=== PATIENT | male | born 1945 | race Caucasian/White ===

== ENCOUNTER 2020-05-07 07:30 | Inpatient (IN) | payer MEDICARE ==
--- NOTE | 2020-05-07 07:44 | ED ---
Weakness HPI - General Stated complaint: Poss stroke Time Seen by Provider: 05/07/20 07:30 Source: patient, EMS, RN notes reviewed Mode of arrival: EMS - History of Present Illness Initial comments: This is a 74-year-old male with no prior history of heart or cerebrovascular disease who had the onset around 2:30 AM this morning of slurred speech and some right facial droop right-sided upper or lower extremity weakness. He apparently fell out of bed at this time and could not get in by himself his did call family members who helped him in. He denies any headache blurry vision nausea vomiting or other symptoms he does state he still feels weak on the right side he does still demonstrate evidence of slurred speech no complaints or modifying factors at this time - Related Data Previous Rx's Medication Instructions Recorded Hydrocodone/Acetaminophen [Spencer 1 each PO Q6HR PRN #20 tab 07/31/14 5-325] Ibuprofen [Motrin] 600 mg PO Q6HR PRN #40 day 07/31/14 Tamsulosin [Flomax] 0.4 mg PO DAILY #3 cap 07/31/14 Allergies Allergy/AdvReac Type Severity Reaction Status Date / Time No Known Allergies Allergy Verified 05/07/20 07:52 Review of Systems ROS Statement: Those systems with pertinent positive or pertinent negative responses have been documented in the HPI. ROS Other: All systems not noted in ROS Statement are negative. Past Medical History Past Medical History: No Reported History History of Any Multi-Drug Resistant Organisms: None Reported Past Surgical History: No Surgical Hx Reported Past Psychological History: No Psychological Hx Reported Past Alcohol Use History: Rare Past Drug Use History: None Reported General Exam - General Exam Comments Initial Comments: This a well-developed well-nourished awake alert oriented 3 male Limitations: physical limitation General appearance: alert, anxious Head exam: Present: atraumatic, normocephalic, normal inspection Eye exam: Present: normal appearance, PERRL, EOMI. Absent: scleral icterus, conjunctival injection, periorbital swelling ENT exam: Present: normal exam, mucous membranes moist Neck exam: Present: normal inspection, full ROM, other (No stridor JVD or bruits). Absent: tenderness, meningismus, lymphadenopathy Respiratory exam: Present: normal lung sounds bilaterally. Absent: respiratory distress, wheezes, rales, rhonchi, stridor Cardiovascular Exam: Present: regular rate, normal rhythm, normal heart sounds. Absent: systolic murmur, diastolic murmur, rubs, gallop, clicks GI/Abdominal exam: Present: soft, normal bowel sounds. Absent: distended, tenderness, guarding, rebound, rigid Extremities exam: Present: normal inspection, full ROM, normal capillary refill. Absent: tenderness, pedal edema, joint swelling, calf tenderness Back exam: Present: normal inspection Neurological exam: Present: alert, oriented X3, motor sensory deficit (Patient does demonstrate evidence of her speech some right facial asymmetry in weakness to the right upper or lower extremities compared to the left.) Psychiatric exam: Present: normal affect, normal mood Skin exam: Present: warm, dry, intact, normal color. Absent: rash Course Vital Signs 05/07/20 05/07/20 07:48 07:52 Temperature 98.4 F 98.4 F Pulse Rate 89 88 Respiratory 17 17 Rate Blood Pressure 190/106 190/106 O2 Sat by Pulse 98 98 Oximetry - Reevaluation(s) Reevaluation #1: 05/07/20 07:44 A code stroke was called on the patient is since he arrived in the emergency department he was taken directly to CAT scan. Reevaluation #2: 05/07/20 08:24 Further information the patient's did arrive in symptoms may begun as early as 11 PM last night. Patient did have apparently 3 falls during the night. No injury reported initially the patient is a former smoker quit smoking about 5 years ago. He also developed some chest discomfort and shortness of breath earlier this morning he denies any other symptoms at this time. Reevaluation #3: 05/07/20 08:26 I did discuss the case with Dr. De La Torre rated patient is not a candidate for TPA nor intervention at this time the patient be admitted to this facility. Reevaluation #4: 05/07/20 08:28 The patient did have an NIH score of 10. He also did pass a swallow test. EKG Findings - EKG Results: EKG: interpreted by PILLO, sinus rhythm (Normal sinus rhythm of 90. Interval 180 QRS duration 112 QT since QTC 376/[address]-T wave changes) Medical Decision Making - Medical Decision Making I did discuss findings with the patient and his and with Devi from Dr. Lobo's group patient be admitted with consultation by Dr. Posadas. - Lab Data Result diagrams: 05/07/20 08:00 05/07/20 08:00 Lab Results 05/07/20 05/07/20 05/07/20 Range/Units 07:54 08:00 08:00 WBC 7.0 (3.8-10.6) k/uL RBC 4.21 L (4.30-5.90) m/uL Hgb 12.9 L (13.0-17.5) gm/dL Hct 37.6 L (39.0-53.0) % MCV 89.3 (80.0-100.0) fL MCH 30.7 (25.0-35.0) pg MCHC 34.4 (31.0-37.0) g/dL RDW 12.0 (11.5-15.5) % Plt Count 231 (150-450) k/uL MPV 7.6 Neutrophils % 68 % Lymphocytes % 24 % Monocytes % 6 % Eosinophils % 1 % Basophils % 1 % Neutrophils # 4.7 (1.3-7.7) k/uL Lymphocytes # 1.7 (1.0-4.8) k/uL Monocytes # 0.4 (0-1.0) k/uL Eosinophils # 0.1 (0-0.7) k/uL Basophils # 0.0 (0-0.2) k/uL PT 10.7 (9.0-12.0) sec INR 1.0 (<1.2) APTT 24.5 (22.0-30.0) sec Sodium (137-145) mmol/L Potassium (3.5-5.1) mmol/L Chloride (98-107) mmol/L Carbon Dioxide (22-30) mmol/L Anion Gap mmol/L BUN (9-20) mg/dL Creatinine (0.66-1.25) mg/dL Est GFR (CKD-EPI)AfAm (>60 ml/min/1.73 sqM) Est GFR (CKD-EPI)NonAf (>60 ml/min/1.73 sqM) Glucose (74-99) mg/dL POC Glucose (mg/dL) 157 H (75-99) mg/dL POC Glu Corner Bead Operator ID Taty Chavez Calcium (8.4-10.2) mg/dL Total Bilirubin (0.2-1.3) mg/dL AST (17-59) U/L ALT (4-49) U/L Alkaline Phosphatase (38-126) U/L Creatine Kinase (55-170) U/L Total Protein (6.3-8.2) g/dL Albumin (3.5-5.0) g/dL 05/07/20 Range/Units 08:00 WBC (3.8-10.6) k/uL RBC (4.30-5.90) m/uL Hgb (13.0-17.5) gm/dL Hct (39.0-53.0) % MCV (80.0-100.0) fL MCH (25.0-35.0) pg MCHC (31.0-37.0) g/dL RDW (11.5-15.5) % Plt Count (150-450) k/uL MPV Neutrophils % % Lymphocytes % % Monocytes % % Eosinophils % % Basophils % % Neutrophils # (1.3-7.7) k/uL Lymphocytes # (1.0-4.8) k/uL Monocytes # (0-1.0) k/uL Eosinophils # (0-0.7) k/uL Basophils # (0-0.2) k/uL PT (9.0-12.0) sec INR (<1.2) APTT (22.0-30.0) sec Sodium 136 L (137-145) mmol/L Potassium 4.7 (3.5-5.1) mmol/L Chloride 102 (98-107) mmol/L Carbon Dioxide 25 (22-30) mmol/L Anion Gap 9 mmol/L BUN 20 (9-20) mg/dL Creatinine 0.85 (0.66-1.25) mg/dL Est GFR (CKD-EPI)AfAm >90 (>60 ml/min/1.73 sqM) Est GFR (CKD-EPI)NonAf 86 (>60 ml/min/1.73 sqM) Glucose 174 H (74-99) mg/dL POC Glucose (mg/dL) (75-99) mg/dL POC Glu Corner Bead Operator ID Calcium 9.3 (8.4-10.2) mg/dL Total Bilirubin 0.7 (0.2-1.3) mg/dL AST 29 (17-59) U/L ALT 17 (4-49) U/L Alkaline Phosphatase 70 (38-126) U/L Creatine Kinase 59 (55-170) U/L Total Protein 7.3 (6.3-8.2) g/dL Albumin 3.9 (3.5-5.0) g/dL - Radiology Data Radiology results: report reviewed (I did review the imaging and reports and the CTs are unremarkable for evidence of obstruction. Recently completed reports), image reviewed Critical Care Time Critical Care Time: Yes Total Critical Care Time: 39 Critical Care Time: The critical care time includes initial presentation with history physical labs x-rays multiple re-evaluations patient discussion with the paramedics upon arrival discussed with the patient's discuss with the main physician discussion with interventional neurology. Admission orders and documentation of the above Disposition Clinical Impression: Cerebrovascular accident (CVA), Hypertension, Type 2 diabetes mellitus Disposition: ADMITTED IP TO THIS [facility] Condition: Fair Referrals: None,Stated [Primary Care Provider] - 1-2 days
[2020-05-07 07:56] LABS: Glucose,Whole Blood 157 mg/dL (75-99)
--- NOTE | 2020-05-07 07:57 | CT ---
EXAMINATION TYPE: CT brain wo con DATE OF EXAM: 05/07/2020 HISTORY: CODE STROKE, acute onset right-sided weakness. CT DLP: 455 mGycm. Automated Exposure Control for Dose Reduction was Utilized. TECHNIQUE: CT scan of the head is performed without contrast. COMPARISON: None. FINDINGS: There is no acute intracranial hemorrhage or midline shift identified. There is mild to m oderate diffuse ventricular and sulcal prominence consistent with diffuse age-related cerebral atroph y. There is mild low-attenuation in the periventricular white matter consistent with chronic small v essel ischemic change. The globes are intact and the visualized sinuses are clear. IMPRESSION: No acute intracranial hemorrhage or midline shift. There is mild to moderate diffuse ag e-related cerebral atrophy and mild chronic small vessel ischemic change noted.
[2020-05-07 08:11] LABS: Basophils % (A) 1 %; Eosinophils # (A) 0.1 k/uL (0-0.7); Eosinophils % (A) 1 %; HCT 37.6 % (39.0-53.0); HGB 12.9 gm/dL (13.0-17.5); Lymphocytes # (A) 1.7 k/uL (1.0-4.8); Lymphocytes % (A) 24 %; MCH 30.7 pg (25.0-35.0); MCHC 34.4 g/dL (31.0-37.0); MCV 89.3 fL (80.0-100.0); Mean Platelet Volume 7.6; Monocytes # (A) 0.4 k/uL (0-1.0); Monocytes % (A) 6 %; Neutrophils # (A) 4.7 k/uL (1.3-7.7); Neutrophils % (A) 68 %; Platelet Count 231 k/uL (150-450); RBC 4.21 m/uL (4.30-5.90)
[2020-05-07] MEDS ORDERED: ASPIRIN 81 MG PO STA (08:19)
[2020-05-07] MEDS ORDERED: ATORVASTATIN 80 MG TAB PO STA (08:19)
[2020-05-07 08:20] LABS: ALT 17 U/L (4-49); AST 29 U/L (17-59); African American GFR (CKD) >90 (>60 ml/min/1.73 sqM); Albumin 3.9 g/dL (3.5-5.0); Alkaline Phosphatase 70 U/L (38-126); Anion Gap 9 mmol/L; Blood Urea Nitrogen 20 mg/dL (9-20); Calcium 9.3 mg/dL (8.4-10.2); Carbon Dioxide 25 mmol/L (22-30); Chloride 102 mmol/L (98-107); Creatine Kinase 59 U/L (55-170); Glucose 174 mg/dL (74-99); Non-African American GFR(CKD) 86 (>60 ml/min/1.73 sqM); Potassium 4.7 mmol/L (3.5-5.1); Sodium 136 mmol/L (137-145); Total Bilirubin 0.7 mg/dL (0.2-1.3); Total Protein 7.3 g/dL (6.3-8.2)
[2020-05-07] MEDS ORDERED: CLOPIDOGREL 75 MG TAB PO STA (08:20)
[2020-05-07 08:21] LABS: Partial Thromboplastin Time 24.5 sec (22.0-30.0); Prothrombin Time 10.7 sec (9.0-12.0)
[2020-05-07] MEDS ORDERED: SODIUM CHLORIDE 0.9% 500 ML 500 ML IV STA (08:23)
[2020-05-07] MEDS ORDERED: SODIUM CHLORIDE 0.9% 1,000 ML IV STA (08:23)
--- NOTE | 2020-05-07 08:41 | XR ---
EXAMINATION TYPE: XR chest 2V DATE OF EXAM: 05/07/2020 COMPARISON: NONE HISTORY: Left-sided weakness. TECHNIQUE: Frontal and lateral views of the chest are obtained. FINDINGS: Overlying EKG leads. There is no focal air space opacity, pleural effusion, or pneumothora x seen. The cardiac silhouette size is within normal limits. Ectatic thoracic aorta causes right-becky ed tracheal deviation. The osseous structures are intact. IMPRESSION: No acute cardiopulmonary process.
[2020-05-07] MEDS ORDERED: ENALAPRILAT 1.25 MG/ML 1 ML VIAL IVP STA (08:42)
--- NOTE | 2020-05-07 08:53 | CT ---
EXAMINATION TYPE: CT angio head neck DATE OF EXAM: 05/07/2020 COMPARISON: CT brain same day HISTORY: 74-year-old male CODE STROKE, Right sided weakness TECHNIQUE: Contiguous axial scanning of the had a neck performed with IV Contrast, patient injected w ith 65 ml mL of Isovue 370. Coronal/sagittal MIP reconstructions performed. 3-D reconstructions gener ated on a dedicated independent workstation. CT DLP: 736.7 mGycm Automated exposure control for dose reduction was used. FINDINGS: NECK: Moderate centrilobular emphysema in the visualized upper lungs. Moderate atherosclerotic plaque and calcification within the aortic arch. There is conventional branc emerald anatomy. Left vertebral artery is slightly more dominant but otherwise, both vessels are patent throughout the ir course. The upper right common carotid artery has a retropharyngeal course as does the carotid bifurcation an d proximal right ICA. Moderate atherosclerotic plaque and calcification at the right carotid bifurcation with mild, less th an 40% narrowing within the right carotid bulb. Bilateral scattered plaque within the proximal left common carotid artery without significant narrowi ng. Additional scattered mild atelectatic plaque upper left common carotid artery. Moderate plaque and calcification in the proximal left internal carotid artery with a mild, less than 30% narrowing of the proximal left ICA just above the level of the carotid bulb. The remainder of th e left ICA is patent. HEAD: Dominant left vertebral artery. The V4 segment right vertebral artery becomes even more hypoplastic a fter the take off of the posterior inferior cerebellar artery. There is mild focal narrowing along the midportion of the V4 segment left vertebral artery. Otherwise, vertebral and basilar arteries are patent. There is mild to moderate atherosclerotic narrowing of the P1 segment right posterior cerebral artery . Moderate atherosclerotic narrowing throughout the bilateral carotid secondary to atherosclerotic ca lcifications. Mild irregular atherosclerotic narrowing throughout the distal MCA branches. Otherwise, the anterior circulation is patent. No aneurysmal change identified. IMPRESSION: NECK: 1. MILD ATHEROSCLEROTIC NARROWING WITHIN THE BILATERAL PROXIMAL ICA's, LESS THAN 40% ON THE RIGHT AND LESS THAN 30% ON THE LEFT. NO HEMODYNAMICALLY SIGNIFICANT INTERNAL CAROTID ARTERY STENOSIS ON EITHER SIDE. 2. DOMINANT LEFT VERTEBRAL ARTERY. HEAD: 3. MODERATE ATHEROSCLEROTIC NARROWING THROUGHOUT THE BILATERAL CAROTID SIPHONS. 4. 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 5. ADDITIONAL SCATTERED MILD ATHEROSCLEROTIC NARROWING THROUGHOUT THE INTRACRANIAL CIRCULATION. NO LA RGE VESSEL INTRACRANIAL ARTERIAL OCCLUSION OR ANEURYSMAL CHANGE IS SEEN.
[2020-05-07] MEDS ORDERED: NON FORMULARY DRUG (Glucosam/Chon-Msm1/C/Mang/Bosw [Glucosamine-Chondroitin-Msm Tb] 1 EACH PO SCH (09:00)
[2020-05-07] MEDS ORDERED: NON FORMULARY DRUG (Omega-3 Fatty Acids/Fish Oil [Fish Oil 1,000 Mg Softgel] 1 EACH Capsul PO SCH (09:00)
[2020-05-07] MEDS ORDERED: lisinopriL 10 MG TAB PO SCH (09:00)
[2020-05-07] MEDS ORDERED: CLOPIDOGREL 75 MG TAB PO SCH (09:00)
[2020-05-07] MEDS: FAMOTIDINE 20 MG TAB PO SCH ×2 (10:26→20:39)
[2020-05-07] MEDS: MELOXICAM 7.5 MG TAB PO SCH (10:26)
[2020-05-07 11:45] LABS: Glucose,Whole Blood 134 mg/dL (75-99)
--- NOTE | 2020-05-07 11:56 | P.HPIM ---
History of Present Illness this is a pleasant 74 yo M with past medical history of hypertension and type 2 diabetes mellitus . He has a new PCP at [facility]. He has also history of chronic back pain and used to see a spine surgeon who recommended surgery for him but he declined Patient presents with slight slurred speech and right facial droop with right s lizbet upper and lower extremity weakness that started earlier morning and about 2:30 a.m. Also patient fell out of his bed. History was taken from the patient and at bedside. It looks like the noemí dan developed weakness in his right upper and lower extremity 2 days ago and he felt but the did not know at that time. Patient states he noticed some improvement in his right side however merely morning today he noticed worsening in his right sided weakness and he fell again trying to getting into the bedroom, tried to help him to go to the bathroom when he fell again for the third time, and that time was noticed weakness in his right side and slurred speech and they called EMS. And denies headache. No chest pain or dyspnea. No diarrhea or urinary problem. No fever He is ex-smoker, quit about 5 years ago. No illicit drugs and occasional alcohol. Vitals stable except for blood pressure on the high side 190/106 on admission and currently 176/89 labs including CBC, BMP and liver enzymes are unremarkable. Troponin is negative less than 0.012. Coronal varus not detected. Glucose 175. Chest x-ray: No acute process. CTA of the brain: Mild atherosclerotic narrowing within the bilateral proximal ICA, less than 40% on the right and less than 30% on the left. No hemodynamic significant stenosis. Moderate atherosclerotic narrowing throughout the bilateral carotid C findings. 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 CT of the brain: No acute intracranial hemorrhage. Diffuse cerebral atrophy and mild chronic ischemic vessel EKG showed normal sinus rhythm at 90 bpm, no significant ST-T changes Patient already got aspirin and Plavix, already got antihypertensive medication. Review of Systems CONSTITUTIONAL: No fever, no malaise, no fatigue. HEENT: No recent visual problems or hearing problems. Denied any sore throat. CARDIOVASCULAR: No orthopnea, PND, no palpitations, no syncope. PULMONARY: No shortness of breath, no cough, no hemoptysis. GASTROINTESTINAL: No diarrhea, no nausea, no vomiting, no abdominal pain. Normoactive bowel sounds. NEUROLOGICAL: No headaches, no neck pain or stiffness. HEMATOLOGICAL: Denies any bleeding or petechiae. GENITOURINARY: Denies any burning micturition, frequency, or urgency. MUSCULOSKELETAL/RHEUMATOLOGICAL: Denies any joint pain, swelling, or any muscle pain. ENDOCRINE: Denies any polyuria or polydipsia. Past Medical History Past Medical History: Diabetes Mellitus, GERD/Reflux, Hypertension, Skin Disorder Additional Past Medical History / Comment(s): Pt states he felt heart palpitations/racing about 2 weeks ago, spinal stenosis with chronic low back pain and knees will "give out", FALLS, constipation, hiatal hernia, NIDDM diagnosed less than a year ago/neuropathy bilateral feet, small sores posterior neck for approximately one year. History of Any Multi-Drug Resistant Organisms: None Reported Past Surgical History: No Surgical Hx Reported Additional Past Surgical History / Comment(s): Pt/spouse state pt has never had surgery. Past Anesthesia/Blood Transfusion Reactions: Unable to Obtain Smoking Status: Former smoker - Past Family History Mother Family Medical History: Cancer Additional Family Medical History / Comment(s): stomach cancer. Father Additional Family Medical History / Comment(s): "heart problems" Brother(s) Family Medical History: Diabetes Mellitus Medications and Allergies Home Medications Medication Instructions Recorded Confirmed Type Acetaminophen Tab [Tylenol Tab] 500 mg PO Q6H PRN 05/07/20 05/07/20 History Glucosam/Pancho-Msm1/C/Brent/Bosw 1 tab PO DAILY 05/07/20 05/07/20 History [Yricvkhjdfb-Cdupcrfwgbp-YKJ Tb] Lisinopril [Prinivil] 10 mg PO DAILY 05/07/20 05/07/20 History Meloxicam [Mobic] 15 mg PO DAILY 05/07/20 05/07/20 History [place]-3 Fatty Acids/Fish Oil [Fish 1 cap PO DAILY 05/07/20 05/07/20 History Oil 1,000 mg Softgel] metFORMIN HCL [Glucophage] 500 mg PO DAILY 05/07/20 05/07/20 History Allergies Allergy/AdvReac Type Severity Reaction Status Date / Time No Known Allergies Allergy Verified 05/07/20 08:35 Physical Exam Vitals: Vital Signs Temp Pulse Resp BP Pulse Ox 05/07/20 10:30 89 16 176/89 96 05/07/20 09:30 98.7 F 85 18 191/95 98 05/07/20 07:52 98.4 F 88 17 190/106 98 05/07/20 07:48 98.4 F 89 17 190/106 98 Intake and Output 05/06/20 05/07/20 05/07/20 22:59 06:59 14:59 Other: Weight 114 kg -GENERAL: The patient is alert and oriented x3, not in any acute distress. Obese HEENT: Pupils are round and equally reacting to light. EOMI. No scleral icterus. No conjunctival pallor. Normocephalic, atraumatic. No pharyngeal erythema. No thyromegaly. CARDIOVASCULAR: S1 and S2 present. No murmurs, rubs, or gallops. PULMONARY: Chest is clear to auscultation, no wheezing or crackles. ABDOMEN: Soft, nontender, nondistended, normoactive bowel sounds. No palpable organomegaly. MUSCULOSKELETAL: No joint swelling or deformity. EXTREMITIES: No cyanosis, clubbing, or pedal edema. -NEUROLOGICAL: Patient has deviation of the most of the left side. Right side weakness and strength of right upper extremity and right lower extremity. Left side is intact and sensation and strength meningeal signs are absent SKIN: No rashes. No petechiae Results CBC & Chem 7: 05/07/20 08:00 05/07/20 08:00 Labs: Abnormal Lab Results - Last 24 Hours (Table) 05/07/20 05/07/20 05/07/20 Range/Units 07:54 08:00 08:00 RBC 4.21 L (4.30-5.90) m/uL Hgb 12.9 L (13.0-17.5) gm/dL Hct 37.6 L (39.0-53.0) % Sodium 136 L (137-145) mmol/L Glucose 174 H (74-99) mg/dL POC Glucose (mg/dL) 157 H (75-99) mg/dL Thrombosis Risk Factor Assmnt - Choose All That Apply Any of the Below Risk Factors Present?: Yes Other Risk Factors: Yes Each Risk Factor Represents 2 Points: Age 61-74 years Other congenital or acquired thrombophilia - If yes, enter type in comment: No Each Risk Factor Represents 5 Points: Stroke (< 1 month) Thrombosis Risk Factor Assessment Total Risk Factor Score: 7 Thrombosis Risk Factor Assessment Level: High Risk Assessment and Plan Assessment: acute stroke with right-sided hemiparesis , right facial droop and slurred speech. type 2 diabetes mellitus Essential hypertension History of chronic back pain, declined surgery Obesity with BMI of 32.3 Plan: this is a pleasant 74 years old male who presents with possible CVA with right hemiparesis. Continue with aspirin. He is also currently on Plavix pending further recommendation by neurologist regarding this medication. Continue with Lipitor. Also check hemoglobin A1c, vitamin B12, folate and TSH. Check echocardiogram. continue with telemetry. Continue with neuro check for 24 hours. Check carotid duplex. Neurologic consult and evaluation. We will allow for permissive hypertension for the first 24-48 hours PT/OT and speech team evaluation Labs and medication were reviewed.. Continue same treatment. Continue with symptomatic treatment. Resume home medication. Monitor lytes and vitals. DVT and GI prophylaxis. Further recommendations depends on the clinical course of the patient DVT prophylaxis: Subcutaneous heparin GI Prophylaxis: Pepcid Prognosis is guarded
[2020-05-07] MEDS: metFORMIN 500 MG TAB PO SCH (12:01)
--- NOTE | 2020-05-07 13:11 | P.CNNES ---
History of Present Illness Consult date: 05/07/20 Requesting physician: Tank Crawley Reason for Consult: right facial droop and right sided weakness History of Present Illness: This is a 74-year-old gentleman with history of lumbar spondylosis, hypertension and diabetes that presented to the emergency department on the 05/07/2020 for slurred speech, right facial droop and right-sided weakness. Patient is accompanied with his (Fernanda). According to patient he started having the right-sided weakness with facial weakness that started on 05/06/2020 at 11:30pm and refused to tell anybody since he stated that "it was none of nobody business". His slept about 2-1/2 earlier than him so she is not aware that he had weakness. So he decided to go to bed and seems she had multiple falls overnight as a result of his weakness when he woke up. In the morning his noted that he had the weakness over the right side with facial weakness as well as slurring the speech patient Does think he is doing well. His called his son but patient kept on saying he was doing well then finally was convinced to come to the hospital. Patient is not on any antiplatelets or statin. According to the he has a diabetes for one year and unsure of the history of hypertension. Patient does not have history of stroke or TIA in the past. Patient denies of any atrial fibrillations his knowledge by stated he's been having chest pain for the last 1 week to 1 week and a half. Patient is a former smoker and that stopped about 5 years ago. Per the ED note around 2:30 AM this morning patient had slurred speech and right-sided weakness with facial droop and it appears the patient fell out of bed around that time as a result his called family members to help him. But with further history frm the , it seems that the patient's symptoms actually began 11 PM last night he apparently had 3 falls during the night. Workup in the hospital consisted of: On initial presentation the patient blood pressure is 190/106, heart rate of 89, respiratory of 17, temperature of 98.4 Fahrenheit oral and pulse ox of 98% room air. CT of the head is reported as no acute intracranial hemorrhage or midline shift. There is mild to moderate diffuse age-related cerebral atrophy and mild chronic small vessel ischemic change noted. CT angiography of the head and neck was reported as per the head is reported as moderate at this carotid narrowing throughout the bilateral carotid siphons. V4 segment right vertebral artery becomes hypoplastic after the PICA takeoff, like ly on a congenital basis. Additional scattered mild atherosclerotic narrowing throughout the intracranial circulation. No large vessel intracranial occlusion or aneurysm changes seen. While the neck was reported as mild at this carotid narrowing within the bilateral proximal internal carotid artery, less than 40% on the right and less than 30% on the left. No hemodynamically significant internal carotid artery stenosis on either side. Dominant left vertebral artery. EKG is reported as normal sinus rhythm. Normal EKG. Initial POC glucose is 157. Patient NIH per the ED team was a 10 initially and the points were 1 for loss of consciousness with the questioning, 1 for the arm, 3 for the right leg, 2 for the facial, 1 for sensory, 1 for dysarthria 1 for limb ataxia on the repeated patient NIH improved to 8 with improvement in the sensory and the leg was improved slightly down from a 3 to a 2. Stroke code was activated and Dr. De La Torre stated patient is not tpa candidate since outside window. Patient to be admitted to our facility In the ED the patient received enalaprilat 2.5mg IVP and was started on Lisinopril by ED team. Review of Systems Review of system is limited but the prior positive and negative as per HPI. Past Medical History Past Medical History: Diabetes Mellitus, GERD/Reflux, Hypertension, Skin Di sorder Additional Past Medical History / Comment(s): Pt states he felt heart palpitations/racing about 2 weeks ago, spinal stenosis with chronic low back pain and knees will "give out", FALLS, constipation, hiatal hernia, NIDDM diagnosed less than a year ago/neuropathy bilateral feet, small sores posterior neck for approximately one year. History of Any Multi-Drug Resistant Organisms: None Reported Past Surgical History: No Surgical Hx Reported Additional Past Surgical History / Comment(s): Pt/spouse state pt has never had surgery. Past Anesthesia/Blood Transfusion Reactions: Unable to Obtain Smoking Status: Former smoker - Past Family History Mother Family Medical History: Cancer Additional Family Medical History / Comment(s): stomach cancer. Father Additional Family Medical History / Comment(s): "heart problems" Brother(s) Family Medical History: Diabetes Mellitus Medications and Allergies Home Medications Medication Instructions Recorded Confirmed Type Acetaminophen Tab [Tylenol Tab] 500 mg PO Q6H PRN 05/07/20 05/07/20 History Glucosam/Pancho-Msm1/C/Brent/Bosw 1 tab PO DAILY 05/07/20 05/07/20 History [Jdteonlaard-Grnrqpiaewb-TEC Tb] Lisinopril [Prinivil] 10 mg PO DAILY 05/07/20 05/07/20 History Meloxicam [Mobic] 15 mg PO DAILY 05/07/20 05/07/20 History [place]-3 Fatty Acids/Fish Oil [Fish 1 cap PO DAILY 05/07/20 05/07/20 History Oil 1,000 mg Softgel] metFORMIN HCL [Glucophage] 500 mg PO DAILY 05/07/20 05/07/20 History Allergies Allergy/AdvReac Type Severity Reaction Status Date / Time No Known Allergies Allergy Verified 05/07/20 08:35 Physical Examination - Vital Signs Vital Signs: Vital Signs Temp Pulse Resp BP Pulse Ox 05/07/20 10:30 89 16 176/89 96 05/07/20 09:30 98.7 F 85 18 191/95 98 05/07/20 07:52 98.4 F 88 17 190/106 98 05/07/20 07:48 98.4 F 89 17 190/106 98 Intake and Output 05/06/20 05/07/20 05/07/20 22:59 06:59 14:59 Other: Weight 114 kg GENERAL: The patient is lying in bed and is not in acute distress. CHEST: The heart rate is regular rate rhythm. No murmurs to auscultation. No carotid bruit bilaterally. LUNG: Clear to auscultation bilaterally no wheezing noted throughout. Not labored breathing. ABDOMEN/GI: Bowel sounds present in all 4 quadrants. No tenderness to palpation throughout. NEUROLOGICAL: Higher mental function: The patient is awake, alert, oriented to self. He stated he is in the hospital but could not tell which. Regarding month he correctly chose correct one with options. He stated the year was 2021. Patient is following commands. No aphasia and no neglect. Cranial nerves: The pupils are round, equal and reactive to light and accommodation. Visual arteaga are full to confrontation throughout. Extraocular movement is intact no nystagmus is noted. Facial sensation is normal to touch throughout. The patient has moderate right lower facial droop. Hearing is mildly to moderate decreased to hand rubs bilaterally. Tongue is midline and moved [id number] without any difficulty. Has mild to moderate dysarthria. Motor: Gait is deferred. The strength in proximal is 5- while distal is 4+ with hand utilization review specialist about 4+/5. RIght lower proximal is 4+/5, right knee extenstion/flexion is 3-4/5 while ankle are 4+ to 5-. Left is 5/5. Normal tone and bulk. Cerebellum: Normal finger to nose on the left while right his right hand weak and could not be assessed. Sensation: Sensation is normal to touch throughout. Reflexes (right/left): 2+ throughout except patellar is 3+ bilaterally, left ankle is 2+ and right ankle is 1+. Plantars is upgoing on the right and downgoing on the left. NIH Stroke Scale Score: Level of consciousness 0 LOC questions 1 LOC commands 0 Best gaze 0 Visual arteaga 0 Facial palsy 2 Left motor arm 0 Right motor arm 1 Left motor leg 2 Right motor leg Limb ataxia Unable to assess Sensory 0 Best language 0 Dysarthria 1 Extinction and inattention 0 Total NIHSS score: 7 Results Correlation study: PT of 10.7, INR 1.0 and PTT of 24.5 Holcomb virus PCR was not detected. - Laboratory Findings CBC and BMP: 05/07/20 08:00 05/07/20 08:00 Abnormal Lab Findings: Abnormal Labs 05/07/20 05/07/20 05/07/20 07:54 08:00 08:00 RBC 4.21 L Hgb 12.9 L Hct 37.6 L Sodium 136 L Glucose 174 H POC Glucose (mg/dL) 157 H 05/07/20 11:43 RBC Hgb Hct Sodium Glucose POC Glucose (mg/dL) 134 H Assessment and Plan Assessment: This is a 74-year-old gentleman that presented to the emergency department on the 05/07/2020 for slurred speech, right facial droop and right-sided weakness. It seems that the patient's symptoms began 11 PM on 05/06/2020 and apparently had 3 falls during the night. No IV tpa since outside window. Acute ischemic stroke with ( slurred speech, right facial droop and right-sided weakness). Seems small vessel disease from risk factors (HTN, DM). Cannot rule out cardioembolic at this time. Mild internal carotid stenosis ((<40% on rExight and <30% left per CTA) History of lumbar spondylosis Hypertension Diabetes mellitus Ex-tobacco use Plan: CT of the head is reported as no acute intracranial hemorrhage or midline shift. There is mild to moderate diffuse age-related cerebral atrophy and mild chronic small vessel ischemic change noted. CT angiography of the head and neck was reported as per the head is reported as moderate at this carotid narrowing throughout the bilateral carotid siphons. 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 Additional scattered mild atherosclerotic narrowing throughout the intracranial circulation. No large vessel intracranial occlusion or aneurysm changes seen. While the neck was reported as mild at this carotid narrowing within the bilateral proximal internal carotid artery, less than 40% on the right and less than 30% on the left. No hemodynamically significant internal carotid artery stenosis on either side. Dominant left vertebral artery. I ordered MRI the brain. Carotid duplex is ordered by the primary team. 2-D echo and and lipid panel is ordered by the ED and is pending. TSH, hemoglobin A1c, vitamin B12, folate is ordered by the primary team PT, OT and CONDOMINIUM MANAGER are consulted Continue neuro checks every 4 hours. Continue telemetry continous monitoring In the ED the patient received aspirin 325 mg once Plavix 75 mg once and Lipitor at 80 mg once stat. Patient started on aspirin 325mg daily Plavix 75 mg daily by the ED team. I will lower the aspirin from 325mg to 81mg and to continue his Plavix 75 mg. Continue dual antiplatelets for 21 days then discontinue Plavix after that and to remain on aspirin 81 mg indefinitely Patient is on Lipitor 80 mg daily for secondary stroke prophylaxis. I highly recommend permissive hypertensive for the first 24-48 hours and only control of the systolic blood pressure is more than 200 and diastolic is more than 100. We'll defer the management to the primary team. We'll defer the rest of medical management to the primary team. The plan is discussed with the patient, his and his nurse. Thank you for the consultation. Sonny Posadas MD Neuro-Hospitalist Time with Patient: Greater than 30
--- NOTE | 2020-05-07 14:00 | US ---
EXAMINATION TYPE: US carotid duplex BILAT DATE OF EXAM: 05/07/2020 COMPARISON: CTA neck earlier today CLINICAL HISTORY: stroke. stroke, right sided weakness EXAM MEASUREMENTS: RIGHT: Peak Systolic Velocity (PSV) cm/sec ----- Right CCA: 94.4 ----- Right ICA: 171.7 ----- Right ECA: 122.6 ICA/CCA ratio: 1.8 RIGHT: End Diastole cm/sec ----- Right CCA: 20.8 ----- Right ICA: 36.9 ----- Right ECA: 14.4 LEFT: Peak Systolic Velocity (PSV) cm/sec ----- Left CCA: 84.5 ----- Left ICA: 91.1 ----- Left ECA: 103.4 ICA/CCA ratio: 1.1 LEFT: End Diastole cm/sec ----- Left CCA: 15.3 ----- Left ICA: 14.2 ----- Left ECA: 12.8 VERTEBRALS (direction of flow): Right Vertebral: Antegrade Left Vertebral: Antegrade Mild plaque bilateral bifurcations. Increased. Systolic velocity right internal carotid artery. No ab normal ratio or elevated end-diastolic velocity IMPRESSION: Mild to moderate atherosclerotic changes bilaterally greater on the right without hemo dynamically significant stenosis seen in either internal carotid artery. Findings correlate with same day CTA neck study. Criteria for Assigning % of Stenosis / Diameter reduction (Estimation based on the indirect measurements of the internal carotid artery velocities (ICA PSV). 1. Normal (no stenosis)=ICA PSV < 125 cm/s: ratio < 2.0: ICA EDV<40 cm/s. 2. Less than 50% stenosis=ICA PSV < 125 cm/s: ratio < 2.0: ICA EDV<40 cm/s. 3. 50 to 69% stenosis=ICA PSV of 125 to 230 cm/s: ration 2.0 ? 4.0: ICA EDV 40-100 cm/s. 4. Greater than 70% stenosis to near occlusion= ICA PSV > 230 cm/s: ratio > 4.0: ICA EDV > 100 cm/s. 5. Near occlusion= ICA PSV velocities may be low or undetectable: variable ratio and ICA EDV. 6. Total occlusion=unable to detect flow.
[2020-05-07] MEDS: ACETAMINOPHEN TAB 325 MG TAB PO PRN (15:44)
[2020-05-07 16:50] LABS: Glucose,Whole Blood 134 mg/dL (75-99)
[2020-05-07] MEDS: ALBUTEROL HFA INHALER INHALATION PRN ×2 (16:55→20:31)
[2020-05-07 20:33] LABS: Glucose,Whole Blood 126 mg/dL (75-99)
[2020-05-07] MEDS: HEPARIN SODIUM,PORCINE 5,000 UNIT/ML 1 ML VIAL SQ SCH (20:39)
[2020-05-07] MEDS: ATORVASTATIN 80 MG TAB PO SCH (20:39)
[2020-05-08 00:23] LABS: Hemoglobin A1C 6.2 % (4.0-6.0)
[2020-05-08 06:32] LABS: Glucose,Whole Blood 139 mg/dL (75-99)
[2020-05-08] MEDS ORDERED: ASPIRIN 325 MG TAB PO SCH (09:00)
[2020-05-08 09:13] LABS: Cholesterol 156 mg/dL (<200); HDL Cholesterol 34 mg/dL (40-60); LDL Cholesterol,Calculated 91 mg/dL (0-99); Triglycerides 154 mg/dL (<150)
--- NOTE | 2020-05-08 09:19 | MR ---
EXAMINATION TYPE: MR brain wo con DATE OF EXAM: 05/08/2020 COMPARISON: CT brain from yesterday HISTORY: Stroke: right sided weakness, acute onset neuro deficit on admission yesterday. TECHNIQUE: Multiplanar, multisequence imaging of the brain and brainstem is performed without IV cont rast. FINDINGS: Exam slightly suboptimal as patient could not hold still and stay awake. Repeat sequences performed. Diffusion weighted images demonstrate roughly 12 x 7 mm area of increased signal on diffusion weighte d images with diminished signal on ADC mapping showing T2 hyperintensity in the periventricular left parietal lobe at region of meyer radiata image 160 series 305 consistent with evolving acute infarct . Persistent mild to moderate ventricular and sulcal prominence. Scattered areas of T2 hyperintensity t hroughout the white matter greatest periventricular region redemonstrated. Midline structures demonstrate normal morphology. The craniocervical junction appears within normal limits. Normal vascular flow voids are present. The visualized sinuses are clear and the globes are i ntact. IMPRESSION: Evolving small acute infarct left parietal periventricular white matter at level of coron a radiata on background mild to moderate diffuse cerebral atrophy and chronic small vessel ischemic c hange.
[2020-05-08] MEDS: ASPIRIN 81 MG PO SCH (09:41)
[2020-05-08] MEDS: FAMOTIDINE 20 MG TAB PO SCH ×2 (09:41→20:39)
[2020-05-08] MEDS: metFORMIN 500 MG TAB PO SCH (09:41)
[2020-05-08] MEDS: MELOXICAM 7.5 MG TAB PO SCH (09:41)
[2020-05-08] MEDS: CLOPIDOGREL 75 MG TAB PO SCH (09:42)
[2020-05-08] MEDS: HEPARIN SODIUM,PORCINE 5,000 UNIT/ML 1 ML VIAL SQ SCH ×2 (09:43→20:39)
[2020-05-08 09:46] LABS: Folate, Serum 15.6 ng/mL
--- NOTE | 2020-05-08 11:31 | P.CRDCN ---
History of Present Illness History of present illness: HISTORY OF PRESENTING ILLNESS This is a pleasant 74 -year-old male past medical history significant for Type 2 Diabetes, Hypertension, former smoker (quit 5 years ago, started at age 15 and smoked 1 pack per day) . He states he has never seen a transit worker. We have been asked to see in consultation for chest pain. Patient is seen and examined at bedside resting comfortably, no acute distress. Alert and oriented to person and knows hes in the hosptial. On 05/07/2020 at 2:30 in the morning patient's noted that the patient had slurred speech, right-sided facial droop and right-sided weakness. Patient fell out of bed, and the patient was brought to the emergency department. Per the emergency department notes, symptoms began around 11PM last 3/3 night and had multiple falls during the night. When asking the patient about his previous chest pain. Patient states that chest pain started on 31, he felt a pounding and sharp 5/10 left-sided chest pain. Chest pain lasted about 2 days and resolved. Pain is nonradiating He endorses feeling some shortness of breath and felt symptoms of palpitations. Denies symptoms of lightheadedness, dizziness, fatigue, symptoms of orthopnea or PND.Patient denies history of CT, abnormal/irregular heart rhythm, previous s trokes, or heart failure. He denies every undergoing a cardiac catheterization. Patient denies alcohol use or illicit drug use. Neurology is following patient. Laboratory data reviewed, hemoglobin 12.9, WBC 7, lipids 231, sodium 136, potassium 4.7, renal function stable creatinine 0.5, hemoglobin A1c 6.2, troponin negative 2. TG 154, cholesterol 156, LDL 91, HDL 34. Vital signs blood pressure 199/100, heart rate 85, afebrile, oxygen saturation 97% on room air. DIAGNOSTICS EKG reveals sinus rhythm HR 90, no significant ST segment changes No prior EKGs to compare Telemetry tracings indicate sinus rhythm HR 80s-90s Chest xray no acute cardiopulmonary process CT brain: No acute intracranial hemorrhage or midline shift mild to moderate diffuse age-related cerebral atrophy and mild chronic small vessel ischemic change noted Ct angiography of head and neck: Mild atherosclerotic narrowing within the bilateral proximal ICAs. Less than 40% on the right and less than 30% on the left. No hemodynamically significant internal carotid artery stenosis on either side. Moderate atherosclerotic narrowing throughout the bilateral carotid siphon. Additional scattered mild atherosclerotic narrowing throughout the intracranial circulation. No large vessel intracranial artery occlusion or aneurysm seen. Carotid dopplers: Mild to moderate atherosclerotic changes bilaterally greater on the right without hemodynamically significant stenosis seen in either internal carotid artery MRI Brain- Evolving small acute infarct left parietal perivenetriular white matter at level of meyer radiata on background mild to moderate diffuse cerebral atrophy and chronic small vessel ischemic change. Current home cardiac medications include lisinopril 10 mg daily. REVIEW OF SYSTEMS At the time of my exam: CONSTITUTIONAL: Denies fever or chills. CARDIOVASCULAR: +chest pain, +shortness of breath +palpitations Denies orthopnea, PND RESPIRATORY: Denies cough. GASTROINTESTINAL: +nausea Denies abdominal pain, diarrhea, constipation, or vomiting. MUSCULOSKELETAL: Denies myalgias. NEUROLOGIC: Denies numbness, tingling, headacbe or weakness. ENDOCRINE: Denies fatigue, weight change, polydipsia or polyurina. GENITOURINARY: Denies burning, hematuria or urgency with micturation. HEMATOLOGIC: Denies history of anemia or bleeding. PHYSICAL EXAMINATION CONSTITUTIONAL: No apparent distress. HEENT: Head is normocephalic. Pupils are equal, round. Sclerae anicteric. Mucous membranes of the mouth are moist. No JVD. No carotid bruit. CHEST EXAMINATION: Lungs are clear to auscultation. No chest wall tenderness is noted on palpation or with deep breathing. HEART EXAMINATION: Regular rate and rhythm. S1, S2 heard. No murmurs, gallops or rub. ABDOMEN: Soft, nontender. Positive bowel sounds. SKIN: ecchymosis on left side of chest EXTREMITIES: 2+ peripheral pulses, no lower extremity edema and no calf te nderness. NEUROLOGIC EXAMINATION: +right sided facial droop Patient is awake, alert and oriented x 2. ASSESSMENT -Acute ischemic stroke patient with slurred speech, right sided weakness and right sided facial droop. Per neurology most likely small vessel disease, however, want to rule out cardioembolic cause. -Hypertension -Type 2 Diabetes -Former smoker -Mild to moderate internal carotid artery stenosis PLAN -TTE ordered -Neurology recommending JULIA- patient already ate today. JULIA ordered for tomorrow. -Patient on Plavix 75mg daily,ASA 81mg daily and Lipitor 80mg nightly, lisinopril 10mg daily -DVT prophylaxis with Sub Q heparin -Patient would benefit with an event monitor on discharge to rule out atrial fibrillation. Nurse Practitioner note has been reviewed, I agree with a documented findings and plan of care. Patient was seen and examined. Past Medical History Past Medical History: Diabetes Mellitus, GERD/Reflux, Hypertension, Skin Disorder Additional Past Medical History / Comment(s): Pt states he felt heart palpitations/racing about 2 weeks ago, spinal stenosis with chronic low back pain and knees will "give out", FALLS, constipation, hiatal hernia, NIDDM diagnosed less than a year ago/neuropathy bilateral feet, small sores posterior neck for approximately one year. History of Any Multi-Drug Resistant Organisms: None Reported Past Surgical History: No Surgical Hx Reported Additional Past Surgical History / Comment(s): Pt/spouse state pt has never had surgery. Past Anesthesia/Blood Transfusion Reactions: Unable to Obtain Smoking Status: Former smoker - Past Family History Mother Family Medical History: Cancer Additional Family Medical History / Comment(s): stomach cancer. Father Additional Family Medical History / Comment(s): "heart problems" Brother(s) Family Medical History: Diabetes Mellitus Medications and Allergies Home Medications Medication Instructions Recorded Confirmed Type Acetaminophen Tab [Tylenol Tab] 500 mg PO Q6H PRN 05/07/20 05/07/20 History Glucosam/Pancho-Msm1/C/Brent/Bosw 1 tab PO DAILY 05/07/20 05/07/20 History [Ehrkflnsspp-Xzsytmbkukn-CGW Tb] Lisinopril [Prinivil] 10 mg PO DAILY 05/07/20 05/07/20 History Meloxicam [Mobic] 15 mg PO DAILY 05/07/20 05/07/20 History [place]-3 Fatty Acids/Fish Oil [Fish 1 cap PO DAILY 05/07/20 05/07/20 History Oil 1,000 mg Softgel] metFORMIN HCL [Glucophage] 500 mg PO DAILY 05/07/20 05/07/20 History Allergies Allergy/AdvReac Type Severity Reaction Status Date / Time No Known Allergies Allergy Verified 05/07/20 08:35 Physical Exam Vitals: Vital Signs Temp Pulse Pulse Resp BP BP Pulse Ox 05/08/20 04:00 97.6 F 91 18 195/82 95 05/08/20 02:00 85 18 05/08/20 00:00 97.6 F 85 18 93 L 05/07/20 20:00 98.1 F 83 18 179/96 94 L 05/07/20 17:30 97.5 F L 74 18 165/64 98 05/07/20 16:55 98 05/07/20 15:30 97 F L 84 16 184/83 99 05/07/20 13:30 97.6 F 85 18 163/84 98 05/07/20 12:00 97.6 F 86 16 161/93 96 05/07/20 10:30 89 16 176/89 96 05/07/20 09:30 98.7 F 85 18 191/95 98 05/07/20 07:52 98.4 F 88 17 190/106 98 Intake and Output 05/07/20 05/08/20 05/08/20 22:59 06:59 14:59 Intake Total 0 Output Total 375 425 Balance -375 -425 Intake: Oral 0 Output: Urine 375 425 Other: # Voids 2 1 2 Weight 113 kg Results 05/07/20 08:00 05/07/20 08:00 Cardiac Enzymes 05/07/20 05/07/20 Range/Units 08:00 08:00 AST 29 (17-59) U/L Troponin I <0.012 (0.000-0.034) ng/mL Coagulation 05/07/20 Range/Units 08:00 PT 10.7 (9.0-12.0) sec APTT 24.5 (22.0-30.0) sec CBC 05/07/20 Range/Units 08:00 WBC 7.0 (3.8-10.6) k/uL RBC 4.21 L (4.30-5.90) m/uL Hgb 12.9 L (13.0-17.5) gm/dL Hct 37.6 L (39.0-53.0) % Plt Count 231 (150-450) k/uL Comprehensive Metabolic Panel 05/07/20 Range/Units 08:00 Sodium 136 L (137-145) mmol/L Potassium 4.7 (3.5-5.1) mmol/L Chloride 102 (98-107) mmol/L Carbon Dioxide 25 (22-30) mmol/L BUN 20 (9-20) mg/dL Creatinine 0.85 (0.66-1.25) mg/dL Glucose 174 H (74-99) mg/dL Calcium 9.3 (8.4-10.2) mg/dL AST 29 (17-59) U/L ALT 17 (4-49) U/L Alkaline Phosphatase 70 (38-126) U/L Total Protein 7.3 (6.3-8.2) g/dL Albumin 3.9 (3.5-5.0) g/dL Current Medications Generic Name Dose Route Start Last Admin Trade Name Freq PRN Reason Stop Dose Admin Acetaminophen 650 mg 05/07/20 08:29 05/07/20 15:44 Acetaminophen Tab 325 Mg Tab PO 650 mg Q6HR PRN Administration Pain Albuterol Sulfate 2 puff 05/07/20 08:50 05/07/20 20:31 Albuterol Hfa Inhaler INHALATION 2 puff RT-QID PRN Administration Shortness Of Breath Or Wheezing Aspirin 81 mg 05/08/20 09:00 Aspirin 81 Mg PO DAILY ROBERTO CARLOS Atorvastatin Calcium 80 mg 05/07/20 21:00 05/07/20 20:39 Atorvastatin 80 Mg Tab PO 80 mg HS ROBERTO CARLOS Administration Clopidogrel Bisulfate 75 mg 05/08/20 09:00 Clopidogrel 75 Mg Tab PO DAILY ROBERTO CARLOS Famotidine 20 mg 05/07/20 09:00 05/07/20 20:39 Famotidine 20 Mg Tab PO 20 mg BID ROBERTO CARLOS Administration Heparin Sodium (Porcine) 5,000 unit 05/07/20 21:00 05/07/20 20:39 Heparin Sodium,Porcine 5,000 Unit/Ml 1 Ml Vial SQ 5,000 unit Q12HR ROBERTO CARLOS Administration Meloxicam 15 mg 05/07/20 09:00 05/07/20 10:26 Meloxicam 7.5 Mg Tab PO 15 mg DAILY ROBERTO CARLOS Administration Metformin HCl 500 mg 05/07/20 09:00 05/07/20 12:01 Metformin 500 Mg Tab PO 500 mg DAILY ROBERTO CARLOS Administration Intake and Output 05/07/20 05/08/20 05/08/20 22:59 06:59 14:59 Intake Total 0 Output Total 375 425 Balance -375 425 Intake: Oral 0 Output: Urine 375 425 Other: # Voids 2 1 2 Weight 113 kg 05/07/20 08:00 05/07/20 08:00
[2020-05-08 11:34] LABS: Glucose,Whole Blood 176 mg/dL (75-99)
[2020-05-08] MEDS: lisinopriL 10 MG TAB PO SCH (12:07)
[2020-05-08] MEDS: ALBUTEROL HFA INHALER INHALATION PRN (12:07)
--- NOTE | 2020-05-08 12:08 | P.PN ---
Subjective Progress Note Date: 05/08/20 Patient was seen at bedside and he states that he feels about the same today compared to yesterday. He continues to have right-sided weakness and slurring his speech. MR the brain is reported evolving small acute infarct in the left parietal periventricular white matter at the level of the meyer radiata on background of mild to moderate diffuse cerebral atrophy and chronic small vessel ischemic change. Carotid duplex was reported as mild to moderate at this chronic changes bilaterally greater on the right without hemodynamic significant stenosis seen in either internal carotid artery. Finding correlate with the same day CTA of neck. Objective - Vital Signs Vital signs: Vital Signs Temp 96.2 F L 05/08/20 08:00 Pulse 85 05/08/20 08:00 Resp 16 05/08/20 08:00 BP 199/100 05/08/20 08:00 Pulse Ox 97 05/08/20 08:00 Intake & Output 05/07/20 05/08/20 05/08/20 18:59 06:59 18:59 Intake Total 240 180 Output Total 250 375 525 Balance -10 -375 -345 Weight 114 kg 113 kg Intake: Oral 240 180 Output: Urine 250 375 525 Other: # Voids 1 2 - Exam GENERAL: The patient is lying in bed and is not in acute distress. NEUROLOGICAL: Higher mental function: The patient is awake, alert, oriented to self. He stated he is in the hospital but could not tell which. Regarding month he correctly chose correct one with options. He stated the year was 2021. Patient is following commands. No aphasia and no neglect. Cranial nerves: The pupils are round, equal and reactive to light and accommodation. Visual arteaga are full to confrontation throughout. Extraocular movement is intact no nystagmus is noted. Facial sensation is normal to touch throughout. The patient has moderate right lower facial droop. Hearing is mildly to moderate decreased to hand rubs bilaterally. Tongue is midline and moved [id number] without any difficulty. Has moderate dysarthria. Motor: Gait is deferred. The strength in proximal is 5- while distal is 4+ with hand director of advertising sales about 4+/5. RIght lower proximal is 4+/5, right knee extenstion/flexion is 3-4/5 while ankle are 4+ to 5-. Left is 5/5. Normal tone and bulk. Cerebellum: Normal finger to nose on the left while right his right hand weak and could not be assessed. Sensation: Sensation is normal to touch throughout. Reflexes (right/left): 2+ throughout except patellar is 3+ bilaterally, left ankle is 2+ and right ankle is 1+. Plantars is upgoing on the right and downgoing on the left. - Labs CBC & Chem 7: 05/07/20 08:00 05/07/20 08:00 Labs: Abnormal Lab Results - Last 24 Hours (Table) 05/07/20 05/07/20 05/07/20 Range/Units 08:00 11:43 16:48 POC Glucose (mg/dL) 134 H 134 H (75-99) mg/dL Hemoglobin A1c 6.2 H (4.0-6.0) % Triglycerides (<150) mg/dL HDL Cholesterol (40-60) mg/dL 05/07/20 05/08/20 05/08/20 Range/Units 20:31 06:31 07:22 POC Glucose (mg/dL) 126 H 139 H (75-99) mg/dL Hemoglobin A1c (4.0-6.0) % Triglycerides 154 H (<150) mg/dL HDL Cholesterol 34 L (40-60) mg/dL Assessment and Plan Assessment: This is a 74-year-old gentleman that presented to the emergency department on the 05/07/2020 for slurred speech, right facial droop and right-sided weakness. It seems that the patient's symptoms began 11 PM on 05/06/2020 and apparently had 3 falls during the night. No IV tpa since outside window. Acute ischemic stroke ( left parietal periventricular white matter at the level of the meyer radiata). Seems small vessel disease from risk factors (HTN, DM, age) more than cardioembolic. Mild internal carotid stenosis ((<40% on right and <30% left per CTA) History of lumbar spondylosis Hypertension Diabetes mellitus Ex-tobacco use Plan: CT of the head is reported as no acute intracranial hemorrhage or midline shift. There is mild to moderate diffuse age-related cerebral atrophy and mild chronic small vessel ischemic change noted. CT angiography of the head and neck was reported as per the head is reported as moderate at this carotid narrowing throughout the bilateral carotid siphons. 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 Additional scattered mild atherosclerotic narrowing throughout the intracranial circulation. No large vessel intracranial occlusion or aneurysm changes seen. While the neck was reported as mild at this carotid narrowing within the bilateral proximal internal carotid artery, less than 40% on the right and less than 30% on the left. No hemodynamically significant internal carotid artery stenosis on either side. Dominant left vertebral artery. MR the brain is reported evolving small acute infarct in the left parietal periventricular white matter at the level of the meyer radiata on background of mild to moderate diffuse cerebral atrophy and chronic small vessel ischemic change. Carotid duplex was reported as mild to moderate at this chronic changes bilaterally greater on the right without hemodynamic significant stenosis seen in either internal carotid artery. Finding correlate with the same day CTA of neck. Lipid panel: Triglyceride 154, cholesterol 156, LDL is 91, HDL is 34. 2-D echo with bubble study is pending. Recommend JULIA (to rule out cardiac embolic). Patient to have event monitor upon discharge. TSH is 3.34 which is normal. Hemoglobin A1c: 6.2 PT, OT and FIRST CALENDER WORKER are consulted Continue neuro checks every 4 hours. Continue telemetry continous monitoring Vitamin B12 is 437 which is normal. Pending folate level. Cardiology is on board. Recommend systolic blood pressure goal between 160 and 180 for today and tomorrow recommend 140-160. I started the patient on Lisnopril 10 mg daily. We'll defer the management to the primary team. We'll defer the rest of medical management to the primary team. The plan is discussed with the patient, his nurse. Sonny Posadas MD Neuro-Hospitalist Time with Patient: Less than 30
--- NOTE | 2020-05-08 12:44 | ECHOF ---
Referral Reason:cva MEASUREMENTS -------- HEIGHT: 188.0 cm WEIGHT: 113.9 kg BP: FINDINGS -------- Sinus rhythm. Contrast study was performed with 2 iv injections of 8 ccs of agitated normal saline, at rest, and wi th cough. Agitated Saline study is negative, no crossing at atrial level or right to left shunt noted. CONCLUSIONS -------- 1. Contrast study was performed with 2 iv injections of 8 ccs of agitated normal saline, at rest, and with cough. 2. Agitated Saline study is negative, no crossing at atrial level or right to left shunt noted. ACCOUNT MANAGER EMPLOYEE BENEFITS: Isha Cabrera RDCS
[2020-05-08 16:37] LABS: Glucose,Whole Blood 119 mg/dL (75-99)
--- NOTE | 2020-05-08 16:58 | P.PN ---
Subjective Progress Note Date: 05/08/20 Principal diagnosis: Acute ischemic CVA; possible cardioembolic 74 yo M with past medical history of hypertension and type 2 diabetes mellitus . He has a new PCP at [facility]. He has also history of chronic back pain and used to see a spine surgeon who recommended surgery for him but he declined Patient presents with slight slurred speech and right facial droop with right side upper and lower extremity weakness that started earlier morning and about 2:30 a.m. Also patient fell out of his bed. History was taken from the patient and at bedside. It looks like the patient developed weakness in his right upper and lower extremity 2 days ago and he felt but the did not know at that time. Patient states he noticed some improvement in his right side however merely morning today he noticed worsening in his right sided weakness and he fell again trying to getting into the bedroom, tried to help him to go to the bathroom when he fell again for the third time, and that time was noticed weakness in his right side and slurred speech and they called EMS. CTA of the brain: Mild atherosclerotic narrowing within the bilateral proximal I CA, less than 40% on the right and less than 30% on the left. No hemodynamic significant stenosis. Moderate atherosclerotic narrowing throughout the bilateral carotid C findings. 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 CT of the brain: No acute intracranial hemorrhage. Diffuse cerebral atrophy and mild chronic ischemic vessel 05/08/2020 Patient was seen at bedside and he states that he feels about the same today compared to yesterday. He continues to have right-sided weakness and slurring his speech. Vital signs reveal a blood pressure of 199/100, pulse 85 and respirations 16; no antihypertensive therapy is recommended due to permissive hypertension for another 24 hours MR the brain is reported evolving small acute infarct in the left parietal periventricular white matter at the level of the meyer radiata on background of mild to moderate diffuse cerebral atrophy and chronic small vessel ischemic change. Carotid duplex was reported as mild to moderate at this chronic changes bilaterally greater on the right without hemodynamic significant stenosis seen in either internal carotid artery. Finding correlate with the same day CTA of neck. Patient remains on neuro checks every 4 hours; PT/OT/METAL CNC OPERATOR on board; neurology recommending to keep systolic blood pressure between 160-184 today with recommendations to maintain blood pressure between 140-160 tomorrow; patient has been started on lisinopril 10 mg daily Objective - Vital Signs Vital signs: Vital Signs Temp 96.2 F L 05/08/20 08:00 Pulse 85 05/08/20 08:00 Resp 16 05/08/20 08:00 BP 199/100 05/08/20 08:00 Pulse Ox 97 05/08/20 08:00 Intake & Output 05/07/20 05/08/20 05/08/20 18:59 06:59 18:59 Intake Total 240 180 Output Total 250 375 525 Balance -10 -375 -345 Weight 114 kg 113 kg Intake: Oral 240 180 Output: Urine 250 375 525 Other: # Voids 1 2 - Exam - Constitutional General appearance: Present: average body habitus, cooperative, no acute distress - EENT Eyes: Present: anicteric sclerae, EOMI, PERRLA, normal appearance ENT: Present: hearing grossly normal, normal oropharynx Ears: bilateral: normal - Neck Neck: Present: normal ROM. Absent: lymphadenopathy, rigidity, thyromegaly Carotids: negative: bruit present Thyroid: bilateral: normal size, negative: enlarged, nodule - Respiratory Respiratory: bilateral: CTA, negative: rales, rhonchi, wheezing - Cardiovascular Rhythm: regular Heart sounds: normal: S1, S2 Abnormal Heart Sounds: Absent: systolic murmur, diastolic murmur - Gastrointestinal General gastrointestinal: Present: normal bowel sounds, soft. Absent: distended, organomegaly, tenderness - Genitourinary Genitourinary Comment(s): deferred - Integumentary Integumentary: Present: normal turgor. Absent: jaundiced, rash, ulcer - Neurologic Neurologic: Present: CNII-XII intact. Absent: focal deficits - Musculoskeletal Musculoskeletal: Present: gait normal, strength equal bilaterally - Psychiatric Psychiatric: Present: A&O x's 3, appropriate affect, intact judgment & insight - Labs CBC & Chem 7: 05/07/20 08:00 05/07/20 08:00 Labs: Abnormal Lab Results - Last 24 Hours (Table) 05/07/20 05/07/20 05/07/20 Range/Units 08:00 16:48 20:31 POC Glucose (mg/dL) 134 H 126 H (75-99) mg/dL Hemoglobin A1c 6.2 H (4.0-6.0) % Triglycerides (<150) mg/dL HDL Cholesterol (40-60) mg/dL 05/08/20 05/08/20 05/08/20 Range/Units 06:31 07:22 11:32 POC Glucose (mg/dL) 139 H 176 H (75-99) mg/dL Hemoglobin A1c (4.0-6.0) % Triglycerides 154 H (<150) mg/dL HDL Cholesterol 34 L (40-60) mg/dL Assessment and Plan Assessment: acute stroke with right-sided hemiparesis , right facial droop and slurred speech. type 2 diabetes mellitus Essential hypertension History of chronic back pain, declined surgery Obesity with BMI of 32.3 Plan: this is a pleasant 74 years old male who presents with possible CVA with right hemiparesis. Continue with aspirin. He is also currently on Plavix pending further recommendation by neurologist regarding this medication. Continue with Lipitor. Also check hemoglobin A1c, vitamin B12, folate and TSH. Check echocardiogram. continue with telemetry. Continue with neuro check for 24 hours. Check carotid duplex. Neurologic consult and evaluation. We will allow for permissive hypertension for the first 24-48 hours PT/OT and speech team evaluation Labs and medication were reviewed.. Continue same treatment. Continue with symptomatic treatment. Resume home medication. Monitor lytes and vitals. DVT and GI prophylaxis. Further recommendations depends on the clinical course of the patient DVT prophylaxis: Subcutaneous heparin GI Prophylaxis: Pepcid Prognosis is guarded
[2020-05-08] MEDS: ATORVASTATIN 80 MG TAB PO SCH (20:39)
[2020-05-08 21:04] LABS: Glucose,Whole Blood 168 mg/dL (75-99)
[2020-05-09 07:41] LABS: Glucose,Whole Blood 142 mg/dL (75-99)
[2020-05-09 07:42] LABS: Basophils % (A) 1 %; Eosinophils # (A) 0.1 k/uL (0-0.7); Eosinophils % (A) 1 %; HCT 39.9 % (39.0-53.0); Lymphocytes # (A) 1.7 k/uL (1.0-4.8); Lymphocytes % (A) 33 %; MCH 29.6 pg (25.0-35.0); MCHC 32.5 g/dL (31.0-37.0); MCV 91.1 fL (80.0-100.0); Mean Platelet Volume 7.8; Monocytes # (A) 0.3 k/uL (0-1.0); Monocytes % (A) 6 %; Neutrophils # (A) 3.1 k/uL (1.3-7.7); Neutrophils % (A) 58 %; Platelet Count 231 k/uL (150-450); RBC 4.38 m/uL (4.30-5.90); RDW 12.5 % (11.5-15.5); WBC 5.3 k/uL (3.8-10.6)
[2020-05-09 07:57] LABS: African American GFR (CKD) >90 (>60 ml/min/1.73 sqM); Anion Gap 9 mmol/L; Blood Urea Nitrogen 15 mg/dL (9-20); Calcium 9.4 mg/dL (8.4-10.2); Carbon Dioxide 26 mmol/L (22-30); Chloride 104 mmol/L (98-107); Glucose 143 mg/dL (74-99); Non-African American GFR(CKD) 81 (>60 ml/min/1.73 sqM); Potassium 4.5 mmol/L (3.5-5.1); Sodium 139 mmol/L (137-145)
[2020-05-09] MEDS: ALBUTEROL HFA INHALER INHALATION PRN ×2 (08:09→16:04)
[2020-05-09] MEDS: FAMOTIDINE 20 MG TAB PO SCH ×2 (10:17→20:31)
[2020-05-09] MEDS: ASPIRIN 81 MG PO SCH (10:17)
[2020-05-09] MEDS: lisinopriL 10 MG TAB PO SCH (10:17)
[2020-05-09] MEDS: MELOXICAM 7.5 MG TAB PO SCH (10:17)
[2020-05-09] MEDS: HEPARIN SODIUM,PORCINE 5,000 UNIT/ML 1 ML VIAL SQ SCH ×2 (10:17→20:31)
[2020-05-09] MEDS: metFORMIN 500 MG TAB PO SCH (10:17)
[2020-05-09] MEDS: CLOPIDOGREL 75 MG TAB PO SCH (10:17)
[2020-05-09 11:56] LABS: Glucose,Whole Blood 129 mg/dL (75-99)
[2020-05-09] MEDS ORDERED: fentaNYL (PF) 50 MCG/ML 2 ML AMP ONE (12:43)
[2020-05-09] MEDS ORDERED: IV FLUID CONTINUATION 1,000 ML IV ONE (13:15)
[2020-05-09] MEDS: fentaNYL (PF) 50 MCG/ML 2 ML AMP IV ONE ×2 (13:35→13:41)
[2020-05-09] MEDS ORDERED: BENZOCAINE SPRAY 1 CAN MUCOUS MEM ONE (13:35)
[2020-05-09] MEDS: MIDAZOLAM 2 MG/2 ML VIAL IV ONE ×2 (13:35→13:41)
[2020-05-09] MEDS ORDERED: MIDAZOLAM 2 MG/2 ML VIAL IV ONE (13:41)
--- NOTE | 2020-05-09 13:56 | P.PN ---
Subjective Progress Note Date: 05/09/20 Upon seeing the patient in his room he was sitting at the bedside of the chair and he stated that he is doing better today compared that to his initial presentation he feels he is less slurred. Upon seeing the patient that she stated that he is more awake alert 3. She stated that the he's pending to get a JULIA today Objective - Vital Signs Vital signs: Vital Signs Temp 97.9 F 05/09/20 08:00 Pulse 84 05/09/20 13:49 Resp 15 05/09/20 13:49 BP 135/67 05/09/20 13:49 Pulse Ox 97 05/09/20 13:49 Intake & Output 05/08/20 05/09/20 05/09/20 18:59 06:59 18:59 Intake Total 600 50 Output Total 525 100 Balance 75 -100 50 Intake: IV 50 Oral 600 Output: Urine 525 100 Other: Voiding Method Diaper Urinal Incontinent # Voids 1 2 - Exam GENERAL: The patient is lying in bed and is not in acute distress. NEUROLOGICAL: Higher mental function: The patient is awake, alert, oriented to self. He stated he is in the hospital but could not tell which. Regarding month he correctly chose correct one with options. He stated the year was 2021. Patient is following commands. No aphasia and no neglect. Cranial nerves: The pupils are round, equal and reactive to light and accommodation. Visual arteaga are full to confrontation throughout. Extraocular movement is intact no nystagmus is noted. Facial sensation is normal to touch throughout. The patient has moderate right lower facial droop. Hearing is mildly to moderate decreased to hand rubs bilaterally. Tongue is midline and moved [id number] without any difficulty. Has mild to moderate dysarthria. Motor: Gait is deferred. The strength in proximal is 5- while distal is 4+ with hand change number operator about 4+/5. RIght lower proximal is 4+/5, right knee extenstion/f lexion is 3-4/5 while ankle are 4+ to 5-. Left is 5/5. Normal tone and bulk. Cerebellum: Normal finger to nose on the left while right his right hand weak and could not be assessed. Sensation: Sensation is normal to touch throughout. Reflexes (right/left): 2+ throughout except patellar is 3+ bilaterally, left ankle is 2+ and right ankle is 1+. Plantars is upgoing on the right and downgoing on the left. - Labs CBC & Chem 7: 05/09/20 06:36 05/09/20 07:00 Labs: Abnormal Lab Results - Last 24 Hours (Table) 05/08/20 05/08/20 05/09/20 Range/Units 16:35 20:35 07:00 Glucose 143 H (74-99) mg/dL POC Glucose (mg/dL) 119 H 168 H (75-99) mg/dL 05/09/20 05/09/20 Range/Units 07:19 11:38 Glucose (74-99) mg/dL POC Glucose (mg/dL) 142 H 129 H (75-99) mg/dL Assessment and Plan Assessment: This is a 74-year-old gentleman that presented to the emergency department on the 05/07/2020 for slurred speech, right facial droop and right-sided weakness. It seems that the patient's symptoms began 11 PM on 05/06/2020 and apparently had 3 falls during the night. No IV tpa since outside window. Acute ischemic stroke ( left parietal periventricular white matter at the level of the meyer radiata). Seems small vessel disease from risk factors (HTN, DM, age) more than cardioembolic. Mild internal carotid stenosis ((<40% on right and <30% left per CTA) History of lumbar spondylosis Hypertension Diabetes mellitus Ex-tobacco use Plan: CT of the head is reported as no acute intracranial hemorrhage or midline shift. There is mild to moderate diffuse age-related cerebral atrophy and mild chronic small vessel ischemic change noted. CT angiography of the head and neck was reported as per the head is reported as moderate at this carotid narrowing throughout the bilateral carotid siphons. 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 Additional scattered mild atherosclerotic narrowing throughout the intracranial circulation. No large vessel intracranial occlusion or aneurysm changes seen. While the neck was reported as mild at this carotid narrowing within the bilateral proximal internal carotid artery, less than 40% on the right and less than 30% on the left. No hemodynamically significant internal carotid artery stenosis on either side. Dominant left vertebral artery. MR the brain is reported evolving small acute infarct in the left parietal periventricular white matter at the level of the meyer radiata on background of mild to moderate diffuse cerebral atrophy and chronic small vessel ischemic change. Carotid duplex was reported as mild to moderate at this chronic changes bilaterally greater on the right without hemodynamic significant stenosis seen in either internal carotid artery. Finding correlate with the same day CTA of neck. Lipid panel: Triglyceride 154, cholesterol 156, LDL is 91, HDL is 34. 2-D echo with bubble study: It is reported as contrast study was performed with that to IV injection of 8 mL of agitated normal saline, at rest and with cough. Agitated saline study is negative, no crossing at the atrial level or right to left shunt noted. Pending JULIA (to rule out cardiac embolic). Patient to have event monitor upon discharge. TSH is 3.34 which is normal. Hemoglobin A1c: 6.2 PT, OT and CORE MACHINE OPERATOR are consulted Continue neuro checks every 4 hours. Continue telemetry continous monitoring Vitamin B12 is 437 which is normal. folate level: 15.6 (normal) Cardiology is on board. Recommend systolic blood pressure goal between 130 and 150 for today and tomorrow recommend 140-160. I started the patient on Lisnopril 10 mg daily. We'll defer the management to the primary team. The patient will benefit from inpatient rehab. We'll defer the rest of medical management to the primary team. The plan is discussed with the patient's nurse. Sonny Posadas MD Neuro-Hospitalist Time with Patient: Less than 30
[2020-05-09 17:10] LABS: Glucose,Whole Blood 116 mg/dL (75-99)
--- NOTE | 2020-05-09 17:29 | P.PN ---
Subjective Progress Note Date: 05/09/20 Principal diagnosis: Acute ischemic CVA; possible cardioembolic 74 yo M with past medical history of hypertension and type 2 diabetes mellitus . He has a new PCP at [facility]. He has also history of chronic back pain and used to see a spine surgeon who recommended surgery for him but he declined Patient presents with slight slurred speech and right facial droop with right side upper and lower extremity weakness that started earlier morning and about 2:30 a.m. Also patient fell out of his bed. History was taken from the patient and at bedside. It looks like the patient developed weakness in his right upper and lower extremity 2 days ago and he felt but the did not know at that time. Patient states he noticed some improvement in his right side however merely morning today he noticed worsening in his right sided weakness and he fell again trying to getting into the bedroom, tried to help him to go to the bathroom when he fell again for the third time, and that time was noticed weakness in his right side and slurred speech and they called EMS. CTA of the brain: Mild atherosclerotic narrowing within the bilateral proximal I CA, less than 40% on the right and less than 30% on the left. No hemodynamic significant stenosis. Moderate atherosclerotic narrowing throughout the bilateral carotid C findings. 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 CT of the brain: No acute intracranial hemorrhage. Diffuse cerebral atrophy and mild chronic ischemic vessel 05/08/2020 Patient was seen at bedside and he states that he feels about the same today compared to yesterday. He continues to have right-sided weakness and slurring his speech. Vital signs reveal a blood pressure of 199/100, pulse 85 and respirations 16; no antihypertensive therapy is recommended due to permissive hypertension for another 24 hours MR the brain is reported evolving small acute infarct in the left parietal periventricular white matter at the level of the meyer radiata on background of mild to moderate diffuse cerebral atrophy and chronic small vessel ischemic change. Carotid duplex was reported as mild to moderate at this chronic changes bilaterally greater on the right without hemodynamic significant stenosis seen in either internal carotid artery. Finding correlate with the same day CTA of neck. Patient remains on neuro checks every 4 hours; PT/OT/COUNTER SALES REPRESENTATIVE on board; neurology recommending to keep systolic blood pressure between 160-184 today with recommendations to maintain blood pressure between 140-160 tomorrow; patient has been started on lisinopril 10 mg daily 05/09/2020 Patient is seen and evaluated in room at bedside; family is present in the room and reports patient is more awake and talkative Vital signs review revealed markedly elevated blood pressure with systolic blood pressure above 180; patient has been evaluated by neurology and is recommended to keep the systolic blood pressure goal between 140-160; patient has been started on lisinopril 10 mg daily; we will escalate therapy to 20 mg daily and monitor blood pressure closely. Further recommendations pending clinical course Patient has JULIA pending to rule out cardio embolic disease; 2-D echo with bubble study was unremarkable Patient is evaluated by PT/OT and is recommended skilled rehab Objective - Vital Signs Vital signs: Vital Signs Temp 97.9 F 05/09/20 08:00 Pulse 82 05/09/20 08:00 Resp 20 05/09/20 08:00 BP 181/106 05/09/20 08:00 Pulse Ox 96 05/09/20 08:00 Intake & Output 05/08/20 05/09/20 05/09/20 18:59 06:59 18:59 Intake Total 600 Output Total 525 100 Balance 75 -100 Intake: Oral 600 Output: Urine 525 100 Other: Voiding Method Diaper Urinal Incontinent # Voids 1 2 - Exam - Constitutional General appearance: Present: average body habitus, cooperative, no acute distress - EENT Eyes: Present: anicteric sclerae, EOMI, PERRLA, normal appearance ENT: Present: hearing grossly normal, normal oropharynx Ears: bilateral: normal - Neck Neck: Present: normal ROM. Absent: lymphadenopathy, rigidity, thyromegaly Carotids: negative: bruit present Thyroid: bilateral: normal size, negative: enlarged, nodule - Respiratory Respiratory: bilateral: CTA, negative: rales, rhonchi, wheezing - Cardiovascular Rhythm: regular Heart sounds: normal: S1, S2 Abnormal Heart Sounds: Absent: systolic murmur, diastolic murmur - Gastrointestinal General gastrointestinal: Present: normal bowel sounds, soft. Absent: distended, organomegaly, tenderness - Genitourinary Genitourinary Comment(s): deferred - Integumentary Integumentary: Present: normal turgor. Absent: jaundiced, rash, ulcer - Neurologic Neurologic: Present: CNII-XII intact. Absent: focal deficits - Musculoskeletal Musculoskeletal: Present: gait normal, strength equal bilaterally - Psychiatric Psychiatric: Present: A&O x's 3, appropriate affect, intact judgment & insight - Labs CBC & Chem 7: 05/09/20 06:36 05/09/20 07:00 Labs: Abnormal Lab Results - Last 24 Hours (Table) 05/08/20 05/08/20 05/08/20 Range/Units 12:27 16:35 20:35 Glucose (74-99) mg/dL POC Glucose (mg/dL) 119 H 168 H (75-99) mg/dL Troponin I 0.089 H* (0.000-0.034) ng/mL 05/09/20 05/09/20 05/09/20 Range/Units 07:00 07:19 11:38 Glucose 143 H (74-99) mg/dL POC Glucose (mg/dL) 142 H 129 H (75-99) mg/dL Troponin I (0.000-0.034) ng/mL Assessment and Plan Assessment: acute stroke with right-sided hemiparesis , right facial droop and slurred speech. type 2 diabetes mellitus Essential hypertension History of chronic back pain, declined surgery Obesity with BMI of 32.3 Plan: this is a pleasant 74 years old male who presents with possible CVA with right hemiparesis. Continue with aspirin. He is also currently on Plavix pending further recommendation by neurologist regarding this medication. Continue with Lipitor. Also check hemoglobin A1c, vitamin B12, folate and TSH. Check echocardiogram. continue with telemetry. Continue with neuro check for 24 hours. Check carotid duplex. Neurologic consult and evaluation. We will allow for permissive hypertension for the first 24-48 hours PT/OT and speech team evaluation Labs and medication were reviewed.. Continue same treatment. Continue with symptomatic treatment. Resume home medication. Monitor lytes and vitals. DVT and GI prophylaxis. Further recommendations depends on the clinical course of the patient DVT prophylaxis: Subcutaneous heparin GI Prophylaxis: Pepcid Prognosis is guarded
[2020-05-09] MEDS: ATORVASTATIN 80 MG TAB PO SCH (20:31)
--- NOTE | 2020-05-09 21:01 | P.PN ---
Subjective Cardiology Note: JULIA without cardiac source of emboli, TETE without thrombus, no intratrial shunt. Would recommend 30 day event monitor on discharge to rule out Afib. No further recs from cardiology standpoint. Followup in office after event mon itor completed. Objective - Vital Signs Vital signs: Vital Signs Temp 98.7 F 05/09/20 14:05 Pulse 83 05/09/20 14:05 Resp 16 05/09/20 14:05 BP 135/82 05/09/20 14:50 Pulse Ox 96 05/09/20 14:05 Intake & Output 05/09/20 05/09/20 05/10/20 06:59 18:59 06:59 Intake Total 50 Output Total 100 Balance -100 50 Intake: IV 50 Output: Urine 100 Other: Voiding Method Diaper Urinal Incontinent # Voids 2 2 - Labs CBC & Chem 7: 05/09/20 06:36 05/09/20 07:00 Labs: Abnormal Lab Results - Last 24 Hours (Table) 05/08/20 05/09/20 05/09/20 Range/Units 20:35 07:00 07:19 Glucose 143 H (74-99) mg/dL POC Glucose (mg/dL) 168 H 142 H (75-99) mg/dL 05/09/20 05/09/20 Range/Units 11:38 17:00 Glucose (74-99) mg/dL POC Glucose (mg/dL) 129 H 116 H (75-99) mg/dL
--- NOTE | 2020-05-09 21:08 | P.TEE ---
Description of Procedure(s): Procedure performed: Transesophageal Echocardiogram with color flow doppler, pulsed wave doppler and continuous wave doppler, moderate conscious sedation Moderate conscious sedation: Sedation was provided with Versed and Fentanyl under the direct supervision of myself. Complications: none Indications: Cardiac source of emboli History: Patient is a pleasant 74 year old male with history of DM2, HTN, prior tobacco abuse who presented with facial droop and was found to have a stroke. He admitted to palpitations the few days prior to this episode. We were asked to perform JULIA for cardiac source of emboli. PROCEDURE: After the risks, benefits and alternatives of the above mentioned procedure was explained in detail with the patient, informed consent was obtained. Patient was brought to the lab in a fasting state. Patient was given sedation by anesthesia. The throat was sprayed with Hurricane to anesthetize the throat. A lubricated Omni probe was then introduced into the esophagus and stomach and multiple views were obtained. 2D echo with color flow doppler, pulsed wave doppler and continuous wave doppler was utilized. Agitated saline bubbles were injected to assess for any intra-atrial shunt. Patient's blood pressure was somewhat elevated and therefore antihypertensives were given to evaluate if any improvement in degree of MR, however there was not much change. The probe was then removed. Patient tolerated the procedure well. Patient was transferred to the post procedure area in stable and satisfactory condition. FINDINGS: 1. The aortic valve is tricuspid and function normally with mild aortic valve sclerosis and no significant aortic stenosis. 2. The mitral valve is structurally normal. There is trace mitral regurgitation. 3. Tricuspid valve is normal. There is trace tricuspid regurgitaiton. 4. The interatrial septum is intact. No evidence of PFO. 5. Left atrial appendage is free of clot. 6. Left ventricular size and function appear to be normal with EF 55-60%. 7. Mildly dilated aortic root at 3.8cm 8. Mild to moderate aortic atherosclerosis.
[2020-05-10 06:40] LABS: Glucose,Whole Blood 136 mg/dL (75-99)
[2020-05-10] MEDS: ALBUTEROL HFA INHALER INHALATION PRN ×3 (08:56→16:29)
[2020-05-10] MEDS: ASPIRIN 81 MG PO SCH (10:12)
[2020-05-10] MEDS: HEPARIN SODIUM,PORCINE 5,000 UNIT/ML 1 ML VIAL SQ SCH ×2 (10:12→20:34)
[2020-05-10] MEDS: FAMOTIDINE 20 MG TAB PO SCH ×2 (10:13→20:34)
[2020-05-10] MEDS: MELOXICAM 7.5 MG TAB PO SCH (10:13)
[2020-05-10] MEDS: lisinopriL 20 MG TAB PO SCH (10:13)
[2020-05-10] MEDS: CLOPIDOGREL 75 MG TAB PO SCH (10:13)
[2020-05-10] MEDS: metFORMIN 500 MG TAB PO SCH (10:13)
--- NOTE | 2020-05-10 11:27 | P.PN ---
Subjective Progress Note Date: 05/20/20 Patient was seen at bedside and he stated that he is doing better today compared to his initial presentation he's feeling better day by day but is not back to baseline. He continues to have some weakness over the right side and now some slurring of the speech. JULIA was performed on 05/09/2020 and it's reported as no significant aortic stenosis. That into her atrial septum is intact. No evidence of PFO. Left atrial appendage is free of clot. Ejection fraction of 55-60%. Mild to moderate aortic atherosclerosis. Objective - Vital Signs Vital signs: Vital Signs Temp 97.6 F 05/10/20 07:40 Pulse 89 05/10/20 07:40 Resp 16 05/10/20 07:40 BP 177/94 05/10/20 07:40 Pulse Ox 93 L 05/10/20 07:40 Intake & Output 05/09/20 05/10/20 05/10/20 18:59 06:59 18:59 Intake Total 50 Balance 50 Intake: IV 50 Other: Voiding Method Urinal Urinal # Voids 2 3 - Exam GENERAL: The patient is lying in bed and is not in acute distress. NEUROLOGICAL: Higher mental function: The patient is awake, alert, oriented to self. He stated he is in the hospital but could not tell which. Regarding month he correctly chose correct one with options. He stated the year was 2021. Patient is following commands. No aphasia and no neglect. Cranial nerves: The pupils are round, equal and reactive to light and accommodation. Visual arteaga are full to confrontation throughout. Extraocular movement is intact no nystagmus is noted. Facial sensation is normal to touch throughout. The patient has moderate right lower facial droop. Hearing is mildly to moderate decreased to hand rubs bilaterally. Tongue is midline and moved [id number] without any difficulty. Has mild to moderate dysarthria. Motor: Gait is deferred. The strength in proximal is 5- while distal is 4+ to 5-/5. Right lower proximal is 5-/5, right knee extenstion/flexion is 4+ to 5-/5 while ankle are 5-. Left is 5/5. Normal tone and bulk. Cerebellum: Normal finger to nose on the left while right his right hand weak and could not be assessed. Sensation: Sensation is normal to touch throughout. Reflexes (right/left): 2+ throughout except patellar is 3+ bilaterally, left ankle is 2+ and right ankle is 1+. Plantars is upgoing on the right and downgoing on the left. - Labs CBC & Chem 7: 05/09/20 06:36 05/09/20 07:00 Labs: Abnormal Lab Results - Last 24 Hours (Table) 05/09/20 05/09/20 05/10/20 Range/Units 11:38 17:00 06:39 POC Glucose (mg/dL) 129 H 116 H 136 H (75-99) mg/dL Assessment and Plan Assessment: This is a 74-year-old gentleman that presented to the emergency department on the 05/07/2020 for slurred speech, right facial droop and right-sided weakness. It seems that the patient's symptoms began 11 PM on 05/06/2020 and apparently had 3 falls during the night. No IV tpa since outside window. Acute ischemic stroke ( left parietal periventricular white matter at the level of the meyer radiata). Seems small vessel disease from risk factors (HTN, DM, age) more than cardioembolic. Mild internal carotid stenosis ((<40% on right and <30% left per CTA) History of lumbar spondylosis Hypertension Diabetes mellitus Ex-tobacco use Plan: CT of the head is reported as no acute intracranial hemorrhage or midline shift. There is mild to moderate diffuse age-related cerebral atrophy and mild chronic small vessel ischemic change noted. CT angiography of the head and neck was reported as per the head is reported as moderate at this carotid narrowing throughout the bilateral carotid siphons. 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 Additional scattered mild atherosclerotic narrowing throughout the intracranial circulation. No large vessel intracranial occlusion or aneurysm changes seen. While the neck was reported as mild at this carotid narrowing within the bilateral proximal internal carotid artery, less than 40% on the right and less than 30% on the left. No hemodynamically significant internal carotid artery stenosis on either side. Dominant left vertebral artery. MR the brain is reported evolving small acute infarct in the left parietal periventricular white matter at the level of the meyer radiata on background of mild to moderate diffuse cerebral atrophy and chronic small vessel ischemic change. Carotid duplex was reported as mild to moderate at this chronic changes bilaterally greater on the right without hemodynamic significant stenosis seen in either internal carotid artery. Finding correlate with the same day CTA of neck. Lipid panel: Triglyceride 154, cholesterol 156, LDL is 91, HDL is 34. 2-D echo with bubble study: It is reported as contrast study was performed with that to IV injection of 8 mL of agitated normal saline, at rest and with cough. Agitated saline study is negative, no crossing at the atrial level or right to left shunt noted. JULIA was performed on 05/09/2020 and it's reported as no significant aortic stenosis. That into her atrial septum is intact. No evidence of PFO. Left atrial appendage is free of clot. Ejection fraction of 55-60%. Mild to moderate aortic atherosclerosis. Currently the patient is on aspirin 81 mg, Plavix 75 mg. Patient to continue dual antiplatelets and after 21 days to stop Plavix and to indefinitely continue on aspirin 81mg. currently the patient is on Lipitor 80 mg daily will decrease the Lipitor to 40 mg and to continue it daily at bedtime. Patient to have event monitor upon discharge. TSH is 3.34 which is normal. Hemoglobin A1c: 6.2 PT, OT and EPITAXIAL REACTOR OPERATOR are consulted Continue neuro checks every 4 hours. Continue telemetry continous monitoring Vitamin B12 is 437 which is normal. folate level: 15.6 (normal) Cardiology is on board. Recommend normotensive blood pressure. We'll defer the management to the primary team. The patient will benefit from inpatient rehab. Physical therapy and I've patient therapy evaluate him and he also recommended inpatient rehab as well. I started the patient on Zoloft 25mg daily since the upon seeing him multiple times he has crying episodes and was strokes there are patient's and that could have chemical imbalance and as a result they will have crying episodes but he has no suicidal or homicidal thoughts or plans. Upon discharge the patient needs to follow up with a neurologist within 1-2 weeks as an outpatient. We'll defer the rest of medical management to the primary team. There is no further neurological workup. The plan is discussed with patient and his nurse. Sonny Posadas MD Neuro-Hospitalist Time with Patient: Less than 30
[2020-05-10 11:44] LABS: Glucose,Whole Blood 139 mg/dL (75-99)
[2020-05-10] MEDS: SERTRALINE 25 MG TAB PO SCH (12:17)
[2020-05-10] MEDS: amLODIPine 5 MG TAB PO SCH (12:17)
[2020-05-10] MEDS: ACETAMINOPHEN TAB 325 MG TAB PO PRN (16:34)
[2020-05-10 17:01] LABS: Glucose,Whole Blood 146 mg/dL (75-99)
--- NOTE | 2020-05-10 17:23 | P.PN ---
Subjective Progress Note Date: 05/10/20 Principal diagnosis: Acute ischemic CVA; possible cardioembolic 74 yo M with past medical history of hypertension and type 2 diabetes mellitus . He has a new PCP at [facility]. He has also history of chronic back pain and used to see a spine surgeon who recommended surgery for him but he declined Patient presents with slight slurred speech and right facial droop with right side upper and lower extremity weakness that started earlier morning and about 2:30 a.m. Also patient fell out of his bed. History was taken from the patient and at bedside. It looks like the patient developed weakness in his right upper and lower extremity 2 days ago and he felt but the did not know at that time. Patient states he noticed some improvement in his right side however merely morning today he noticed worsening in his right sided weakness and he fell again trying to getting into the bedroom, tried to help him to go to the bathroom when he fell again for the third time, and that time was noticed weakness in his right side and slurred speech and they called EMS. CTA of the brain: Mild atherosclerotic narrowing within the bilateral proximal I CA, less than 40% on the right and less than 30% on the left. No hemodynamic significant stenosis. Moderate atherosclerotic narrowing throughout the bilateral carotid C findings. 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 CT of the brain: No acute intracranial hemorrhage. Diffuse cerebral atrophy and mild chronic ischemic vessel 05/08/2020 Patient was seen at bedside and he states that he feels about the same today compared to yesterday. He continues to have right-sided weakness and slurring his speech. Vital signs reveal a blood pressure of 199/100, pulse 85 and respirations 16; no antihypertensive therapy is recommended due to permissive hypertension for another 24 hours MR the brain is reported evolving small acute infarct in the left parietal periventricular white matter at the level of the meyer radiata on background of mild to moderate diffuse cerebral atrophy and chronic small vessel ischemic change. Carotid duplex was reported as mild to moderate at this chronic changes bilaterally greater on the right without hemodynamic significant stenosis seen in either internal carotid artery. Finding correlate with the same day CTA of neck. Patient remains on neuro checks every 4 hours; PT/OT/GLUER AND SLICER HAND on board; neurology recommending to keep systolic blood pressure between 160-184 today with recommendations to maintain blood pressure between 140-160 tomorrow; patient has been started on lisinopril 10 mg daily 05/09/2020 Patient is seen and evaluated in room at bedside; family is present in the room and reports patient is more awake and talkative Vital signs review revealed markedly elevated blood pressure with systolic blood pressure above 180; patient has been evaluated by neurology and is recommended to keep the systolic blood pressure goal between 140-160; patient has been started on lisinopril 10 mg daily; we will escalate therapy to 20 mg daily and monitor blood pressure closely. Further recommendations pending clinical course Patient has JULIA pending to rule out cardio embolic disease; 2-D echo with bubble study was unremarkable Patient is evaluated by PT/OT and is recommended skilled rehab 05/10/2020 Patient is seen and evaluated with at bedside; patient is more awake and alert this morning; continues to have right-sided weakness with slurring of speech Vital signs reveal with an elevated blood pressure of 177/94 JULIA done yesterday- no significant aortic stenosis. That into her atrial septum is intact. No evidence of PFO. Left atrial appendage is free of clot. Ejection fraction of 55-60%. Mild to moderate aortic atherosclerosis. Neurology on board and recommending to continue with aspirin, Plavix; Plavix is recommended to be discontinued after 21 days and continue aspirin indefinitely; patient will stay on Lipitor 80 mg daily which could be decreased to 40 mg daily at bedtime; patient has been started on Zoloft 25 mg daily due to multiple episodes of crying Patient is recommended an event monitor at time of discharge PT/OT/GLUER AND SLICER HAND has evaluated patient and he is recommended skilled rehab; case management on 4 Objective - Vital Signs Vital signs: Vital Signs Temp 97.6 F 05/10/20 07:40 Pulse 89 05/10/20 07:40 Resp 16 05/10/20 07:40 BP 177/94 05/10/20 07:40 Pulse Ox 93 L 05/10/20 07:40 Intake & Output 05/09/20 05/10/20 05/10/20 18:59 06:59 18:59 Intake Total 50 Balance 50 Intake: IV 50 Other: Voiding Method Urinal Urinal # Voids 2 3 - Exam - Constitutional General appearance: Present: average body habitus, cooperative, no acute distress - EENT Eyes: Present: anicteric sclerae, EOMI, PERRLA, normal appearance ENT: Present: hearing grossly normal, normal oropharynx Ears: bilateral: normal - Neck Neck: Present: normal ROM. Absent: lymphadenopathy, rigidity, thyromegaly Carotids: negative: bruit present Thyroid: bilateral: normal size, negative: enlarged, nodule - Respiratory Respiratory: bilateral: CTA, negative: rales, rhonchi, wheezing - Cardiovascular Rhythm: regular Heart sounds: normal: S1, S2 Abnormal Heart Sounds: Absent: systolic murmur, diastolic murmur - Gastrointestinal General gastrointestinal: Present: normal bowel sounds, soft. Absent: distend ed, organomegaly, tenderness - Genitourinary Genitourinary Comment(s): deferred - Integumentary Integumentary: Present: normal turgor. Absent: jaundiced, rash, ulcer - Neurologic Neurologic: Present: CNII-XII intact. Absent: focal deficits - Musculoskeletal Musculoskeletal: Present: gait normal, strength equal bilaterally - Psychiatric Psychiatric: Present: A&O x's 3, appropriate affect, intact judgment & insight - Labs CBC & Chem 7: 05/09/20 06:36 05/09/20 07:00 Labs: Abnormal Lab Results - Last 24 Hours (Table) 05/09/20 05/09/20 05/10/20 Range/Units 11:38 17:00 06:39 POC Glucose (mg/dL) 129 H 116 H 136 H (75-99) mg/dL Assessment and Plan Assessment: acute stroke with right-sided hemiparesis , right facial droop and slurred speech. type 2 diabetes mellitus Essential hypertension History of chronic back pain, declined surgery Obesity with BMI of 32.3 Plan: this is a pleasant 74 years old male who presents with possible CVA with right hemiparesis. Continue with aspirin. He is also currently on Plavix pending further recommendation by neurologist regarding this medication. Continue with Lipitor. Also check hemoglobin A1c, vitamin B12, folate and TSH. Check echocardiogram. continue with telemetry. Continue with neuro check for 24 hours. Check carotid duplex. Neurologic consult and evaluation. We will allow for permissive hypertension for the first 24-48 hours PT/OT and speech team evaluation Labs and medication were reviewed.. Continue same treatment. Continue with symptomatic treatment. Resume home medication. Monitor lytes and vitals. DVT and GI prophylaxis. Further recommendations depends on the clinical course of the patient DVT prophylaxis: Subcutaneous heparin GI Prophylaxis: Pepcid Prognosis is guarded
[2020-05-10] MEDS: ATORVASTATIN 40 MG TAB PO SCH (20:34)
[2020-05-10 20:42] LABS: Glucose,Whole Blood 135 mg/dL (75-99)
[2020-05-11 07:22] LABS: Glucose,Whole Blood 152 mg/dL (75-99)
[2020-05-11] MEDS: ALBUTEROL HFA INHALER INHALATION PRN ×3 (08:18→21:03)
[2020-05-11] MEDS: amLODIPine 5 MG TAB PO SCH (08:25)
[2020-05-11] MEDS: MELOXICAM 7.5 MG TAB PO SCH (08:25)
[2020-05-11] MEDS: ASPIRIN 81 MG PO SCH (08:25)
[2020-05-11] MEDS: SERTRALINE 25 MG TAB PO SCH (08:25)
[2020-05-11] MEDS: metFORMIN 500 MG TAB PO SCH (08:25)
[2020-05-11] MEDS: FAMOTIDINE 20 MG TAB PO SCH ×2 (08:25→21:28)
[2020-05-11] MEDS: CLOPIDOGREL 75 MG TAB PO SCH (08:25)
[2020-05-11] MEDS: lisinopriL 20 MG TAB PO SCH (08:25)
[2020-05-11] MEDS: HEPARIN SODIUM,PORCINE 5,000 UNIT/ML 1 ML VIAL SQ SCH ×2 (08:26→21:28)
[2020-05-11] MEDS: ACETAMINOPHEN TAB 325 MG TAB PO PRN ×2 (08:29→16:36)
[2020-05-11 11:26] LABS: Glucose,Whole Blood 153 mg/dL (75-99)
--- NOTE | 2020-05-11 15:23 | P.PN ---
Subjective Progress Note Date: 05/11/20 Patient was seen for a follow-up. Patient's was also present by his bedside. Patient came to the hospital by ambulance on 05/07/2020 at 7:30 AM. Patient apparently suffered from a fall on 05/04/2020 which was felt to be due to tripping on something. After which she was okay. 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 He was brought to the hospital machine sand mixer. Patient came with acute right hemiparesis. Patient was considered not a candidate for TPA or any new neuro intervention. Patient at home was not taking any antiplatelet medication. He has been started on dual antiplatelet medication at this time. Patient also has diabetes, hypertension. Patient at present is complaining of lightheaded dizziness, fuzzy head. Patient's states that he was more alert yesterday. He also felt some nauseous earlier today, and has decreased appetite. No fever or chills. Objective - Vital Signs Vital signs: Vital Signs Temp 97.0 F L 05/11/20 14:00 Pulse 77 05/11/20 14:00 Resp 16 05/11/20 14:00 BP 117/74 05/11/20 14:00 Pulse Ox 96 05/11/20 14:00 Intake & Output 05/10/20 05/11/20 05/11/20 18:59 06:59 18:59 Intake Total 250 Balance 250 Intake: Oral 250 Other: Voiding Method Urinal Urinal # Voids 3 1 # Bowel Movements 1 1 - Exam On examination patient is alert and awake in no distress. His speech is mildly dysarthric but no aphasia. On cranial nerve exam is and pupils are round and reactive to light, visual arteaga are full, extraocular muscles are intact. He has right facial weakness, prominent. Tongue protrudes the midline. Palatal elevation is normal. Hearing slightly decreased, shoulder shrug normal. Facial sensations normal. On muscle strength testing patient has right pronation but no drift. The strength is normal on the left side. 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 Finger tapping is slow on the right. Sensations are equal bilaterally, with no neglect on double simultaneous stimulation. No obvious ataxia for [id number] testing. Gait deferred. Reflexes are 2+ throughout except for knee reflex is 3+ bilaterally. Left ankle is 2+ and right ankle is 1+. Patient has Babinski only on the right. - Labs CBC & Chem 7: 05/09/20 06:36 05/09/20 07:00 Labs: Abnormal Lab Results - Last 24 Hours (Table) 05/10/20 05/10/20 05/11/20 Range/Units 16:59 20:41 07:20 POC Glucose (mg/dL) 146 H 135 H 152 H (75-99) mg/dL 05/11/20 Range/Units 11:24 POC Glucose (mg/dL) 153 H (75-99) mg/dL Assessment and Plan Assessment: * Acute ischemic stroke left parietal periventricular white matter at the level of meyer radiata, likely due to small vessel disease. * Vascular risk factors include hypertension, diabetes * CTA showed <40% stenosis on the right and <30% stenosis on the left. * Hypertension * Diabetes * X tobacco use Plan: * Continue dual antiplatelet medications and statins Lipitor 40 mg. * CTA of head and neck showed no large vessel occlusion. * JULIA performed 05/09/2020 revealed no significant aortic stenosis. No evidence of PFO. Left atrial appendage is free of clot. EF is 55-60%. Mild to moderate aortic atherosclerosis. * Hemoglobin A1c 6.2, total cholesterol 156, LDL 91, HDL 34 and triglycerides 15 4. * B12 437. Folate 15.6. * Continue Pepcid 20 mg twice a day for gastric ulcer prophylaxis. We will hold off on meloxicam for now. * PT OT, speech therapy.
[2020-05-11 16:55] LABS: Glucose,Whole Blood 123 mg/dL (75-99)
--- NOTE | 2020-05-11 17:03 | P.PN ---
Subjective Acute ischemic CVA; possible cardioembolic 74 yo M with past medical history of hypertension and type 2 diabetes mellitus . He has a new PCP at [facility]. He has also history of chronic back pain and used to see a spine surgeon who recommended surgery for him but he declined Patient presents with slight slurred speech and right facial droop with right side upper and lower extremity weakness that started earlier morning and about 2:30 a.m. Also patient fell out of his bed. History was taken from the patient and at bedside. It looks like the patient developed weakness in his right upper and lower extremity 2 days ago and he felt but the did not know at that time. Patient states he noticed some improvement in his right side however merely morning today he noticed worsening in his right sided weakness and he fell again trying to getting into the bedroom, tried to help him to go to the bathroom when he fell again for the third time, and that time was noticed weakness in his right side and slurred speech and they called EMS. CTA of the brain: Mild atherosclerotic narrowing within the bilateral proximal ICA, less than 40% on the right and less than 30% on the left. No hemodynamic significant stenosis. Moderate atherosclerotic narrowing throughout the bilateral carotid C findings. 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 CT of the brain: No acute intracranial hemorrhage. Diffuse cerebral atrophy and mild chronic ischemic vessel 05/08/2020 Patient was seen at bedside and he states that he feels about the same today compared to yesterday. He continues to have right-sided weakness and slurring his speech. Vital signs reveal a blood pressure of 199/100, pulse 85 and respirations 16; no antihypertensive therapy is recommended due to permissive hypertension for another 24 hours MR the brain is reported evolving small acute infarct in the left parietal periventricular white matter at the level of the meyer radiata on background of mild to moderate diffuse cerebral atrophy and chronic small vessel ischemic change. Carotid duplex was reported as mild to moderate at this chronic changes bilaterally greater on the right without hemodynamic significant stenosis seen in either internal carotid artery. Finding correlate with the same day CTA of neck. Patient remains on neuro checks every 4 hours; PT/OT/GEOPHYSICS PROFESSOR on board; neurology recommending to keep systolic blood pressure between 160-184 today with recommendations to maintain blood pressure between 140-160 tomorrow; patient has been started on lisinopril 10 mg daily 05/09/2020 Patient is seen and evaluated in room at bedside; family is present in the room and reports patient is more awake and talkative Vital signs review revealed markedly elevated blood pressure with systolic blood pressure above 180; patient has been evaluated by neurology and is recommended to keep the systolic blood pressure goal between 140-160; patient has been started on lisinopril 10 mg daily; we will escalate therapy to 20 mg daily and monitor blood pressure closely. Further recommendations pending clinical course Patient has JULIA pending to rule out cardio embolic disease; 2-D echo with bubble study was unremarkable Patient is evaluated by PT/OT and is recommended skilled rehab 05/10/2020 Patient is seen and evaluated with at bedside; patient is more awake and alert this morning; continues to have right-sided weakness with slurring of speech Vital signs reveal with an elevated blood pressure of 177/94 JULIA done yesterday- no significant aortic stenosis. That into her atrial septum is intact. No evidence of PFO. Left atrial appendage is free of clot. Ejection fraction of 55-60%. Mild to moderate aortic atherosclerosis. Neurology on board and recommending to continue with aspirin, Plavix; Plavix is recommended to be discontinued after 21 days and continue aspirin indefinitely; patient will stay on Lipitor 80 mg daily which could be decreased to 40 mg daily at bedtime; patient has been started on Zoloft 25 mg daily due to multiple episodes of crying Patient is recommended an event monitor at time of discharge PT/OT/GEOPHYSICS PROFESSOR has evaluated patient and he is recommended skilled rehab; case management on 05/11/2020 Patient will benefit from inpatient rehabilitation because of which Dr. Navarro was consulted. Constitutional: Denied any fatigue denied any fever. Cardio vascular: denied any chest pain, palpitations Gastrointestinal denied any nausea vomiting Pulmonary: Denied any shortness of breath cough Neurologic left-sided paralysis All inpatient medications were reviewed and appropriate changes in these m edications as dictated in the interval history and assessment and plan. Objective - Vital Signs Vital signs: Vital Signs Temp 97.0 F L 05/11/20 14:00 Pulse 77 05/11/20 14:00 Resp 16 05/11/20 14:00 BP 117/74 05/11/20 14:00 Pulse Ox 96 05/11/20 14:00 Intake & Output 05/10/20 05/11/20 05/11/20 18:59 06:59 18:59 Intake Total 250 Balance 250 Intake: Oral 250 Other: Voiding Method Urinal Urinal # Voids 3 1 # Bowel Movements 1 1 - Exam PHYSICAL EXAMINATION: GENERAL: The patient is alert and oriented x3, not in any acute distress. Well developed, well nourished. HEENT: Pupils are round and equally reacting to light. EOMI. No scleral icterus. No conjunctival pallor. Normocephalic, atraumatic. No pharyngeal erythema. No thyromegaly. CARDIOVASCULAR: S1 and S2 present. No murmurs, rubs, or gallops. PULMONARY: Chest is clear to auscultation, no wheezing or crackles. ABDOMEN: Soft, nontender, nondistended, normoactive bowel sounds. No palpable organomegaly. MUSCULOSKELETAL: No joint swelling or deformity. EXTREMITIES: No cyanosis, clubbing, or pedal edema. NEUROLOGICAL: Left sided paralysis and facial droop SKIN: No rashes. - Labs CBC & Chem 7: 05/09/20 06:36 05/09/20 07:00 Labs: Abnormal Lab Results - Last 24 Hours (Table) 05/10/20 05/10/20 05/11/20 Range/Units 16:59 20:41 07:20 POC Glucose (mg/dL) 146 H 135 H 152 H (75-99) mg/dL 05/11/20 05/11/20 Range/Units 11:24 16:27 POC Glucose (mg/dL) 153 H 123 H (75-99) mg/dL Assessment and Plan Plan: acute stroke with right-sided hemiparesis , right facial droop and slurred speech. Patient has a cerebrovascular accident involving the middle cerebral artery territory on the right side type 2 diabetes mellitus Essential hypertension History of chronic back pain, declined surgery Obesity with BMI of 32.3 Plan: this is a pleasant 74 years old male who presents with possible CVA with right hemiparesis. Continue with aspirin. He is also currently on Plavix Continue with Lipitor. Also check hemoglobin A1c, vitamin B12, folate and TSH. Echocardiogram did not show any significant abnormality Evaluation for inpatient rehabilitation DVT prophylaxis: Subcutaneous heparin GI Prophylaxis: Pepcid Prognosis is guarded
[2020-05-11 20:25] LABS: Glucose,Whole Blood 111 mg/dL (75-99)
[2020-05-11] MEDS: ATORVASTATIN 40 MG TAB PO SCH (21:28)
[2020-05-11 22:03] VITALS: RESP 18
--- NOTE | 2020-05-12 06:03 | P.CONS ---
History of Present Illness - Chief Complaint gait disturbance - History of Present Illness I had the opportunity to see patient for inpatient rehab consultation with regard to gait disturbance. Patient admitted to [facility] May 07 acute onset right-sided weakness, face arm and leg. For which is seen by neurology, Dr. Sonny Mondragon. Seen by cardiology for known CAD. Laboratories head CT with mild to moderate bilateral cerebral atrophy. Angiogram CT with less than 40% stenosis. Chest x-ray negative. Carotid duplex with mild to moderate atherosclerosis bilateral. Brain MRI with acute or evolving left parietal infarct as well as the diffuse atrophy. PT reports supervision for bed mobility and minimal assistance for transfers and gait 40 feet with roller walker and standing balance poor. OT reports minimal assistance for upper dressing, toileting, transfers and maximal assistance for lower dressing and moderate assistance for bathing. Previous functional history as elicited from patient: 75-year-old right-handed white male who is mcc to floor home with . Both are retired. does the cooking and laundry and apparently both drive. Patient describes independent in tub bath and gait with standard cane. His new PMD in [place]. Denies tobacco or alcohol. Family history cancer in both parents. Review of Systems Review of systems: ENT: Denies sneezes or discharge. Eyes: Denies discharge or photophobia. Cardiac: Denies chest pain or palpitation. Pulmonary: Denies cough or shortness of breath. Gastrointestinal: Denies nausea, emesis, constipation, diarrhea. Genitourinary: Denies discharge or frequency. Musculoskeletal: Denies muscle or bone aches. Neurologic: right-sided weakness and numbness as well as right facial droop. Endocrine: Denies shakes or sweats. Oncology: Denies cancers. Dermatologic: Denies rash, itching, pruritus. ALLERGY/immunology: Denies sneezes, rashes. Past Medical History Past Medical History: Diabetes Mellitus, GERD/Reflux, Hypertension, Skin Disorder Additional Past Medical History / Comment(s): Pt states he felt heart palpitations/racing about 2 weeks ago, spinal stenosis with chronic low back pain and knees will "give out", FALLS, constipation, hiatal hernia, NIDDM diagnosed less than a year ago/neuropathy bilateral feet, small sores posterior neck for approximately one year. History of Any Multi-Drug Resistant Organisms: None Reported Past Surgical History: No Surgical Hx Reported Additional Past Surgical History / Comment(s): Pt/spouse state pt has never had surgery. Past Anesthesia/Blood Transfusion Reactions: Unable to Obtain Smoking Status: Former smoker - Past Family History Mother Family Medical History: Cancer Additional Family Medical History / Comment(s): stomach cancer. Father Additional Family Medical History / Comment(s): "heart problems" Brother(s) Family Medical History: Diabetes Mellitus Medications and Allergies Home Medications Medication Instructions Recorded Confirmed Type Acetaminophen Tab [Tylenol Tab] 500 mg PO Q6H PRN 05/07/20 05/07/20 History Glucosam/Pancho-Msm1/C/Brent/Bosw 1 tab PO DAILY 05/07/20 05/07/20 History [Gumijdjsckk-Phvcdhuauas-ORQ Tb] Lisinopril [Prinivil] 10 mg PO DAILY 05/07/20 05/07/20 History Meloxicam [Mobic] 15 mg PO DAILY 05/07/20 05/07/20 History [place]-3 Fatty Acids/Fish Oil [Fish 1 cap PO DAILY 05/07/20 05/07/20 History Oil 1,000 mg Softgel] metFORMIN HCL [Glucophage] 500 mg PO DAILY 05/07/20 05/07/20 History Allergies Allergy/AdvReac Type Severity Reaction Status Date / Time No Known Allergies Allergy Verified 05/07/20 08:35 Physical Exam Vitals: Vital Signs Temp Pulse Resp BP Pulse Ox 05/12/20 02:10 98.1 F 85 18 148/80 95 05/11/20 20:00 82 18 05/11/20 18:30 98.0 F 82 18 142/71 97 05/11/20 14:00 97.0 F L 77 16 117/74 96 05/11/20 08:00 97.3 F L 81 18 138/81 96 Intake and Output 05/11/20 05/11/20 05/12/20 14:59 22:59 06:59 Intake Total 200 Balance 200 Intake: Oral 200 Other: Voiding Method Urinal Urinal # Voids 2 2 # Bowel Movements 1 Skin: atrophic, intact. General: overweight build and comfortable appearance. Head: Normocephalic, atraumatic. Eyes: Symmetric. Pupils equal round. Ears: Symmetric. Hearing within normal limits. Mouth: Clear. Neck: Supple. Carotid without bruit. Cardiac: Regular rate and rhythm. Lungs: Clear anteriorly and posteriorly. Abdomen: Soft active nontender. Extremities: Normal tone. Neurological: Mental status: Alert, cooperative, pleasant.had some difficulty answering biographical questions. Cranial nerves: Symmetric facial tone and trapezius. Motor: Normal strength and isolation all 4 limbs but apraxic right side. Sensation: Intact throughout. DTRs: Symmetric and equal throughout. Mobility: Sits with minimal assistance . Results CBC & Chem 7: 05/09/20 06:36 05/09/20 07:00 Labs: Abnormal Lab Results - Last 24 Hours (Table) 05/11/20 05/11/20 05/11/20 Range/Units 07:20 11:24 16:27 POC Glucose (mg/dL) 152 H 153 H 123 H (75-99) mg/dL 05/11/20 Range/Units 20:24 POC Glucose (mg/dL) 111 H (75-99) mg/dL Assessment and Plan (1) Cerebrovascular accident (CVA) Current Visit: Yes Status: Acute Code(s): I63.9 - CEREBRAL INFARCTION, UNSPECIFIED SNOMED Code(s): 457761568 (2) Hypertension Current Visit: Yes Status: Acute Code(s): I10 - ESSENTIAL (PRIMARY) HYPERTENSION SNOMED Code(s): 28125903 (3) Type 2 diabetes mellitus Current Visit: Yes Status: Acute Code(s): E11.9 - TYPE 2 DIABETES MELLITUS WITHOUT COMPLICATIONS SNOMED Code(s): 64134085 Plan: impression: 1. Gait disturbance due to stroke result in right hemiparesthesias and aphasia. 2. Hypertension. 3. Type 2 diabetes. 4. OK. Comments and plan: At this time safety concerns noted. Patient demonstrated ability tolerate from therapies. Discussed inpatient rehab with patient and he seems agreeable. Support upon discharge would most likely be .
[2020-05-12 07:07] LABS: Glucose,Whole Blood 171 mg/dL (75-99)
[2020-05-12 08:02] VITALS: BP 108/68; PULSE 82; TEMP 98.7
[2020-05-12] MEDS: FAMOTIDINE 20 MG TAB PO SCH (08:16)
[2020-05-12] MEDS: SERTRALINE 25 MG TAB PO SCH (08:17)
[2020-05-12] MEDS: metFORMIN 500 MG TAB PO SCH (08:17)
[2020-05-12] MEDS: HEPARIN SODIUM,PORCINE 5,000 UNIT/ML 1 ML VIAL SQ SCH (08:17)
[2020-05-12] MEDS: lisinopriL 20 MG TAB PO SCH (08:17)
[2020-05-12] MEDS: CLOPIDOGREL 75 MG TAB PO SCH (08:17)
[2020-05-12] MEDS: ASPIRIN 81 MG PO SCH (08:17)
[2020-05-12] MEDS: amLODIPine 5 MG TAB PO SCH (08:17)
[2020-05-12] MEDS: ALBUTEROL HFA INHALER INHALATION PRN ×2 (11:28→15:25)
[2020-05-12 11:29] LABS: Glucose,Whole Blood 123 mg/dL (75-99)
--- NOTE | 2020-05-12 11:47 | P.DS ---
Providers Date of admission: 05/07/20 08:29 Expected date of discharge: 05/12/20 Attending physician: Osmin Lobo Consults: 05/07/20 08:30 Consult Physician Routine Consulting Provider: Sonny Posadas Consult Reason/Comments: CVA, non-interventional candidate Do you want consulting provider notified?: Yes 05/11/20 13:37 Consult Physician Routine Consulting Provider: Jayro George Consult Reason/Comments: CVA Do you want consulting provider notified?: Yes 05/11/20 14:22 Consult Physician Routine Consulting Provider: Jayro George Consult Reason/Comments: Evaluate for IPR Do you want consulting provider notified?: Yes Primary care physician: Liza Buck MD Hospital Course: Acute ischemic CVA; possible cardioembolic 74 yo M with past medical history of hypertension and type 2 diabetes mellitus . He has a new PCP at [place]. He has also history of chronic back pain and used to see a spine surgeon who recommended surgery for him but he declined Patient presents with slight slurred speech and right facial droop with right side upper and lower extremity weakness that started earlier morning and about 2:30 a.m. Also patient fell out of his bed. History was taken from the patient and at bedside. It looks like the patient developed weakness in his right upper and lower extremity 2 days ago and he felt but the did not know at that time. Patient states he noticed some improvement in his right side however merely morning today he noticed worsening in his right sided weakness and he fell again trying to getting into the be droom, tried to help him to go to the bathroom when he fell again for the third time, and that time was noticed weakness in his right side and slurred speech and they called EMS. CTA of the brain: Mild atherosclerotic narrowing within the bilateral proximal ICA, less than 40% on the right and less than 30% on the left. No hemodynamic significant stenosis. Moderate atherosclerotic narrowing throughout the bilateral carotid C findings. 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 CT of the brain: No acute intracranial hemorrhage. Diffuse cerebral atrophy and mild chronic ischemic vessel 05/08/2020 Patient was seen at bedside and he states that he feels about the same today compared to yesterday. He continues to have right-sided weakness and slurring his speech. Vital signs reveal a blood pressure of 199/100, pulse 85 and respirations 16; no antihypertensive therapy is recommended due to permissive hypertension for another 24 hours MR the brain is reported evolving small acute infarct in the left parietal periventricular white matter at the level of the meyer radiata on background of mild to moderate diffuse cerebral atrophy and chronic small vessel ischemic change. Carotid duplex was reported as mild to moderate at this chronic changes bilaterally greater on the right without hemodynamic significant stenosis seen in either internal carotid artery. Finding correlate with the same day CTA of neck. Patient remains on neuro checks every 4 hours; PT/OT/TRANSFER STATION ATTENDANT on board; neurology recommending to keep systolic blood pressure between 160-184 today with recommendations to maintain blood pressure between 140-160 tomorrow; patient has been started on lisinopril 10 mg daily 05/09/2020 Patient is seen and evaluated in room at bedside; family is present in the room and reports patient is more awake and talkative Vital signs review revealed markedly elevated blood pressure with systolic blood pressure above 180; patient has been evaluated by neurology and is recommended to keep the systolic blood pressure goal between 140-160; patient has been started on lisinopril 10 mg daily; we will escalate therapy to 20 mg daily and monitor blood pressure closely. Further recommendations pending clinical course Patient has JULIA pending to rule out cardio embolic disease; 2-D echo with bubble study was unremarkable Patient is evaluated by PT/OT and is recommended skilled rehab 05/10/2020 Patient is seen and evaluated with at bedside; patient is more awake and alert this morning; continues to have right-sided weakness with slurring of speech Vital signs reveal with an elevated blood pressure of 177/94 JULIA done yesterday- no significant aortic stenosis. That into her atrial septum is intact. No evidence of PFO. Left atrial appendage is free of clot. Ejection fraction of 55-60%. Mild to moderate aortic atherosclerosis. Neurology on board and recommending to continue with aspirin, Plavix; Plavix is recommended to be discontinued after 21 days and continue aspirin indefinitely; patient will stay on Lipitor 80 mg daily which could be decreased to 40 mg daily at bedtime; patient has been started on Zoloft 25 mg daily due to multiple episodes of crying Patient is recommended an event monitor at time of discharge PT/OT/TRANSFER STATION ATTENDANT has evaluated patient and he is recommended skilled rehab; case management on 05/11/2020 Patient will benefit from inpatient rehabilitation because of which Dr. Navarro was consulted. 05/12/2020 Patient seen on follow-up taking up in recliner, left facial droop noted, minimal to no strength difference noted on left side today. Continues on aspirin. Plavix along with Ceftin. Is planned to go to inpatient rehab today. Hemodynamically stable, no fevers. No significant abnormality on echocardiogram, LVEF 55-60%, no PFO. Constitutional: Denied any fatigue denied any fever. Cardio vascular: denied any chest pain, palpitations Gastrointestinal denied any nausea vomiting Pulmonary: Denied any shortness of breath cough Neurologic left-sided facial droop PHYSICAL EXAMINATION: GENERAL: The patient is alert and oriented x3, not in any acute distress. Well developed, well nourished. HEENT: Pupils are round and equally reacting to light. EOMI. No scleral icterus. No conjunctival pallor. Normocephalic, atraumatic. No pharyngeal erythema. No thyromegaly. CARDIOVASCULAR: S1 and S2 present. No murmurs, rubs, or gallops. PULMONARY: Chest is clear to auscultation, no wheezing or crackles. ABDOMEN: Soft, nontender, nondistended, normoactive bowel sounds. No palpable organomegaly. MUSCULOSKELETAL: No joint swelling or deformity. EXTREMITIES: No cyanosis, clubbing, or pedal edema. NEUROLOGICAL: left 4/5 muscle strenght upper and lower and facial droop SKIN: No rashes. Plan: acute stroke right MCA territory with right-sided hemiparesis , right facial droop and slurred speech. type 2 diabetes mellitus Essential hypertension History of chronic back pain, declined surgery Obesity with BMI of 32.3 Plan: 2-D echocardiogram preserved LV function LVEF 60%, no left atrial appendage clot or PFO. Discharge to inpatient rehab 2 antiplatelet aspirin and Plavix for 21 days, then aspirin thereafter Continue Lipitor 40 daily Lisinopril 20 mg, discontinue Norvasc Continue metformin 500 twice daily. Patient Condition at Discharge: Fair Plan - Discharge Summary Discharge Rx Participant: No New Discharge Prescriptions: New Aspirin 81 mg PO DAILY chew Atorvastatin [Lipitor] 40 mg PO HS tab Famotidine [Pepcid] 20 mg PO BID tab Clopidogrel [Plavix] 75 mg PO DAILY tab lisinopriL [Zestril] 20 mg PO DAILY tab Sertraline [Zoloft] 25 mg PO DAILY tab Continue Meloxicam [Mobic] 15 mg PO DAILY Glucosam/Pancho-Msm1/C/Brent/Bosw [Kdbdfgribsr-Wspvfczjjyq-KZY Tb] 1 tab PO DAILY Acetaminophen Tab [Tylenol] 500 mg PO Q6H PRN PRN Reason: BACK PAIN metFORMIN HCL [Glucophage] 500 mg PO DAILY [place]-3 Fatty Acids/Fish Oil [Fish Oil 1,000 mg Softgel] 1 cap PO DAILY Discontinued Lisinopril [Prinivil] 10 mg PO DAILY Discharge Medication List Acetaminophen Tab [Tylenol] 500 mg PO Q6H PRN 05/07/20 [History] Glucosam/Pancho-Msm1/C/Brent/Bosw [Jpkhdfinhkd-Kkaitvqehdn-XCG Tb] 1 tab PO DAILY 05/07/20 [History] Meloxicam [Mobic] 15 mg PO DAILY 05/07/20 [History] [place]-3 Fatty Acids/Fish Oil [Fish Oil 1,000 mg Softgel] 1 cap PO DAILY 05/07/20 [History] metFORMIN HCL [Glucophage] 500 mg PO DAILY 05/07/20 [History] Aspirin 81 mg PO DAILY chew 05/12/20 [Rx] Atorvastatin [Lipitor] 40 mg PO HS tab 05/12/20 [Rx] Clopidogrel [Plavix] 75 mg PO DAILY tab 05/12/20 [Rx] Famotidine [Pepcid] 20 mg PO BID tab 05/12/20 [Rx] Sertraline [Zoloft] 25 mg PO DAILY tab 05/12/20 [Rx] lisinopriL [Zestril] 20 mg PO DAILY tab 05/12/20 [Rx] Follow up Appointment(s)/Referral(s): Liza Buck MD [Primary Care Provider] - 1-2 Days Jose Lopez DO [STAFF PHYSICIAN] - 2 Weeks [facility], [NON-STAFF] - Patient Instructions/Handouts: Hypertension (DC), Stroke (DC) Discharge Disposition: OTHER INSTITUTION NOT DEFINED
--- NOTE | 2020-05-13 09:21 | P.PN ---
Subjective Progress Note Date: 05/12/20 05/12/2020: Patient was seen for a follow-up. Patient's was also present. Patient is doing better. He is able to walk, although using the walker. Patient is ready to go to [facility]. No new symptoms. Patient's states that he is stable. Patient also has spinal stenosis and was evaluated at [facility] in the past. Patient's states that he always has back issues. 05/11/2020: Patient was seen for a follow-up. Patient's was also present by his bedside. Patient came to the hospital by ambulance on 05/07/2020 at 7:30 AM. Patient apparently suffered from a fall on 05/04/2020 which was felt to be due to tripping on something. After which she was okay. inspector packager on 05/07/2020 he fell to other times. He was brought to the hospital inspector packager. Patient came with acute right hemiparesis. Patient was considered not a candidate for TPA or any new neuro intervention. Patient at home was not taking any antiplatelet medication. He has been started on dual antiplatelet medication at this time. Patient also has diabetes, hyp ertension. Patient at present is complaining of lightheaded dizziness, fuzzy head. Patient's states that he was more alert yesterday. He also felt some nauseous earlier today, and has decreased appetite. No fever or chills. Objective - Vital Signs Vital signs: Vital Signs Temp 98.7 F 05/12/20 08:00 Pulse 82 05/12/20 08:00 Resp 18 05/12/20 08:00 BP 108/68 05/12/20 08:00 Pulse Ox 95 05/12/20 08:00 Intake & Output 05/11/20 05/12/20 05/12/20 18:59 06:59 18:59 Intake Total 200 Balance 200 Intake: Oral 200 Other: Voiding Method Urinal Urinal Urinal # Voids 1 2 # Bowel Movements 1 1 - Exam On examination patient is alert and awake in no distress. His speech is mildly dysarthric but no aphasia. Patient is swallowing food well. His has noticed that he sometimes leaning to the right side. On cranial nerve exam is and pupils are round and reactive to light, visual arteaga are full, extraocular muscles are intact. He has right facial weakness, central type. Tongue protrudes the midline. Palatal elevation is normal. Hearing slightly decreased, shoulder shrug normal. Facial sensations normal. On muscle strength testing patient has right pronation but no drift. The strength is normal on the left side. On the right side his deltoid, biceps and triceps are normal, spare parts clerk is 5-, hip flexion 5-ankles and toes are normal. Finger tapping is slow on the right. Sensations are equal bilaterally, with no neglect on double simultaneous stimulation. No obvious ataxia for [id number]-[id number] testing. Gait deferred. Reflexes are 2+ throughout except for knee reflex is 3+ bilaterally. Left ankle is 2+ and right ankle is 1+. Patient has Babinski only on the right. Patient walked with a walker. Appeared quite Steady. - Labs CBC & Chem 7: 05/09/20 06:36 05/09/20 07:00 Labs: Abnormal Lab Results - Last 24 Hours (Table) 05/11/20 05/11/20 05/12/20 Range/Units 16:27 20:24 07:06 POC Glucose (mg/dL) 123 H 111 H 171 H (75-99) mg/dL 05/12/20 Range/Units 11:27 POC Glucose (mg/dL) 123 H (75-99) mg/dL Assessment and Plan Assessment: * Acute ischemic stroke left parietal periventricular white matter at the level of meyer radiata, likely due to small vessel disease. * Vascular risk factors include hypertension, diabetes * CTA showed <40% stenosis on the right and <30% stenosis on the left. * Hypertension * Diabetes * X tobacco use Plan: * Continue dual antiplatelet medications and statins Lipitor 40 mg. * CTA of head and neck showed no large vessel occlusion. * JULIA performed 05/09/2020 revealed no significant aortic stenosis. No evidence of PFO. Left atrial appendage is free of clot. EF is 55-60%. Mild to moderate aortic atherosclerosis. * Hemoglobin A1c 6.2, total cholesterol 156, LDL 91, HDL 34 and triglycerides 154. * B12 437. Folate 15.6. * Continue Pepcid 20 mg twice a day for gastric ulcer prophylaxis. We will hold off on meloxicam for now. * PT OT, speech therapy. * Patient to be transferred to [facility].
--- NOTE | 2020-05-15 15:45 | ECHOF ---
Referral Reason:Thrombus MEASUREMENTS -------- HEIGHT: 188.0 cm WEIGHT: 113.9 kg BP: 191/95 RVIDd: 2.9 cm (< 3.3) IVSd: 1.6 cm (0.6 - 1.1) LVIDd: 3.9 cm (3.9 - 5.3) LVPWd: 1.6 cm (0.6 - 1.1) IVSs: 2.0 cm LVIDs: 3.0 cm LVPWs: 2.0 cm LA Diam: 2.3 cm (2.7 - 3.8) Ao Diam: 3.8 cm (2.0 - 3.7) AV Cusp: 1.6 cm (1.5 - 2.6) MV EXCURSION: 17.153 mm (> 18.000) MV EF SLOPE: 51 mm/s (70 - 150) EPSS: 2.2 cm MV E Charbel: 0.66 m/s MV DecT: 209 ms MV A Charbel: 0.79 m/s MV E/A Ratio: 0.84 AV maxP.12 mmHg AV meanP.67 mmHg FINDINGS -------- Sinus rhythm. This was a technically adequate study. The left ventricular size is normal. There is moderate concentric left ventricular hypertrophy. O verall left ventricular systolic function is normal with, an EF between 60 - 65 %. The right ventricle is normal in size. The left atrium is normal in size. The right atrium is normal in size. Interatrial and interventricular septum intact. There is mild to moderate aortic valve sclerosis. There is mild aortic stenosis present. Peak/carlitos n gradient across the Aortic Valve is 19.12mmHg / 10.67mmHg. The mitral valve leaflets are mildly thickened. Mild mitral annular calcification present. Trace tricuspid regurgitation present. The pulmonic valve was not well visualized. The aortic root is dilated measuring 3.8cm. Normal inferior vena cava with normal inspiratory collapse consistent with estimated right atrial pre ssure of 5 mmHg. There is no pericardial effusion. CONCLUSIONS -------- 1. The left ventricular size is normal. 2. There is moderate concentric left ventricular hypertrophy. 3. Overall left ventricular systolic function is normal with, an EF between 60 - 65 %. 4. There is mild to moderate aortic valve sclerosis. 5. There is mild aortic stenosis present. 6. Peak/mean gradient across the Aortic Valve is 19.12mmHg / 10.67mmHg. 7. The mitral valve leaflets are mildly thickened. 8. Mild mitral annular calcification present. 9. Trace tricuspid regurgitation present. 10. The aortic root is dilated measuring 3.8cm. 11. There is no pericardial effusion. OPERATIONS PROGRAM MANAGER: PADILLA Miramontes
== END 2020-05-12 16:04 | DRG 65 ==
LOC: EC 07:30 → 3SCARD 08:29 → 4SSUR 05-08 23:41
PROVIDERS: ADMIT Hospitalist; ATTEND Hospitalist
PROC: B24BZZ4 Ultrasonography of Heart with Aorta, Transesophageal (ICD-10-PCS; principal; 2020-05-09 12:00)
DX: I63.411 Cerebral infarction due to embolism of right middle cerebral artery (principal); G81.91 Hemiplegia, unspecified affecting right dominant side; E11.51 Type 2 diabetes mellitus with diabetic peripheral angiopathy without gangrene; E11.40 Type 2 diabetes mellitus with diabetic neuropathy, unspecified; I70.0 Atherosclerosis of aorta; Z20.822 Contact with and (suspected) exposure to COVID-19; R47.01 Aphasia; R29.810 Facial weakness; R47.81 Slurred speech; R48.2 Apraxia; R27.0 Ataxia, unspecified; R47.1 Dysarthria and anarthria; R29.710 NIHSS score 10; I65.23 Occlusion and stenosis of bilateral carotid arteries; I10 Essential (primary) hypertension; M47.816 Spondylosis without myelopathy or radiculopathy, lumbar region; M48.00 Spinal stenosis, site unspecified; I25.10 Atherosclerotic heart disease of native coronary artery without angina pectoris; K21.9 Gastro-esophageal reflux disease without esophagitis; G89.29 Other chronic pain; K44.9 Diaphragmatic hernia without obstruction or gangrene; R29.6 Repeated falls; E66.9 Obesity, unspecified; Z68.32 Body mass index [BMI] 32.0-32.9, adult; Z79.1 Long term (current) use of non-steroidal anti-inflammatories (NSAID); Z79.84 Long term (current) use of oral hypoglycemic drugs; Z79.899 Other long term (current) drug therapy; Z87.891 Personal history of nicotine dependence; Z87.19 Personal history of other diseases of the digestive system; Z87.2 Personal history of diseases of the skin and subcutaneous tissue; W06.XXXA Fall from bed, initial encounter; Y92.003 Bedroom of unspecified non-institutional (private) residence as the place of occurrence of the external cause; Z80.0 Family history of malignant neoplasm of digestive organs; Z83.3 Family history of diabetes mellitus
CPT/HCPCS: 36415; 70450; 70496; 70498; 70551; 71046; 80048; 80053; 80061; 82550; 82607; 82746; 83036; 84443; 84484; 85025; 85610; 85730; 87635; 93005; 93306; 93308; 93312; 93320; 93325; 93880; 94640; 94760; 96361; 96374; 99291

== ENCOUNTER 2020-06-12 11:25 | Inpatient (IN) | payer MEDICARE ==
[2020-06-12] MEDS ORDERED: SODIUM CHLORIDE 0.9% 1,000 ML IV ONE (11:51)
--- NOTE | 2020-06-12 11:54 | ED ---
General Adult HPI - General Stated complaint: altered mental status Time Seen by Provider: 06/12/20 11:25 Source: patient, RN notes reviewed, old records reviewed - History of Present Illness Initial comments: This is a 75-year-old male who is brought into the emergency department for altered mental status. Patient has stroke in May which left him with right- sided weakness as well as slurred speech. According to family members he was last seen normal last night at 9:30. According to family the patient seemed is no altered mental status is morning he wasn't responding frequently and seemed to be staring off into the distance. According to family. No recent fever chills or spinal complaints of chest pain or palpitations. Patient was somewhat short of breath at one point last night. There was no history of any trauma. Family is not currently with him and further history will be obtained when they arrive - Related Data Home Medications Medication Instructions Recorded Confirmed Meloxicam [Mobic] 15 mg PO DAILY PRN 05/07/20 06/12/20 metFORMIN HCL [Glucophage] 500 mg PO DAILY 05/07/20 06/12/20 HYDROcodone/APAP 10-325MG [[place] 1 tab PO Q6H PRN 06/12/20 06/12/20 10-325] Sennosides [Senna] 8.6 mg PO BID PRN 06/12/20 06/12/20 Previous Rx's Medication Instructions Recorded Aspirin 81 mg PO DAILY chew 05/12/20 lisinopriL [Zestril] 20 mg PO DAILY tab 05/12/20 Allergies Allergy/AdvReac Type Severity Reaction Status Date / Time No Known Allergies Allergy Verified 06/12/20 13:51 Review of Systems ROS Statement: Those systems with pertinent positive or pertinent negative responses have been documented in the HPI. ROS Other: All systems not noted in ROS Statement are negative. Past Medical History Past Medical History: Diabetes Mellitus, GERD/Reflux, Hypertension, Skin Disord er Additional Past Medical History / Comment(s): Pt states he felt heart pa lpitations/racing about 2 weeks ago, spinal stenosis with chronic low back pain and knees will "give out", FALLS, constipation, hiatal hernia, NIDDM diagnosed less than a year ago/neuropathy bilateral feet, small sores posterior neck for approximately one year. History of Any Multi-Drug Resistant Organisms: None Reported Past Surgical History: No Surgical Hx Reported Additional Past Surgical History / Comment(s): Pt/spouse state pt has never had surgery. Past Anesthesia/Blood Transfusion Reactions: Unable to Obtain Smoking Status: Former smoker - Past Family History Mother Family Medical History: Cancer Additional Family Medical History / Comment(s): stomach cancer. Father Additional Family Medical History / Comment(s): "heart problems" Brother(s) Family Medical History: Diabetes Mellitus General Exam - General Exam Comments Initial Comments: GENERAL: Patient is well-developed and well-nourished. Patient is nontoxic and well- hydrated and is in no acute distress. Patient stares off sometimes we're talking to me have to really get his attention and then he fades away and started staring off again. ENT: Neck is soft and supple. No significant lymphadenopathy is noted. Oropharynx is clear. Moist mucous membranes. Neck has full range of motion without eliciting any pain. EYES: The sclera were anicteric and conjunctiva were pink and moist. Extraocular movements were intact and pupils were equal round and reactive to light. Eyelids were unremarkable. PULMONARY: Unlabored respirations. Good breath sounds bilaterally. No audible rales rhonchi or wheezing was noted. CARDIOVASCULAR: There is a regular rate and rhythm without any murmurs gallops or rubs. ABDOMEN: Soft and nontender with normal bowel sounds. No palpable organomegaly was noted. There is no palpable pulsatile mass. SKIN: Skin is clear with no lesions or rashes and otherwise unremarkable. NEUROLOGIC: Patient is alert and oriented 1. Patient has some facial drooping on the right as well as slurred speech. Patient has weakness of the right arm in comparison to the left. Difficult to assess his leg strength because he is not following those commands MUSCULOSKELETAL: Normal extremities with adequate strength and full range of motion. No lower extremity swelling or edema. No calf tenderness. LYMPHATICS: No significant lymphadenopathy is noted PSYCHIATRIC: Cannot assess at this time Course Vital Signs 06/12/20 06/12/20 11:40 13:07 Temperature 97.8 F Pulse Rate 81 74 Respiratory 16 16 Rate Blood Pressure 95/69 84/57 O2 Sat by Pulse 97 98 Oximetry Medical Decision Making - Medical Decision Making EKG shows normal sinus rhythm at 73 bpm DC interval 176 QRS 120 QT intervals 400 QTC is 440. Patient's EKG shows significant ST segment Depression in V4 V5 and V6. Patient also says some T-wave inversion in 1 and aVL. Chest x-ray shows mild pulmonary edema. Patient's hemoglobin was 7.0 white states that he was having black stools recently. I ordered 1 unit of packed red blood cells. Patient's creatinine is elevated. Patient's EKG shows significant signs for cardiac ischemia patient's troponin is 3.9. Spoke with some physicians and they wanted the patient admitted the ICU I spoke with Dr. Posadas he agreed to admit the patient ICU. Heparin was held secondary to the patient's hemoglobin and black stools. - Lab Data Result diagrams: 06/12/20 12:05 06/12/20 12:15 Lab Results 06/12/20 06/12/20 06/12/20 Range/Units 12:02 12:05 12:05 WBC 10.6 (3.8-10.6) k/uL RBC 2.42 L (4.30-5.90) m/uL Hgb 7.0 L D (13.0-17.5) gm/dL Hct 22.2 L (39.0-53.0) % MCV 91.8 (80.0-100.0) fL MCH 28.9 (25.0-35.0) pg MCHC 31.5 (31.0-37.0) g/dL RDW 15.8 H (11.5-15.5) % Plt Count 420 (150-450) k/uL MPV 7.7 Neutrophils % 84 % Lymphocytes % 12 % Monocytes % 3 % Eosinophils % 1 % Basophils % 0 % Neutrophils # 8.9 H (1.3-7.7) k/uL Lymphocytes # 1.2 (1.0-4.8) k/uL Monocytes # 0.3 (0-1.0) k/uL Eosinophils # 0.1 (0-0.7) k/uL Basophils # 0.0 (0-0.2) k/uL Hypochromasia Marked Poikilocytosis Moderate PT 12.2 H (9.0-12.0) sec INR 1.2 H (<1.2) APTT 21.9 L (22.0-30.0) sec Sodium (137-145) mmol/L Potassium (3.5-5.1) mmol/L Chloride (98-107) mmol/L Carbon Dioxide (22-30) mmol/L Anion Gap mmol/L BUN (9-20) mg/dL Creatinine (0.66-1.25) mg/dL Est GFR (CKD-EPI)AfAm (>60 ml/min/1.73 sqM) Est GFR (CKD-EPI)NonAf (>60 ml/min/1.73 sqM) Glucose (74-99) mg/dL POC Glucose (mg/dL) 167 H (75-99) mg/dL POC Glu Switch Adjuster ID Susie Fuentes Calcium (8.4-10.2) mg/dL Total Bilirubin (0.2-1.3) mg/dL AST (17-59) U/L ALT (4-49) U/L Alkaline Phosphatase (38-126) U/L Troponin I (0.000-0.034) ng/mL Total Protein (6.3-8.2) g/dL Albumin (3.5-5.0) g/dL 06/12/20 06/12/20 Range/Units 12:05 12:15 WBC (3.8-10.6) k/uL RBC (4.30-5.90) m/uL Hgb (13.0-17.5) gm/dL Hct (39.0-53.0) % MCV (80.0-100.0) fL MCH (25.0-35.0) pg MCHC (31.0-37.0) g/dL RDW (11.5-15.5) % Plt Count (150-450) k/uL MPV Neutrophils % % Lymphocytes % % Monocytes % % Eosinophils % % Basophils % % Neutrophils # (1.3-7.7) k/uL Lymphocytes # (1.0-4.8) k/uL Monocytes # (0-1.0) k/uL Eosinophils # (0-0.7) k/uL Basophils # (0-0.2) k/uL Hypochromasia Poikilocytosis PT (9.0-12.0) sec INR (<1.2) APTT (22.0-30.0) sec Sodium 130 L (137-145) mmol/L Potassium 5.6 H (3.5-5.1) mmol/L Chloride 98 (98-107) mmol/L Carbon Dioxide 20 L (22-30) mmol/L Anion Gap 12 mmol/L BUN 37 H (9-20) mg/dL Creatinine 1.64 H (0.66-1.25) mg/dL Est GFR (CKD-EPI)AfAm 47 (>60 ml/min/1.73 sqM) Est GFR (CKD-EPI)NonAf 40 (>60 ml/min/1.73 sqM) Glucose 154 H (74-99) mg/dL POC Glucose (mg/dL) (75-99) mg/dL POC Glu Switch Adjuster ID Calcium 9.4 (8.4-10.2) mg/dL Total Bilirubin 0.6 (0.2-1.3) mg/dL AST 38 (17-59) U/L ALT 21 (4-49) U/L Alkaline Phosphatase 85 (38-126) U/L Troponin I 3.970 H* (0.000-0.034) ng/mL Total Protein 6.7 (6.3-8.2) g/dL Albumin 3.5 (3.5-5.0) g/dL Critical Care Time Critical Care Time: Yes Total Critical Care Time: 35 Disposition Clinical Impression: Non-STEMI (non-ST elevated myocardial infarction), Anemia, GI bleed, Altered mental status, Renal insufficiency Disposition: ADMITTED IP TO THIS HOSP Referrals: Liza Buck MD [Primary Care Provider] - 1-2 days Time of Disposition: 14:47
[2020-06-12 12:03] LABS: Glucose,Whole Blood 167 mg/dL (75-99)
[2020-06-12 12:28] LABS: Basophils % (A) 0 %; Eosinophils % (A) 1 %; HCT 22.2 % (39.0-53.0); Hypochromasia Marked; Lymphocytes % (A) 12 %; MCH 28.9 pg (25.0-35.0); MCHC 31.5 g/dL (31.0-37.0); MCV 91.8 fL (80.0-100.0); Mean Platelet Volume 7.7; Monocytes % (A) 3 %; Neutrophils % (A) 84 %; Platelet Count 420 k/uL (150-450); Poikilocytosis Moderate; RBC 2.42 m/uL (4.30-5.90); RDW 15.8 % (11.5-15.5); WBC 10.6 k/uL (3.8-10.6)
[2020-06-12 12:29] LABS: Eosinophils # (A) 0.1 k/uL (0-0.7); Lymphocytes # (A) 1.2 k/uL (1.0-4.8); Monocytes # (A) 0.3 k/uL (0-1.0); Neutrophils # (A) 8.9 k/uL (1.3-7.7)
[2020-06-12 12:44] LABS: Albumin 3.5 g/dL (3.5-5.0); Calcium 9.4 mg/dL (8.4-10.2); Potassium 5.6 mmol/L (3.5-5.1); Total Bilirubin 0.6 mg/dL (0.2-1.3); Total Protein 6.7 g/dL (6.3-8.2)
--- NOTE | 2020-06-12 13:04 | XR ---
EXAMINATION TYPE: XR chest 2V DATE OF EXAM: 06/12/2020 COMPARISON: 05/07/2020 TECHNIQUE: PA and lateral views submitted. HISTORY: Altered mental status FINDINGS: Diffuse interstitial pattern with bilateral infiltrate and small effusion heart size stable. Arthropa thy of the AC joint. IMPRESSION: 1. Bilateral infiltrate and small effusion correlate for mild CHF otherwise consider interstitial pne umonia
[2020-06-12 13:12] LABS: INR 1.2 (<1.2); Prothrombin Time 12.2 sec (9.0-12.0)
--- NOTE | 2020-06-12 13:15 | CT ---
EXAMINATION TYPE: CT brain wo con DATE OF EXAM: 06/12/2020 COMPARISON: 05/07/2020 HISTORY: AMS CT DLP: 1156.8 mGycm Automated exposure control for dose reduction was used. FINDINGS: There is no acute intracranial hemorrhage or midline shift identified. There is mild to moderate diff use ventricular and sulcal prominence consistent with diffuse age-related cerebral atrophy. There is mild low- attenuation in the periventricular white matter consistent with chronic small vessel ischem ic change. The globes are intact and the visualized sinuses are clear. IMPRESSION: STABLE GENERALIZED DEGENERATIVE CHANGE AND NONSPECIFIC WHITE MATTER CHANGES MOST TYPICAL REMOTE ISCHE CHANA
[2020-06-12 13:33] LABS: Partial Thromboplastin Time 21.9 sec (22.0-30.0)
--- NOTE | 2020-06-12 14:25 | CT ---
EXAMINATION TYPE: CT angio head neck DATE OF EXAM: 06/12/2020 HISTORY: AMS COMPARISON: 05/07/2020 CT DLP: 769.5 mGycm. Automated Exposure Control for Dose Reduction was Utilized. TECHNIQUE: CTA scan of the neck is performed with IV Contrast, patient injected with 65 mL of Isovue 370, axial images are obtained, coronal and sagittal reformatted images are reviewed. Three-D recons tructed images are created on an independent workstation and reviewed. Source images are reviewed. FINDINGS: Carotid/Vascular Structures: There is a three-vessel arch. Vascular calcifications within the aorta. Vertebral arteries are codominant. Plaquing is at the bilateral carotid bifurcations. Significant mahi w-limiting stenosis is not evident. Note is made of somewhat medial location of the right carotid bif urcation in the prevertebral space. Cervical of [place]: Vertebral basilar system appears normal. Posterior cerebral vasculature is unrema rkable. Internal carotid arteries bifurcate normally into A1 and M1 segments. A2 segments are normal. The anterior communicating artery is patent. Left Posterior communicating artery is patent. Right po sterior communicating artery is patent. Other: Prevertebral space appears normal IMPRESSION: 1. No flow-limiting stenosis bilateral carotid bifurcations. Plaquing with less than 50% narrowing bi laterally. 2. Normal [place] of [place]
[2020-06-12] MEDS ORDERED: NALOXONE 0.4 MG/ML 1 ML VIAL IV PRN ×2 (14:48→16:01)
--- NOTE | 2020-06-12 16:27 | P.CNPUL ---
History of Present Illness Consult date: 06/12/20 Requesting physician: Liza Buck Reason for consult: dyspnea, chest pain, hypoxemia, other Chief complaint: Chest pain, stroke. History of present illness: 75-year-old male with a recent CVA, early May, who apparently presents to the emergency department on June 12, with mental status changes. The patient had a stroke in early May, left him with right-sided weakness as well as slurred speech. According to his family, beginning the night before admission, he apparently had mental status changes, and seemed to be staring off into space. There is no recent fever or chills, or chest pain or chest discomfort initially. Apparently though, the states that he has been having some chest discomfort as well as some pain in his lower extremities. I spoke to Dr. Chapin in the emergency room. The patient was to be started on blood thinners but apparently he may be having a GI bleed. In addition, he does complain of some shortness of breath. He has a history of diabetes mellitus, acid reflux disease hypertension, palpitations, spinal stenosis with chronic low back pain, constipation, hiatal hernia, and neuropathy. White count 10.6, hemoglobin only 7 hematocrit 22.2 and platelet count 420,000. PT 12.2 INR 1.2 PTT 21.9 sodium 1:30, potassium 5.6, chlorides 98, CO2 20 anion gap 12, BUN and creatinine were 37 and 1.64 respectively. Troponin was 3.970 Stool for occult blood were positive. Coronavirus testing was negative. Chest x-ray shows possible mild CHF. Computed tomography scan of the brain shows changes typical of remote ischemia. Angiography CT, shows no evidence of significant vessel stenosis. Review of Systems REVIEW OF SYSTEMS: CONSTITUTIONAL: Fatigue and weakness. NEUROLOGIC: Mental status changes. HEENT: Negative CARDIAC: Chest pain. PULMONARY: Shortness of breath. GI: [Negative.] : [Negative.] RHEUMATOLOGIC: [ Negative.] IMMUNOLOGIC: [ Negative.] ENDOCRINE: [Negative. ] DERMATOLOGIC: [Negative.] Past Medical History Past Medical History: Diabetes Mellitus, GERD/Reflux, Hypertension, Skin Disorder Additional Past Medical History / Comment(s): Pt states he felt heart palpitations/racing about 2 weeks ago, spinal stenosis with chronic low back pain and knees will "give out", FALLS, constipation, hiatal hernia, NIDDM diagnosed less than a year ago/neuropathy bilateral feet, small sores posterior neck for approximately one year. History of Any Multi-Drug Resistant Organisms: None Reported Past Surgical History: No Surgical Hx Reported Additional Past Surgical History / Comment(s): Pt/spouse state pt has never had surgery. Past Anesthesia/Blood Transfusion Reactions: Unable to Obtain Smoking Status: Former smoker - Past Family History Mother Family Medical History: Cancer Additional Family Medical History / Comment(s): stomach cancer. Father Additional Family Medical History / Comment(s): "heart problems" Brother(s) Family Medical History: Diabetes Mellitus Medications and Allergies Home Medications Medication Instructions Recorded Confirmed Type Meloxicam [Mobic] 15 mg PO DAILY PRN 05/07/20 06/12/20 History metFORMIN HCL [Glucophage] 500 mg PO DAILY 05/07/20 06/12/20 History Aspirin 81 mg PO DAILY chew 05/12/20 06/12/20 Rx lisinopriL [Zestril] 20 mg PO DAILY tab 05/12/20 06/12/20 Rx HYDROcodone/APAP 10-325MG [[place] 1 tab PO Q6H PRN 06/12/20 06/12/20 History 10-325] Sennosides [Senna] 8.6 mg PO BID PRN 06/12/20 06/12/20 History Allergies Allergy/AdvReac Type Severity Reaction Status Date / Time No Known Allergies Allergy Verified 06/12/20 13:51 Physical Exam Osteopathic Statement: *. No significant issues noted on an osteopathic structural exam other than those noted in the History and Physical/Consult. Vitals: Vital Signs Temp Pulse Resp BP Pulse Ox 06/12/20 15:45 97.9 F 78 16 87/59 98 06/12/20 15:22 97.9 F 73 16 76/49 06/12/20 14:48 76 16 86/53 98 06/12/20 13:07 74 16 84/57 98 06/12/20 11:40 97.8 F 81 16 95/69 97 Intake and Output 06/12/20 06/12/20 06/12/20 06:59 14:59 22:59 Intake Total 0 Balance 0 Intake: Blood Product 0 Rc As-1 Unit 0 [id number] Other: Weight 104.326 kg No acute distress, oriented 3. No conversational dyspnea or use of accessory muscles. The patient's currently on a couple liters of O2. HEENT examination is grossly unremarkable. Neck supple. Full range of motion. No adenopathy thyromegaly or neck vein distention. Cardiovascular examination reveals regular rhythm rate. S1-S2 normal. No S3 or S4. No discernible murmur noted. Heart rate 75 bpm. Lungs reveal mostly clear breath sounds. A few scattered rhonchi and crackles are appreciated. No wheezes. Abdomen soft bowel sounds are heard. No masses or tenderness. Extremities are intact. No cyanosis clubbing or edema. Skin is without rash or lesion. Neurologic examination reveals right sided weakness. Results - Laboratory Findings CBC and BMP: 06/12/20 12:05 06/12/20 12:15 PT/INR, D-dimer PT 12.2 sec (9.0-12.0) H 06/12/20 12:05 INR 1.2 (<1.2) H 06/12/20 12:05 Abnormal lab findings: Abnormal Labs 06/12/20 06/12/20 06/12/20 12:02 12:05 12:05 RBC 2.42 L Hgb 7.0 L D Hct 22.2 L RDW 15.8 H Neutrophils # 8.9 H PT 12.2 H INR 1.2 H APTT 21.9 L Sodium Potassium Carbon Dioxide BUN Creatinine Glucose POC Glucose (mg/dL) 167 H Troponin I Crossmatch 06/12/20 06/12/20 06/12/20 12:05 12:15 12:19 RBC Hgb Hct RDW Neutrophils # PT INR APTT Sodium 130 L Potassium 5.6 H Carbon Dioxide 20 L BUN 37 H Creatinine 1.64 H Glucose 154 H POC Glucose (mg/dL) Troponin I 3.970 H* Crossmatch See Detail - Diagnostic Findings Chest x-ray: image reviewed Assessment and Plan Assessment: Rule out non-ST segment elevation myocardial infarction. 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 Acute anemia, rule out GI bleed. Mild fluid overload/CHF. History of diabetes mellitus. History of GERD. History of hypertension. History of diabetic neuropathy. History of hiatal hernia. History of constipation. History of spinal stenosis with chronic low back pain. Plan: Plan dated 06/12/2020. The patient will be admitted to the intensive care unit. Neurology should be consulted. Cardiology has been consulted. The patient will be followed. GI consultation should also be initiated. From the critical care standpoint, the patient appears to be relatively stable. We will continue to follow and make recommendations were appropriate. X-ray, labs, and medications all reviewed. N-terminal proBNP is ordered. Time with Patient: Greater than 30
--- NOTE | 2020-06-12 16:53 | P.HPIM ---
History of Present Illness H&P Date: 06/12/20 Chief Complaint: AMS 75-year-old man with medical history of recent CVA, hypertension, chronic back pain, diabetes presented with altered mental status. Patient's provides the majority of the history is patient is altered and not able to participate well in interview. Patient does however appear awake and alert and is able to minimally participate in review of systems. Per minute standing, patient was brought in due to noticing that patient has been increasingly short of breath in the last few days as he was working with PT/OT at home; furthermore, today patient had several episodes of staring off into space and minimal responsiveness to conversation which prompted to bring her into the emergency room. As a background, patient recently had a CVA resulting in right- sided residual weakness as well as facial droop, he had recently completed a short stay in a [facility] facility for [facility]hab and had been home for approximately 1 week. Patient says that patient has been having some black/tarry stools. Patient had an intermittent complaint of chest pain but it's unclear as to the timeline for details of this complaint. Otherwise, patient does not report any pain at this time, denies shortness of breath, palpitations, syncope, presyncope, chills, fevers, nausea, vomiting, abdominal pain, dysuria, dyschezia. Next In the emergency room, patient was noted to have some ST elevations with reciprocal ST depressions in the lateral leads, troponin of 3.3. However, patient seemed globin returned at 7.0, down from 13.3 approximately 1 month ago. Other pertinent lab values include potassium 5.6, creatinine of 1.64 from basel ine of 0.93. Review of Systems All Systems reviewed and pertinent positives and negatives noted in HPI, all other symptoms are negative. However, review of systems is limited as a consequence of patient's mentation Past Medical History Past Medical History: Diabetes Mellitus, GERD/Reflux, Hypertension, Skin Disorder Additional Past Medical History / Comment(s): Pt states he felt heart palpitations/racing about 2 weeks ago, spinal stenosis with chronic low back pain and knees will "give out", FALLS, constipation, hiatal hernia, NIDDM diagnosed less than a year ago/neuropathy bilateral feet, small sores posterior neck for approximately one year. History of Any Multi-Drug Resistant Organisms: None Reported Past Surgical History: No Surgical Hx Reported Additional Past Surgical History / Comment(s): Pt/spouse state pt has never had surgery. Past Anesthesia/Blood Transfusion Reactions: Unable to Obtain Smoking Status: Former smoker - Past Family History Mother Family Medical History: Cancer Additional Family Medical History / Comment(s): stomach cancer. Father Additional Family Medical History / Comment(s): "heart problems" Brother(s) Family Medical History: Diabetes Mellitus Medications and Allergies Home Medications Medication Instructions Recorded Confirmed Type Meloxicam [Mobic] 15 mg PO DAILY PRN 05/07/20 06/12/20 History metFORMIN HCL [Glucophage] 500 mg PO DAILY 05/07/20 06/12/20 History Aspirin 81 mg PO DAILY chew 05/12/20 06/12/20 Rx lisinopriL [Zestril] 20 mg PO DAILY tab 05/12/20 06/12/20 Rx HYDROcodone/APAP 10-325MG [[place] 1 tab PO Q6H PRN 06/12/20 06/12/20 History 10-325] Sennosides [Senna] 8.6 mg PO BID PRN 06/12/20 06/12/20 History Allergies Allergy/AdvReac Type Severity Reaction Status Date / Time No Known Allergies Allergy Verified 06/12/20 13:51 Physical Exam Osteopathic Statement: *. No significant issues noted on an osteopathic structural exam other than those noted in the History and Physical/Consult. Vitals: Vital Signs Temp Pulse Resp BP Pulse Ox 06/12/20 16:00 75 16 106/66 06/12/20 15:45 97.9 F 78 16 87/59 98 06/12/20 15:22 97.9 F 73 16 76/49 06/12/20 14:48 76 16 86/53 98 06/12/20 13:07 74 16 84/57 98 06/12/20 11:40 97.8 F 81 16 95/69 97 Intake and Output 06/12/20 06/12/20 06/12/20 06:59 14:59 22:59 Intake Total 0 Balance 0 Intake: Blood Product 0 Rc As-1 Unit 0 [id number] Other: Weight 104.326 kg Gen: awake, alert HEENT: normocephalic, atraumatic, good hearing acuity, moist mucous membranes Resp: good air exchange, breathing comfortably with no accessory muscle use, clear to auscultation bilaterally CVS: good distal perfusion x 4, regular rate and rhythm without murmurs GI: soft, NTTP, ND, appropriate bowel sounds : no SPT, no CVAT, landry catheter not present MSK: Trace pitting edema, no clubbing Neuro: Right-sided residual weakness Psych: cooperative, euthymic mood Results CBC & Chem 7: 06/12/20 12:05 06/12/20 12:15 Labs: Abnormal Lab Results - Last 24 Hours (Table) 06/12/20 06/12/20 06/12/20 Range/Units 12:02 12:05 12:05 RBC 2.42 L (4.30-5.90) m/uL Hgb 7.0 L D (13.0-17.5) gm/dL Hct 22.2 L (39.0-53.0) % RDW 15.8 H (11.5-15.5) % Neutrophils # 8.9 H (1.3-7.7) k/uL PT 12.2 H (9.0-12.0) sec INR 1.2 H (<1.2) APTT 21.9 L (22.0-30.0) sec Sodium (137-145) mmol/L Potassium (3.5-5.1) mmol/L Carbon Dioxide (22-30) mmol/L BUN (9-20) mg/dL Creatinine (0.66-1.25) mg/dL Glucose (74-99) mg/dL POC Glucose (mg/dL) 167 H (75-99) mg/dL Troponin I (0.000-0.034) ng/mL Crossmatch 06/12/20 06/12/20 06/12/20 Range/Units 12:05 12:15 12:19 RBC (4.30-5.90) m/uL Hgb (13.0-17.5) gm/dL Hct (39.0-53.0) % RDW (11.5-15.5) % Neutrophils # (1.3-7.7) k/uL PT (9.0-12.0) sec INR (<1.2) APTT (22.0-30.0) sec Sodium 130 L (137-145) mmol/L Potassium 5.6 H (3.5-5.1) mmol/L Carbon Dioxide 20 L (22-30) mmol/L BUN 37 H (9-20) mg/dL Creatinine 1.64 H (0.66-1.25) mg/dL Glucose 154 H (74-99) mg/dL POC Glucose (mg/dL) (75-99) mg/dL Troponin I 3.970 H* (0.000-0.034) ng/mL Crossmatch See Detail Assessment and Plan Assessment: Acute blood loss anemia GI bleed Hypotension from hypovolemia -Admit to telemetry in the ICU -CBC every 6 hours -Maintain active type and screen -Maintain large-bore IV access -Type and cross 2 units, transfuse 1 -May warrant pressors if no response to IV fluids/blood product -GI consult -PPI twice a day -Nothing by mouth -Pulmonary consult for critical care Non-STEMI -Trend troponins -EKG when necessary for chest pain -Hold off on aspirin, Plavix, heparin due to GI bleed -Patient should be started on a statin once stabilized -Cardiology consult -Hold metoprolol given hypotension -Echocardiogram, pending Acute Kidney Injury -Received IV fluids -Will receive blood transfusions as needed -Repeat BMP daily Encephalopathy, unspecified History of CVA -Neurology consult -Frequent reorientation -PT/OT -Avoid benzodiazepines, anticholinergics -Maintain day/night cycles Hypertension, essential -Holding home lisinopril due to hypotension as above Diabetes mellitus type 2 -Q before meals/at bedtime sugar checks -Low-dose sliding scale insulin DVT prophylaxis is contraindicated due to acute blood loss anemia and GI bleed is the DPOA DO NOT RESUSCITATE/DO NOT INTUBATE I spent 45 minutes of critical care time in the care of this patient for hypotension related to acute blood loss anemia as well as NSTEMI
[2020-06-12 16:58] LABS: Appearance,Urine Cloudy (Clear); Bacteria,Urine Rare /hpf; Bilirubin,Urine Negative (Negative); Blood,Urine Negative (Negative); Color,Urine Yellow; Glucose,Urine (UA) Negative (Negative); Hyaline Casts,Urine 4 /lpf (0-2); Ketones,Urine Negative (Negative); Leukocyte Esterase,Urine Moderate (Negative); Mucus,Urine Occasional /hpf; Nitrite,Urine Negative (Negative); Protein,Urine 1+ (Negative); Specific Gravity,Urine 1.043 (1.001-1.035); Squamous Epithelial Cell,Urine <1 /hpf (0-4); WBC,Urine 24 /hpf (0-5)
[2020-06-12 17:36] LABS: Glucose,Whole Blood 142 mg/dL (75-99)
[2020-06-12 17:47] LABS: ABG Base Excess -10.8 mmol/L; ABG HCO3 15 mmol/L (21-25); ABG PCO2 28 mmHg (35-45); ABG PH 7.34 (7.35-7.45); ABG PO2 230 mmHg (83-108); ABG TCO2 16 mmol/L (19-24); Allen Test Performed? Yes
[2020-06-12] MEDS ORDERED: LORazepam 2 MG/ML INJ IV PRN (18:02)
--- NOTE | 2020-06-12 18:36 | ECHOF ---
Referral Reason:STEMI MEASUREMENTS -------- HEIGHT: 182.9 cm WEIGHT: 104.3 kg BP: 111/80 RVIDd: 2.6 cm (< 3.3) IVSd: 1.3 cm (0.6 - 1.1) LVIDd: 5.4 cm (3.9 - 5.3) LVPWd: 1.4 cm (0.6 - 1.1) IVSs: 1.7 cm LVIDs: 4.5 cm LVPWs: 1.2 cm LA Diam: 3.5 cm (2.7 - 3.8) LAESV Index (A-L): 33.82 ml/m Ao Diam: 3.9 cm (2.0 - 3.7) AV Cusp: 1.5 cm (1.5 - 2.6) MV EXCURSION: 16.312 mm (> 18.000) MV EF SLOPE: 73 mm/s (70 - 150) EPSS: 1.2 cm MV E Charbel: 1.06 m/s MV DecT: 202 ms MV A [place]: 0.78 m/s MV E/A Ratio: 1.36 AV maxP.75 mmHg AV meanP.40 mmHg RAP: 15.00 mmHg RVSP: 45.92 mmHg FINDINGS -------- Sinus rhythm. This was a technically adequate study. The left ventricular size is normal. There is moderate concentric left ventricular hypertrophy. O verall left ventricular systolic function is moderate-severely impaired with, an EF between 30 - 35 % . Basal inferior LV wall motion is hypokinetic. Mid inferoseptal LV wall motion is hypokinetic. Apical anterior LV wall motion is hypokinetic. Apical lateral LV wall motion is hypokinetic. Apical inferior LV wall motion is hypokinetic. Apical septum LV wall motion is hypokinetic. The right ventricle is normal in size. LA is moderately dilated 34-39 ml/m2 The right atrium is normal in size. Interatrial and interventricular septum intact. There is mild to moderate aortic valve sclerosis. There is mild aortic stenosis present. Peak/carlitos n gradient across the Aortic Valve is 19.75mmHg / 9.40mmHg. The mitral valve leaflets are mildly thickened. Mild mitral annular calcification present. Modera te mitral regurgitation is present. Mild tricuspid regurgitation present. There is mild to moderate pulmonary hypertension. The right ventricular systolic pressure, as measured by Doppler, is 45.92mmHg. The pulmonic valve was not well visualized. The aortic root is dilated measuring 3.9cm. The inferior vena cava is dilated with poor inspiratory collapse which is consistent with estimated r ight atrial pressure of 15 mmHg. There is no pericardial effusion. CONCLUSIONS -------- 1. The left ventricular size is normal. 2. There is moderate concentric left ventricular hypertrophy. 3. Overall left ventricular systolic function is moderate-severely impaired with, an EF between 30 - 35 %. 4. Basal inferior LV wall motion is hypokinetic. 5. Mid inferoseptal LV wall motion is hypokinetic. 6. Apical anterior LV wall motion is hypokinetic. 7. Apical lateral LV wall motion is hypokinetic. 8. Apical inferior LV wall motion is hypokinetic. 9. Apical septum LV wall motion is hypokinetic. 10. LA is moderately dilated 34-39 ml/m2 11. There is mild to moderate aortic valve sclerosis. 12. There is mild aortic stenosis present. 13. Peak/mean gradient across the Aortic Valve is 19.75mmHg / 9.40mmHg. 14. The mitral valve leaflets are mildly thickened. 15. Mild mitral annular calcification present. 16. Moderate mitral regurgitation is present. 17. Mild tricuspid regurgitation present. 18. There is mild to moderate pulmonary hypertension. 19. The right ventricular systolic pressure, as measured by Doppler, is 45.92mmHg. 20. The aortic root is dilated measuring 3.9cm. 21. The inferior vena cava is dilated with poor inspiratory collapse which is consistent with estimat ed right atrial pressure of 15 mmHg. 22. There is no pericardial effusion. MARINE PROPULSION TECHNICIAN: Isha Cabrera RDCS
[2020-06-12 19:13] LABS: Glucose,Whole Blood 175 mg/dL (75-99)
[2020-06-12] MEDS: PANTOPRAZOLE 40 MG/10 ML VIAL IV SCH (21:07)
[2020-06-13 00:21] LABS: HCT 24.6 % (39.0-53.0); HGB 8.4 gm/dL (13.0-17.5); Hypochromasia Moderate; MCHC 34.3 g/dL (31.0-37.0); MCV 90.5 fL (80.0-100.0); Mean Platelet Volume 8.3; Platelet Count 316 k/uL (150-450); Poikilocytosis Slight; RBC 2.71 m/uL (4.30-5.90); RDW 15.3 % (11.5-15.5); WBC 19.3 k/uL (3.8-10.6)
[2020-06-13 00:38] LABS: Albumin 3.5 g/dL (3.5-5.0); Calcium 9.3 mg/dL (8.4-10.2); Magnesium 2.2 mg/dL (1.6-2.3); Potassium 5.3 mmol/L (3.5-5.1); Total Bilirubin 2.9 mg/dL (0.2-1.3); Total Protein 6.4 g/dL (6.3-8.2)
[2020-06-13 00:38] LABS: Glucose,Whole Blood 186 mg/dL (75-99)
[2020-06-13] MEDS ORDERED: FUROSEMIDE 10 MG/ML 4 ML VIAL IV STA (00:54)
[2020-06-13] MEDS: INSULIN ASPART (NovoLOG) 100 UNIT/ML VIAL SQ SCH ×4 (00:55→17:38)
[2020-06-13 00:57] LABS: INR 1.2 (<1.2); Partial Thromboplastin Time 22.9 sec (22.0-30.0); Prothrombin Time 12.5 sec (9.0-12.0)
[2020-06-13] MEDS: MORPHINE SULFATE 2 MG/ML SYRINGE IV PRN (02:31)
[2020-06-13 05:03] LABS: Basophils % (A) 0 %; Eosinophils % (A) 0 %; HCT 24.4 % (39.0-53.0); HGB 8.2 gm/dL (13.0-17.5); Hypochromasia Moderate; Lymphocytes # (A) 1.2 k/uL (1.0-4.8); Lymphocytes % (A) 7 %; MCH 30.3 pg (25.0-35.0); MCHC 33.6 g/dL (31.0-37.0); MCV 90.2 fL (80.0-100.0); Mean Platelet Volume 8.4; Monocytes # (A) 0.5 k/uL (0-1.0); Monocytes % (A) 3 %; Neutrophils % (A) 90 %; Platelet Count 288 k/uL (150-450); Poikilocytosis Moderate; RBC 2.71 m/uL (4.30-5.90); RDW 15.5 % (11.5-15.5); WBC 17.7 k/uL (3.8-10.6)
[2020-06-13 05:17] LABS: Calcium 9.1 mg/dL (8.4-10.2); Magnesium 2.2 mg/dL (1.6-2.3); Potassium 5.4 mmol/L (3.5-5.1)
--- NOTE | 2020-06-13 06:18 | P.CRDCN ---
History of Present Illness Consult date: 06/13/20 Chief complaint: Change in mental status History of present illness: This is a 75-year-old gentleman with diabetes and hypertension and dyslipidemia and history of smoking as well as incentive diagnosed of stroke we consulted to see here in the intensive care unit for abnormal troponin. The patient is confused and he is a somewhat poor historian and the history was taken from the chart as well as from the nurse taking care of the patient. The patient was admitted in May 2020 to the hospital with right sided weakness as well as slurred speech and at that point he underwent transesophageal echocardiogram and that showed no evidence of cardiac source of embolization. At that point we consulted to see the patient. Also at that point an echocardiogram was performed and revealed normal left ventricular systolic function. According to the chart as well as the nurse taking care of the patient the patient was brought by his family with a change in mental status. He was more agitated. No other symptoms of chest pain or chest discomfort and no shortness of breath. No loss of consciousness or syncope. No fever or chills or cough. We consulted to see the patient because of abnormal troponin. The troponin came in to be around 3. The EKG showed sinus rhythm with ST changes in the lateral and high lateral leads quite concerning for severe underlying coronary artery disease. Beside that the patient underwent an echocardiogram which revealed impaired LV function was EF around 30-35% with evidence off all motion abnormalities as well as concerning for severe underlying coronary artery disease. Beside all of that the patient was having some GI bleeding and he was experiencing black stool. The hemoglobin when he presented here was 7 and he was given one unit of packed RBC. He underwent a computed tomography scan of the neck which showed only mild nonobstructive carotid disease. Computed tomography scan of the brain showed chronic changes without any acute abnormalities. The chest x-ray showed only mild CHF. When the patient was seen and examined this morning he is confused 3 and he was slightly agitated. He seems to be in the mattress with mild wheezing on examination and also mild bilateral lower extremities edema. Past Medical History Past Medical History: Diabetes Mellitus, GERD/Reflux, Hypertension, Skin Disorder Additional Past Medical History / Comment(s): Pt states he felt heart palpitations/racing about 2 weeks ago, spinal stenosis with chronic low back pain and knees will "give out", FALLS, constipation, hiatal hernia, NIDDM diagnosed less than a year ago/neuropathy bilateral feet, small sores posterior neck for approximately one year. History of Any Multi-Drug Resistant Organisms: None Reported Past Surgical History: No Surgical Hx Reported Additional Past Surgical History / Comment(s): Pt/spouse state pt has never had surgery. Past Anesthesia/Blood Transfusion Reactions: No Reported Reaction Past Psychological History: No Psychological Hx Reported Smoking Status: Former smoker Past Alcohol Use History: None Reported Additional Past Alcohol Use History / Comment(s): Pt started smoking in 1965 and quit in 2016. Past Drug Use History: None Reported - Past Family History Mother Family Medical History: Cancer Additional Family Medical History / Comment(s): stomach cancer. Father Additional Family Medical History / Comment(s): "heart problems" Brother(s) Family Medical History: Diabetes Mellitus Medications and Allergies Home Medications Medication Instructions Recorded Confirmed Type Meloxicam [Mobic] 15 mg PO DAILY PRN 05/07/20 06/12/20 History metFORMIN HCL [Glucophage] 500 mg PO DAILY 05/07/20 06/12/20 History Aspirin 81 mg PO DAILY chew 05/12/20 06/12/20 Rx lisinopriL [Zestril] 20 mg PO DAILY tab 05/12/20 06/12/20 Rx HYDROcodone/APAP 10-325MG [[place] 1 tab PO Q6H PRN 06/12/20 06/12/20 History 10-325] Sennosides [Senna] 8.6 mg PO BID PRN 06/12/20 06/12/20 History Allergies Allergy/AdvReac Type Severity Reaction Status Date / Time No Known Allergies Allergy Verified 06/12/20 13:51 Physical Exam Vitals: Vital Signs Temp Pulse Resp BP Pulse Ox 06/13/20 06:00 86 20 102/72 100 06/13/20 05:00 91 11 L 118/66 100 06/13/20 04:00 97.7 F 95 16 100/64 100 06/13/20 03:00 92 20 103/60 100 06/13/20 02:00 90 19 102/72 100 06/13/20 01:00 92 17 87/63 100 06/13/20 00:41 93 16 100 06/13/20 00:00 97.6 F 93 21 88/65 100 06/12/20 23:00 98 25 H 89/63 100 06/12/20 22:15 98.1 F 87 20 89/63 100 06/12/20 22:00 98 26 H 76/48 100 06/12/20 21:00 88 25 H 86/59 100 06/12/20 20:00 98 F 104 H 28 H 104/90 100 06/12/20 19:26 97.7 F 96 18 91/61 98 06/12/20 19:12 100 30 H 06/12/20 19:02 98 F 96 24 86/59 100 06/12/20 18:35 97.7 F 88 18 98/61 97 06/12/20 18:20 97.7 F 93 18 91/73 97 06/12/20 18:00 97.7 F 96 20 128/75 84 L 06/12/20 17:00 98.0 F 84 16 106/71 98 06/12/20 16:45 97.7 F 79 16 88/46 98 06/12/20 16:30 77 18 85/59 06/12/20 16:15 76 16 111/80 06/12/20 16:00 75 16 106/66 06/12/20 15:45 97.9 F 78 16 87/59 98 06/12/20 15:22 97.9 F 73 16 76/49 06/12/20 14:48 76 16 86/53 98 06/12/20 13:07 74 16 84/57 98 06/12/20 11:40 97.8 F 81 16 95/69 97 Intake and Output 06/12/20 06/12/20 06/13/20 14:59 22:59 06:59 Intake Total 620 120 Output Total 90 495 Balance 530 -375 Intake: IV 120 KVO 120 Blood Product 620 As-1 Unit 310 [id number] As-1 Unit 310 [id number] Output: Urine 90 495 Other: Voiding Method Indwelling Catheter Indwelling Catheter Weight 104.326 kg 128.7 kg - Constitutional General appearance: no acute distress - Respiratory Respiratory: bilateral: wheezing - Cardiovascular Rhythm: regular Heart sounds: normal: S1, S2 Results 06/13/20 04:33 06/13/20 04:33 Cardiac Enzymes 06/12/20 06/12/20 06/12/20 Range/Units 12:05 12:15 23:50 AST 38 44 (17-59) U/L Troponin I 3.970 H* (0.000-0.034) ng/mL Coagulation 06/12/20 06/12/20 Range/Units 12:05 23:50 PT 12.2 H 12.5 H (9.0-12.0) sec APTT 21.9 L 22.9 (22.0-30.0) sec CBC 06/12/20 06/12/20 06/13/20 Range/Units 12:05 23:50 04:33 WBC 10.6 19.3 H 17.7 H (3.8-10.6) k/uL RBC 2.42 L 2.71 L 2.71 L (4.30-5.90) m/uL Hgb 7.0 L D 8.4 L 8.2 L (13.0-17.5) gm/dL Hct 22.2 L 24.6 L 24.4 L (39.0-53.0) % Plt Count 420 316 288 (150-450) k/uL Comprehensive Metabolic Panel 06/12/20 06/12/20 06/13/20 Range/Units 12:15 23:50 04:33 Sodium 130 L 131 L 132 L (137-145) mmol/L Potassium 5.6 H 5.3 H 5.4 H (3.5-5.1) mmol/L Chloride 98 101 101 (98-107) mmol/L Carbon Dioxide 20 L 19 L 23 (22-30) mmol/L BUN 37 H 44 H 44 H (9-20) mg/dL Creatinine 1.64 H 1.67 H 1.68 H (0.66-1.25) mg/dL Glucose 154 H 154 H 160 H (74-99) mg/dL Calcium 9.4 9.3 9.1 (8.4-10.2) mg/dL AST 38 44 (17-59) U/L ALT 21 19 (4-49) U/L Alkaline Phosphatase 85 85 (38-126) U/L Total Protein 6.7 6.4 (6.3-8.2) g/dL Albumin 3.5 3.5 (3.5-5.0) g/dL Current Medications Generic Name Dose Route Start Last Admin Trade Name Freq PRN Reason Stop Dose Admin Acetaminophen 650 mg 06/12/20 16:01 Acetaminophen Tab 325 Mg Tab PO Q4HR PRN Fever and/or Mild Pain Hydrocodone Bitart/Acetaminophen 1 each 06/12/20 16:07 Hydrocodone/Apap 10-325mg 1 Each Tab PO Q6H PRN Severe Pain Albuterol/Ipratropium 3 ml 06/12/20 16:01 Ipratropium-Albuterol 3 Ml Neb INHALATION RT-Q2H PRN Shortness Of Breath Or Wheezing Atorvastatin Calcium 40 mg 06/13/20 09:00 Atorvastatin 40 Mg Tab PO DAILY ROBERTO CARLOS Furosemide 20 mg 06/13/20 09:00 Furosemide 10 Mg/Ml 2 Ml Vial IV DAILY ROBERTO CARLOS Insulin Aspart 0 unit 06/13/20 00:00 06/13/20 05:50 Insulin Aspart (Novolog) 100 Unit/Ml Vial SQ 2 unit Q6H ROBERTO CARLOS Administration Protocol Lorazepam 0.5 mg 06/12/20 18:02 06/12/20 18:02 Lorazepam 2 Mg/Ml Inj IV 0.5 mg ONCE PRN Administration Anxiety Morphine Sulfate 2 mg 06/12/20 16:01 06/13/20 02:31 Morphine Sulfate 2 Mg/Ml Syringe IV 2 mg Q2HR PRN Administration Pain Scale 4 to 5 Naloxone HCl 0.2 mg 06/12/20 14:48 Naloxone 0.4 Mg/Ml 1 Ml Vial IV Q2M PRN Opioid Reversal Naloxone HCl 0.2 mg 06/12/20 16:01 Naloxone 0.4 Mg/Ml 1 Ml Vial IV Q2M PRN Opioid Reversal Pantoprazole Sodium 40 mg 06/12/20 21:00 06/12/20 21:07 Pantoprazole 40 Mg/10 Ml Vial IV 40 mg BID ROBERTO CARLOS Administration Intake and Output 06/12/20 06/12/20 06/13/20 14:59 22:59 06:59 Intake Total 620 120 Output Total 90 495 Balance 530 -375 Intake: IV 120 KVO 120 Blood Product 620 Rc As-1 Unit 310 [id number] Rc As-1 Unit 310 [id number] Output: Urine 90 495 Other: Voiding Method Indwelling Catheter Indwelling Catheter Weight 104.326 kg 128.7 kg Patient Weight 06/13/20 06:59 Weight 128.7 kg 06/13/20 04:33 06/13/20 04:33 Assessment and Plan Assessment: Assessment #1 a change in mental status #2 gastrointestinal bleeding #3 blood loss anemia #4 acute coronary event with evidence off myocardial injury by EKG #5 severe cardiomyopathy which is no #6 multiple comorbid conditions Plan #1 consider medical treatment for acute coronary syndrome in the setting no co mplaint of chest pain or chest discomfort as well as the process of gastrointestinal bleeding #2 the right to keep the hemoglobin between 8-10 #3 monitor the hemoglobin and blood transfusion if needed #4 hold any antiplatelet or anticoagulation #5 start the patient on Lasix at 20 mg IV twice a day #6 monitor the kidney function and electrolytes #7 start the patient on statin #8 follow-up with the patient
[2020-06-13] MEDS ORDERED: FUROSEMIDE 10 MG/ML 2 ML VIAL IV SCH (09:00)
[2020-06-13] MEDS: FUROSEMIDE 10 MG/ML 2 ML VIAL IV SCH (09:36)
[2020-06-13] MEDS: PANTOPRAZOLE 40 MG/10 ML VIAL IV SCH ×2 (09:37→20:29)
--- NOTE | 2020-06-13 09:51 | XR ---
EXAMINATION TYPE: XR chest 1V portable DATE OF EXAM: 06/13/2020 COMPARISON: 06/12/2020 INDICATION: CHF TECHNIQUE: Single frontal view of the chest is obtained. Semiupright position. FINDINGS: The heart size is normal. The pulmonary vasculature is normal. Right lower lobe infiltrate is present. Minimal effusion is not excluded. IMPRESSION: 1. Mild right lower lobe infiltrate is present.
[2020-06-13] MEDS: ATORVASTATIN 40 MG TAB PO SCH (10:12)
--- NOTE | 2020-06-13 11:09 | P.PN ---
Subjective Progress Note Date: 06/13/20 Principal diagnosis: Chest pain. 75-year-old male with a recent CVA, early May, who apparently presents to the emergency department on June 12, with mental status changes. The patient had a stroke in early May, left him with right-sided weakness as well as slurred speech. According to his family, beginning the night before admission, he apparently had mental status changes, and seemed to be staring off into space. There is no recent fever or chills, or chest pain or chest discomfort initially. Apparently though, the states that he has been having some chest di scomfort as well as some pain in his lower extremities. I spoke to Dr. Chapin in the emergency room. The patient was to be started on blood thinners but apparently he may be having a GI bleed. In addition, he does complain of some shortness of breath. He has a history of diabetes mellitus, acid reflux disease hypertension, palpitations, spinal stenosis with chronic low back pain, constipation, hiatal hernia, and neuropathy. White count 10.6, hemoglobin only 7 hematocrit 22.2 and platelet count 420,000. PT 12.2 INR 1.2 PTT 21.9 sodium 1:30, potassium 5.6, chlorides 98, CO2 20 anion gap 12, BUN and creatinine were 37 and 1.64 respectively. Troponin was 3.970 Stool for occult blood were p ositive. Coronavirus testing was negative. Chest x-ray shows possible mild CHF. Computed tomography scan of the brain shows changes typical of remote ischemia. Angiography CT, shows no evidence of significant vessel stenosis. Progress note dated 06/13/2020. 75-year-old male we saw yesterday in the emergency department. He was in the hospital in early May with a CVA. More recently, he came in with chest pain, possible GI bleed, and elevated troponins. His mental status was a little off, and we admitted him to the intensive care unit for further monitoring and management. Currently, he seems a bit better, is currently only on room air. Is getting saline at KVO. He did receive 2 units of PRBCs. Today's hemoglobin was 8.2. He was stopped by cardiology, to have a non-ST segment elevation myocardial infarction. Coronavirus testing was negative. Please see my note above. Labs today include a white count 17.7, hemoglobin 8.2, hematocrit 24.4, platelet count 288,000. Sodium 132, potassium 5.4, chlorides 101, CO2 23, anion gap 8, the 144, creatinine 1.68. N-terminal proBNP was 12,200, and most recent troponin was 5.630. Chest x-ray shows a minimal infiltrate, right lower lobe. Objective - Vital Signs Vital signs: Vital Signs Temp 97.8 F 06/13/20 08:00 Pulse 88 06/13/20 10:00 Resp 21 06/13/20 10:00 BP 124/79 06/13/20 10:00 Pulse Ox 98 06/13/20 10:00 Intake & Output 06/12/20 06/13/20 06/13/20 18:59 06:59 18:59 Intake Total 310 430 80 Output Total 585 200 Balance 310 -155 -120 Weight 104.326 kg 125.4 kg Intake: IV 120 80 KVO 120 80 Blood Product 310 310 Rc As-1 Unit 310 [id number] Rc As-1 Unit 0 310 [id number] Output: Urine 585 200 Other: Voiding Method Indwelling Catheter Indwelling Catheter - Exam No acute distress, oriented 3. No conversational dyspnea or use of accessory muscles. The patient's currently on room air.. HEENT examination is grossly unremarkable. Neck supple. Full range of motion. No adenopathy thyromegaly or neck vein distention. Cardiovascular examination reveals regular rhythm rate. S1-S2 normal. No S3 or S4. No discernible murmur noted. Heart rate 88 bpm. Lungs reveal mostly clear breath sounds. A few scattered rhonchi and crackles are appreciated. No wheezes. Abdomen soft bowel sounds are heard. No masses or tenderness. Extremities are intact. No cyanosis clubbing or edema. Skin is without rash or lesion. Neurologic examination reveals right sided weakness. - Labs CBC & Chem 7: 06/13/20 04:33 06/13/20 04:33 Labs: Abnormal Lab Results - Last 24 Hours (Table) 06/12/20 06/12/20 06/12/20 Range/Units 12:02 12:05 12:05 WBC (3.8-10.6) k/uL RBC 2.42 L (4.30-5.90) m/uL Hgb 7.0 L D (13.0-17.5) gm/dL Hct 22.2 L (39.0-53.0) % RDW 15.8 H (11.5-15.5) % Neutrophils # 8.9 H (1.3-7.7) k/uL PT 12.2 H (9.0-12.0) sec INR 1.2 H (<1.2) APTT 21.9 L (22.0-30.0) sec ABG pH (7.35-7.45) ABG pCO2 (35-45) mmHg ABG pO2 (83-108) mmHg ABG HCO3 (21-25) mmol/L ABG Total CO2 (19-24) mmol/L ABG O2 Saturation (94-97) % Sodium (137-145) mmol/L Potassium (3.5-5.1) mmol/L Carbon Dioxide (22-30) mmol/L BUN (9-20) mg/dL Creatinine (0.66-1.25) mg/dL Glucose (74-99) mg/dL POC Glucose (mg/dL) 167 H (75-99) mg/dL Total Bilirubin (0.2-1.3) mg/dL Troponin I (0.000-0.034) ng/mL Ur Specific [place] (1.001-1.035) Urine Protein (Negative) Ur Leukocyte Esterase (Negative) Urine WBC (0-5) /hpf Urine Bacteria (None) /hpf Hyaline Casts (0-2) /lpf Urine Mucus (None) /hpf Crossmatch 06/12/20 06/12/20 06/12/20 Range/Units 12:05 12:15 12:19 WBC (3.8-10.6) k/uL RBC (4.30-5.90) m/uL Hgb (13.0-17.5) gm/dL Hct (39.0-53.0) % RDW (11.5-15.5) % Neutrophils # (1.3-7.7) k/uL PT (9.0-12.0) sec INR (<1.2) APTT (22.0-30.0) sec ABG pH (7.35-7.45) ABG pCO2 (35-45) mmHg ABG pO2 (83-108) mmHg ABG HCO3 (21-25) mmol/L ABG Total CO2 (19-24) mmol/L ABG O2 Saturation (94-97) % Sodium 130 L (137-145) mmol/L Potassium 5.6 H (3.5-5.1) mmol/L Carbon Dioxide 20 L (22-30) mmol/L BUN 37 H (9-20) mg/dL Creatinine 1.64 H (0.66-1.25) mg/dL Glucose 154 H (74-99) mg/dL POC Glucose (mg/dL) (75-99) mg/dL Total Bilirubin (0.2-1.3) mg/dL Troponin I 3.970 H* (0.000-0.034) ng/mL Ur Specific [place] (1.001-1.035) Urine Protein (Negative) Ur Leukocyte Esterase (Negative) Urine WBC (0-5) /hpf Urine Bacteria (None) /hpf Hyaline Casts (0-2) /lpf Urine Mucus (None) /hpf Crossmatch See Detail 06/12/20 06/12/20 06/12/20 Range/Units 16:15 17:24 17:44 WBC (3.8-10.6) k/uL RBC (4.30-5.90) m/uL Hgb (13.0-17.5) gm/dL Hct (39.0-53.0) % RDW (11.5-15.5) % Neutrophils # (1.3-7.7) k/uL PT (9.0-12.0) sec INR (<1.2) APTT (22.0-30.0) sec ABG pH 7.34 L (7.35-7.45) ABG pCO2 28 L (35-45) mmHg ABG pO2 230 H (83-108) mmHg ABG HCO3 15 L (21-25) mmol/L ABG Total CO2 16 L (19-24) mmol/L ABG O2 Saturation 100.0 H (94-97) % Sodium (137-145) mmol/L Potassium (3.5-5.1) mmol/L Carbon Dioxide (22-30) mmol/L BUN (9-20) mg/dL Creatinine (0.66-1.25) mg/dL Glucose (74-99) mg/dL POC Glucose (mg/dL) 142 H (75-99) mg/dL Total Bilirubin (0.2-1.3) mg/dL Troponin I (0.000-0.034) ng/mL Ur Specific [place] 1.043 H (1.001-1.035) Urine Protein 1+ H (Negative) Ur Leukocyte Esterase Moderate H (Negative) Urine WBC 24 H (0-5) /hpf Urine Bacteria Rare H (None) /hpf Hyaline Casts 4 H (0-2) /lpf Urine Mucus Occasional H (None) /hpf Crossmatch 06/12/20 06/12/20 06/12/20 Range/Units 19:11 23:50 23:50 WBC (3.8-10.6) k/uL RBC (4.30-5.90) m/uL Hgb (13.0-17.5) gm/dL Hct (39.0-53.0) % RDW (11.5-15.5) % Neutrophils # (1.3-7.7) k/uL PT 12.5 H (9.0-12.0) sec INR 1.2 H (<1.2) APTT (22.0-30.0) sec ABG pH (7.35-7.45) ABG pCO2 (35-45) mmHg ABG pO2 (83-108) mmHg ABG HCO3 (21-25) mmol/L ABG Total CO2 (19-24) mmol/L ABG O2 Saturation (94-97) % Sodium 131 L (137-145) mmol/L Potassium 5.3 H (3.5-5.1) mmol/L Carbon Dioxide 19 L (22-30) mmol/L BUN 44 H (9-20) mg/dL Creatinine 1.67 H (0.66-1.25) mg/dL Glucose 154 H (74-99) mg/dL POC Glucose (mg/dL) 175 H (75-99) mg/dL Total Bilirubin 2.9 H (0.2-1.3) mg/dL Troponin I (0.000-0.034) ng/mL Ur Specific [place] (1.001-1.035) Urine Protein (Negative) Ur Leukocyte Esterase (Negative) Urine WBC (0-5) /hpf Urine Bacteria (None) /hpf Hyaline Casts (0-2) /lpf Urine Mucus (None) /hpf Crossmatch 06/12/20 06/13/20 06/13/20 Range/Units 23:50 00:37 04:33 WBC 19.3 H (3.8-10.6) k/uL RBC 2.71 L (4.30-5.90) m/uL Hgb 8.4 L (13.0-17.5) gm/dL Hct 24.6 L (39.0-53.0) % RDW (11.5-15.5) % Neutrophils # (1.3-7.7) k/uL PT (9.0-12.0) sec INR (<1.2) APTT (22.0-30.0) sec ABG pH (7.35-7.45) ABG pCO2 (35-45) mmHg ABG pO2 (83-108) mmHg ABG HCO3 (21-25) mmol/L ABG Total CO2 (19-24) mmol/L ABG O2 Saturation (94-97) % Sodium 132 L (137-145) mmol/L Potassium 5.4 H (3.5-5.1) mmol/L Carbon Dioxide (22-30) mmol/L BUN 44 H (9-20) mg/dL Creatinine 1.68 H (0.66-1.25) mg/dL Glucose 160 H (74-99) mg/dL POC Glucose (mg/dL) 186 H (75-99) mg/dL Total Bilirubin (0.2-1.3) mg/dL Troponin I (0.000-0.034) ng/mL Ur Specific [place] (1.001-1.035) Urine Protein (Negative) Ur Leukocyte Esterase (Negative) Urine WBC (0-5) /hpf Urine Bacteria (None) /hpf Hyaline Casts (0-2) /lpf Urine Mucus (None) /hpf Crossmatch 06/13/20 06/13/20 Range/Units 04:33 04:33 WBC 17.7 H (3.8-10.6) k/uL RBC 2.71 L (4.30-5.90) m/uL Hgb 8.2 L (13.0-17.5) gm/dL Hct 24.4 L (39.0-53.0) % RDW (11.5-15.5) % Neutrophils # 16.0 H (1.3-7.7) k/uL PT (9.0-12.0) sec INR (<1.2) APTT (22.0-30.0) sec ABG pH (7.35-7.45) ABG pCO2 (35-45) mmHg ABG pO2 (83-108) mmHg ABG HCO3 (21-25) mmol/L ABG Total CO2 (19-24) mmol/L ABG O2 Saturation (94-97) % Sodium (137-145) mmol/L Potassium (3.5-5.1) mmol/L Carbon Dioxide (22-30) mmol/L BUN (9-20) mg/dL Creatinine (0.66-1.25) mg/dL Glucose (74-99) mg/dL POC Glucose (mg/dL) (75-99) mg/dL Total Bilirubin (0.2-1.3) mg/dL Troponin I 5.630 H* (0.000-0.034) ng/mL Ur Specific [place] (1.001-1.035) Urine Protein (Negative) Ur Leukocyte Esterase (Negative) Urine WBC (0-5) /hpf Urine Bacteria (None) /hpf Hyaline Casts (0-2) /lpf Urine Mucus (None) /hpf Crossmatch Microbiology - Last 24 Hours (Table) 06/12/20 16:15 Urine Culture - Preliminary Urine,Voided Assessment and Plan Assessment: Rule out non-ST segment elevation myocardial infarction. 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 Acute anemia, rule out GI bleed. Possible infiltrate/pneumonia, right lower lobe. Mild fluid overload/CHF. History of diabetes mellitus. History of GERD. History of hypertension. History of diabetic neuropathy. History of hiatal hernia. History of constipation. History of spinal stenosis with chronic low back pain. Plan: Plan dated 06/12/2020. The patient will be admitted to the intensive care unit. Neurology should be consulted. Cardiology has been consulted. The patient will be followed. GI consultation should also be initiated. From the critical care standpoint, the patient appears to be relatively stable. We will continue to follow and make recommendations were appropriate. X-ray, labs, and medications all reviewed. N-terminal proBNP is ordered. Plan dated 06/13/2020. The patient's doing better today. He's on room air. Is not receiving any supplemental oxygen. He did receive 2 units of PRBCs. His hemoglobin today is 8.2. His troponin is elevated. Cardiology believes the patient has had a non- ST segment elevation myocardial infarction. The patient could be transferred out to [address] [place] [id number] with telemetry. An oral antibiotic will be started. Time with Patient: Less than 30
--- NOTE | 2020-06-13 11:56 | P.PN ---
Subjective Progress Note Date: 06/13/20 Principal diagnosis: Pt still confused on exam. Has had stable hemoglobins overnight s/p 2U PRBCs. Pressures have been stable/low without use of pressors. Echo with multiple WMA and reduced EF. Objective - Vital Signs Vital signs: Vital Signs Temp 97.8 F 06/13/20 08:00 Pulse 88 06/13/20 10:00 Resp 21 06/13/20 10:00 BP 124/79 06/13/20 10:00 Pulse Ox 98 06/13/20 10:00 Intake & Output 06/12/20 06/13/20 06/13/20 18:59 06:59 18:59 Intake Total 310 430 80 Output Total 585 200 Balance 310 -155 -120 Weight 104.326 kg 125.4 kg Intake: IV 120 80 KVO 120 80 Blood Product 310 310 Rc As-1 Unit 310 [id number] Rc As-1 Unit 0 310 [id number] Output: Urine 585 200 Other: Voiding Method Indwelling Catheter Indwelling Catheter - Exam Gen: awake, alert, not oriented HEENT: normocephalic, atraumatic, good hearing acuity, moist mucous membranes Resp: good air exchange, breathing comfortably with no accessory muscle use, clear to auscultation bilaterally CVS: good distal perfusion x 4, regular rate and rhythm without murmurs GI: soft, NTTP, ND, appropriate bowel sounds : no SPT, no CVAT, landry catheter not present MSK: Trace pitting edema, no clubbing Neuro: Right-sided residual weakness Psych: cooperative, euthymic mood - Labs CBC & Chem 7: 06/13/20 04:33 06/13/20 04:33 Labs: Abnormal Lab Results - Last 24 Hours (Table) 06/12/20 06/12/20 06/12/20 Range/Units 12:02 12:05 12:05 WBC (3.8-10.6) k/uL RBC 2.42 L (4.30-5.90) m/uL Hgb 7.0 L D (13.0-17.5) gm/dL Hct 22.2 L (39.0-53.0) % RDW 15.8 H (11.5-15.5) % Neutrophils # 8.9 H (1.3-7.7) k/uL PT 12.2 H (9.0-12.0) sec INR 1.2 H (<1.2) APTT 21.9 L (22.0-30.0) sec ABG pH (7.35-7.45) ABG pCO2 (35-45) mmHg ABG pO2 (83-108) mmHg ABG HCO3 (21-25) mmol/L ABG Total CO2 (19-24) mmol/L ABG O2 Saturation (94-97) % Sodium (137-145) mmol/L Potassium (3.5-5.1) mmol/L Carbon Dioxide (22-30) mmol/L BUN (9-20) mg/dL Creatinine (0.66-1.25) mg/dL Glucose (74-99) mg/dL POC Glucose (mg/dL) 167 H (75-99) mg/dL Total Bilirubin (0.2-1.3) mg/dL Troponin I (0.000-0.034) ng/mL Ur Specific [place] (1.001-1.035) Urine Protein (Negative) Ur Leukocyte Esterase (Negative) Urine WBC (0-5) /hpf Urine Bacteria (None) /hpf Hyaline Casts (0-2) /lpf Urine Mucus (None) /hpf Crossmatch 06/12/20 06/12/20 06/12/20 Range/Units 12:05 12:15 12:19 WBC (3.8-10.6) k/uL RBC (4.30-5.90) m/uL Hgb (13.0-17.5) gm/dL Hct (39.0-53.0) % RDW (11.5-15.5) % Neutrophils # (1.3-7.7) k/uL PT (9.0-12.0) sec INR (<1.2) APTT (22.0-30.0) sec ABG pH (7.35-7.45) ABG pCO2 (35-45) mmHg ABG pO2 (83-108) mmHg ABG HCO3 (21-25) mmol/L ABG Total CO2 (19-24) mmol/L ABG O2 Saturation (94-97) % Sodium 130 L (137-145) mmol/L Potassium 5.6 H (3.5-5.1) mmol/L Carbon Dioxide 20 L (22-30) mmol/L BUN 37 H (9-20) mg/dL Creatinine 1.64 H (0.66-1.25) mg/dL Glucose 154 H (74-99) mg/dL POC Glucose (mg/dL) (75-99) mg/dL Total Bilirubin (0.2-1.3) mg/dL Troponin I 3.970 H* (0.000-0.034) ng/mL Ur Specific [facility] (1.001-1.035) Urine Protein (Negative) Ur Leukocyte Esterase (Negative) Urine WBC (0-5) /hpf Urine Bacteria (None) /hpf Hyaline Casts (0-2) /lpf Urine Mucus (None) /hpf Crossmatch See Detail 06/12/20 06/12/20 06/12/20 Range/Units 16:15 17:24 17:44 WBC (3.8-10.6) k/uL RBC (4.30-5.90) m/uL Hgb (13.0-17.5) gm/dL Hct (39.0-53.0) % RDW (11.5-15.5) % Neutrophils # (1.3-7.7) k/uL PT (9.0-12.0) sec INR (<1.2) APTT (22.0-30.0) sec ABG pH 7.34 L (7.35-7.45) ABG pCO2 28 L (35-45) mmHg ABG pO2 230 H (83-108) mmHg ABG HCO3 15 L (21-25) mmol/L ABG Total CO2 16 L (19-24) mmol/L ABG O2 Saturation 100.0 H (94-97) % Sodium (137-145) mmol/L Potassium (3.5-5.1) mmol/L Carbon Dioxide (22-30) mmol/L BUN (9-20) mg/dL Creatinine (0.66-1.25) mg/dL Glucose (74-99) mg/dL POC Glucose (mg/dL) 142 H (75-99) mg/dL Total Bilirubin (0.2-1.3) mg/dL Troponin I (0.000-0.034) ng/mL Ur Specific [facility] 1.043 H (1.001-1.035) Urine Protein 1+ H (Negative) Ur Leukocyte Esterase Moderate H (Negative) Urine WBC 24 H (0-5) /hpf Urine Bacteria Rare H (None) /hpf Hyaline Casts 4 H (0-2) /lpf Urine Mucus Occasional H (None) /hpf Crossmatch 06/12/20 06/12/20 06/12/20 Range/Units 19:11 23:50 23:50 WBC (3.8-10.6) k/uL RBC (4.30-5.90) m/uL Hgb (13.0-17.5) gm/dL Hct (39.0-53.0) % RDW (11.5-15.5) % Neutrophils # (1.3-7.7) k/uL PT 12.5 H (9.0-12.0) sec INR 1.2 H (<1.2) APTT (22.0-30.0) sec ABG pH (7.35-7.45) ABG pCO2 (35-45) mmHg ABG pO2 (83-108) mmHg ABG HCO3 (21-25) mmol/L ABG Total CO2 (19-24) mmol/L ABG O2 Saturation (94-97) % Sodium 131 L (137-145) mmol/L Potassium 5.3 H (3.5-5.1) mmol/L Carbon Dioxide 19 L (22-30) mmol/L BUN 44 H (9-20) mg/dL Creatinine 1.67 H (0.66-1.25) mg/dL Glucose 154 H (74-99) mg/dL POC Glucose (mg/dL) 175 H (75-99) mg/dL Total Bilirubin 2.9 H (0.2-1.3) mg/dL Troponin I (0.000-0.034) ng/mL Ur Specific [facility] (1.001-1.035) Urine Protein (Negative) Ur Leukocyte Esterase (Negative) Urine WBC (0-5) /hpf Urine Bacteria (None) /hpf Hyaline Casts (0-2) /lpf Urine Mucus (None) /hpf Crossmatch 06/12/20 06/13/20 06/13/20 Range/Units 23:50 00:37 04:33 WBC 19.3 H (3.8-10.6) k/uL RBC 2.71 L (4.30-5.90) m/uL Hgb 8.4 L (13.0-17.5) gm/dL Hct 24.6 L (39.0-53.0) % RDW (11.5-15.5) % Neutrophils # (1.3-7.7) k/uL PT (9.0-12.0) sec INR (<1.2) APTT (22.0-30.0) sec ABG pH (7.35-7.45) ABG pCO2 (35-45) mmHg ABG pO2 (83-108) mmHg ABG HCO3 (21-25) mmol/L ABG Total CO2 (19-24) mmol/L ABG O2 Saturation (94-97) % Sodium 132 L (137-145) mmol/L Potassium 5.4 H (3.5-5.1) mmol/L Carbon Dioxide (22-30) mmol/L BUN 44 H (9-20) mg/dL Creatinine 1.68 H (0.66-1.25) mg/dL Glucose 160 H (74-99) mg/dL POC Glucose (mg/dL) 186 H (75-99) mg/dL Total Bilirubin (0.2-1.3) mg/dL Troponin I (0.000-0.034) ng/mL Ur Specific [facility] (1.001-1.035) Urine Protein (Negative) Ur Leukocyte Esterase (Negative) Urine WBC (0-5) /hpf Urine Bacteria (None) /hpf Hyaline Casts (0-2) /lpf Urine Mucus (None) /hpf Crossmatch 06/13/20 06/13/20 Range/Units 04:33 04:33 WBC 17.7 H (3.8-10.6) k/uL RBC 2.71 L (4.30-5.90) m/uL Hgb 8.2 L (13.0-17.5) gm/dL Hct 24.4 L (39.0-53.0) % RDW (11.5-15.5) % Neutrophils # 16.0 H (1.3-7.7) k/uL PT (9.0-12.0) sec INR (<1.2) APTT (22.0-30.0) sec ABG pH (7.35-7.45) ABG pCO2 (35-45) mmHg ABG pO2 (83-108) mmHg ABG HCO3 (21-25) mmol/L ABG Total CO2 (19-24) mmol/L ABG O2 Saturation (94-97) % Sodium (137-145) mmol/L Potassium (3.5-5.1) mmol/L Carbon Dioxide (22-30) mmol/L BUN (9-20) mg/dL Creatinine (0.66-1.25) mg/dL Glucose (74-99) mg/dL POC Glucose (mg/dL) (75-99) mg/dL Total Bilirubin (0.2-1.3) mg/dL Troponin I 5.630 H* (0.000-0.034) ng/mL Ur Specific [facility] (1.001-1.035) Urine Protein (Negative) Ur Leukocyte Esterase (Negative) Urine WBC (0-5) /hpf Urine Bacteria (None) /hpf Hyaline Casts (0-2) /lpf Urine Mucus (None) /hpf Crossmatch Microbiology - Last 24 Hours (Table) 06/12/20 16:15 Urine Culture - Preliminary Urine,Voided Assessment and Plan Assessment: Acute blood loss anemia GI bleed Hypotension from hypovolemia -Admit to telemetry in the ICU -CBC every 6 hours -Maintain active type and screen -Maintain large-bore IV access -Type and cross 2 units, transfuse 1 -May warrant pressors if no response to IV fluids/blood product -GI consult -PPI twice a day -Nothing by mouth -Pulmonary consult for critical care Non-STEMI Acute on Chronic Heart Failure with Reduced Ejection Fraction, EF 30-35% Ischemic Cardiomyopathy -Trend troponins -EKG when necessary for chest pain -Hold off on aspirin, Plavix, heparin due to GI bleed -Patient should be started on a statin once stabilized -Cardiology consult -Hold metoprolol given hypotension -Echocardiogram = multiple WMA, reduced EF Acute Kidney Injury -Received IV fluids -Will receive blood transfusions as needed -Repeat BMP daily Encephalopathy, unspecified History of CVA -Neurology consult -Frequent reorientation -PT/OT -Avoid benzodiazepines, anticholinergics -Maintain day/night cycles -appears to be at baseline mentation at this point Hypertension, essential -Holding home lisinopril due to hypotension as above Diabetes mellitus type 2 -Q before meals/at bedtime sugar checks -Low-dose sliding scale insulin DVT prophylaxis is contraindicated due to acute blood loss anemia and GI bleed is the DPOA DO NOT RESUSCITATE/DO NOT INTUBATE
[2020-06-13 12:07] LABS: Glucose,Whole Blood 156 mg/dL (75-99)
[2020-06-13] MEDS: AZITHROMYCIN 500 MG TAB PO SCH (13:13)
--- NOTE | 2020-06-13 13:21 | P.CONS ---
History of Present Illness - Reason for Consult Consult date: 06/13/20 Anemia, stool positive for occult blood Requesting physician: Shannon Galvan - Chief Complaint Altered mental status - History of Present Illness 75-year-old male with multiple medical comorbidities including diabetes mellitus, GERD, hypertension, spinal stenosis with chronic lower back pain, constipation, hiatal hernia, neuropathy and recent CVA and 05/24 with residual right-sided weakness and slurred speech who presented to the hospital due to altered mental status and chest pain. Patient found to have ST depression on EKG and currently being evaluated by the cardiology service. Troponins initially 3 on presentation currently 5. GI was consulted for an acute fall in the patient's hemoglobin 7 on presentation from 13 in May. Patient status post 2 units of PRBCs with hemoglobin stable at 8.2 from 8.4. Stool testing was positive for occult blood. Patient denies any signs or symptoms of GI bleeding, with no hematemesis, coffee-ground emesis, melena or hematochezia. Patient is on Mobic in the outpatient setting. He denies any prior EGD or colonoscopy but reports a remote history of peptic ulcer disease. Review of Systems REVIEW OF SYSTEMS: CONSTITUTIONAL: Denies any fevers, chills, weight change or fatigue. CARDIOVASCULAR: Denies any chest pain presently but did have some on presentation, palpitations high or low blood pressures RESPIRATORY: Denies any shortness of breath, hemoptysis or cough. GENITOURINARY: No dysuria or hematuria. MUSCULOSKELETAL: No weakness reported. SKIN: Denies any new rashes or lesions, jaundice or pallor. PSYCHIATRIC: Denies any depression or anxiety. NEUROLOGY: Denies headache, denies any new focal deficits, patient has residual right-sided deficit and slurred speech from recent CVA. EARS/NOSE/THROAT: No recent hearing change, congestion, nasal discharge or sore throat. EYES: No pain in eyes, discharge or change in vision. GASTROINTESTINAL: As per HPI. Past Medical History Past Medical History: Diabetes Mellitus, GERD/Reflux, Hypertension, Skin Disorder Additional Past Medical History / Comment(s): Pt states he felt heart palpitations/racing about 2 weeks ago, spinal stenosis with chronic low back pain and knees will "give out", FALLS, constipation, hiatal hernia, NIDDM diagnosed less than a year ago/neuropathy bilateral feet, small sores posterior neck for approximately one year. History of Any Multi-Drug Resistant Organisms: None Reported Past Surgical History: No Surgical Hx Reported Additional Past Surgical History / Comment(s): Pt/spouse state pt has never had surgery. Past Anesthesia/Blood Transfusion Reactions: No Reported Reaction Past Psychological History: No Psychological Hx Reported Smoking Status: Former smoker Past Alcohol Use History: None Reported Additional Past Alcohol Use History / Comment(s): Pt started smoking in 1965 and quit in 2016. Past Drug Use History: None Reported - Past Family History Mother Family Medical History: Cancer Additional Family Medical History / Comment(s): stomach cancer. Father Additional Family Medical History / Comment(s): "heart problems" Brother(s) Family Medical History: Diabetes Mellitus Medications and Allergies Home Medications Medication Instructions Recorded Confirmed Type Meloxicam [Mobic] 15 mg PO DAILY PRN 05/07/20 06/12/20 History metFORMIN HCL [Glucophage] 500 mg PO DAILY 05/07/20 06/12/20 History Aspirin 81 mg PO DAILY chew 05/12/20 06/12/20 Rx lisinopriL [Zestril] 20 mg PO DAILY tab 05/12/20 06/12/20 Rx HYDROcodone/APAP 10-325MG [[place] 1 tab PO Q6H PRN 06/12/20 06/12/20 History 10-325] Sennosides [Senna] 8.6 mg PO BID PRN 06/12/20 06/12/20 History Allergies Allergy/AdvReac Type Severity Reaction Status Date / Time No Known Allergies Allergy Verified 06/12/20 13:51 Physical Exam Vitals: Vital Signs Temp Pulse Resp BP Pulse Ox 06/13/20 10:00 88 21 124/79 98 06/13/20 09:00 87 23 99/56 98 06/13/20 08:00 97.8 F 89 16 89/61 98 06/13/20 07:00 84 19 99/70 97 06/13/20 06:00 86 20 102/72 100 06/13/20 05:00 91 11 L 118/66 100 06/13/20 04:00 97.7 F 95 16 100/64 100 06/13/20 03:00 92 20 103/60 100 06/13/20 02:00 90 19 102/72 100 06/13/20 01:00 92 17 87/63 100 06/13/20 00:41 93 16 100 06/13/20 00:00 97.6 F 93 21 88/65 100 06/12/20 23:00 98 25 H 89/63 100 06/12/20 22:15 98.1 F 87 20 89/63 100 06/12/20 22:00 98 26 H 76/48 100 06/12/20 21:00 88 25 H 86/59 100 06/12/20 20:00 98 F 104 H 28 H 104/90 100 06/12/20 19:26 97.7 F 96 18 91/61 98 06/12/20 19:12 100 30 H 06/12/20 19:02 98 F 96 24 86/59 100 06/12/20 18:35 97.7 F 88 18 98/61 97 06/12/20 18:20 97.7 F 93 18 91/73 97 06/12/20 18:00 97.7 F 96 20 128/75 84 L 06/12/20 17:00 98.0 F 84 16 106/71 98 06/12/20 16:45 97.7 F 79 16 88/46 98 06/12/20 16:30 77 18 85/59 06/12/20 16:15 76 16 111/80 06/12/20 16:00 75 16 106/66 06/12/20 15:45 97.9 F 78 16 87/59 98 06/12/20 15:22 97.9 F 73 16 76/49 06/12/20 14:48 76 16 86/53 98 06/12/20 13:07 74 16 84/57 98 06/12/20 11:40 97.8 F 81 16 95/69 97 Intake and Output 06/12/20 06/13/20 06/13/20 22:59 06:59 14:59 Intake Total 620 120 80 Output Total 90 495 200 Balance 530 -375 -120 Intake: IV 120 80 KVO 120 80 Blood Product 620 Rc As-1 Unit 310 [id number] Rc As-1 Unit 310 [id number] Output: Urine 90 495 200 Other: Voiding Method Indwelling Catheter Indwelling Catheter Indwelling Catheter Weight 128.7 kg 125.4 kg On physical examination, patient appears comfortable in no apparent distress. HEAD: Normocephalic, atraumatic. EYES: No scleral icterus. No conjunctival injection. MOUTH: No lesions, tongue midline. NECK: Trachea midline, no gross abnormalities. CHEST: Clear to auscultation with no wheezing or rhonchi appreciated. HEART: S1-S2 appreciated. ABDOMEN: Soft, nontender to palpation. Bowel sounds are positive. No organomegaly. No guarding or rigidity. EXTREMITIES: No pedal edema. SKIN: No rashes, no jaundice. NEUROLOGIC: Alert and oriented to person and place, residual right-sided weakness status post CVA with slurred speech which is at baseline. Results CBC & Chem 7: 06/13/20 04:33 06/13/20 04:33 Labs: Abnormal Lab Results - Last 24 Hours (Table) 06/12/20 06/12/20 06/12/20 Range/Units 12:02 12:05 12:05 WBC (3.8-10.6) k/uL RBC 2.42 L (4.30-5.90) m/uL Hgb 7.0 L D (13.0-17.5) gm/dL Hct 22.2 L (39.0-53.0) % RDW 15.8 H (11.5-15.5) % Neutrophils # 8.9 H (1.3-7.7) k/uL PT 12.2 H (9.0-12.0) sec INR 1.2 H (<1.2) APTT 21.9 L (22.0-30.0) sec ABG pH (7.35-7.45) ABG pCO2 (35-45) mmHg ABG pO2 (83-108) mmHg ABG HCO3 (21-25) mmol/L ABG Total CO2 (19-24) mmol/L ABG O2 Saturation (94-97) % Sodium (137-145) mmol/L Potassium (3.5-5.1) mmol/L Carbon Dioxide (22-30) mmol/L BUN (9-20) mg/dL Creatinine (0.66-1.25) mg/dL Glucose (74-99) mg/dL POC Glucose (mg/dL) 167 H (75-99) mg/dL Total Bilirubin (0.2-1.3) mg/dL Troponin I (0.000-0.034) ng/mL Ur Specific [place] (1.001-1.035) Urine Protein (Negative) Ur Leukocyte Esterase (Negative) Urine WBC (0-5) /hpf Urine Bacteria (None) /hpf Hyaline Casts (0-2) /lpf Urine Mucus (None) /hpf Crossmatch 06/12/20 06/12/20 06/12/20 Range/Units 12:05 12:15 12:19 WBC (3.8-10.6) k/uL RBC (4.30-5.90) m/uL Hgb (13.0-17.5) gm/dL Hct (39.0-53.0) % RDW (11.5-15.5) % Neutrophils # (1.3-7.7) k/uL PT (9.0-12.0) sec INR (<1.2) APTT (22.0-30.0) sec ABG pH (7.35-7.45) ABG pCO2 (35-45) mmHg ABG pO2 (83-108) mmHg ABG HCO3 (21-25) mmol/L ABG Total CO2 (19-24) mmol/L ABG O2 Saturation (94-97) % Sodium 130 L (137-145) mmol/L Potassium 5.6 H (3.5-5.1) mmol/L Carbon Dioxide 20 L (22-30) mmol/L BUN 37 H (9-20) mg/dL Creatinine 1.64 H (0.66-1.25) mg/dL Glucose 154 H (74-99) mg/dL POC Glucose (mg/dL) (75-99) mg/dL Total Bilirubin (0.2-1.3) mg/dL Troponin I 3.970 H* (0.000-0.034) ng/mL Ur Specific [place] (1.001-1.035) Urine Protein (Negative) Ur Leukocyte Esterase (Negative) Urine WBC (0-5) /hpf Urine Bacteria (None) /hpf Hyaline Casts (0-2) /lpf Urine Mucus (None) /hpf Crossmatch See Detail 06/12/20 06/12/20 06/12/20 Range/Units 16:15 17:24 17:44 WBC (3.8-10.6) k/uL RBC (4.30-5.90) m/uL Hgb (13.0-17.5) gm/dL Hct (39.0-53.0) % RDW (11.5-15.5) % Neutrophils # (1.3-7.7) k/uL PT (9.0-12.0) sec INR (<1.2) APTT (22.0-30.0) sec ABG pH 7.34 L (7.35-7.45) ABG pCO2 28 L (35-45) mmHg ABG pO2 230 H (83-108) mmHg ABG HCO3 15 L (21-25) mmol/L ABG Total CO2 16 L (19-24) mmol/L ABG O2 Saturation 100.0 H (94-97) % Sodium (137-145) mmol/L Potassium (3.5-5.1) mmol/L Carbon Dioxide (22-30) mmol/L BUN (9-20) mg/dL Creatinine (0.66-1.25) mg/dL Glucose (74-99) mg/dL POC Glucose (mg/dL) 142 H (75-99) mg/dL Total Bilirubin (0.2-1.3) mg/dL Troponin I (0.000-0.034) ng/mL Ur Specific [place] 1.043 H (1.001-1.035) Urine Protein 1+ H (Negative) Ur Leukocyte Esterase Moderate H (Negative) Urine WBC 24 H (0-5) /hpf Urine Bacteria Rare H (None) /hpf Hyaline Casts 4 H (0-2) /lpf Urine Mucus Occasional H (None) /hpf Crossmatch 06/12/20 06/12/20 06/12/20 Range/Units 19:11 23:50 23:50 WBC (3.8-10.6) k/uL RBC (4.30-5.90) m/uL Hgb (13.0-17.5) gm/dL Hct (39.0-53.0) % RDW (11.5-15.5) % Neutrophils # (1.3-7.7) k/uL PT 12.5 H (9.0-12.0) sec INR 1.2 H (<1.2) APTT (22.0-30.0) sec ABG pH (7.35-7.45) ABG pCO2 (35-45) mmHg ABG pO2 (83-108) mmHg ABG HCO3 (21-25) mmol/L ABG Total CO2 (19-24) mmol/L ABG O2 Saturation (94-97) % Sodium 131 L (137-145) mmol/L Potassium 5.3 H (3.5-5.1) mmol/L Carbon Dioxide 19 L (22-30) mmol/L BUN 44 H (9-20) mg/dL Creatinine 1.67 H (0.66-1.25) mg/dL Glucose 154 H (74-99) mg/dL POC Glucose (mg/dL) 175 H (75-99) mg/dL Total Bilirubin 2.9 H (0.2-1.3) mg/dL Troponin I (0.000-0.034) ng/mL Ur Specific [place] (1.001-1.035) Urine Protein (Negative) Ur Leukocyte Esterase (Negative) Urine WBC (0-5) /hpf Urine Bacteria (None) /hpf Hyaline Casts (0-2) /lpf Urine Mucus (None) /hpf Crossmatch 06/12/20 06/13/20 06/13/20 Range/Units 23:50 00:37 04:33 WBC 19.3 H (3.8-10.6) k/uL RBC 2.71 L (4.30-5.90) m/uL Hgb 8.4 L (13.0-17.5) gm/dL Hct 24.6 L (39.0-53.0) % RDW (11.5-15.5) % Neutrophils # (1.3-7.7) k/uL PT (9.0-12.0) sec INR (<1.2) APTT (22.0-30.0) sec ABG pH (7.35-7.45) ABG pCO2 (35-45) mmHg ABG pO2 (83-108) mmHg ABG HCO3 (21-25) mmol/L ABG Total CO2 (19-24) mmol/L ABG O2 Saturation (94-97) % Sodium 132 L (137-145) mmol/L Potassium 5.4 H (3.5-5.1) mmol/L Carbon Dioxide (22-30) mmol/L BUN 44 H (9-20) mg/dL Creatinine 1.68 H (0.66-1.25) mg/dL Glucose 160 H (74-99) mg/dL POC Glucose (mg/dL) 186 H (75-99) mg/dL Total Bilirubin (0.2-1.3) mg/dL Troponin I (0.000-0.034) ng/mL Ur Specific [place] (1.001-1.035) Urine Protein (Negative) Ur Leukocyte Esterase (Negative) Urine WBC (0-5) /hpf Urine Bacteria (None) /hpf Hyaline Casts (0-2) /lpf Urine Mucus (None) /hpf Crossmatch 06/13/20 06/13/20 Range/Units 04:33 04:33 WBC 17.7 H (3.8-10.6) k/uL RBC 2.71 L (4.30-5.90) m/uL Hgb 8.2 L (13.0-17.5) gm/dL Hct 24.4 L (39.0-53.0) % RDW (11.5-15.5) % Neutrophils # 16.0 H (1.3-7.7) k/uL PT (9.0-12.0) sec INR (<1.2) APTT (22.0-30.0) sec ABG pH (7.35-7.45) ABG pCO2 (35-45) mmHg ABG pO2 (83-108) mmHg ABG HCO3 (21-25) mmol/L ABG Total CO2 (19-24) mmol/L ABG O2 Saturation (94-97) % Sodium (137-145) mmol/L Potassium (3.5-5.1) mmol/L Carbon Dioxide (22-30) mmol/L BUN (9-20) mg/dL Creatinine (0.66-1.25) mg/dL Glucose (74-99) mg/dL POC Glucose (mg/dL) (75-99) mg/dL Total Bilirubin (0.2-1.3) mg/dL Troponin I 5.630 H* (0.000-0.034) ng/mL Ur Specific [place] (1.001-1.035) Urine Protein (Negative) Ur Leukocyte Esterase (Negative) Urine WBC (0-5) /hpf Urine Bacteria (None) /hpf Hyaline Casts (0-2) /lpf Urine Mucus (None) /hpf Crossmatch Microbiology - Last 24 Hours (Table) 06/12/20 16:15 Urine Culture - Preliminary Urine,Voided Chest x-ray: report reviewed Assessment and Plan (1) Normocytic normochromic anemia Narrative/Plan: 75-year-old male with multiple medical comorbidities presenting to the hospital for altered mental status and chest pain. Recent CVA in 05/24 with residual right-sided weakness and speech slurring, the patient was found to have elevation in his troponins and EKG abnormalities on presentation. Currently patient being evaluated by cardiology for a non-ST elevation ME. Troponins were slightly higher today at 5. Patient denies any signs or symptoms of GI bleeding but stool testing was positive for occult blood. No prior colonoscopy or EGD but the patient does report a remote history of peptic ulcer disease. Hemoglobin currently stable at 8.2 from a 0.4 after transfusion of 2 units for hemoglobin of 7 on presentation. Hemoglobin is depressed from 13 in May. Unclear etiology, may be related to peptic ulcer disease, AVM, gastritis or other etiology. Current Visit: Yes Status: Acute Code(s): D64.9 - ANEMIA, UNSPECIFIED SNOMED Code(s): 23288662 (2) Positive occult stool blood test Current Visit: Yes Status: Acute Code(s): R19.5 - OTHER FECAL ABNORMALITIES SNOMED Code(s): 33874320 Plan: Supportive care Continue to monitor hemoglobin and hematocrit and transfuse as needed Continue to monitor stool output Okay for liquid diet Continue Protonix 40 mg twice daily Continue to hold NSAID therapy as well as anticoagulation and antiplatelet therapy Cardiology service is following the patient, recommend optimization of medica tions and their currently recommending medical treatment for NSTEMI Case discussed with anesthesiology service and given uptrending troponin level, patient is not cleared for any endoscopic evaluation at this time, would likely benefit from EGD in the future however this time we'll continue medical management and close monitoring of hemoglobin and hematocrit Patient would need cardiology clearance prior to any endoscopy Thank you for allowing us to participate in the care of the patient we will continue to follow
[2020-06-13] MEDS: ACETAMINOPHEN TAB 325 MG TAB PO PRN (13:24)
[2020-06-13 14:56] LABS: Hemoglobin A1C 5.2 % (4.0-6.0)
[2020-06-13 16:57] LABS: Glucose,Whole Blood 149 mg/dL (75-99)
[2020-06-13 19:02] LABS: % Iron Saturation 34.36 (15.00-50.00)
[2020-06-13 19:11] LABS: Ferritin 51.9 ng/mL (22.0-322.0)
[2020-06-13 19:12] LABS: Folate, Serum 5.9 ng/mL
[2020-06-13 21:00] LABS: Glucose,Whole Blood 158 mg/dL (75-99)
[2020-06-14 00:06] LABS: Glucose,Whole Blood 148 mg/dL (75-99)
[2020-06-14] MEDS: FUROSEMIDE 10 MG/ML 2 ML VIAL IV SCH ×3 (00:20→20:11)
[2020-06-14] MEDS: INSULIN ASPART (NovoLOG) 100 UNIT/ML VIAL SQ SCH ×4 (00:21→17:53)
[2020-06-14 06:10] LABS: Glucose,Whole Blood 166 mg/dL (75-99)
[2020-06-14] MEDS: PANTOPRAZOLE 40 MG/10 ML VIAL IV SCH ×2 (07:47→20:11)
[2020-06-14] MEDS: AZITHROMYCIN 500 MG TAB PO SCH (07:48)
[2020-06-14] MEDS: ATORVASTATIN 40 MG TAB PO SCH (07:48)
[2020-06-14 08:58] LABS: Basophils % (A) 0 %; Eosinophils % (A) 0 %; HCT 26.8 % (39.0-53.0); HGB 8.8 gm/dL (13.0-17.5); Hypochromasia Marked; Lymphocytes # (A) 1.5 k/uL (1.0-4.8); Lymphocytes % (A) 15 %; MCH 29.6 pg (25.0-35.0); MCHC 32.7 g/dL (31.0-37.0); MCV 90.5 fL (80.0-100.0); Mean Platelet Volume 8.4; Monocytes # (A) 0.5 k/uL (0-1.0); Monocytes % (A) 5 %; Neutrophils % (A) 79 %; Platelet Count 264 k/uL (150-450); Poikilocytosis Moderate; RBC 2.96 m/uL (4.30-5.90); RDW 15.8 % (11.5-15.5); WBC 10.2 k/uL (3.8-10.6)
[2020-06-14 09:08] LABS: Calcium 9.2 mg/dL (8.4-10.2); Potassium 4.8 mmol/L (3.5-5.1)
--- NOTE | 2020-06-14 10:55 | P.PN ---
Subjective Progress Note Date: 06/14/20 This is a pleasant 75-year-old gentleman with known history of diabetes, hypertension, hyperlipidemia, nicotine dependence, recent diagnosis of stroke in May of this year, spinal stenosis with chronic back pain. Patient was admitted in May with right-sided weakness and slurring of speech and at that time he underwent a transesophageal echocardiogram that revealed no evidence of cardiac source of embolization. Cardiology did see the patient on that admission, an echo was performed which revealed a normal left ventricular systolic function. Patient was brought into the hospital on this occasion because the family noticed a change in mental status and the patient was more agitated than usual. Cardiology consultation was requested because of abnormality in troponin. His EKG showed a normal sinus rhythm with ST changes in the lateral and high lateral leads, suggestive of severe underlying coronary artery disease. Patient underwent an echocardiogram with Doppler study which revealed an impaired LV function with an ejection fraction of 30-35% with evidence of wall motion abnormalities. Patient was having evidence also of GI bleeding and was having black stools. His hemoglobin on presentation here was 7 and the patient received packed red blood cells. CT of the brain showed chronic changes without any acute abnormalities. Chest x-ray showed mild congestive heart failure. The patient was seen in consultation yesterday by Dr. Bergman. At the time of my examination this morning patient was partially sitting up in bed, complaining of severe back pain. He denies any chest discomfort, breathing was stable. Blood pressure 108/70 with a heart rate of 90, 96% on room air. White blood cell count 10.2, hemoglobin 8.8, platelet count 264. Sodium 136, potassium 4.8, BUN 50, creatinine 1.2. Objective - Vital Signs Vital signs: Vital Signs Temp 97.5 F L 06/14/20 07:30 Pulse 90 06/14/20 07:30 Resp 20 06/14/20 07:30 BP 108/75 06/14/20 07:30 Pulse Ox 96 06/14/20 07:30 Intake & Output 06/13/20 06/14/20 06/14/20 18:59 06:59 18:59 Intake Total 600 Output Total 600 400 Balance 0 -400 Weight 125.4 kg 127 kg Intake: IV 240 KVO 240 Oral 360 Output: Urine 600 400 Other: Voiding Method Indwelling Catheter Indwelling Catheter - Exam PHYSICAL EXAMINATION: GENERAL: 75-year-old gentleman in no acute distress at the time of my examination HEENT: Head is atraumatic, normocephalic. Pupils equal, round. Sclera anicteric. Conjunctiva are clear. Mucous membranes of the mouth are moist. Neck is supple. There is no elevated jugular venous pressure. No carotid bruit is heard. HEART EXAMINATION: S1 and S2 systolic murmur is heard CHEST EXAMINATION: Lungs reveal coarse rhonchi that seemed to clear with cough ABDOMEN: Soft, nontender. Bowel sounds are heard. No organomegaly noted. EXTREMITIES: 2+ peripheral pulses with no evidence of peripheral edema and no ca lf tenderness noted. NEUROLOGIC patient is awake, alert and oriented 3 . . - Labs CBC & Chem 7: 06/14/20 08:20 06/14/20 08:20 Labs: Abnormal Lab Results - Last 24 Hours (Table) 06/13/20 06/13/20 06/13/20 Range/Units 04:33 12:05 16:51 RBC (4.30-5.90) m/uL Hgb (13.0-17.5) gm/dL Hct (39.0-53.0) % RDW (11.5-15.5) % Neutrophils # (1.3-7.7) k/uL Retic Count 5.0 H (0.5-2.0) % Sodium (137-145) mmol/L BUN (9-20) mg/dL Creatinine (0.66-1.25) mg/dL Glucose (74-99) mg/dL POC Glucose (mg/dL) 156 H 149 H (75-99) mg/dL 06/13/20 06/14/20 06/14/20 Range/Units 20:16 00:03 06:09 RBC (4.30-5.90) m/uL Hgb (13.0-17.5) gm/dL Hct (39.0-53.0) % RDW (11.5-15.5) % Neutrophils # (1.3-7.7) k/uL Retic Count (0.5-2.0) % Sodium (137-145) mmol/L BUN (9-20) mg/dL Creatinine (0.66-1.25) mg/dL Glucose (74-99) mg/dL POC Glucose (mg/dL) 158 H 148 H 166 H (75-99) mg/dL 06/14/20 06/14/20 Range/Units 08:20 08:20 RBC 2.96 L (4.30-5.90) m/uL Hgb 8.8 L (13.0-17.5) gm/dL Hct 26.8 L (39.0-53.0) % RDW 15.8 H (11.5-15.5) % Neutrophils # 8.0 H (1.3-7.7) k/uL Retic Count (0.5-2.0) % Sodium 136 L (137-145) mmol/L BUN 50 H (9-20) mg/dL Creatinine 1.28 H (0.66-1.25) mg/dL Glucose 132 H (74-99) mg/dL POC Glucose (mg/dL) (75-99) mg/dL Microbiology - Last 24 Hours (Table) 06/12/20 16:15 Urine Culture - Final Urine,Voided Assessment and Plan Plan: Assessment and plan #1 mental status changes #2 acute GI bleed, hemaglobin 7 on admission, status post transfusion of one unit packed red blood cells #3 recent CVA with some residual right-sided weakness in May of this year #4 acute coronary event #5 systolic congestive heart failure acute on chronic #6 diabetes #7 hypertension #8 hyperlipidemia #9 GERD #10 Spinal stenosis with chronic lower back pain Plan We will continue to treat the patient with maximum medical therapy, no planned interventions at this time because of the anemia and GI bleed. Further recommendations to follow. DNP note has been reviewed, I agree with a documented findings and plan of care. Patient was seen and examined.
[2020-06-14 11:56] LABS: Glucose,Whole Blood 158 mg/dL (75-99)
--- NOTE | 2020-06-14 12:37 | P.PN ---
Subjective Progress Note Date: 06/14/20 Principal diagnosis: Anemia Patient is seen sitting bedside with no acute complaints. Tolerating liquid diet. No signs or symptoms of GI bleeding. He did have echocardiogram pe rformed with findings of decreased EF and wall motion abnormalities. Objective - Vital Signs Vital signs: Vital Signs Temp 97.5 F L 06/14/20 07:30 Pulse 90 06/14/20 07:30 Resp 20 06/14/20 07:30 BP 108/75 06/14/20 07:30 Pulse Ox 96 06/14/20 07:30 Intake & Output 06/13/20 06/14/20 06/14/20 18:59 06:59 18:59 Intake Total 600 Output Total 600 400 Balance 0 -400 Weight 125.4 kg 127 kg Intake: IV 240 KVO 240 Oral 360 Output: Urine 600 400 Other: Voiding Method Indwelling Catheter Indwelling Catheter - Exam On physical examination, patient appears comfortable in no apparent distress. HEAD: Normocephalic, atraumatic. EYES: No scleral icterus. No conjunctival injection. MOUTH: No lesions, tongue midline. NECK: Trachea midline, no gross abnormalities. CHEST: Decreased air entry in all lung arteaga. ABDOMEN: Soft, obese. Bowel sounds are positive. No organomegaly. No guarding or rigidity. EXTREMITIES: No pedal edema. SKIN: No rashes, no jaundice. NEUROLOGIC: Alert and oriented to person and place, patient has slurred speech and residual right sided weakness after CVA which are stable. - Labs CBC & Chem 7: 06/14/20 08:20 06/14/20 08:20 Labs: Abnormal Lab Results - Last 24 Hours (Table) 06/13/20 06/13/20 06/13/20 Range/Units 04:33 12:05 16:51 RBC (4.30-5.90) m/uL Hgb (13.0-17.5) gm/dL Hct (39.0-53.0) % RDW (11.5-15.5) % Neutrophils # (1.3-7.7) k/uL Retic Count 5.0 H (0.5-2.0) % Sodium (137-145) mmol/L BUN (9-20) mg/dL Creatinine (0.66-1.25) mg/dL Glucose (74-99) mg/dL POC Glucose (mg/dL) 156 H 149 H (75-99) mg/dL 06/13/20 06/14/20 06/14/20 Range/Units 20:16 00:03 06:09 RBC (4.30-5.90) m/uL Hgb (13.0-17.5) gm/dL Hct (39.0-53.0) % RDW (11.5-15.5) % Neutrophils # (1.3-7.7) k/uL Retic Count (0.5-2.0) % Sodium (137-145) mmol/L BUN (9-20) mg/dL Creatinine (0.66-1.25) mg/dL Glucose (74-99) mg/dL POC Glucose (mg/dL) 158 H 148 H 166 H (75-99) mg/dL 06/14/20 06/14/20 Range/Units 08:20 08:20 RBC 2.96 L (4.30-5.90) m/uL Hgb 8.8 L (13.0-17.5) gm/dL Hct 26.8 L (39.0-53.0) % RDW 15.8 H (11.5-15.5) % Neutrophils # 8.0 H (1.3-7.7) k/uL Retic Count (0.5-2.0) % Sodium 136 L (137-145) mmol/L BUN 50 H (9-20) mg/dL Creatinine 1.28 H (0.66-1.25) mg/dL Glucose 132 H (74-99) mg/dL POC Glucose (mg/dL) (75-99) mg/dL Microbiology - Last 24 Hours (Table) 06/12/20 16:15 Urine Culture - Final Urine,Voided Assessment and Plan (1) Normocytic normochromic anemia Narrative/Plan: 75-year-old male with multiple medical comorbidities presenting to the hospital for altered mental status and chest pain. Recent CVA in 05/24 with residual right-sided weakness and speech slurring, the patient was found to have elevation in his troponins and EKG abnormalities on presentation. Currently patient being evaluated by cardiology for a non-ST elevation LA. Troponins were slightly higher today at 5. Patient denies any signs or symptoms of GI bleeding but stool testing was positive for occult blood. No prior colonoscopy or EGD but the patient does report a remote history of peptic ulcer disease. Hemoglobin currently stable at 8.2 from a 0.4 after transfusion of 2 units for hemoglobin of 7 on presentation. Hemoglobin is depressed from 13 in May. Unclear etiology, may be related to peptic ulcer disease, AVM, gastritis or other etiology. No signs or symptoms of bleeding overnight. He has tolerated a liquid diet and hemoglobin has remained stable at 8.8 today. Current Visit: Yes Status: Acute Code(s): D64.9 - ANEMIA, UNSPECIFIED SNOMED Code(s): 74706523 (2) Positive occult stool blood test Current Visit: Yes Status: Acute Code(s): R19.5 - OTHER FECAL ABNORMALITIES SNOMED Code(s): 92404357 Plan: Supportive care Continue to monitor hemoglobin and hematocrit and transfuse as needed Continue to monitor stool output Okay for heart healthy diet Continue Protonix 40 mg twice daily Continue to hold anticoagulation and antiplatelet therapy, okay for initiation of aspirin therapy Cardiology service is following the patient, recommend optimization of medications and their currently recommending medical treatment for NSTEMI Case discussed with anesthesiology service and given uptrending troponin level yesterday and findings of echocardiogram , patient is not cleared for any endoscopic evaluation at this time, would likely benefit from EGD in the future however this time we'll continue medical management and close monitoring of hemoglobin and hematocrit Patient would need cardiology clearance prior to any endoscopy Thank you for allowing us to participate in the care of the patient we will continue to follow
[2020-06-14] MEDS: ACETAMINOPHEN TAB 325 MG TAB PO PRN (12:46)
--- NOTE | 2020-06-14 13:16 | P.PN ---
Subjective Progress Note Date: 06/14/20 No new complaints today. Resting in chair comfortably, but required 2 person max assist to get to chair. Hgbs have been stable. Objective - Vital Signs Vital signs: Vital Signs Temp 97.8 F 06/14/20 12:00 Pulse 81 06/14/20 12:00 Resp 18 06/14/20 12:00 BP 96/60 06/14/20 12:00 Pulse Ox 99 06/14/20 12:00 Intake & Output 06/13/20 06/14/20 06/14/20 18:59 06:59 18:59 Intake Total 600 125 Output Total 600 400 Balance 0 -400 125 Weight 125.4 kg 127 kg Intake: IV 240 KVO 240 Oral 360 125 Output: Urine 600 400 Other: Voiding Method Indwelling Catheter Indwelling Catheter Indwelling Catheter - Exam Gen: awake, alert, not oriented HEENT: normocephalic, atraumatic, good hearing acuity, moist mucous membranes Resp: good air exchange, breathing comfortably with no accessory muscle use, clear to auscultation bilaterally CVS: good distal perfusion x 4, regular rate and rhythm without murmurs GI: soft, NTTP, ND, appropriate bowel sounds : no SPT, no CVAT, landry catheter not present MSK: Trace pitting edema, no clubbing Neuro: Right-sided residual weakness - Labs CBC & Chem 7: 06/14/20 08:20 06/14/20 08:20 Labs: Abnormal Lab Results - Last 24 Hours (Table) 06/13/20 06/13/20 06/13/20 Range/Units 04:33 16:51 20:16 RBC (4.30-5.90) m/uL Hgb (13.0-17.5) gm/dL Hct (39.0-53.0) % RDW (11.5-15.5) % Neutrophils # (1.3-7.7) k/uL Retic Count 5.0 H (0.5-2.0) % Sodium (137-145) mmol/L BUN (9-20) mg/dL Creatinine (0.66-1.25) mg/dL Glucose (74-99) mg/dL POC Glucose (mg/dL) 149 H 158 H (75-99) mg/dL 06/14/20 06/14/20 06/14/20 Range/Units 00:03 06:09 08:20 RBC (4.30-5.90) m/uL Hgb (13.0-17.5) gm/dL Hct (39.0-53.0) % RDW (11.5-15.5) % Neutrophils # (1.3-7.7) k/uL Retic Count (0.5-2.0) % Sodium 136 L (137-145) mmol/L BUN 50 H (9-20) mg/dL Creatinine 1.28 H (0.66-1.25) mg/dL Glucose 132 H (74-99) mg/dL POC Glucose (mg/dL) 148 H 166 H (75-99) mg/dL 06/14/20 06/14/20 Range/Units 08:20 11:42 RBC 2.96 L (4.30-5.90) m/uL Hgb 8.8 L (13.0-17.5) gm/dL Hct 26.8 L (39.0-53.0) % RDW 15.8 H (11.5-15.5) % Neutrophils # 8.0 H (1.3-7.7) k/uL Retic Count (0.5-2.0) % Sodium (137-145) mmol/L BUN (9-20) mg/dL Creatinine (0.66-1.25) mg/dL Glucose (74-99) mg/dL POC Glucose (mg/dL) 158 H (75-99) mg/dL Microbiology - Last 24 Hours (Table) 06/12/20 16:15 Urine Culture - Final Urine,Voided Assessment and Plan Assessment: Acute blood loss anemia GI bleed Hypotension from hypovolemia -Admit to telemetry in the ICU -CBC every 6 hours --> CBC daily -Maintain active type and screen -Maintain large-bore IV access -Type and cross 2 units, transfused 2 -GI consult, appreciate recs -PPI twice a day -Nothing by mouth --> CLD -Pulmonary consult for critical care, appreciate recs Non-STEMI Acute on Chronic Heart Failure with Reduced Ejection Fraction, EF 30-35% Ischemic Cardiomyopathy -Trend troponins -EKG when necessary for chest pain -Hold off on aspirin, Plavix, heparin due to GI bleed -Patient should be started on a statin once stabilized -Cardiology consult, appreciate recs -Hold metoprolol given hypotension -Echocardiogram = multiple WMA, reduced EF -Lasix 20mg IV BID Acute Kidney Injury, improving -Received IV fluids -Will receive blood transfusions as needed -Repeat BMP daily Encephalopathy, unspecified History of CVA -Neurology consult, pending -Frequent reorientation -PT/OT -Avoid benzodiazepines, anticholinergics -Maintain day/night cycles -appears to be at baseline mentation at this point Hypertension, essential -Holding home lisinopril due to hypotension as above Diabetes mellitus type 2 -Q before meals/at bedtime sugar checks -Low-dose sliding scale insulin DVT prophylaxis is contraindicated due to acute blood loss anemia and GI bleed is the DPOA DO NOT RESUSCITATE/DO NOT INTUBATE
--- NOTE | 2020-06-14 16:18 | P.PN ---
Subjective Progress Note Date: 06/14/20 Principal diagnosis: Chest pain 75-year-old male with a recent CVA, early May, who apparently presents to the emergency department on June 12, with mental status changes. The patient had a stroke in early May, left him with right-sided weakness as well as slurred speech. According to his family, beginning the night before admission, he apparently had mental status changes, and seemed to be staring off into space. There is no recent fever or chills, or chest pain or chest discomfort initially. Apparently though, the states that he has been having some chest dis comfort as well as some pain in his lower extremities. I spoke to Dr. Chapin in the emergency room. The patient was to be started on blood thinners but apparently he may be having a GI bleed. In addition, he does complain of some shortness of breath. He has a history of diabetes mellitus, acid reflux disease hypertension, palpitations, spinal stenosis with chronic low back pain, constipation, hiatal hernia, and neuropathy. White count 10.6, hemoglobin only 7 hematocrit 22.2 and platelet count 420,000. PT 12.2 INR 1.2 PTT 21.9 sodium 1:30, potassium 5.6, chlorides 98, CO2 20 anion gap 12, BUN and creatinine were 37 and 1.64 respectively. Troponin was 3.970 Stool for occult blood were po sitive. Coronavirus testing was negative. Chest x-ray shows possible mild CHF. Computed tomography scan of the brain shows changes typical of remote ischemia. Angiography CT, shows no evidence of significant vessel stenosis. Progress note dated 06/13/2020. 75-year-old male we saw yesterday in the emergency department. He was in the hospital in early May with a CVA. More recently, he came in with chest pain, possible GI bleed, and elevated troponins. His mental status was a little off, and we admitted him to the intensive care unit for further monitoring and management. Currently, he seems a bit better, is currently only on room air. Is getting saline at KVO. He did receive 2 units of PRBCs. Today's hemoglobin was 8.2. He was stopped by cardiology, to have a non-ST segment elevation myocardial infarction. Coronavirus testing was negative. Please see my note above. Labs today include a white count 17.7, hemoglobin 8.2, hematocrit 24.4, platelet count 288,000. Sodium 132, potassium 5.4, chlorides 101, CO2 23, anion gap 8, the 144, creatinine 1.68. N-terminal proBNP was 12,200, and most recent troponin was 5.630. Chest x-ray shows a minimal infiltrate, right lower lobe. The patient is seen today 06/14/2020 in follow-up on the selective care unit. He is currently up at the bedside with assistance. Denied any further chest pain. Echocardiogram did reveal moderate to severely impaired left ventricular systolic function with ejection fraction 30-35%. Maintaining good O2 saturation in the 90s on room air. No further bleeding noted. He is status post 2 units of packed red blood cells this admission. Current hemoglobin 8.8. White count 10.2. Sodium 136. Potassium 4.8. Creatinine 1.28. Remains on IV diuretics, IV Protonix. Chest x-ray revealed questionable right lower lobe infiltrate. Currently on azithromycin. Objective - Vital Signs Vital signs: Vital Signs Temp 97.8 F 06/14/20 12:00 Pulse 81 06/14/20 12:00 Resp 18 06/14/20 12:00 BP 96/60 06/14/20 12:00 Pulse Ox 99 06/14/20 12:00 Intake & Output 06/13/20 06/14/20 06/14/20 18:59 06:59 18:59 Intake Total 600 365 Output Total 600 400 600 Balance 0 -400 -235 Weight 125.4 kg 127 kg Intake: IV 240 KVO 240 Oral 360 365 Output: Urine 600 400 600 Other: Voiding Method Indwelling Catheter Indwelling Catheter Indwelling Catheter - Exam GENERAL EXAM: Alert, pleasant 75-year-old gentleman, on room air, comfortable in no apparent distress. HEAD: Normocephalic. EYES: Normal reaction of pupils, equal size. NOSE: Clear with pink turbinates. THROAT: No erythema or exudates. NECK: No masses, no JVD. CHEST: No chest wall deformity. LUNGS: Equal air entry with faint crackles at right base CVS: S1 and S2 normal with no audible murmur, regular rhythm. ABDOMEN: No hepatosplenomegaly, normal bowel sounds, no guarding or rigidity. SPINE: No scoliosis or deformity SKIN: No rashes CENTRAL NERVOUS SYSTEM: No focal deficits, tone is normal in all 4 extremities. EXTREMITIES: There is no peripheral edema. No clubbing, no cyanosis. Peripheral pulses are intact. - Labs CBC & Chem 7: 06/14/20 08:20 06/14/20 08:20 Labs: Abnormal Lab Results - Last 24 Hours (Table) 06/13/20 06/13/20 06/14/20 Range/Units 16:51 20:16 00:03 RBC (4.30-5.90) m/uL Hgb (13.0-17.5) gm/dL Hct (39.0-53.0) % RDW (11.5-15.5) % Neutrophils # (1.3-7.7) k/uL Sodium (137-145) mmol/L BUN (9-20) mg/dL Creatinine (0.66-1.25) mg/dL Glucose (74-99) mg/dL POC Glucose (mg/dL) 149 H 158 H 148 H (75-99) mg/dL 06/14/20 06/14/20 06/14/20 Range/Units 06:09 08:20 08:20 RBC 2.96 L (4.30-5.90) m/uL Hgb 8.8 L (13.0-17.5) gm/dL Hct 26.8 L (39.0-53.0) % RDW 15.8 H (11.5-15.5) % Neutrophils # 8.0 H (1.3-7.7) k/uL Sodium 136 L (137-145) mmol/L BUN 50 H (9-20) mg/dL Creatinine 1.28 H (0.66-1.25) mg/dL Glucose 132 H (74-99) mg/dL POC Glucose (mg/dL) 166 H (75-99) mg/dL 06/14/20 Range/Units 11:42 RBC (4.30-5.90) m/uL Hgb (13.0-17.5) gm/dL Hct (39.0-53.0) % RDW (11.5-15.5) % Neutrophils # (1.3-7.7) k/uL Sodium (137-145) mmol/L BUN (9-20) mg/dL Creatinine (0.66-1.25) mg/dL Glucose (74-99) mg/dL POC Glucose (mg/dL) 158 H (75-99) mg/dL Microbiology - Last 24 Hours (Table) 06/12/20 16:15 Urine Culture - Final Urine,Voided Assessment and Plan Assessment: 1 Non-ST segment elevation myocardial infarction. No plans for intervention at this point 2 Recent CVA, with residual right-sided weakness, early May 2020. 3 Acute anemia, rule out GI bleed. Status post 2 units of packed red blood cells. Current hemoglobin 8.2. 4 Possible infiltrate/pneumonia, right lower lobe. 5 Mild fluid overload/CHF. Echocardiogram revealed moderate to severe LV dysfunction with ejection fraction 30-35% 6 History of diabetes mellitus. 7 History of GERD. 8 History of hypertension. 9 History of diabetic neuropathy. 10 History of hiatal hernia. 11 History of constipation. 12 History of spinal stenosis with chronic low back pain. Plan: The patient was seen and evaluated by Dr. Posadas Currently stable from the pulmonary and critical care standpoint Complete a course of antibiotics for possible right lower lobe infiltrate Cardiology and GI following Continue to monitor hemoglobin We will see as needed I, the cosigning physician, performed a history & physical examination of the patient. Lungs sounds faint crackles in the right base. Maintaining good O2 saturations in the 90s on room air. I discussed the assessment and plan of care with my nurse practitioner, Rebecca Pleitez. I attest to the above note as dictated by her.
[2020-06-14 16:51] LABS: Glucose,Whole Blood 152 mg/dL (75-99)
[2020-06-14 19:56] LABS: Glucose,Whole Blood 191 mg/dL (75-99)
[2020-06-14] MEDS: HYDROcodone/APAP 10-325MG 1 EACH TAB PO PRN (23:39)
[2020-06-15 00:05] LABS: Glucose,Whole Blood 181 mg/dL (75-99)
[2020-06-15] MEDS: INSULIN ASPART (NovoLOG) 100 UNIT/ML VIAL SQ SCH ×4 (00:08→17:14)
[2020-06-15] MEDS: FUROSEMIDE 10 MG/ML 2 ML VIAL IV SCH ×2 (00:11→08:06)
[2020-06-15 06:43] LABS: Glucose,Whole Blood 164 mg/dL (75-99)
[2020-06-15] MEDS: PANTOPRAZOLE 40 MG/10 ML VIAL IV SCH ×2 (08:06→20:39)
[2020-06-15] MEDS: ATORVASTATIN 40 MG TAB PO SCH (08:06)
[2020-06-15] MEDS: AZITHROMYCIN 500 MG TAB PO SCH (08:06)
[2020-06-15 09:43] LABS: Anisocytosis Slight; HGB 8.7 gm/dL (13.0-17.5); Hypochromasia Marked; MCH 29.1 pg (25.0-35.0); MCHC 31.2 g/dL (31.0-37.0); MCV 93.4 fL (80.0-100.0); Mean Platelet Volume 8.2; Platelet Count 247 k/uL (150-450); Poikilocytosis Moderate; RDW 16.3 % (11.5-15.5); WBC 9.8 k/uL (3.8-10.6)
[2020-06-15 12:02] LABS: Glucose,Whole Blood 217 mg/dL (75-99)
[2020-06-15] MEDS: METOPROLOL TARTRATE 25 MG TAB PO SCH (12:24)
--- NOTE | 2020-06-15 12:37 | P.PN ---
Subjective Progress Note Date: 06/15/20 Principal diagnosis: Anemia, stool positive for occult blood This is a 75-year-old male patient with multiple medical comorbidities who had a recent CVA in May 2020 with residual right-sided weakness and slurred speech presented to the hospital due to altered mental status and chest pain. He was found to have ST depression on EKG and ovation of troponins. Patient had an ac maryanne fall in his hemoglobin which was 7 on presentation from 13 in May. He is status post 2 units of PRBCs transfusion, current hemoglobin 8.7. Stool testing was positive for a local blood. He denies any signs or symptoms of GI bleed, no hematemesis, coffee-ground emesis, melena or hematochezia. Objective - Vital Signs Vital signs: Vital Signs Temp 98 F 06/15/20 08:00 Pulse 81 06/15/20 08:00 Resp 18 06/15/20 08:00 BP 99/67 06/15/20 08:00 Pulse Ox 96 06/15/20 08:00 Intake & Output 06/14/20 06/15/20 06/15/20 18:59 06:59 18:59 Intake Total 890 840 240 Output Total 1050 1100 Balance -160 -260 240 Weight 127 kg Intake: IV 160 240 KVO 160 240 Oral 730 600 240 Output: Urine 1050 1100 Other: Voiding Method Indwelling Catheter Indwelling Catheter Indwelling Catheter - Exam General appearance: The patient is alert, oriented, appears in no acute distress. HET: Head is normocephalic and atraumatic. Conjunctiva pink. Sclera anicteric. Neck: Supple without lymphadenopathy. Abdomen: Soft, nontender, nondistended with bowel sounds. No guarding or rigidity. Extremities: Normal skin color and turgor. No pedal edema Skin: No rashes, no jaundice Neurological: No focal deficits. Alert and oriented 3. - Labs CBC & Chem 7: 06/15/20 08:51 06/14/20 08:20 Labs: Abnormal Lab Results - Last 24 Hours (Table) 06/14/20 06/14/20 06/15/20 Range/Units 16:37 19:55 00:04 RBC (4.30-5.90) m/uL Hgb (13.0-17.5) gm/dL Hct (39.0-53.0) % RDW (11.5-15.5) % POC Glucose (mg/dL) 152 H 191 H 181 H (75-99) mg/dL 06/15/20 06/15/20 06/15/20 Range/Units 06:12 08:51 12:00 RBC 3.00 L (4.30-5.90) m/uL Hgb 8.7 L (13.0-17.5) gm/dL Hct 28.0 L (39.0-53.0) % RDW 16.3 H (11.5-15.5) % POC Glucose (mg/dL) 164 H 217 H (75-99) mg/dL Assessment and Plan (1) Normocytic normochromic anemia Narrative/Plan: A 75-year-old male with multiple medical comorbidities presenting to the hospital for altered mental status and chest pain. Recent CVA in May 2020 with residual right-sided weakness and speech slurring. Patient was found to have elevation in his troponins and EKG abnormalities on presentation. He is being evaluated by cardiology for non-ST elevation [place]. Troponins were elevated. Patient denies any signs or symptoms of GI bleed with stool testing was positive for occult blood. No prior colonoscopy or EGD but patient does report a remote history of peptic ulcer disease. Patient was transfused 2 units of PRBC for hemoglobin of 7 on presentation. Patient hemoglobin had a significant drop from 13 in May, unclear etiology may be related to peptic ulcer disease, AVM, gastritis, or other etiology. Current Visit: Yes Status: Acute Code(s): D64.9 - ANEMIA, UNSPECIFIED SNOMED Code(s): 47889045 (2) Positive occult stool blood test Current Visit: Yes Status: Acute Code(s): R19.5 - OTHER FECAL ABNORMALITIES SNOMED Code(s): 88275540 Plan: 1. Supportive care 2. Continue to monitor hemoglobin and transfuse if needed 3. Monitor for signs and symptoms of GI bleed 4. Okay for clear liquid diet, NPO after midnight 5. Continue Protonix 40 mg twice daily 6. Avoid NSAIDs and anticoagulation/antiplatelet therapy at this time 7. Request cardiology clearance for upper endoscopy 8. Plan of upper endoscopy tomorrow if cleared by cardiology Thank you for this consultation, we will continue to follow Dr. Marco A Palmer I agree with the dictator's note, documented as a scribe by Marni SHAFFER .
--- NOTE | 2020-06-15 13:08 | P.PN ---
Subjective This is a 75-year-old gentleman with diabetes, hypertension, dyslipidemia, history of smoking, incentive diagnosed of acute ischemic stroke in 05/07/2020. He does not follow in the office with a lower in supervisor. Patient presented to the hospital 06/12/2020 with acute blood loss anemia (hgb 7.0), hypotension and chest pain. Stool occult blood was found to be positive. The patient was having some GI bleeding and he was experiencing black stool. Patient received 1 unit of PRBC Cardiology was consulted in the ICU for chest pain and abnormal trop onin. The patient is confused and he is a somewhat poor historian and the history was taken from the chart as well as from the nurse taking care of the patient. The patient was admitted in May 2020 to the hospital with right sided weakness as well as slurred speech. Patient diagnosed with Acute ischemic stroke. He underwent JULIA and that showed no evidence of cardiac source of embolization. Also at that point an 2D echocardiogram 05/07/20- was performed and revealed normal left ventricular systolic function 60-65%. Current home cardiac medications lisinopril 20mg daily, Aspirin 81mg daily. Troponin trend- 0.08-->3.9-->5.6 EKG showed sinus rhythm with ST changes in the lateral and high lateral leads quite concerning for severe underlying coronary artery disease. Echocardiogram 06/12/2020 which revealed impaired LV function was EF around 30-35% with evidence off all motion abnormalities as well as concerning for severe underlying coronary artery disease. CT scan of the neck which showed only mild nonobstructive carotid disease. CT scan of the brain showed chronic changes without any acute abnormalities. Chest Xray- mild CHF 06/15/2020: Patient seen and examined at bedside. Alert, oriented x 1. BP 99/67, heart rate 81, afebrile, 96% on room air. WBC 9.8, hemoglobin 8.7, Plt 247. PHYSICAL EXAM: GENERAL: Well-appearing, well-nourished and in no acute distress. NECK: Supple without JVD or thyromegaly. LUNGS: Breath sounds clear to auscultation bilaterally. Respiration equal and unlabored. No wheezes, rales or rhonchi. HEART: Regular rate and rhythm. Systolic murmur noted. S1 and S2 heard. EXTREMITIES: Normal range of motion, no edema. No clubbing or cyanosis. Pe ripheral pulses intact. ASSESSMENT: -Altered Mental Status -Acute blood loss anemia- Hgb 7.0 s/p 1unit PRBC -Gastrointestinal bleed -NSTEMI -Recent ischemic stroke -Acute systolic heart failure with reduced ejection fraction EF30-35% -Type 2 Diabetes -Hypertension- currently hypotensive inpatient -Hyperlipidemia PLAN: -From cardiology perspective ok to proceed with EGD -At this time, patient is not a candidate for an invasive therapy with cardiac catheterization -We will maximize patient's medical therapy at this time - Continue atorvastatin, Metoprolol tartrate 25mg BID, Lasix 20mg BID -ACEI being held due to hypotension -Will continue to hold antiplatelet or anticoagulation at this time -Monitor CBC and kidney function and electroltes -Further recommendations based on clinical course Objective - Vital Signs Vital signs: Vital Signs Temp 98 F 06/15/20 08:00 Pulse 81 06/15/20 08:00 Resp 18 06/15/20 08:00 BP 99/67 06/15/20 08:00 Pulse Ox 96 06/15/20 08:00 Intake & Output 06/14/20 06/15/20 06/15/20 18:59 06:59 18:59 Intake Total 890 840 240 Output Total 1050 1100 Balance -160 -260 240 Weight 127 kg Intake: IV 160 240 KVO 160 240 Oral 730 600 240 Output: Urine 1050 1100 Other: Voiding Method Indwelling Catheter Indwelling Catheter Indwelling Catheter - Labs CBC & Chem 7: 06/15/20 08:51 06/14/20 08:20 Labs: Abnormal Lab Results - Last 24 Hours (Table) 06/14/20 06/14/20 06/15/20 Range/Units 16:37 19:55 00:04 RBC (4.30-5.90) m/uL Hgb (13.0-17.5) gm/dL Hct (39.0-53.0) % RDW (11.5-15.5) % POC Glucose (mg/dL) 152 H 191 H 181 H (75-99) mg/dL 06/15/20 06/15/20 06/15/20 Range/Units 06:12 08:51 12:00 RBC 3.00 L (4.30-5.90) m/uL Hgb 8.7 L (13.0-17.5) gm/dL Hct 28.0 L (39.0-53.0) % RDW 16.3 H (11.5-15.5) % POC Glucose (mg/dL) 164 H 217 H (75-99) mg/dL
[2020-06-15] MEDS: ACETAMINOPHEN TAB 325 MG TAB PO PRN (14:35)
--- NOTE | 2020-06-15 14:51 | P.PN ---
Subjective Lethargic , in bed , family at bedside no vomiting , no gross bleeding Objective - Vital Signs Vital signs: Vital Signs Temp 98 F 06/15/20 08:00 Pulse 89 06/15/20 12:10 Resp 18 06/15/20 12:10 BP 119/59 06/15/20 12:10 Pulse Ox 98 06/15/20 12:10 Intake & Output 06/14/20 06/15/20 06/15/20 18:59 06:59 18:59 Intake Total 890 840 480 Output Total 1050 1100 600 Balance -160 -260 -120 Weight 127 kg Intake: IV 160 240 KVO 160 240 Oral 730 600 480 Output: Urine 1050 1100 600 Other: Voiding Method Indwelling Catheter Indwelling Catheter Indwelling Catheter - Exam Gen: awake, alert, lethargic , partially oriented HEENT: normocephalic, atraumatic Resp: Decreased breath sounds, no wheezing CVS: S1-S2, no rubs gallops or murmurs GI: soft, NTTP, ND, appropriate bowel sounds MSK: No clubbing cyanosis or edema Neuro: Right-sided residual weakness - Labs CBC & Chem 7: 06/15/20 08:51 06/14/20 08:20 Labs: Abnormal Lab Results - Last 24 Hours (Table) 06/14/20 06/14/20 06/15/20 Range/Units 16:37 19:55 00:04 RBC (4.30-5.90) m/uL Hgb (13.0-17.5) gm/dL Hct (39.0-53.0) % RDW (11.5-15.5) % POC Glucose (mg/dL) 152 H 191 H 181 H (75-99) mg/dL 06/15/20 06/15/20 06/15/20 Range/Units 06:12 08:51 12:00 RBC 3.00 L (4.30-5.90) m/uL Hgb 8.7 L (13.0-17.5) gm/dL Hct 28.0 L (39.0-53.0) % RDW 16.3 H (11.5-15.5) % POC Glucose (mg/dL) 164 H 217 H (75-99) mg/dL Assessment and Plan Plan: Acute blood loss anemia GI bleed Hypotension from hypovolemia -PPI twice a day, appreciated GI input Hemoglobin stable at 8.4 Non-STEMI Acute on Chronic Heart Failure with Reduced Ejection Fraction, EF 30-35% Ischemic Cardiomyopathy -Trend troponins -Hold off on aspirin, Plavix, heparin due to GI bleed On metoprolol -Cardiology consult, appreciate recs -Echocardiogram = multiple WMA, reduced EF -Lasix 20mg IV BID Acute Kidney Injury, improving -Received IV fluids Serum creatinine stable at 1.6 Encephalopathy, unspecified History of CVA -Neurology consult, pending -Frequent reorientation -PT/OT -Avoid benzodiazepines, anticholinergics -Maintain day/night cycles -appears to be at baseline mentation Continue to monitor Hypertension, essential -Holding home lisinopril due to hypotension as above Diabetes mellitus type 2 with hyperglycemia -Q before meals/at bedtime sugar checks -Low-dose sliding scale insulin Holding oral hypoglycemics Mild hyperkalemia Potassium 5.3, monitor Weakness: Consult PTOT DVT prophylaxis is contraindicated due to acute blood loss anemia and GI bleed is the DPOA DO NOT RESUSCITATE/DO NOT INTUBATE Treatment plan discussed with the patient's at bedside, all questions answered. Disposition: Likely needs rehab
[2020-06-15] MEDS ORDERED: LIDOCAINE 1% (10MG/ML) FOR IV START INTRADERMA PRN (15:43)
[2020-06-15] MEDS: FUROSEMIDE 20 MG TAB PO SCH (16:56)
[2020-06-15] MEDS: LACTATED RINGERS 1,000 ML IV SCH (16:56)
[2020-06-15 17:18] LABS: Glucose,Whole Blood 136 mg/dL (75-99)
[2020-06-15 20:56] LABS: Glucose,Whole Blood 183 mg/dL (75-99)
[2020-06-16 00:22] LABS: Glucose,Whole Blood 187 mg/dL (75-99)
[2020-06-16] MEDS: METOPROLOL TARTRATE 25 MG TAB PO SCH ×3 (00:22→19:46)
[2020-06-16] MEDS: INSULIN ASPART (NovoLOG) 100 UNIT/ML VIAL SQ SCH ×4 (00:24→17:00)
[2020-06-16 06:12] LABS: Glucose,Whole Blood 135 mg/dL (75-99)
[2020-06-16 08:19] LABS: Albumin 3.7 g/dL (3.5-5.0); Calcium 9.2 mg/dL (8.4-10.2); Potassium 4.6 mmol/L (3.5-5.1); Total Bilirubin 1.5 mg/dL (0.2-1.3); Total Protein 6.9 g/dL (6.3-8.2)
[2020-06-16 08:29] LABS: Anisocytosis Slight; Basophils % (A) 0 %; Eosinophils % (A) 0 %; HCT 26.3 % (39.0-53.0); HGB 8.8 gm/dL (13.0-17.5); Hypochromasia Marked; Lymphocytes # (A) 1.2 k/uL (1.0-4.8); Lymphocytes % (A) 10 %; MCH 30.6 pg (25.0-35.0); MCHC 33.4 g/dL (31.0-37.0); MCV 91.5 fL (80.0-100.0); Mean Platelet Volume 8.8; Monocytes # (A) 0.8 k/uL (0-1.0); Monocytes % (A) 7 %; Neutrophils # (A) 9.5 k/uL (1.3-7.7); Neutrophils % (A) 82 %; Platelet Count 235 k/uL (150-450); Poikilocytosis Slight; RBC 2.87 m/uL (4.30-5.90); RDW 16.6 % (11.5-15.5); WBC 11.6 k/uL (3.8-10.6)
--- NOTE | 2020-06-16 09:25 | P.PN ---
Subjective This is a 75-year-old gentleman with diabetes, hypertension, dyslipidemia, history of smoking, incentive diagnosed of acute ischemic stroke in 05/07/2020. He does not follow in the office with a patient relations specialist. Patient presented to the hospital 06/12/2020 with acute blood loss anemia (hgb 7.0), hypotension and chest pain. Stool occult blood was found to be positive. The patient was having some GI bleeding and he was experiencing black stool. Patient received 1 unit of PRBC Cardiology was consulted in the ICU for chest pain and abnormal trop onin. The patient is confused and he is a somewhat poor historian and the history was taken from the chart as well as from the nurse taking care of the patient. The patient was admitted in May 2020 to the hospital with right sided weakness as well as slurred speech. Patient diagnosed with Acute ischemic stroke. He underwent JULIA and that showed no evidence of cardiac source of embolization. Also at that point an 2D echocardiogram 05/07/20- was performed and revealed normal left ventricular systolic function 60-65%. Current home cardiac medications lisinopril 20mg daily, Aspirin 81mg daily. Troponin trend- 0.08-->3.9-->5.6 EKG showed sinus rhythm with ST changes in the lateral and high lateral leads quite concerning for severe underlying coronary artery disease. Echocardiogram 06/12/2020 which revealed impaired LV function was EF around 30-35% with evidence off all motion abnormalities as well as concerning for severe underlying coronary artery disease. CT scan of the neck which showed only mild nonobstructive carotid disease. CT scan of the brain showed chronic changes without any acute abnormalities. Chest Xray- mild CHF 06/16/2020: Patient seen and examined at bedside. Alert, oriented x 2. BP 124/78, heart rate 79, afebrile, 98% on room air. WBC 11.6 hemoglobin 8.8, Plt 235, Sodium 136, K 4.6, sCr 1.12, LFTs within normal limits. PHYSICAL EXAM: GENERAL: Well-appearing, well-nourished and in no acute distress. NECK: Supple without JVD or thyromegaly. LUNGS: Breath sounds clear to auscultation bilaterally. Respiration equal and unlabored. No wheezes, rales or rhonchi. HEART: Regular rate and rhythm. Systolic murmur noted. S1 and S2 heard. EXTREMITIES: Normal range of motion, no edema. No clubbing or cyanosis. Peripheral pulses intact. ASSESSMENT: -Altered Mental Status -Acute blood loss anemia- Hgb 7.0 s/p 1unit PRBC -Gastrointestinal bleed -NSTEMI -Recent ischemic stroke -Acute systolic heart failure with reduced ejection fraction EF30-35% -Type 2 Diabetes -Hypertension- currently hypotensive inpatient -Hyperlipidemia PLAN: -Plan for EGD with GI today -At this time, patient is not a candidate for an invasive therapy with cardiac catheterization -We will maximize patient's medical therapy at this time - Continue atorvastatin, Metoprolol tartrate 25mg BID, Lasix 20mg BID -ACEI being held due to hypotension - BP is improving if no longer hypotensive will restart. -Will continue to hold antiplatelet or anticoagulation at this time -Monitor CBC and kidney function and electrolytes -Further recommendations based on clinical course Objective - Vital Signs Vital signs: Vital Signs Temp 96.8 F L 06/16/20 08:00 Pulse 79 06/16/20 08:00 Resp 26 H 06/16/20 08:00 BP 124/78 06/16/20 08:00 Pulse Ox 98 06/16/20 08:00 Intake & Output 06/15/20 06/16/20 06/16/20 18:59 06:59 18:59 Intake Total 480 Output Total 600 1150 Balance -120 -1150 Weight 126 kg Intake: Oral 480 Output: Urine 600 1150 Other: Voiding Method Indwelling Catheter Indwelling Catheter # Bowel Movements 0 - Labs CBC & Chem 7: 06/16/20 07:15 06/16/20 07:15 Labs: Abnormal Lab Results - Last 24 Hours (Table) 06/15/20 06/15/20 06/15/20 Range/Units 08:51 12:00 17:13 WBC (3.8-10.6) k/uL RBC 3.00 L (4.30-5.90) m/uL Hgb 8.7 L (13.0-17.5) gm/dL Hct 28.0 L (39.0-53.0) % RDW 16.3 H (11.5-15.5) % Sodium (137-145) mmol/L BUN (9-20) mg/dL Glucose (74-99) mg/dL POC Glucose (mg/dL) 217 H 136 H (75-99) mg/dL Total Bilirubin (0.2-1.3) mg/dL 06/15/20 06/16/20 06/16/20 Range/Units 20:47 00:20 06:03 WBC (3.8-10.6) k/uL RBC (4.30-5.90) m/uL Hgb (13.0-17.5) gm/dL Hct (39.0-53.0) % RDW (11.5-15.5) % Sodium (137-145) mmol/L BUN (9-20) mg/dL Glucose (74-99) mg/dL POC Glucose (mg/dL) 183 H 187 H 135 H (75-99) mg/dL Total Bilirubin (0.2-1.3) mg/dL 06/16/20 06/16/20 Range/Units 07:15 07:15 WBC 11.6 H (3.8-10.6) k/uL RBC 2.87 L (4.30-5.90) m/uL Hgb 8.8 L (13.0-17.5) gm/dL Hct 26.3 L (39.0-53.0) % RDW 16.6 H (11.5-15.5) % Sodium 136 L (137-145) mmol/L BUN 46 H (9-20) mg/dL Glucose 136 H (74-99) mg/dL POC Glucose (mg/dL) (75-99) mg/dL Total Bilirubin 1.5 H (0.2-1.3) mg/dL
[2020-06-16] MEDS: AZITHROMYCIN 500 MG TAB PO SCH (10:36)
[2020-06-16] MEDS: ATORVASTATIN 40 MG TAB PO SCH (10:36)
[2020-06-16] MEDS: FUROSEMIDE 20 MG TAB PO SCH ×2 (10:37→15:48)
[2020-06-16] MEDS: PANTOPRAZOLE 40 MG/10 ML VIAL IV SCH ×2 (10:45→19:46)
[2020-06-16 12:02] LABS: Glucose,Whole Blood 150 mg/dL (75-99)
[2020-06-16] MEDS ORDERED: IV FLUID CONTINUATION 600 ML IV ONE (12:21)
--- NOTE | 2020-06-16 12:50 | P.PN ---
Subjective Progress Note Date: 06/16/20 Principal diagnosis: Anemia, stool positive for occult blood This is a 75-year-old male patient with multiple medical comorbidities who had a recent CVA in May 2020 with residual right-sided weakness and slurred speech presented to the hospital due to altered mental status and chest pain. He was found to have ST depression on EKG and ovation of troponins. Patient had an ac maryanne fall in his hemoglobin which was 7 on presentation from may. He is status post 2 units of PRBCs transfusion. Stool testing was positive for a local blood. He denies any signs or symptoms of GI bleed, no hematemesis, coffee-ground emesis, melena or hematochezia. He was scheduled for upper endoscopy today, however when he was seen in endoscopy by anesthesia, they did not believe patient's respiratory status was stable to proceed with procedure and therefore was canceled. This was discussed with cardiology and nursing who both also stated patient's breathing was stable this morning. Hemoglobin remained stable at 8.8. Objective - Vital Signs Vital signs: Vital Signs Temp 97.3 F L 06/16/20 11:52 Pulse 69 06/16/20 11:52 Resp 26 H 06/16/20 11:52 BP 113/76 06/16/20 11:52 Pulse Ox 96 06/16/20 11:52 Intake & Output 06/15/20 06/16/20 06/16/20 18:59 06:59 18:59 Intake Total 480 Output Total 600 1150 Balance -120 -1150 Weight 126 kg Intake: Oral 480 Output: Urine 600 1150 Other: Voiding Method Indwelling Catheter Indwelling Catheter Indwelling Catheter # Bowel Movements 0 - Exam General appearance: The patient is alert, oriented, appears in no acute distress. HET: Head is normocephalic and atraumatic. Conjunctiva pink. Sclera anicteric. Neck: Supple without lymphadenopathy. Abdomen: Soft, nontender, nondistended with bowel sounds. No guarding or rigidity. Extremities: Normal skin color and turgor. No pedal edema Skin: No rashes, no jaundice Neurological: No focal deficits. Alert and oriented 3. - Labs CBC & Chem 7: 06/16/20 07:15 06/16/20 07:15 Labs: Abnormal Lab Results - Last 24 Hours (Table) 04/02/2306/15/20 06/16/20 Range/Units 17:13 20:47 00:20 WBC (3.8-10.6) k/uL RBC (4.30-5.90) m/uL Hgb (13.0-17.5) gm/dL Hct (39.0-53.0) % RDW (11.5-15.5) % Sodium (137-145) mmol/L BUN (9-20) mg/dL Glucose (74-99) mg/dL POC Glucose (mg/dL) 136 H 183 H 187 H (75-99) mg/dL Total Bilirubin (0.2-1.3) mg/dL 06/16/20 06/16/20 06/16/20 Range/Units 06:03 07:15 07:15 WBC 11.6 H (3.8-10.6) k/uL RBC 2.87 L (4.30-5.90) m/uL Hgb 8.8 L (13.0-17.5) gm/dL Hct 26.3 L (39.0-53.0) % RDW 16.6 H (11.5-15.5) % Sodium 136 L (137-145) mmol/L BUN 46 H (9-20) mg/dL Glucose 136 H (74-99) mg/dL POC Glucose (mg/dL) 135 H (75-99) mg/dL Total Bilirubin 1.5 H (0.2-1.3) mg/dL 06/16/20 Range/Units 12:00 WBC (3.8-10.6) k/uL RBC (4.30-5.90) m/uL Hgb (13.0-17.5) gm/dL Hct (39.0-53.0) % RDW (11.5-15.5) % Sodium (137-145) mmol/L BUN (9-20) mg/dL Glucose (74-99) mg/dL POC Glucose (mg/dL) 150 H (75-99) mg/dL Total Bilirubin (0.2-1.3) mg/dL Assessment and Plan (1) Normocytic normochromic anemia Narrative/Plan: A 75-year-old male with multiple medical comorbidities presenting to the hospital for altered mental status and chest pain. Recent CVA in May 2020 with residual right-sided weakness and speech slurring. Patient was found to have elevation in his troponins and EKG abnormalities on presentation. He is being evaluated by cardiology for non-ST elevation [place]. Troponins were elevated. Patient denies any signs or symptoms of GI bleed with stool testing was positive for occult blood. No prior colonoscopy or EGD but patient does report a remote history of peptic ulcer disease. Patient was transfused 2 units of PRBC for hemoglobin of 7 on presentation. Patient hemoglobin had a significant drop from 13 in May, unclear etiology may be related to peptic ulcer disease, AVM, gastritis, or other etiology. Unfortunately today patient was evaluated by anesthesia in the endoscopy room, thought to have unstable respiratory status therefore upper endoscopy was canceled. Current Visit: Yes Status: Acute Code(s): D64.9 - ANEMIA, UNSPECIFIED SNOMED Code(s): 82658950 (2) Positive occult stool blood test Current Visit: Yes Status: Acute Code(s): R19.5 - OTHER FECAL ABNORMALITIES SNOMED Code(s): 87879381 Plan: 1. Supportive care 2. Continue to monitor hemoglobin and transfuse if needed 3. Monitor for signs and symptoms of GI bleed 4. Okay for consistent carbohydrate diet, after midnight 5. Continue Protonix 40 mg twice daily 6. Avoid NSAIDs and anticoagulation/antiplatelet therapy at this time 7. Cardiology seen and evaluated patient and cleared for upper endoscopy 8. Upper endoscopy scheduled for today, canceled per anesthesia. Reevaluate patient tomorrow and consider rescheduling for upper endoscopy. Thank you for this consultation, we will continue to follow Dr. Marco A Palmer I agree with the dictator's note, documented as a scribe by Marni Constantino.
--- NOTE | 2020-06-16 13:13 | P.PN ---
Subjective Progress Note Date: 06/16/20 Feels okay, no chest pain no abdominal pain, no nausea or vomiting. no vomiting , no gross bleeding Objective - Vital Signs Vital signs: Vital Signs Temp 97.3 F L 06/16/20 11:52 Pulse 69 06/16/20 11:52 Resp 26 H 06/16/20 11:52 BP 113/76 06/16/20 11:52 Pulse Ox 96 06/16/20 11:52 Intake & Output 06/15/20 06/16/20 06/16/20 18:59 06:59 18:59 Intake Total 480 160 Output Total 600 1150 Balance -120 -1150 160 Weight 126 kg Intake: IV 160 KVO 160 Oral 480 Output: Urine 600 1150 Other: Voiding Method Indwelling Catheter Indwelling Catheter Indwelling Catheter # Bowel Movements 0 - Exam Gen: awake, alert, lethargic HEENT: normocephalic, atraumatic Resp: Decreased breath sounds, no wheezing CVS: S1-S2, no rubs gallops or murmurs GI: soft, nontender, positive bowel sounds MSK: No clubbing cyanosis or edema Neuro: Right-sided residual weakness - Labs CBC & Chem 7: 06/16/20 07:15 06/16/20 07:15 Labs: Abnormal Lab Results - Last 24 Hours (Table) 06/15/20 06/15/20 06/16/20 Range/Units 17:13 20:47 00:20 WBC (3.8-10.6) k/uL RBC (4.30-5.90) m/uL Hgb (13.0-17.5) gm/dL Hct (39.0-53.0) % RDW (11.5-15.5) % Sodium (137-145) mmol/L BUN (9-20) mg/dL Glucose (74-99) mg/dL POC Glucose (mg/dL) 136 H 183 H 187 H (75-99) mg/dL Total Bilirubin (0.2-1.3) mg/dL 06/16/20 06/16/20 06/16/20 Range/Units 06:03 07:15 07:15 WBC 11.6 H (3.8-10.6) k/uL RBC 2.87 L (4.30-5.90) m/uL Hgb 8.8 L (13.0-17.5) gm/dL Hct 26.3 L (39.0-53.0) % RDW 16.6 H (11.5-15.5) % Sodium 136 L (137-145) mmol/L BUN 46 H (9-20) mg/dL Glucose 136 H (74-99) mg/dL POC Glucose (mg/dL) 135 H (75-99) mg/dL Total Bilirubin 1.5 H (0.2-1.3) mg/dL 06/16/20 Range/Units 12:00 WBC (3.8-10.6) k/uL RBC (4.30-5.90) m/uL Hgb (13.0-17.5) gm/dL Hct (39.0-53.0) % RDW (11.5-15.5) % Sodium (137-145) mmol/L BUN (9-20) mg/dL Glucose (74-99) mg/dL POC Glucose (mg/dL) 150 H (75-99) mg/dL Total Bilirubin (0.2-1.3) mg/dL Assessment and Plan Plan: Acute blood loss anemia GI bleed Hypotension from hypovolemia -PPI twice a day, appreciated GI input Hemoglobin stable at 8.8 EGD canceled per anesthesia Non-STEMI Acute on Chronic Heart Failure with Reduced Ejection Fraction, EF 30-35% Ischemic Cardiomyopathy -Trend troponins -Hold off on aspirin, Plavix, heparin due to GI bleed On metoprolol -Cardiology consult, appreciate recs -Echocardiogram multiple WMA, reduced EF -Lasix 20mg IV BID Still on 5 L of oxygen Acute Kidney Injury, improving -Received IV fluids Serum creatinine peaked at 1.6, currently down to 1.1 Encephalopathy, unspecified History of CVA -Neurology consult -Frequent reorientation -PT/OT -Avoid benzodiazepines, anticholinergics -Maintain day/night cycles -appears to be at baseline mentation Continue to monitor Hypertension, essential -Holding home lisinopril due to hypotension as above Diabetes mellitus type 2 with hyperglycemia -Continue Low-dose sliding scale insulin Holding oral hypoglycemics Mild hyperkalemia Resolved, monitor Weakness: Consult PTOT DVT prophylaxis is contraindicated due to acute blood loss anemia and GI bleed is the DPOA DO NOT RESUSCITATE/DO NOT INTUBATE Disposition: Home in 1-2 days once requiring less oxygen.
[2020-06-16] MEDS: ACETAMINOPHEN TAB 325 MG TAB PO PRN (13:16)
[2020-06-16 13:53] LABS: Polychromasia Present
[2020-06-16] MEDS: LACTATED RINGERS 1,000 ML IV SCH (15:45)
[2020-06-16 16:56] LABS: Glucose,Whole Blood 154 mg/dL (75-99)
[2020-06-17 00:18] LABS: Glucose,Whole Blood 143 mg/dL (75-99)
[2020-06-17] MEDS: IPRATROPIUM-ALBUTEROL 3 ML NEB INHALATION PRN ×2 (00:34→15:40)
[2020-06-17] MEDS: INSULIN ASPART (NovoLOG) 100 UNIT/ML VIAL SQ SCH ×4 (00:50→16:00)
[2020-06-17 06:04] LABS: Glucose,Whole Blood 151 mg/dL (75-99)
--- NOTE | 2020-06-17 09:10 | P.PN ---
Subjective Progress Note Date: 06/17/20 Feels okay, no chest pain no abdominal pain, no nausea or vomiting. no vomiting , no gross bleeding no major changes Objective - Vital Signs Vital signs: Vital Signs Temp 97.6 F 06/16/20 20:00 Pulse 118 H 06/17/20 07:37 Resp 24 06/17/20 07:37 BP 122/63 06/17/20 07:37 Pulse Ox 92 L 06/17/20 07:37 Intake & Output 06/16/20 06/17/20 06/17/20 18:59 06:59 18:59 Intake Total 400 Output Total 440 Balance 400 -440 Weight 126 kg 110 kg Intake: IV 160 KVO 160 Oral 240 Output: Urine 440 Other: Voiding Method Indwelling Catheter Indwelling Catheter - Exam Gen: awake, alert HEENT: normocephalic, atraumatic Resp: Decreased breath sounds, no wheezing CVS: S1-S2, no rubs gallops or murmurs GI: soft, nontender, positive bowel sounds MSK: No clubbing cyanosis or edema Neuro: Right-sided residual weakness - Labs CBC & Chem 7: 06/16/20 07:15 06/16/20 07:15 Labs: Abnormal Lab Results - Last 24 Hours (Table) 06/16/20 06/16/20 06/16/20 Range/Units 07:15 12:00 16:54 Neutrophils # 9.5 H (1.3-7.7) k/uL POC Glucose (mg/dL) 150 H 154 H (75-99) mg/dL 06/17/20 06/17/20 Range/Units 00:17 05:59 Neutrophils # (1.3-7.7) k/uL POC Glucose (mg/dL) 143 H 151 H (75-99) mg/dL Assessment and Plan Plan: Acute blood loss anemia GI bleed Hypotension from hypovolemia -PPI twice a day, appreciated GI input Hemoglobin stable at 8.8 EGD canceled per anesthesia Plan for possible repeat EGD today Non-STEMI Acute on Chronic Heart Failure with Reduced Ejection Fraction, EF 30-35% Ischemic Cardiomyopathy -Hold off on aspirin, Plavix, heparin due to GI bleed On metoprolol -Cardiology consult, appreciate recs -Echocardiogram multiple WMA, reduced EF -Lasix 20mg IV BID Acute Kidney Injury, improving -Received IV fluids Serum creatinine peaked at 1.6, currently down to 1.1, monitor. Encephalopathy, unspecified History of CVA -Neurology consult -Frequent reorientation -PT/OT -Avoid benzodiazepines, anticholinergics -Maintain day/night cycles -appears to be at baseline mentation Continue to monitor Hypertension, essential -Holding home lisinopril due to hypotension as above Diabetes mellitus type 2 with hyperglycemia -Continue Low-dose sliding scale insulin Holding oral hypoglycemics Mild hyperkalemia Resolved, monitor Weakness: Consult PTOT. Input appreciated DVT prophylaxis is contraindicated due to acute blood loss anemia and GI bleed is the DPOA DO NOT RESUSCITATE/DO NOT INTUBATE Disposition: Home in 1-2 days
[2020-06-17 09:51] LABS: Anisocytosis Slight; HCT 27.1 % (39.0-53.0); HGB 8.9 gm/dL (13.0-17.5); Hypochromasia Marked; MCH 30.2 pg (25.0-35.0); MCHC 32.7 g/dL (31.0-37.0); MCV 92.4 fL (80.0-100.0); Mean Platelet Volume 8.4; Platelet Count 220 k/uL (150-450); Poikilocytosis Slight; RBC 2.94 m/uL (4.30-5.90); RDW 16.5 % (11.5-15.5); WBC 14.4 k/uL (3.8-10.6)
[2020-06-17 10:05] LABS: Albumin 3.7 g/dL (3.5-5.0); Calcium 9.5 mg/dL (8.4-10.2); Potassium 5.1 mmol/L (3.5-5.1); Total Bilirubin 1.3 mg/dL (0.2-1.3); Total Protein 6.8 g/dL (6.3-8.2)
--- NOTE | 2020-06-17 10:55 | P.PN ---
Subjective This is a 75-year-old gentleman with diabetes, hypertension, dyslipidemia, history of smoking, incentive diagnosed of acute ischemic stroke in 05/07/2020. 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 Patient presented to the hospital 06/12/2020 with acute blood loss anemia (hgb 7.0), hypotension and chest pain. Stool occult blood was found to be positive. The patient was having some GI bleeding and he was experiencing black stool. Patient received 1 unit of PRBC Cardiology was consulted in the ICU for chest pain and abnormal trop onin. The patient was admitted in May 2020 to the hospital with right sided weakness as well as slurred speech. Patient diagnosed with Acute ischemic stroke. He underwent JULIA and that showed no evidence of cardiac source of embolization. Also at that point an 2D echocardiogram 05/07/20- was performed and revealed normal left ventricular systolic function 60-65%. Troponin trend- 0.08-->3.9-->5.6 EKG showed sinus rhythm with ST changes in the lateral and high lateral leads quite concerning for severe underlying coronary artery disease. Echocardiogram 06/12/2020 which revealed impaired LV function was EF around 30-35% with evidence off all motion abnormalities as well as concerning for severe underlying coronary artery disease. 06/17/2020: Anesthesia canceled patient's EGD due to patient's breathing. Patient seen and examined at bedside. Lethargic, not answering questions appropriately. Denies chest pain. States he is having back pain. No acute events overnight. BP 122/63 heart rate 73 on telemetry, sinus mechanism, afebrile, 98% on 2L nasal cannula. Patient currently being maintained on atorvastatin 40mg daily, Metoprolol tartrate 25mg BID, Lasix PO 20mg BID. Laboratory data reiviewed, Hgb 8.9, WBC 12.4, Plt 220, Sodium 139, K 5.1, creatinine 1.29, BUN 49. PHYSICAL EXAM: GENERAL: Well-appearing, well-nourished and in no acute distress. NECK: Supple without JVD or thyromegaly. LUNGS: Breath sounds clear to auscultation bilaterally. Respiration equal and unlabored. No wheezes, rales or rhonchi. HEART: Regular rate and rhythm. Systolic murmur noted. S1 and S2 heard. EXTREMITIES: Normal range of motion, no edema. No clubbing or cyanosis. Pe ripheral pulses intact. ASSESSMENT: -Altered Mental Status -Acute blood loss anemia- Hgb 7.0 s/p 1unit PRBC . Hgb is stable at 8.9 -Gastrointestinal bleed -Acute Kidney Injury -NSTEMI -Recent ischemic stroke -Acute systolic heart failure with reduced ejection fraction EF30-35% -Type 2 Diabetes -Hypertension- currently hypotensive inpatient -Hyperlipidemia PLAN: -At this time, patient is not a candidate for an invasive therapy with cardiac catheterization -Possibly plan for repeat EGD today -We will maximize patient's medical therapy at this time - Continue atorvastatin, Metoprolol tartrate 25mg BID, Lasix 20mg BID -Will continue to monitor BP and restart ACEI based on renal function and hypotension -Will continue to hold antiplatelet or anticoagulation at this time -Monitor CBC and kidney function and electrolytes -Further recommendations based on clinical course Objective - Vital Signs Vital signs: Vital Signs Temp 97.6 F 06/16/20 20:00 Pulse 118 H 06/17/20 07:37 Resp 24 06/17/20 07:37 BP 122/63 06/17/20 07:37 Pulse Ox 92 L 06/17/20 07:37 Intake & Output 06/16/20 06/17/20 06/17/20 18:59 06:59 18:59 Intake Total 400 Output Total 440 Balance 400 -440 Weight 126 kg 110 kg Intake: IV 160 KVO 160 Oral 240 Output: Urine 440 Other: Voiding Method Indwelling Catheter Indwelling Catheter - Labs CBC & Chem 7: 06/17/20 09:01 06/17/20 09:01 Labs: Abnormal Lab Results - Last 24 Hours (Table) 06/16/20 06/16/20 06/16/20 Range/Units 07:15 12:00 16:54 Neutrophils # 9.5 H (1.3-7.7) k/uL POC Glucose (mg/dL) 150 H 154 H (75-99) mg/dL 06/17/20 06/17/20 Range/Units 00:17 05:59 Neutrophils # (1.3-7.7) k/uL POC Glucose (mg/dL) 143 H 151 H (75-99) mg/dL
[2020-06-17 11:58] LABS: Glucose,Whole Blood 169 mg/dL (75-99)
[2020-06-17] MEDS: PANTOPRAZOLE 40 MG/10 ML VIAL IV SCH ×2 (13:33→20:00)
[2020-06-17] MEDS: AZITHROMYCIN 500 MG TAB PO SCH (13:34)
[2020-06-17] MEDS: METOPROLOL TARTRATE 25 MG TAB PO SCH ×2 (13:34→20:00)
[2020-06-17] MEDS: ATORVASTATIN 40 MG TAB PO SCH (13:34)
[2020-06-17] MEDS: FUROSEMIDE 20 MG TAB PO SCH ×2 (13:34→15:59)
--- NOTE | 2020-06-17 13:51 | P.PN ---
Subjective Progress Note Date: 06/17/20 Principal diagnosis: Anemia, stool positive for occult blood This is a 75-year-old male patient with multiple medical comorbidities who had a recent CVA in May 2020 with residual right-sided weakness and slurred speech presented to the hospital due to altered mental status and chest pain. He was found to have ST depression on EKG and ovation of troponins. Patient had an ac maryanne fall in his hemoglobin which was 7 on presentation from 13 in May. He is status post 2 units of PRBCs transfusion. Stool testing was positive for occult blood. He denies any signs or symptoms of GI bleed, no hematemesis, coffee- ground emesis, melena or hematochezia. She was scheduled for upper endoscopy yesterday, however when he went to endoscopy anesthesia deemed him not stable to proceed with procedure. Patient's respiratory status is unchanged. He states he feels short of breath, he is working to proceed, respiratory rate was 24, oxygen was 92% on 2 L nasal cannula. He continues to deny any abdominal pain, nausea, or vomiting. He's had no coffee-ground emesis, hematemesis, melena or hematochezia. His hemoglobin continues to improve and is at 8.9 today Objective - Vital Signs Vital signs: Vital Signs Temp 98.2 F 06/17/20 11:26 Pulse 73 06/17/20 11:26 Resp 27 H 06/17/20 12:03 BP 111/62 06/17/20 11:26 Pulse Ox 97 06/17/20 11:26 Intake & Output 06/16/20 06/17/20 06/17/20 18:59 06:59 18:59 Intake Total 400 Output Total 440 1150 Balance 400 -440 -1150 Weight 126 kg 110 kg 107.9 kg Intake: IV 160 KVO 160 Oral 240 Output: Urine 440 1150 Other: Voiding Method Indwelling Catheter Indwelling Catheter Indwelling Catheter - Exam General appearance: The patient is alert, oriented, but seems confused ,appears in no acute distress. HET: Head is normocephalic and atraumatic. Conjunctiva pink. Sclera anicteric. Neck: Supple without lymphadenopathy. Abdomen: Soft, nontender, nondistended with bowel sounds. No guarding or rigidity. Extremities: Normal skin color and turgor. No pedal edema Skin: No rashes, no jaundice Neurological: No focal deficits. Alert and oriented 3. - Labs CBC & Chem 7: 06/17/20 09:01 06/17/20 09:01 Labs: Abnormal Lab Results - Last 24 Hours (Table) 06/16/20 06/16/20 06/17/20 Range/Units 07:15 16:54 00:17 WBC (3.8-10.6) k/uL RBC (4.30-5.90) m/uL Hgb (13.0-17.5) gm/dL Hct (39.0-53.0) % RDW (11.5-15.5) % Neutrophils # 9.5 H (1.3-7.7) k/uL BUN (9-20) mg/dL Creatinine (0.66-1.25) mg/dL Glucose (74-99) mg/dL POC Glucose (mg/dL) 154 H 143 H (75-99) mg/dL 06/17/20 06/17/20 06/17/20 Range/Units 05:59 09:01 09:01 WBC 14.4 H (3.8-10.6) k/uL RBC 2.94 L (4.30-5.90) m/uL Hgb 8.9 L (13.0-17.5) gm/dL Hct 27.1 L (39.0-53.0) % RDW 16.5 H (11.5-15.5) % Neutrophils # (1.3-7.7) k/uL BUN 49 H (9-20) mg/dL Creatinine 1.29 H (0.66-1.25) mg/dL Glucose 153 H (74-99) mg/dL POC Glucose (mg/dL) 151 H (75-99) mg/dL 06/17/20 Range/Units 11:56 WBC (3.8-10.6) k/uL RBC (4.30-5.90) m/uL Hgb (13.0-17.5) gm/dL Hct (39.0-53.0) % RDW (11.5-15.5) % Neutrophils # (1.3-7.7) k/uL BUN (9-20) mg/dL Creatinine (0.66-1.25) mg/dL Glucose (74-99) mg/dL POC Glucose (mg/dL) 169 H (75-99) mg/dL Assessment and Plan (1) Normocytic normochromic anemia Narrative/Plan: A 75-year-old male with multiple medical comorbidities presenting to the hospital for altered mental status and chest pain. Recent CVA in May 2020 with residual right-sided weakness and speech slurring. Patient was found to have elevation in his troponins and EKG abnormalities on presentation. He is being evaluated by cardiology for non-ST elevation GA. Troponins were elevated. Patient denies any signs or symptoms of GI bleed with stool testing was positive for occult blood. No prior colonoscopy or EGD but patient does report a remote history of peptic ulcer disease. Patient was transfused 2 units of PRBC for hemoglobin of 7 on presentation. Patient hemoglobin had a significant drop from 13 in May, unclear etiology may be related to peptic ulcer disease, AVM, gastritis, or other etiology. Endoscopic intervention was postponed due to patient's respiratory status. Continue to monitor. Current Visit: Yes Status: Acute Code(s): D64.9 - ANEMIA, UNSPECIFIED SNOMED Code(s): 91560824 (2) Positive occult stool blood test Current Visit: Yes Status: Acute Code(s): R19.5 - OTHER FECAL ABNORMALITIES SNOMED Code(s): 38021371 Plan: 1. Supportive care 2. Continue to monitor hemoglobin and transfuse if needed 3. Monitor for signs and symptoms of GI bleed 4. Okay for consistent carbohydrate diet 5. Continue Protonix 40 mg twice daily 6. Avoid NSAIDs and anticoagulation/antiplatelet therapy at this time 7. Cardiology seen and evaluated patient and cleared for upper endoscopy 8. Upper endoscopy currently on hold due to patient's respiratory status. We will reevaluate on a daily basis. Thank you for this consultation, we will continue to follow Dr. Marco A Palmer I agree with the dictator's note, documented as a scribe by Marni Constantino.
[2020-06-17] MEDS: LACTATED RINGERS 1,000 ML IV SCH (15:12)
[2020-06-17] MEDS: MORPHINE SULFATE 2 MG/ML SYRINGE IV PRN (15:41)
[2020-06-17 16:57] LABS: Glucose,Whole Blood 193 mg/dL (75-99)
[2020-06-17] MEDS ORDERED: FUROSEMIDE 10 MG/ML 4 ML VIAL IV STA (17:04)
--- NOTE | 2020-06-17 17:29 | XR ---
EXAMINATION TYPE: XR chest 1V portable DATE OF EXAM: 06/17/2020 COMPARISON: 06/13/2020 HISTORY: Short of breath TECHNIQUE: FINDINGS: Heart is enlarged. There is blunting right costophrenic angle. There is airspace infiltrate right lower lobe. There is minimal pulmonary congestion.. There is mild interstitial density left ruth ng base. There are chest leads. IMPRESSION: Right pleural effusion and right lower lobe pneumonia slightly worse than recent exam. Mi ld heart failure is probably present.
[2020-06-17] MEDS: ACETAMINOPHEN TAB 325 MG TAB PO PRN (19:59)
[2020-06-17 23:56] LABS: Glucose,Whole Blood 206 mg/dL (75-99)
[2020-06-18] MEDS: INSULIN ASPART (NovoLOG) 100 UNIT/ML VIAL SQ SCH ×4 (00:33→17:56)
[2020-06-18 06:01] LABS: Glucose,Whole Blood 153 mg/dL (75-99)
--- NOTE | 2020-06-18 10:33 | P.PN ---
Subjective This is a 75-year-old gentleman with diabetes, hypertension, dyslipidemia, history of smoking, incentive diagnosed of acute ischemic stroke in 05/07/2020. 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 Patient presented to the hospital 06/12/2020 with acute blood loss anemia (hgb 7.0), hypotension and chest pain. Stool occult blood was found to be positive. The patient was having some GI bleeding and he was experiencing black stool. Patient received 1 unit of PRBC Cardiology was consulted in the ICU for chest pain and abnormal trop onin. Troponin trend- 0.08-->3.9-->5.6 EKG showed sinus rhythm with ST changes in the lateral and high lateral leads quite concerning for severe underlying coronary artery disease. Echocardiogram 06/12/2020 which revealed impaired LV function was EF around 30-35% with evidence off all motion abnormalities as well as concerning for severe underlying coronary artery disease. Echocardiogram 05/07/20- revealed normal left ventricular systolic function 60- 65%. 06/18/2020: Patient seen and examined at bedside. Lethargic, not answering questions appropriately. He does not appear to be oriented. No acute events overnight. BP 104/56 heart rate 71 on telemetry he is maintaining sinus mechanism HR 60- 70s., afebrile, 98% on 2L nasal cannula. Patient currently being maintained on atorvastatin 40mg daily, Metoprolol tartrate 25mg BID, Lasix PO 20mg BID. Laboratory data has not been resulted yet today. Chest Xray today- patient appears to be rotated- revealed right pleural effusion, RLL pneumonia slighly worse than recent exam, cardiac silhouette appears mildly enlarged. PHYSICAL EXAM: GENERAL: No acute distress NECK: Supple without JVD or thyromegaly. LUNGS: Breath sounds diminished to auscultation bilaterally. Respiration equal and unlabored. No wheezes, rales or rhonchi. HEART: Regular rate and rhythm. Systolic murmur noted. S1 and S2 heard. EXTREMITIES: Normal range of motion, trace pedal edema noted. No clubbing or cyanosis. Peripheral pulses intact. ASSESSMENT: -Altered Mental Status -Acute blood loss anemia- Hgb 7.0 s/p 1unit PRBC . Hgb is stable at 8.9 yesterday -Gastrointestinal bleed -Acute Kidney Injury -NSTEMI -Recent ischemic stroke -Acute systolic heart failure with reduced ejection fraction EF30-35% -Type 2 Diabetes -Hypertension- currently hypotensive inpatient -Hyperlipidemia PLAN: -At this time, patient is not a candidate for an invasive therapy with cardiac catheterization due to potential for increased bleeding risk and if patient requires a stent, post procedure medication with dual anti-platelet therapy can cause significant worsening bleeding/GI bleed -Anesthesia continues to cancel patient's EGD due to patient's breathing- possibly attempting to perform as soon as possible -We will maximize patient's medical therapy at this time - Continue atorvastatin, Metoprolol tartrate 25mg BID, Lasix 20mg BID -ACEI has been on hold due to hypotension- will restart when we are able to due to patient's cardiomyopathy -Will continue to hold antiplatelet or anticoagulation at this time. Waiting input from GI in regards to restarting these. -Monitor CBC and kidney function and electrolytes Objective - Vital Signs Vital signs: Vital Signs Temp 97.6 F 06/18/20 07:52 Pulse 71 06/18/20 07:52 Resp 24 06/18/20 07:52 BP 104/56 06/18/20 07:52 Pulse Ox 98 06/18/20 07:52 Intake & Output 06/17/20 06/18/20 06/18/20 18:59 06:59 18:59 Intake Total 180 Output Total 1150 585 Balance -970 -585 Weight 107.9 kg 107 kg Intake: Oral 180 Output: Urine 1150 585 Other: Voiding Method Indwelling Catheter Indwelling Catheter - Labs CBC & Chem 7: 06/17/20 09:01 06/17/20 09:01 Labs: Abnormal Lab Results - Last 24 Hours (Table) 06/17/20 06/17/20 06/17/20 Range/Units 09:01 11:56 16:48 BUN 49 H (9-20) mg/dL Creatinine 1.29 H (0.66-1.25) mg/dL Glucose 153 H (74-99) mg/dL POC Glucose (mg/dL) 169 H 193 H (75-99) mg/dL 06/17/20 06/18/20 Range/Units 23:55 05:59 BUN (9-20) mg/dL Creatinine (0.66-1.25) mg/dL Glucose (74-99) mg/dL POC Glucose (mg/dL) 206 H 153 H (75-99) mg/dL
[2020-06-18 10:53] LABS: Anisocytosis Slight; Basophils % (A) 0 %; Eosinophils % (A) 0 %; HCT 30.1 % (39.0-53.0); HGB 8.9 gm/dL (13.0-17.5); Hypochromasia Marked; Lymphocytes # (A) 1.5 k/uL (1.0-4.8); Lymphocytes % (A) 11 %; MCH 27.9 pg (25.0-35.0); MCHC 29.5 g/dL (31.0-37.0); MCV 94.4 fL (80.0-100.0); Mean Platelet Volume 9.7; Monocytes # (A) 0.7 k/uL (0-1.0); Monocytes % (A) 5 %; Neutrophils # (A) 11.1 k/uL (1.3-7.7); Neutrophils % (A) 83 %; Platelet Count 214 k/uL (150-450); Poikilocytosis Slight; RBC 3.19 m/uL (4.30-5.90); RDW 16.6 % (11.5-15.5); WBC 13.4 k/uL (3.8-10.6)
--- NOTE | 2020-06-18 11:05 | P.PN ---
Subjective Progress Note Date: 06/18/20 Principal diagnosis: Anemia, stool positive for occult blood This is a 75-year-old male patient with multiple medical comorbidities who had a recent CVA in May 2020 with residual right-sided weakness and slurred speech presented to the hospital due to altered mental status and chest pain. He was found to have ST depression on EKG and ovation of troponins. Patient had an ac maryanne fall in his hemoglobin which was 7 on presentation from 13 in May. He is status post 2 units of PRBCs transfusion. Stool testing was positive for occult blood. The patient states he has not had a bowel movement in 3-4 days. He is not having any abdominal pain, nausea, or vomiting. He's had no signs of GI bleed. Chest x-ray shows right pleural effusion and right left lower pneumonia worse than previous, mild heart failure. These labs are pending. He denies any chest pain but states he is short of breath. His saturation is 98% on 2 L of nasal cannula. Objective - Vital Signs Vital signs: Vital Signs Temp 97.6 F 06/18/20 07:52 Pulse 71 06/18/20 07:52 Resp 24 06/18/20 07:52 BP 104/56 06/18/20 07:52 Pulse Ox 98 06/18/20 07:52 Intake & Output 06/17/20 06/18/20 06/18/20 18:59 06:59 18:59 Intake Total 180 Output Total 1150 585 Balance -970 -585 Weight 107.9 kg 107 kg Intake: Oral 180 Output: Urine 1150 585 Other: Voiding Method Indwelling Catheter Indwelling Catheter Indwelling Catheter - Exam General appearance: The patient is alert, oriented, but seems confused ,appears in no acute distress. HET: Head is normocephalic and atraumatic. Conjunctiva pink. Sclera anicteric. Neck: Supple without lymphadenopathy. Abdomen: Soft, nontender, nondistended with bowel sounds. No guarding or rigidity. Extremities: Normal skin color and turgor. No pedal edema Skin: No rashes, no jaundice Neurological: No focal deficits. Alert and oriented 3. - Labs CBC & Chem 7: 06/18/20 09:15 06/17/20 09:01 Labs: Abnormal Lab Results - Last 24 Hours (Table) 06/17/20 06/17/2021 Range/Units 11:56 16:48 23:55 POC Glucose (mg/dL) 169 H 193 H 206 H (75-99) mg/dL 06/18/20 Range/Units 05:59 POC Glucose (mg/dL) 153 H (75-99) mg/dL Assessment and Plan (1) Normocytic normochromic anemia Narrative/Plan: A 75-year-old male with multiple medical comorbidities presenting to the hospital for altered mental status and chest pain. Recent CVA in May 2020 with residual right-sided weakness and speech slurring. Patient was found to have elevation in his troponins and EKG abnormalities on presentation. He is being evaluated by cardiology for non-ST elevation [place]. Troponins were elevated. Patient denies any signs or symptoms of GI bleed with stool testing was positive for occult blood. No prior colonoscopy or EGD but patient does report a remote history of peptic ulcer disease. Patient was transfused 2 units of PRBC for hemoglobin of 7 on presentation. Patient hemoglobin had a significant drop from 13 in May, unclear etiology may be related to peptic ulcer disease, AVM, gastritis, or other etiology. Endoscopic intervention was postponed due to patient's respiratory status. Continue to monitor. Current Visit: Yes Status: Acute Code(s): D64.9 - ANEMIA, UNSPECIFIED SNOMED Code(s): 12469833 (2) Positive occult stool blood test Current Visit: Yes Status: Acute Code(s): R19.5 - OTHER FECAL ABNORMALITIES SNOMED Code(s): 16337360 Plan: 1. Supportive care 2. Continue to monitor hemoglobin and transfuse if needed 3. Monitor for signs and symptoms of GI bleed 4. By mouth after midnight 5. Continue Protonix 40 mg twice daily 6. Avoid NSAIDs and anticoagulation/antiplatelet therapy at this time 7. Cardiology seen and evaluated patient and cleared for upper endoscopy 8. Will schedule patient for upper endoscopy tomorrow, patient will be seen and need to be cleared by anesthesia. Thank you for this consultation and we will continue to follow Dr. Marco A Palmer I agree with the dictator's note, documented as a scribe by Marni Constantino.
[2020-06-18] MEDS: METOPROLOL TARTRATE 25 MG TAB PO SCH ×2 (11:06→21:21)
[2020-06-18] MEDS: FUROSEMIDE 20 MG TAB PO SCH ×2 (11:06→16:51)
[2020-06-18] MEDS: ATORVASTATIN 40 MG TAB PO SCH (11:06)
[2020-06-18] MEDS: PANTOPRAZOLE 40 MG/10 ML VIAL IV SCH ×2 (11:06→22:45)
[2020-06-18] MEDS: AZITHROMYCIN 500 MG TAB PO SCH (11:07)
[2020-06-18 11:59] LABS: Glucose,Whole Blood 143 mg/dL (75-99)
--- NOTE | 2020-06-18 12:54 | P.PN ---
Subjective Progress Note Date: 06/18/20 lethargic , not in distress no vomiting , no gross bleeding Objective - Vital Signs Vital signs: Vital Signs Temp 97.6 F 06/18/20 07:52 Pulse 71 06/18/20 07:52 Resp 24 06/18/20 07:52 BP 104/56 06/18/20 07:52 Pulse Ox 98 06/18/20 07:52 Intake & Output 06/17/20 06/18/20 06/18/20 18:59 06:59 18:59 Intake Total 180 Output Total 1150 585 900 Balance -970 -585 -900 Weight 107.9 kg 107 kg Intake: Oral 180 Output: Urine 1150 585 900 Uretheral (Kim) 300 Other: Voiding Method Indwelling Catheter Indwelling Catheter Indwelling Catheter # Bowel Movements 1 - Exam Gen: awake, alert HEENT: normocephalic, atraumatic Resp: Decreased breath sounds, no wheezing CVS: S1-S2, no rubs gallops or murmurs GI: soft, nontender, positive bowel sounds MSK: No clubbing cyanosis or edema Neuro: Right-sided residual weakness - Labs CBC & Chem 7: 06/18/20 09:15 06/17/20 09:01 Labs: Abnormal Lab Results - Last 24 Hours (Table) 06/17/20 06/17/20 06/18/20 Range/Units 16:48 23:55 05:59 WBC (3.8-10.6) k/uL RBC (4.30-5.90) m/uL Hgb (13.0-17.5) gm/dL Hct (39.0-53.0) % MCHC (31.0-37.0) g/dL RDW (11.5-15.5) % POC Glucose (mg/dL) 193 H 206 H 153 H (75-99) mg/dL 06/18/20 06/18/20 Range/Units 09:15 11:58 WBC 13.4 H (3.8-10.6) k/uL RBC 3.19 L (4.30-5.90) m/uL Hgb 8.9 L (13.0-17.5) gm/dL Hct 30.1 L (39.0-53.0) % MCHC 29.5 L (31.0-37.0) g/dL RDW 16.6 H (11.5-15.5) % POC Glucose (mg/dL) 143 H (75-99) mg/dL Assessment and Plan Plan: Acute blood loss anemia GI bleed Hypotension from hypovolemia -PPI twice a day, appreciated GI input Hemoglobin stable at 8.9 EGD canceled Non-STEMI Acute on Chronic Heart Failure with Reduced Ejection Fraction, EF 30-35% Ischemic Cardiomyopathy -Hold off on aspirin, Plavix, heparin due to GI bleed On metoprolol -Cardiology consult, appreciate recs -Echocardiogram multiple WMA, reduced EF -Lasix 20mg BID Acute Kidney Injury, improving -Received IV fluids Serum creatinine peaked at 1.6, currently down to 1.2, monitor. Encephalopathy, unspecified History of CVA -Neurology consult -Frequent reorientation -PT/OT -Avoid benzodiazepines, anticholinergics -appears to be at baseline mentation Continue to monitor Hypertension, essential -Holding home lisinopril due to hypotension as above Diabetes mellitus type 2 with hyperglycemia -Continue Low-dose sliding scale insulin Holding oral hypoglycemics Mild hyperkalemia Resolved, monitor Weakness: Consult PTOT. Input appreciated DVT prophylaxis is contraindicated due to acute blood loss anemia and GI bleed DO NOT RESUSCITATE/DO NOT INTUBATE Disposition: Rehab likely tomorrow
[2020-06-18 14:09] LABS: Polychromasia Present
[2020-06-18] MEDS: LACTATED RINGERS 1,000 ML IV SCH (16:45)
[2020-06-18] MEDS: HYDROcodone/APAP 10-325MG 1 EACH TAB PO PRN (16:51)
[2020-06-18 16:57] LABS: Glucose,Whole Blood 155 mg/dL (75-99)
[2020-06-18 20:10] LABS: Glucose,Whole Blood 203 mg/dL (75-99)
[2020-06-19 00:34] LABS: Glucose,Whole Blood 164 mg/dL (75-99)
[2020-06-19] MEDS: INSULIN ASPART (NovoLOG) 100 UNIT/ML VIAL SQ SCH ×4 (01:42→17:07)
[2020-06-19 06:15] LABS: Glucose,Whole Blood 156 mg/dL (75-99)
[2020-06-19 08:37] LABS: Albumin 3.7 g/dL (3.5-5.0); Calcium 9.7 mg/dL (8.4-10.2); Potassium 4.6 mmol/L (3.5-5.1); Total Bilirubin 1.3 mg/dL (0.2-1.3)
--- NOTE | 2020-06-19 08:51 | P.PN ---
Subjective Progress Note Date: 06/19/20 lethargic , not in distress no vomiting , no gross bleeding Poor historian Objective - Vital Signs Vital signs: Vital Signs Temp 97.8 F 06/19/20 04:00 Pulse 74 06/19/20 04:00 Resp 24 06/19/20 04:00 BP 132/68 06/19/20 04:00 Pulse Ox 93 L 06/19/20 04:00 Intake & Output 06/18/20 06/19/20 06/19/20 18:59 06:59 18:59 Intake Total 240 Output Total 1200 550 Balance -960 -550 Weight 107 kg 105.233 kg Intake: Oral 240 Output: Urine 1200 550 Uretheral (Kim) 600 Other: Voiding Method Indwelling Catheter Indwelling Catheter # Bowel Movements 1 - Exam Gen: awake, alert, poor historian HEENT: normocephalic, atraumatic Resp: Decreased breath sounds, no wheezing CVS: S1-S2, no rubs gallops or murmurs GI: soft, nontender, positive bowel sounds MSK: No clubbing cyanosis or edema Neuro: Right-sided residual weakness - Labs CBC & Chem 7: 06/18/20 09:15 06/19/20 08:08 Labs: Abnormal Lab Results - Last 24 Hours (Table) 06/18/20 06/18/20 06/18/20 Range/Units 09:15 11:58 16:55 WBC 13.4 H (3.8-10.6) k/uL RBC 3.19 L (4.30-5.90) m/uL Hgb 8.9 L (13.0-17.5) gm/dL Hct 30.1 L (39.0-53.0) % MCHC 29.5 L (31.0-37.0) g/dL RDW 16.6 H (11.5-15.5) % Neutrophils # 11.1 H (1.3-7.7) k/uL Sodium (137-145) mmol/L Chloride (98-107) mmol/L BUN (9-20) mg/dL Creatinine (0.66-1.25) mg/dL Glucose (74-99) mg/dL POC Glucose (mg/dL) 143 H 155 H (75-99) mg/dL AST (17-59) U/L ALT (4-49) U/L 06/18/20 06/19/20 06/19/20 Range/Units 20:08 00:32 06:13 WBC (3.8-10.6) k/uL RBC (4.30-5.90) m/uL Hgb (13.0-17.5) gm/dL Hct (39.0-53.0) % MCHC (31.0-37.0) g/dL RDW (11.5-15.5) % Neutrophils # (1.3-7.7) k/uL Sodium (137-145) mmol/L Chloride (98-107) mmol/L BUN (9-20) mg/dL Creatinine (0.66-1.25) mg/dL Glucose (74-99) mg/dL POC Glucose (mg/dL) 203 H 164 H 156 H (75-99) mg/dL AST (17-59) U/L ALT (4-49) U/L 06/19/20 Range/Units 08:08 WBC (3.8-10.6) k/uL RBC (4.30-5.90) m/uL Hgb (13.0-17.5) gm/dL Hct (39.0-53.0) % MCHC (31.0-37.0) g/dL RDW (11.5-15.5) % Neutrophils # (1.3-7.7) k/uL Sodium 147 H (137-145) mmol/L Chloride 112 H (98-107) mmol/L BUN 65 H (9-20) mg/dL Creatinine 1.42 H (0.66-1.25) mg/dL Glucose 157 H (74-99) mg/dL POC Glucose (mg/dL) (75-99) mg/dL AST 115 H (17-59) U/L ALT 154 H (4-49) U/L Assessment and Plan Plan: Acute blood loss anemia GI bleed Hypotension from hypovolemia -PPI twice a day, appreciated GI input Hemoglobin stable at 8.9 yesterday Plan for EGD today, monitor. Non-STEMI Acute on Chronic Heart Failure with Reduced Ejection Fraction, EF 30-35% Ischemic Cardiomyopathy -Hold off on aspirin, Plavix, and heparin due to GI bleed Continue On metoprolol -Cardiology consult, appreciate recs -Echocardiogram multiple WMA, reduced EF -Lasix 20mg BID Acute Kidney Injury, improving -Received IV fluids Serum creatinine peaked at 1.6,, fluctuates, was down to 1.2, currently 1.4. Encephalopathy, unspecified History of CVA -Neurology consult -Frequent reorientation -PT/OT -Avoid benzodiazepines, anticholinergics -appears to be at baseline mentation Continue to monitor Hypertension, essential -Holding home lisinopril due to hypotension as above Diabetes mellitus type 2 with hyperglycemia -Continue Low-dose sliding scale insulin Holding oral hypoglycemics Mild hyperkalemia Resolved, monitor Weakness: Consult PTOT. Input appreciated Right-sided pleural effusion and pneumonia of unspecified organism Continue oral antibiotics, add Augmentin to Zithromax. DVT prophylaxis is contraindicated due to acute blood loss anemia and GI bleed DO NOT RESUSCITATE/DO NOT INTUBATE Disposition: Rehab once clinically stable.
[2020-06-19] MEDS ORDERED: AMOXIC-POT CLAV 875-125MG 1 EACH TAB PO SCH (09:00)
[2020-06-19] MEDS: ATORVASTATIN 40 MG TAB PO SCH (09:36)
[2020-06-19] MEDS: METOPROLOL TARTRATE 25 MG TAB PO SCH ×2 (09:36→20:18)
[2020-06-19] MEDS: AZITHROMYCIN 500 MG TAB PO SCH (09:36)
[2020-06-19] MEDS: FUROSEMIDE 20 MG TAB PO SCH ×2 (09:36→14:15)
[2020-06-19] MEDS: PANTOPRAZOLE 40 MG/10 ML VIAL IV SCH ×2 (09:36→21:28)
--- NOTE | 2020-06-19 12:01 | P.PN ---
Subjective This is a 75-year-old gentleman with diabetes, hypertension, dyslipidemia, history of smoking, incentive diagnosed of acute ischemic stroke in 05/07/2020. He does not follow in the office with a match marker. Patient presented to the hospital 06/12/2020 with acute blood loss anemia (hgb 7.0), hypotension and chest pain. Stool occult blood was found to be positive. The patient was having some GI bleeding and he was experiencing black stool. Patient received 1 unit of PRBC Cardiology was consulted in the ICU for chest pain and abnormal trop onin. Patient's BNP was elevated 12,200 he was diuresied with IV Lasix 20mg BID, not transitioned to PO. Troponin trend- 0.08-->3.9-->5.6 EKG showed sinus rhythm with ST changes in the lateral and high lateral leads quite concerning for severe underlying coronary artery disease. Echocardiogram 06/12/2020 which revealed impaired LV function was EF around 30-35% with evidence off all motion abnormalities as well as concerning for severe underlying coronary artery disease. Echocardiogram 05/07/20- revealed normal left ventricular systolic function 60- 65%. 06/19/2020: Patient seen and examined at bedside. Appears more alert today. He does not appear to be oriented. No acute events overnight. He states he BP 127/84 heart rate 69 on telemetry he is maintaining sinus mechanism HR 60-70s., afebrile, 98% on 2L nasal cannula. Patient currently being maintained on atorvastatin 40mg daily, Metoprolol tartrate 25mg BID, Lasix PO 20mg BID. Laboratory data reveals Sodium 147, K 4.6, sCr 1.42 (1.29 yesterday), Liver enzymes elevated- AST 115 (previously 35), ALT 154 (previously 24). PHYSICAL EXAM: GENERAL: No acute distress NECK: Supple without JVD or thyromegaly. LUNGS: Breath sounds diminished to auscultation bilaterally. Respiration equal and unlabored. No wheezes, rales or rhonchi. HEART: Regular rate and rhythm. Systolic murmur noted. S1 and S2 heard. EXTREMITIES: Normal range of motion, trace pedal edema noted. No clubbing or cyanosis. Peripheral pulses intact. ASSESSMENT: -Altered Mental Status -Acute blood loss anemia- Hgb 7.0 s/p 1unit PRBC . Hgb is stable at 8.9 yesterday -Gastrointestinal bleed -Acute Kidney Injury -NSTEMI -Recent ischemic stroke -Acute systolic heart failure with reduced ejection fraction EF30-35% -Type 2 Diabetes -Hypertension- has been hypotensive, BP is improving -Hyperlipidemia PLAN: -Hold statin due to elevated LFTs -At this time, patient is not a candidate for an invasive therapy with cardiac catheterization due to potential for increased bleeding risk and if patient requires a stent, post procedure medication with dual anti-platelet therapy can cause significant worsening bleeding/GI bleed -Patient is on the schedule today to go for an EGD -We will maximize patient's medical therapy at this time - Continue Metoprolol tartrate 25mg BID, Lasix 20mg BID -ACEI has been on hold due to hypotension - BP improving, will restart lisinopril and increase as tolerated -Per GI ok for aspirin- will restart -Will continue to hold anticoagulation at this time. Waiting input from GI in regards to restarting these. -Monitor CBC and kidney function and electrolytes Objective - Vital Signs Vital signs: Vital Signs Temp 97.8 F 06/19/20 04:00 Pulse 74 06/19/20 04:00 Resp 24 06/19/20 04:00 BP 132/68 06/19/20 04:00 Pulse Ox 93 L 06/19/20 04:00 Intake & Output 06/18/20 06/19/20 06/19/20 18:59 06:59 18:59 Intake Total 240 Output Total 1200 550 Balance -960 -550 Weight 107 kg 105.233 kg Intake: Oral 240 Output: Urine 1200 550 Uretheral (Kim) 600 Other: Voiding Method Indwelling Catheter Indwelling Catheter # Bowel Movements 1 - Labs CBC & Chem 7: 06/18/20 09:15 06/19/20 08:08 Labs: Abnormal Lab Results - Last 24 Hours (Table) 06/18/20 06/18/20 06/18/20 Range/Units 09:15 11:58 16:55 WBC 13.4 H (3.8-10.6) k/uL RBC 3.19 L (4.30-5.90) m/uL Hgb 8.9 L (13.0-17.5) gm/dL Hct 30.1 L (39.0-53.0) % MCHC 29.5 L (31.0-37.0) g/dL RDW 16.6 H (11.5-15.5) % Neutrophils # 11.1 H (1.3-7.7) k/uL Sodium (137-145) mmol/L Chloride (98-107) mmol/L BUN (9-20) mg/dL Creatinine (0.66-1.25) mg/dL Glucose (74-99) mg/dL POC Glucose (mg/dL) 143 H 155 H (75-99) mg/dL AST (17-59) U/L ALT (4-49) U/L 06/18/20 06/19/20 06/19/20 Range/Units 20:08 00:32 06:13 WBC (3.8-10.6) k/uL RBC (4.30-5.90) m/uL Hgb (13.0-17.5) gm/dL Hct (39.0-53.0) % MCHC (31.0-37.0) g/dL RDW (11.5-15.5) % Neutrophils # (1.3-7.7) k/uL Sodium (137-145) mmol/L Chloride (98-107) mmol/L BUN (9-20) mg/dL Creatinine (0.66-1.25) mg/dL Glucose (74-99) mg/dL POC Glucose (mg/dL) 203 H 164 H 156 H (75-99) mg/dL AST (17-59) U/L ALT (4-49) U/L 06/19/20 Range/Units 08:08 WBC (3.8-10.6) k/uL RBC (4.30-5.90) m/uL Hgb (13.0-17.5) gm/dL Hct (39.0-53.0) % MCHC (31.0-37.0) g/dL RDW (11.5-15.5) % Neutrophils # (1.3-7.7) k/uL Sodium 147 H (137-145) mmol/L Chloride 112 H (98-107) mmol/L BUN 65 H (9-20) mg/dL Creatinine 1.42 H (0.66-1.25) mg/dL Glucose 157 H (74-99) mg/dL POC Glucose (mg/dL) (75-99) mg/dL AST 115 H (17-59) U/L ALT 154 H (4-49) U/L
[2020-06-19 12:06] LABS: Glucose,Whole Blood 174 mg/dL (75-99)
[2020-06-19] MEDS: IPRATROPIUM-ALBUTEROL 3 ML NEB INHALATION PRN (12:38)
[2020-06-19] MEDS ORDERED: LIDOCAINE 1% INJ 10MG/ML (20 ML MDV) ONE (13:01)
[2020-06-19] MEDS ORDERED: PROPOFOL 10 MG/ML 20 ML VIAL IV ONE (13:01)
[2020-06-19] MEDS ORDERED: SODIUM CHLORIDE 0.9% 500 ML 500 ML IV ONE ×2 (13:02)
--- NOTE | 2020-06-19 13:33 | P.PCN ---
Date of Procedure: 06/19/20 Procedure(s) Performed: BRIEF HISTORY: Patient is a 75-year-old, pleasant, white male admitted hospital with melena and anemia. Initial hemoglobin was 7.5 requiring 2 units of blood transfusion. Patient also had non ST segment elevation MT during this hospitalization. He is being managed conservatively. Consider Protonix 40 mg twice daily. His cardiopulmonary status stabilized and hence he is scheduled for an upper endoscopy to evaluate recent source of GI bleed. PROCEDURE PERFORMED: Esophagogastroduodenoscopy with biopsy. PREOPERATIVE DIAGNOSIS: Melena and black tarry stools of 2 days' duration IV sedation per anesthesia. PROCEDURE: After informed consent was obtained, the patient was brought into the endoscopy unit. IV sedation was administered by Anesthesia under continuous monitoring. Initially the Olympus GIF-140 video endoscope was inserted into the mouth. Esophagus intubated without any difficulty. It was gradually advanced into the stomach and duodenum and carefully examined. The bulb and the second part of the duodenum appeared normal. The scope at this time was withdrawn to the stomach, adequately insufflated with air, and upon careful examination, mucosa of the antrum, had a 1 cm clean-based antral ulcer with no active bleeding. Biopsies were done from margin of the ulcer. The body, cardia and the fundus appeared normal. The scope was then withdrawn into the esophagus. The GE junction was located at 39 cm from the incisors. small distal esophageal varices noted. The esophagus appeared normal. There were no erosions or ulcerations seen and the patient tolerated the procedure well. IMPRESSION: 1. 1 cm clean-based antral ulcer with no active bleeding 2. Small distal esophageal nonbleeding varices. RECOMMENDATIONS: The findings of this examination were discussed with the patient as well as his family. He will be continued on Protonix 40 mg daily and monitor CBC every day.
[2020-06-19] MEDS ORDERED: FUROSEMIDE 10 MG/ML 4 ML VIAL IV STA (14:00)
[2020-06-19] MEDS ORDERED: methylPREDNISolone SOD SUCCI 125 MG/2 ML VIAL IV STA (14:01)
[2020-06-19] MEDS: LACTATED RINGERS 1,000 ML IV SCH (14:15)
--- NOTE | 2020-06-19 14:24 | XR ---
EXAMINATION TYPE: XR chest 1V portable DATE OF EXAM: 06/19/2020 COMPARISON: 06/17/2020 HISTORY: Shortness of breath TECHNIQUE: Single frontal view of the chest is obtained. FINDINGS: There is bilateral consolidation and small effusion with interstitial pattern. No pneumoth orax. Atherosclerotic change aorta. Findings are similar to the prior exam. IMPRESSION: Stable x-ray correlate for interstitial pneumonitis or mild venous congestion.
[2020-06-19 16:57] LABS: Glucose,Whole Blood 163 mg/dL (75-99)
--- NOTE | 2020-06-19 17:28 | P.CNNES ---
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 Some of the history is obtained from medical record since patient on is unable to provide all the history. Per the patient son's who is at bedside he said the patient has been declining recently and his mentation is off. Per son since his last stroke he was doing well but has some right residual weakness. On presentation the patient the had anemia of hematocrit of 22.2 and the last one was 30.1. Hemoglobin on presentation was 7.0 and the last one is 8.9. I Personally evaluate the patient the and the May 2020 regarding the patient's stroke and I recommended for the patient to be on dual antiplatelet and after 21 days to be on only on the aspirin and to be on Lipitor 40 mg daily. Please refer to my note for further neurological workup Other work-up in the hospital: CT of the head on 06/12/2020 is reported as stable generalized degenerative change and nonspecific white matter changes most typical remote ischemia CT angiography on 06/12/2020 of the head and neck is reported as no flow limiting stenosis bilateral carotid bifurcation. I can with less than 50% narrowing bilaterally. Normal [place]. Initial coagulation study: PT of 12.2, INR 1.2 and a PTT is 21.9. Last sodium is 147 was mildly elevated at. The BUN 65 and a creatinine is 1.42 PCO glucose has been in the range of 150s to 203 the last 24 hours. AST is 1:15 and the ALT is 154. Vitamin B12 is 352 which is considered low normal. Folate is 5.9 which is also considered low normal Hemoglobin A1c is 5.2 which is normal. The hospital the patient is on [place] 10/325 1 mg every 6 hours, morphine 2 mg every 2 hours, and received the Solu-Medrol 60 mg once today. 2-D echo was reported as overall left ventricle stock function is moderate to severe impaired with ejection fraction of 30-35%. Moderate concentric left ventricle atrophy. Atypical anterior left ventricle wall motion hypokinetic. Apical lateral left ventricle wall motion hypokinetic. Left atrium is moderately dilated. Moderate mitral regurgitation. Seems that the patient received the blood transfusion didn't during this admission. The patient the head elevated troponin and cardiology as well as gastroenterology are on board Review of Systems View of system is limited with apparent positive and negative as per HPI. Past Medical History Past Medical History: Diabetes Mellitus, GERD/Reflux, Hypertension, Skin Diso rder Additional Past Medical History / Comment(s): Pt states he felt heart palpitations/racing about 2 weeks ago, spinal stenosis with chronic low back pain and knees will "give out", FALLS, constipation, hiatal hernia, NIDDM diagnosed less than a year ago/neuropathy bilateral feet, small sores posterior neck for approximately one year. History of Any Multi-Drug Resistant Organisms: None Reported Past Surgical History: No Surgical Hx Reported Additional Past Surgical History / Comment(s): Pt/spouse state pt has never had surgery. Past Anesthesia/Blood Transfusion Reactions: No Reported Reaction Past Psychological History: No Psychological Hx Reported Smoking Status: Former smoker Past Alcohol Use History: None Reported Additional Past Alcohol Use History / Comment(s): Pt started smoking in 1965 and quit in 2016. Past Drug Use History: None Reported - Past Family History Mother Family Medical History: Cancer Additional Family Medical History / Comment(s): stomach cancer. Father Additional Family Medical History / Comment(s): "heart problems" Brother(s) Family Medical History: Diabetes Mellitus Medications and Allergies Home Medications Medication Instructions Recorded Confirmed Type Meloxicam [Mobic] 15 mg PO DAILY PRN 05/07/20 06/12/20 History metFORMIN HCL [Glucophage] 500 mg PO DAILY 05/07/20 06/12/20 History Aspirin 81 mg PO DAILY chew 05/12/20 06/12/20 Rx lisinopriL [Zestril] 20 mg PO DAILY tab 05/12/20 06/12/20 Rx HYDROcodone/APAP 10-325MG [[place] 1 tab PO Q6H PRN 06/12/20 06/12/20 History 10-325] Sennosides [Senna] 8.6 mg PO BID PRN 06/12/20 06/12/20 History Allergies Allergy/AdvReac Type Severity Reaction Status Date / Time No Known Allergies Allergy Verified 06/12/20 13:51 Physical Examination - Vital Signs Vital Signs: Vital Signs Temp Pulse Pulse Resp BP BP Pulse Ox 06/19/20 15:34 97.4 F L 62 18 125/83 99 06/19/20 14:25 69 26 H 128/83 95 06/19/20 14:18 74 25 H 130/87 91 L 06/19/20 14:00 18 06/19/20 13:56 73 28 H 118/69 96 06/19/20 12:50 61 06/19/20 12:44 64 06/19/20 12:00 97.6 F 60 22 109/60 98 06/19/20 08:00 97.8 F 69 22 127/84 100 06/19/20 04:00 97.8 F 74 24 132/68 93 L 06/19/20 00:00 97.9 F 71 22 121/72 96 06/18/20 20:00 98.3 F 65 24 126/73 93 L 06/18/20 17:06 128/80 06/18/20 16:26 66 16 Intake and Output 06/19/20 06/19/20 06/19/20 06:59 14:59 22:59 Intake Total 100 Output Total 550 Balance -550 100 Intake: IV 100 Output: Urine 550 Other: Voiding Method Indwelling Catheter Indwelling Catheter Weight 105.233 kg GENERAL: The patient is lying in bed and does not appear in acute distress. CHEST: The heart rate is regular rate rhythm. No murmurs to auscultation. No carotid bruit bilaterally. LUNG: Clear to auscultation bilaterally no wheezing noted throughout. Not labored breathing. He is on BIPAP machine. ABDOMEN/GI: Bowel sounds present in all 4 quadrants. No tenderness to palpation throughout. NEUROLOGICAL: Limited because of patient's cooperation and was on BIPAP. Higher mental function: The patient is drowsy but briefly opens eyes. Showed thumb up on command but otherwise not communicating or following commands. . Cranial nerves: The pupils are round, equal and reactive to light. Could not assess rest of cranial nerves because of patient's condition. Motor: The strength is hard to assess because of cooperation but was moving more the left side than the right side. Cerebellum: Could not assess. Sensation: Could not assess Reflexes (right/left): 2+ throughout. Plantars is upgoing on the right and mute on the left. Results [place] is not detected. - Laboratory Findings CBC and BMP: 06/18/20 09:15 06/19/20 08:08 Abnormal Lab Findings: Abnormal Labs 06/12/20 06/12/20 06/12/20 12:02 12:05 12:05 WBC RBC 2.42 L Hgb 7.0 L D Hct 22.2 L MCHC RDW 15.8 H Neutrophils # 8.9 H Retic Count PT 12.2 H INR 1.2 H APTT 21.9 L ABG pH ABG pCO2 ABG pO2 ABG HCO3 ABG Total CO2 ABG O2 Saturation Sodium Potassium Chloride Carbon Dioxide BUN Creatinine Glucose POC Glucose (mg/dL) 167 H Total Bilirubin AST ALT Troponin I Ur Specific [place] Urine Protein Ur Leukocyte Esterase Urine WBC Urine Bacteria Hyaline Casts Urine Mucus Crossmatch 06/12/20 06/12/20 06/12/20 12:05 12:15 12:19 WBC RBC Hgb Hct MCHC RDW Neutrophils # Retic Count PT INR APTT ABG pH ABG pCO2 ABG pO2 ABG HCO3 ABG Total CO2 ABG O2 Saturation Sodium 130 L Potassium 5.6 H Chloride Carbon Dioxide 20 L BUN 37 H Creatinine 1.64 H Glucose 154 H POC Glucose (mg/dL) Total Bilirubin AST ALT Troponin I 3.970 H* Ur Specific [place] Urine Protein Ur Leukocyte Esterase Urine WBC Urine Bacteria Hyaline Casts Urine Mucus Crossmatch See Detail 06/12/20 06/12/20 06/12/20 16:15 17:24 17:44 WBC RBC Hgb Hct MCHC RDW Neutrophils # Retic Count PT INR APTT ABG pH 7.34 L ABG pCO2 28 L ABG pO2 230 H ABG HCO3 15 L ABG Total CO2 16 L ABG O2 Saturation 100.0 H Sodium Potassium Chloride Carbon Dioxide BUN Creatinine Glucose POC Glucose (mg/dL) 142 H Total Bilirubin AST ALT Troponin I Ur Specific [place] 1.043 H Urine Protein 1+ H Ur Leukocyte Esterase Moderate H Urine WBC 24 H Urine Bacteria Rare H Hyaline Casts 4 H Urine Mucus Occasional H Crossmatch 06/12/20 06/12/20 06/12/20 19:11 23:50 23:50 WBC RBC Hgb Hct MCHC RDW Neutrophils # Retic Count PT 12.5 H INR 1.2 H APTT ABG pH ABG pCO2 ABG pO2 ABG HCO3 ABG Total CO2 ABG O2 Saturation Sodium 131 L Potassium 5.3 H Chloride Carbon Dioxide 19 L BUN 44 H Creatinine 1.67 H Glucose 154 H POC Glucose (mg/dL) 175 H Total Bilirubin 2.9 H AST ALT Troponin I Ur Specific [place] Urine Protein Ur Leukocyte Esterase Urine WBC Urine Bacteria Hyaline Casts Urine Mucus Crossmatch 06/12/20 06/13/20 06/13/20 23:50 00:37 04:33 WBC 19.3 H RBC 2.71 L Hgb 8.4 L Hct 24.6 L MCHC RDW Neutrophils # Retic Count PT INR APTT ABG pH ABG pCO2 ABG pO2 ABG HCO3 ABG Total CO2 ABG O2 Saturation Sodium 132 L Potassium 5.4 H Chloride Carbon Dioxide BUN 44 H Creatinine 1.68 H Glucose 160 H POC Glucose (mg/dL) 186 H Total Bilirubin AST ALT Troponin I Ur Specific [place] Urine Protein Ur Leukocyte Esterase Urine WBC Urine Bacteria Hyaline Casts Urine Mucus Crossmatch 06/13/20 06/13/20 06/13/20 04:33 04:33 04:33 WBC 17.7 H RBC 2.71 L Hgb 8.2 L Hct 24.4 L MCHC RDW Neutrophils # 16.0 H Retic Count 5.0 H PT INR APTT ABG pH ABG pCO2 ABG pO2 ABG HCO3 ABG Total CO2 ABG O2 Saturation Sodium Potassium Chloride Carbon Dioxide BUN Creatinine Glucose POC Glucose (mg/dL) Total Bilirubin AST ALT Troponin I 5.630 H* Ur Specific [place] Urine Protein Ur Leukocyte Esterase Urine WBC Urine Bacteria Hyaline Casts Urine Mucus Crossmatch 06/13/20 06/13/20 06/13/20 12:05 16:51 20:16 WBC RBC Hgb Hct MCHC RDW Neutrophils # Retic Count PT INR APTT ABG pH ABG pCO2 ABG pO2 ABG HCO3 ABG Total CO2 ABG O2 Saturation Sodium Potassium Chloride Carbon Dioxide BUN Creatinine Glucose POC Glucose (mg/dL) 156 H 149 H 158 H Total Bilirubin AST ALT Troponin I Ur Specific [place] Urine Protein Ur Leukocyte Esterase Urine WBC Urine Bacteria Hyaline Casts Urine Mucus Crossmatch 06/14/20 06/14/20 06/14/20 00:03 06:09 08:20 WBC RBC Hgb Hct MCHC RDW Neutrophils # Retic Count PT INR APTT ABG pH ABG pCO2 ABG pO2 ABG HCO3 ABG Total CO2 ABG O2 Saturation Sodium 136 L Potassium Chloride Carbon Dioxide BUN 50 H Creatinine 1.28 H Glucose 132 H POC Glucose (mg/dL) 148 H 166 H Total Bilirubin AST ALT Troponin I Ur Specific [place] Urine Protein Ur Leukocyte Esterase Urine WBC Urine Bacteria Hyaline Casts Urine Mucus Crossmatch 06/14/20 06/14/20 06/14/20 08:20 11:42 16:37 WBC RBC 2.96 L Hgb 8.8 L Hct 26.8 L MCHC RDW 15.8 H Neutrophils # 8.0 H Retic Count PT INR APTT ABG pH ABG pCO2 ABG pO2 ABG HCO3 ABG Total CO2 ABG O2 Saturation Sodium Potassium Chloride Carbon Dioxide BUN Creatinine Glucose POC Glucose (mg/dL) 158 H 152 H Total Bilirubin AST ALT Troponin I Ur Specific [place] Urine Protein Ur Leukocyte Esterase Urine WBC Urine Bacteria Hyaline Casts Urine Mucus Crossmatch 06/14/20 06/15/20 06/15/20 19:55 00:04 06:12 WBC RBC Hgb Hct MCHC RDW Neutrophils # Retic Count PT INR APTT ABG pH ABG pCO2 ABG pO2 ABG HCO3 ABG Total CO2 ABG O2 Saturation Sodium Potassium Chloride Carbon Dioxide BUN Creatinine Glucose POC Glucose (mg/dL) 191 H 181 H 164 H Total Bilirubin AST ALT Troponin I Ur Specific [place] Urine Protein Ur Leukocyte Esterase Urine WBC Urine Bacteria Hyaline Casts Urine Mucus Crossmatch 06/15/20 06/15/20 06/15/20 08:51 12:00 17:13 WBC RBC 3.00 L Hgb 8.7 L Hct 28.0 L MCHC RDW 16.3 H Neutrophils # Retic Count PT INR APTT ABG pH ABG pCO2 ABG pO2 ABG HCO3 ABG Total CO2 ABG O2 Saturation Sodium Potassium Chloride Carbon Dioxide BUN Creatinine Glucose POC Glucose (mg/dL) 217 H 136 H Total Bilirubin AST ALT Troponin I Ur Specific [place] Urine Protein Ur Leukocyte Esterase Urine WBC Urine Bacteria Hyaline Casts Urine Mucus Crossmatch 06/15/20 06/16/20 06/16/20 20:47 00:20 06:03 WBC RBC Hgb Hct MCHC RDW Neutrophils # Retic Count PT INR APTT ABG pH ABG pCO2 ABG pO2 ABG HCO3 ABG Total CO2 ABG O2 Saturation Sodium Potassium Chloride Carbon Dioxide BUN Creatinine Glucose POC Glucose (mg/dL) 183 H 187 H 135 H Total Bilirubin AST ALT Troponin I Ur Specific [place] Urine Protein Ur Leukocyte Esterase Urine WBC Urine Bacteria Hyaline Casts Urine Mucus Crossmatch 06/16/20 06/16/20 06/16/20 07:15 07:15 12:00 WBC 11.6 H RBC 2.87 L Hgb 8.8 L Hct 26.3 L MCHC RDW 16.6 H Neutrophils # 9.5 H Retic Count PT INR APTT ABG pH ABG pCO2 ABG pO2 ABG HCO3 ABG Total CO2 ABG O2 Saturation Sodium 136 L Potassium Chloride Carbon Dioxide BUN 46 H Creatinine Glucose 136 H POC Glucose (mg/dL) 150 H Total Bilirubin 1.5 H AST ALT Troponin I Ur Specific [place] Urine Protein Ur Leukocyte Esterase Urine WBC Urine Bacteria Hyaline Casts Urine Mucus Crossmatch 06/16/20 06/17/20 06/17/20 16:54 00:17 05:59 WBC RBC Hgb Hct MCHC RDW Neutrophils # Retic Count PT INR APTT ABG pH ABG pCO2 ABG pO2 ABG HCO3 ABG Total CO2 ABG O2 Saturation Sodium Potassium Chloride Carbon Dioxide BUN Creatinine Glucose POC Glucose (mg/dL) 154 H 143 H 151 H Total Bilirubin AST ALT Troponin I Ur Specific [place] Urine Protein Ur Leukocyte Esterase Urine WBC Urine Bacteria Hyaline Casts Urine Mucus Crossmatch 06/17/20 06/17/20 06/17/20 09:01 09:01 11:56 WBC 14.4 H RBC 2.94 L Hgb 8.9 L Hct 27.1 L MCHC RDW 16.5 H Neutrophils # Retic Count PT INR APTT ABG pH ABG pCO2 ABG pO2 ABG HCO3 ABG Total CO2 ABG O2 Saturation Sodium Potassium Chloride Carbon Dioxide BUN 49 H Creatinine 1.29 H Glucose 153 H POC Glucose (mg/dL) 169 H Total Bilirubin AST ALT Troponin I Ur Specific [place] Urine Protein Ur Leukocyte Esterase Urine WBC Urine Bacteria Hyaline Casts Urine Mucus Crossmatch 06/17/20 06/17/20 06/18/20 16:48 23:55 05:59 WBC RBC Hgb Hct MCHC RDW Neutrophils # Retic Count PT INR APTT ABG pH ABG pCO2 ABG pO2 ABG HCO3 ABG Total CO2 ABG O2 Saturation Sodium Potassium Chloride Carbon Dioxide BUN Creatinine Glucose POC Glucose (mg/dL) 193 H 206 H 153 H Total Bilirubin AST ALT Troponin I Ur Specific [place] Urine Protein Ur Leukocyte Esterase Urine WBC Urine Bacteria Hyaline Casts Urine Mucus Crossmatch 06/18/20 06/18/20 06/18/20 09:15 11:58 16:55 WBC 13.4 H RBC 3.19 L Hgb 8.9 L Hct 30.1 L MCHC 29.5 L RDW 16.6 H Neutrophils # 11.1 H Retic Count PT INR APTT ABG pH ABG pCO2 ABG pO2 ABG HCO3 ABG Total CO2 ABG O2 Saturation Sodium Potassium Chloride Carbon Dioxide BUN Creatinine Glucose POC Glucose (mg/dL) 143 H 155 H Total Bilirubin AST ALT Troponin I Ur Specific [place] Urine Protein Ur Leukocyte Esterase Urine WBC Urine Bacteria Hyaline Casts Urine Mucus Crossmatch 06/18/20 06/19/20 06/19/20 20:08 00:32 06:13 WBC RBC Hgb Hct MCHC RDW Neutrophils # Retic Count PT INR APTT ABG pH ABG pCO2 ABG pO2 ABG HCO3 ABG Total CO2 ABG O2 Saturation Sodium Potassium Chloride Carbon Dioxide BUN Creatinine Glucose POC Glucose (mg/dL) 203 H 164 H 156 H Total Bilirubin AST ALT Troponin I Ur Specific [place] Urine Protein Ur Leukocyte Esterase Urine WBC Urine Bacteria Hyaline Casts Urine Mucus Crossmatch 06/19/20 06/19/20 08:08 12:04 WBC RBC Hgb Hct MCHC RDW Neutrophils # Retic Count PT INR APTT ABG pH ABG pCO2 ABG pO2 ABG HCO3 ABG Total CO2 ABG O2 Saturation Sodium 147 H Potassium Chloride 112 H Carbon Dioxide BUN 65 H Creatinine 1.42 H Glucose 157 H POC Glucose (mg/dL) 174 H Total Bilirubin AST 115 H ALT 154 H Troponin I Ur Specific [place] Urine Protein Ur Leukocyte Esterase Urine WBC Urine Bacteria Hyaline Casts Urine Mucus Crossmatch Assessment and Plan Assessment: Altered mental status likely due to multifactorial: Metabolic encephalopathy (elevated LFT's, JAYE) and anemia due to GI bleed Acute kidney insufficiency Anemia due to likely GI bleed Diabetes type 2 Non-STEMI History of left parietal ischemic stroke in May 2020 with residual right-sided weakness Hypertension Diabetes X tobacco use Plan: Patient is currently on aspirin 81 mg daily. In the past he was on Plavix and seems that he is having GI bleed sole avoid Plavix from now on for now cardiology cleared him for him to be on aspirin and he is on aspirin 81 mg daily. Per cardiology to hold the statins because of elevated liver function and once his liver function improves recommend to restart Lipitor 40 mg daily. I ordered repeat CT head. I ordered ammonia level. If ammonia is elevated will defer the management to the primary as well as the GI team. I ordered TSH level. Since the vitamin B12 was low normal, I started the patient on Vitamin B12 1000mcg daily and folic acid 1mg daily. Gastroenterology and cardiology on board. The plan is discussed with the patient's son who is at bedside and his nurse. Thank you for the consultation. Sonny Posadas MD Neuro-Hospitalist Time with Patient: Greater than 30
[2020-06-19] MEDS ORDERED: PIPERACILLIN-TAZOBACTAM 3.375 GM in SODIUM CHLORIDE 0.9% 100 ML IVPB STA (17:38)
--- NOTE | 2020-06-19 18:03 | CT ---
EXAMINATION TYPE: CT brain wo con DATE OF EXAM: 06/19/2020 COMPARISON: 06/12/2020 HISTORY: weakness, ams CT DLP: 1115.4 mGycm Automated exposure control for dose reduction was used. Exam performed without contrast. There is cerebral cortical atrophy. There is no mass effect nor midline shift. There is no evidence o f intracranial hemorrhage. There is bone artifact which limits evaluation of the middle cranial fossa on the right side. There is 1 cm hypodense area in the left centrum semiovale consistent with an old lacunar infarct. Un changed. There is no evidence of posterior fossa mass. Calvarium is intact. There is normal aeration of the mastoid sinuses. IMPRESSION: Cerebral atrophy. Old left parietal centrum semiovale lacunar infarct. No change compared to old exam . No acute abnormality.
[2020-06-19] MEDS: FOLIC ACID 1 MG TAB PO SCH (20:18)
[2020-06-19] MEDS: CYANOCOBALAMIN 500 MCG TAB PO SCH (20:18)
[2020-06-19] MEDS: LORazepam 2 MG/ML INJ IV PRN (21:24)
[2020-06-20 00:05] LABS: Glucose,Whole Blood 200 mg/dL (75-99)
[2020-06-20] MEDS: INSULIN ASPART (NovoLOG) 100 UNIT/ML VIAL SQ SCH ×4 (00:20→18:25)
[2020-06-20] MEDS: PIPERACILLIN-TAZOBACTAM 3.375 GM in SODIUM CHLORIDE 0.9% 100 ML IVPB SCH ×4 (00:20→23:44)
[2020-06-20] MEDS: LORazepam 2 MG/ML INJ IV PRN ×2 (02:53→19:44)
[2020-06-20 06:02] LABS: Glucose,Whole Blood 140 mg/dL (75-99)
[2020-06-20] MEDS: IPRATROPIUM-ALBUTEROL 3 ML NEB INHALATION PRN (07:59)
[2020-06-20] MEDS ORDERED: lisinopriL 10 MG TAB PO SCH (09:00)
--- NOTE | 2020-06-20 09:03 | P.PN ---
Subjective Progress Note Date: 06/20/20 Patient became more hypoxic yesterday requiring BiPAP. Remains on BiPAP. Objective - Vital Signs Vital signs: Vital Signs Temp 98 F 06/20/20 04:00 Pulse 56 L 06/20/20 04:00 Resp 15 06/20/20 04:00 BP 121/72 06/20/20 04:00 Pulse Ox 96 06/20/20 04:00 Intake & Output 06/19/20 06/20/20 06/20/20 18:59 06:59 18:59 Intake Total 100 Output Total 1750 500 Balance -1650 -500 Weight 103.4 kg Intake: IV 100 Output: Urine 1750 500 Other: Voiding Method Indwelling Catheter Indwelling Catheter - Exam Gen: awake, alert, poor historian, on BiPAP HEENT: normocephalic, atraumatic Resp: Decreased breath sounds, no wheezing CVS: S1-S2, no rubs gallops or murmurs GI: soft, nontender, positive bowel sounds MSK: No clubbing cyanosis or edema Neuro: Right-sided residual weakness - Labs CBC & Chem 7: 06/18/20 09:15 06/19/20 08:08 Labs: Abnormal Lab Results - Last 24 Hours (Table) 06/19/20 06/19/20 06/19/20 Range/Units 12:04 16:36 19:06 D-Dimer 4.18 H (<0.60) mg/L FEU POC Glucose (mg/dL) 174 H 163 H (75-99) mg/dL Troponin I (0.000-0.034) ng/mL 06/19/20 06/20/20 06/20/20 Range/Units 19:06 00:03 06:00 D-Dimer (<0.60) mg/L FEU POC Glucose (mg/dL) 200 H 140 H (75-99) mg/dL Troponin I 0.859 H* (0.000-0.034) ng/mL Assessment and Plan Plan: Acute hypoxic Respiratory failure requiring BIPAP , continue oxygen and bronchodilators , pulmonology following Acute blood loss anemia GI bleed Hypotension from hypovolemia -PPI twice a day, appreciated GI input Hemoglobin stable at 8.9 yesterday Status post EGD 1. 1 cm clean-based antral ulcer with no active bleeding 2. Small distal esophageal nonbleeding varices. Non-STEMI Acute on Chronic Heart Failure with Reduced Ejection Fraction, EF 30-35% Ischemic Cardiomyopathy -Hold off on Plavix, and heparin due to GI bleed. on ASA Continue On metoprolol -Cardiology consult, appreciate recs -Echocardiogram multiple WMA, reduced EF -Lasix 20mg BID Acute Kidney Injury, improving -Received IV fluids Serum creatinine peaked at 1.6, fluctuates, was down to 1.2, currently 1.4, monitor Encephalopathy, unspecified History of CVA -Neurology consult, input appreciated -PT/OT -Avoid benzodiazepines, anticholinergics Continue to monitor Hypertension, essential -continue current meds Diabetes mellitus type 2 with hyperglycemia -Continue Low-dose sliding scale insulin Mild hyperkalemia Resolved, monitor Weakness: Consult PTOT. Input appreciated Right-sided pleural effusion and pneumonia of unspecified organism Continue abx , zosyn DVT prophylaxis is contraindicated due to acute blood loss anemia and GI bleed DO NOT RESUSCITATE/DO NOT INTUBATE Disposition: Rehab once clinically stable.
[2020-06-20] MEDS: CYANOCOBALAMIN 500 MCG TAB PO SCH (09:10)
[2020-06-20] MEDS: PANTOPRAZOLE 40 MG/10 ML VIAL IV SCH ×2 (09:10→19:44)
[2020-06-20] MEDS: ACETAMINOPHEN TAB 325 MG TAB PO PRN (09:11)
[2020-06-20] MEDS: FOLIC ACID 1 MG TAB PO SCH (09:11)
[2020-06-20] MEDS: FUROSEMIDE 20 MG TAB PO SCH ×2 (09:11→16:01)
[2020-06-20] MEDS: lisinopriL 5 MG TAB PO SCH (09:11)
[2020-06-20] MEDS: ASPIRIN 81 MG PO SCH (09:11)
[2020-06-20] MEDS: METOPROLOL TARTRATE 25 MG TAB PO SCH ×2 (09:11→19:45)
--- NOTE | 2020-06-20 10:27 | PN ---
PROGRESS NOTE DATE OF SERVICE: 06/20/2020 INTERVAL HISTORY: Patient is a 75-year-old white male admitted to the hospital with shortness of breath, anemia and melena. He subsequently was diagnosed with non ST-segment elevated IN. The patient was treated conservatively by Cardiology and in the meantime his overall respiratory status continued to improve and hence he underwent an upper endoscopy yesterday which revealed a 1 cm gastric antral ulcer with no active bleeding. Following the procedure, the patient apparently had some shortness of breath and desaturated and presently on BiPAP. He remains very confused. As per the nursing staff, no active bleeding noted through the night. PHYSICAL EXAMINATION: VITAL SIGNS: Blood pressure 121/72, pulse rate 56, temperature 98. HEENT: Examination unremarkable. Conjunctivae are pink. Sclerae anicteric. Oral cavity no lesions. NECK: No JVD or lymph node enlargement. HEART: Regular rate and rhythm. ABDOMEN: Soft, it was nontender, nondistended. Bowel sounds are positive. No organomegaly. NEURO: He is very confused. LABS: From yesterday, troponin was 0.85. BUN is 65, creatinine 1.25. IMPRESSION: 1. Anemia and melena, status post EGD yesterday that showed a 1 cm gastric antral ulcer with no active bleeding, status post biopsies. Presently on Protonix 40 mg twice daily. 2. Non ST-segment elevated myocardial infarction. Cardiology following the patient closely. 3. Shortness of breath, rule out pneumonia. Presently on BiPAP since yesterday. 4. History of hypertension and hyperlipidemia. 5. History of diabetes mellitus. RECOMMENDATIONS: 1. Continue with Protonix 40 mg twice daily. 2. Monitor CBC closely. 3. Await labs from this morning. 4. Continue with symptomatic and supportive care. 5. We will follow with you closely. Thank you for this consultation. MMODL / IJN: [id number] /
[2020-06-20 10:52] LABS: Basophils % (A) 0 %; Eosinophils % (A) 0 %; HCT 29.7 % (39.0-53.0); HGB 9.1 gm/dL (13.0-17.5); Hypochromasia Marked; Lymphocytes # (A) 0.7 k/uL (1.0-4.8); Lymphocytes % (A) 7 %; MCH 28.9 pg (25.0-35.0); MCHC 30.5 g/dL (31.0-37.0); MCV 94.8 fL (80.0-100.0); Mean Platelet Volume 9.2; Monocytes # (A) 0.5 k/uL (0-1.0); Monocytes % (A) 5 %; Neutrophils # (A) 8.8 k/uL (1.3-7.7); Neutrophils % (A) 88 %; Platelet Count 211 k/uL (150-450); Poikilocytosis Slight; RBC 3.14 m/uL (4.30-5.90); RDW 15.9 % (11.5-15.5)
[2020-06-20 11:03] LABS: Albumin 3.6 g/dL (3.5-5.0); Calcium 9.4 mg/dL (8.4-10.2); Potassium 4.2 mmol/L (3.5-5.1); Total Bilirubin 1.1 mg/dL (0.2-1.3)
--- NOTE | 2020-06-20 11:44 | P.PN ---
Subjective Progress Note Date: 06/20/20 06/20/2020 commode were discussed at to see this patient again. We were seeing him in the intensive care unit airway and we signed off this case. The patient is known to have CVA and the patient is also known to have severe cardiomyopathy with an ejection fraction of 3035% and the patient also has history of diabetes, hypertension, spinal stenosis and chronic back pain along with hiatal hernia peripheral neuropathy. The patient was in the ICU and the patient was treated for an acute non-STEMI without any interventions. He also had an acute anemia where he was given packed RBC transfusion. The patient subsequently had an EGD yesterday and post ED the patient became quite hypoxic placed on a BiPAP and he was significant altered mentally. Currently is on the percent nonrebreather facemask. His blood work is showing hyperchloremic hypernatremia with a sodium level of 153, creatinine is up to 1.6 which is consistent with a acute kidney injury. 2. from yesterday was at 0.8. The patient had a white cell count of 10 with a hemoglobin 9.1. The chest x-ray showed table interstitial pneumonitis mild four-vessel congestion. Computed tomography scan of the brain showed cerebral atrophy. There was an all the left parietal lacunar infarct. No change compared to the old exam. No acute abnormalities seen. The patient currently is on IV Zosyn as an empiric antibiotic coverage and this was started for possible underlying aspiration pneumonia. He is also on 100% nonrebreather facemask. Objective - Vital Signs Vital signs: Vital Signs Temp 98 F 06/20/20 04:00 Pulse 73 06/20/20 08:00 Resp 18 06/20/20 08:00 BP 124/65 06/20/20 08:00 Pulse Ox 100 06/20/20 08:00 Intake & Output 06/19/20 06/20/20 06/20/20 18:59 06:59 18:59 Intake Total 100 Output Total 1750 500 Balance -1650 -500 Weight 103.4 kg Intake: IV 100 Output: Urine 1750 500 Other: Voiding Method Indwelling Catheter Indwelling Catheter Indwelling Catheter - Exam GENERAL EXAM: Alert, pleasant 75-year-old gentleman, on 100% nonrebreather facemask, very much somnolent and lethargic, slow to response, has a weak cough. No signs of any significant respiratory distress. Not using accessory muscles of breathing. HEAD: Normocephalic. EYES: Normal reaction of pupils, equal size. NOSE: Clear with pink turbinates. THROAT: No erythema or exudates. NECK: No masses, no JVD. CHEST: No chest wall deformity. LUNGS: Equal air entry with faint crackles at right base CVS: S1 and S2 normal with no audible murmur, regular rhythm. ABDOMEN: No hepatosplenomegaly, normal bowel sounds, no guarding or rigidity. SPINE: No scoliosis or deformity SKIN: No rashes CENTRAL NERVOUS SYSTEM: The patient has motor weakness involving the right side that the previous CVA. He has a weak cough. Adequate sedation symmetry. Pupils are equal and reactive to light. Neurology evaluated the patient yesterday. EXTREMITIES: There is no peripheral edema. No clubbing, no cyanosis. Peripheral pulses are intact. - Labs CBC & Chem 7: 06/20/20 10:20 06/20/20 10:20 Labs: Abnormal Lab Results - Last 24 Hours (Table) 06/19/20 06/19/20 06/19/20 Range/Units 12:04 16:36 19:06 RBC (4.30-5.90) m/uL Hgb (13.0-17.5) gm/dL Hct (39.0-53.0) % MCHC (31.0-37.0) g/dL RDW (11.5-15.5) % Neutrophils # (1.3-7.7) k/uL Lymphocytes # (1.0-4.8) k/uL D-Dimer 4.18 H (<0.60) mg/L FEU Sodium (137-145) mmol/L Chloride (98-107) mmol/L BUN (9-20) mg/dL Creatinine (0.66-1.25) mg/dL Glucose (74-99) mg/dL POC Glucose (mg/dL) 174 H 163 H (75-99) mg/dL AST (17-59) U/L ALT (4-49) U/L Troponin I (0.000-0.034) ng/mL 06/19/20 06/20/20 06/20/20 Range/Units 19:06 00:03 06:00 RBC (4.30-5.90) m/uL Hgb (13.0-17.5) gm/dL Hct (39.0-53.0) % MCHC (31.0-37.0) g/dL RDW (11.5-15.5) % Neutrophils # (1.3-7.7) k/uL Lymphocytes # (1.0-4.8) k/uL D-Dimer (<0.60) mg/L FEU Sodium (137-145) mmol/L Chloride (98-107) mmol/L BUN (9-20) mg/dL Creatinine (0.66-1.25) mg/dL Glucose (74-99) mg/dL POC Glucose (mg/dL) 200 H 140 H (75-99) mg/dL AST (17-59) U/L ALT (4-49) U/L Troponin I 0.859 H* (0.000-0.034) ng/mL 06/20/20 06/20/20 Range/Units 10:20 10:20 RBC 3.14 L (4.30-5.90) m/uL Hgb 9.1 L (13.0-17.5) gm/dL Hct 29.7 L (39.0-53.0) % MCHC 30.5 L (31.0-37.0) g/dL RDW 15.9 H (11.5-15.5) % Neutrophils # 8.8 H (1.3-7.7) k/uL Lymphocytes # 0.7 L (1.0-4.8) k/uL D-Dimer (<0.60) mg/L FEU Sodium 153 H (137-145) mmol/L Chloride 113 H (98-107) mmol/L BUN 65 H (9-20) mg/dL Creatinine 1.61 H (0.66-1.25) mg/dL Glucose 146 H (74-99) mg/dL POC Glucose (mg/dL) (75-99) mg/dL AST 71 H (17-59) U/L ALT 124 H (4-49) U/L Troponin I (0.000-0.034) ng/mL Assessment and Plan Plan: 1 acute hypoxic respiratory failure, most likely aspirations occurred at the time of EGD, currently on Zosyn, currently off BiPAP on 100% nonrebreather facemask with a pulse ox of 97%. He has a weak cough. Should be able to wean down on his FiO2 further knowing that his current pulse ox is 97%. He is currently nothing by mouth. 2 acute hyperchloremic hypernatremia 3 acute kidney injury 4 recent EGD for workup of a GI bleed and anemia. EGD showing 5 Non-ST segment elevation myocardial infarction. No plans for intervention at this point 6 Recent CVA, with residual right-sided weakness, early May 2020. 7 Acute anemia, rule out GI bleed. Status post 2 units of packed red blood cells. Current hemoglobin 8.2. 8 Mild fluid overload/CHF. Echocardiogram revealed moderate to severe LV dysfunction with ejection fraction 30-35% 9 History of diabetes mellitus. 10 History of GERD. 11 History of hypertension. 12 History of diabetic neuropathy. 13 History of hiatal hernia. 14 History of constipation. 15 History of spinal stenosis with chronic low back pain. VERONICA Wean down the FiO2 to nasal cannula if possible to maintain saturation above 90% Aspiration precautions Keep the head of the bed elevated Speech consultation for swallow evaluation, consider PEG tube insertion IV Zosyn check a pro-calcitonin level We'll follow
[2020-06-20 12:21] LABS: Glucose,Whole Blood 135 mg/dL (75-99)
--- NOTE | 2020-06-20 13:26 | P.PN ---
Subjective Progress Note Date: 06/20/20 This is a 75-year-old gentleman with history of diabetes, hypertension, dyslipidemia, smoking and recently diagnosed with acute ischemic stroke on 05/07/2020. Percentage of the hospital on the ninth of this month with acute blood loss anemia, hypotension and chest pain. Stool for occult blood was found to be positive. Patient also was quite confused. He received one unit of packed blood cells. There were asked to see the patient in consultation for chest pain and abnormal troponin. His NT proBNP was elevated at 12,200 and he was diuresed and IV Lasix 20 mg BID. He underwent EGD yesterday and found to have a 1 cm gastric antral ulcer with no active bleeding. Did undergo echocardiogram with Doppler in May which revealed a normal LV systolic function with ejection fraction of 60-65%. The echocardiogram this admission revealed impaired impaired LV systolic function with ejection fraction between 30-35% with evidence of wall motion abnormalities. Following EGD yesterday patient and having respiratory distress and was placed on BiPAP. Patient continues to be quite confused. He is somewhat agitated during my examination. Objective - Vital Signs Vital signs: Vital Signs Temp 98 F 06/20/20 04:00 Pulse 73 06/20/20 08:00 Resp 18 06/20/20 08:00 BP 124/65 06/20/20 08:00 Pulse Ox 100 06/20/20 08:00 Intake & Output 06/19/20 06/20/20 06/20/20 18:59 06:59 18:59 Intake Total 100 Output Total 1750 500 Balance -1650 -500 Weight 103.4 kg Intake: IV 100 Output: Urine 1750 500 Other: Voiding Method Indwelling Catheter Indwelling Catheter Indwelling Catheter - Exam PHYSICAL EXAMINATION: HEENT: Head is atraumatic, normocephalic. Pupils equal, round. Neck is supple. There is no elevated jugular venous pressure. HEART EXAMINATION: Heart sounds regular, S1 and S2 normal. No murmur or gallop heard. CHEST EXAMINATION: Lungs diminished air entry bilaterally with wheezing throughout and scattered rhonchi. No chest wall tenderness is noted on palpation or with deep breathing. ABDOMEN: Soft, nontender. Bowel sounds are heard. No organomegaly noted. EXTREMITIES: 2+ peripheral pulses with no evidence of peripheral edema and no calf tenderness noted. NEUROLOGIC patient is awake, agitated. . - Labs CBC & Chem 7: 06/20/20 10:20 06/20/20 10:20 Labs: Abnormal Lab Results - Last 24 Hours (Table) 06/19/20 06/19/20 06/19/20 Range/Units 16:36 19:06 19:06 RBC (4.30-5.90) m/uL Hgb (13.0-17.5) gm/dL Hct (39.0-53.0) % MCHC (31.0-37.0) g/dL RDW (11.5-15.5) % Neutrophils # (1.3-7.7) k/uL Lymphocytes # (1.0-4.8) k/uL D-Dimer 4.18 H (<0.60) mg/L FEU Sodium (137-145) mmol/L Chloride (98-107) mmol/L BUN (9-20) mg/dL Creatinine (0.66-1.25) mg/dL Glucose (74-99) mg/dL POC Glucose (mg/dL) 163 H (75-99) mg/dL AST (17-59) U/L ALT (4-49) U/L Troponin I 0.859 H* (0.000-0.034) ng/mL 06/20/20 06/20/20 06/20/20 Range/Units 00:03 06:00 10:20 RBC 3.14 L (4.30-5.90) m/uL Hgb 9.1 L (13.0-17.5) gm/dL Hct 29.7 L (39.0-53.0) % MCHC 30.5 L (31.0-37.0) g/dL RDW 15.9 H (11.5-15.5) % Neutrophils # 8.8 H (1.3-7.7) k/uL Lymphocytes # 0.7 L (1.0-4.8) k/uL D-Dimer (<0.60) mg/L FEU Sodium (137-145) mmol/L Chloride (98-107) mmol/L BUN (9-20) mg/dL Creatinine (0.66-1.25) mg/dL Glucose (74-99) mg/dL POC Glucose (mg/dL) 200 H 140 H (75-99) mg/dL AST (17-59) U/L ALT (4-49) U/L Troponin I (0.000-0.034) ng/mL 06/20/20 06/20/20 Range/Units 10:20 12:08 RBC (4.30-5.90) m/uL Hgb (13.0-17.5) gm/dL Hct (39.0-53.0) % MCHC (31.0-37.0) g/dL RDW (11.5-15.5) % Neutrophils # (1.3-7.7) k/uL Lymphocytes # (1.0-4.8) k/uL D-Dimer (<0.60) mg/L FEU Sodium 153 H (137-145) mmol/L Chloride 113 H (98-107) mmol/L BUN 65 H (9-20) mg/dL Creatinine 1.61 H (0.66-1.25) mg/dL Glucose 146 H (74-99) mg/dL POC Glucose (mg/dL) 135 H (75-99) mg/dL AST 71 H (17-59) U/L ALT 124 H (4-49) U/L Troponin I (0.000-0.034) ng/mL Assessment and Plan Assessment: #1 altered mental status #2 acute blood loss anemia status post EGD showing 1 cm gastric antral ulcer with no active bleeding #3 acute kidney injury #4 non-ST elevation SC #5 recent ischemic stroke #6 acute systolic heart failure with reduced ejection fraction 30-35% #7 type 2 diabetes #8 hypertension #9 hyperlipidemia Plan: From cardiology's perspective we will repeat LFTs tomorrow. If they are trending down we will reinitiate statin at a lower dose. Continue aspirin and plavix. We will continue to follow the patient and provide further recommendations accordingly. LITIGATION ASSISTANT note has been reviewed, I agree with a documented findings and plan of care. Patient was seen and examined.
--- NOTE | 2020-06-20 14:12 | P.PN ---
Subjective Progress Note Date: 06/20/20 The patient was seen at bedside and per continues to be altered. He is off BIPAP upon seeing him. CT of the head that was repeated since his initial presentation was reported as cerebral atrophy. Old left parietal centrum semiovale lacunar infarct. No change compared to old exam. No acute abnormality. Patient had a EGD with biopsy on 06/19/2020 is reported as 1 cm clean-based antral ulcer still active bleeding. Small distal esophageal nonbleeding varices. Objective - Vital Signs Vital signs: Vital Signs Temp 98 F 06/20/20 04:00 Pulse 73 06/20/20 08:00 Resp 18 06/20/20 08:00 BP 124/65 06/20/20 08:00 Pulse Ox 100 06/20/20 08:00 Intake & Output 06/19/20 06/20/20 06/20/20 18:59 06:59 18:59 Intake Total 100 Output Total 1750 500 Balance -1650 -500 Weight 103.4 kg Intake: IV 100 Output: Urine 1750 500 Other: Voiding Method Indwelling Catheter Indwelling Catheter Indwelling Catheter - Exam GENERAL: The patient is lying in bed and appear in mild acute distress. Respitatory: Seems slightly in distressed. Not in acute labored breathing. NEUROLOGICAL: Higher mental function: The patient is drowsy but opens eyes. He correctly stated his name but did not respond to time and place. Was following simple commands. No neglect. Cranial nerves: The pupils are round, equal and reactive to light. Could not assess rest of cranial nerves because of patient's cooperation. EOM intact and tracking throughout the room. Motor: The strength is moving left side more than the right side and hard to assess strength because of coopeartion. Right hand squeeze was 5-/5. . Cerebellum: Could not assess. Sensation: Could not assess Reflexes (right/left): 2+ throughout. Plantars is upgoing on the right and mute on the left. - Labs CBC & Chem 7: 06/20/20 10:20 06/20/20 10:20 Labs: Abnormal Lab Results - Last 24 Hours (Table) 06/19/20 06/19/20 06/19/20 Range/Units 16:36 19:06 19:06 RBC (4.30-5.90) m/uL Hgb (13.0-17.5) gm/dL Hct (39.0-53.0) % MCHC (31.0-37.0) g/dL RDW (11.5-15.5) % Neutrophils # (1.3-7.7) k/uL Lymphocytes # (1.0-4.8) k/uL D-Dimer 4.18 H (<0.60) mg/L FEU Sodium (137-145) mmol/L Chloride (98-107) mmol/L BUN (9-20) mg/dL Creatinine (0.66-1.25) mg/dL Glucose (74-99) mg/dL POC Glucose (mg/dL) 163 H (75-99) mg/dL AST (17-59) U/L ALT (4-49) U/L Troponin I 0.859 H* (0.000-0.034) ng/mL 06/20/20 06/20/20 06/20/20 Range/Units 00:03 06:00 10:20 RBC 3.14 L (4.30-5.90) m/uL Hgb 9.1 L (13.0-17.5) gm/dL Hct 29.7 L (39.0-53.0) % MCHC 30.5 L (31.0-37.0) g/dL RDW 15.9 H (11.5-15.5) % Neutrophils # 8.8 H (1.3-7.7) k/uL Lymphocytes # 0.7 L (1.0-4.8) k/uL D-Dimer (<0.60) mg/L FEU Sodium (137-145) mmol/L Chloride (98-107) mmol/L BUN (9-20) mg/dL Creatinine (0.66-1.25) mg/dL Glucose (74-99) mg/dL POC Glucose (mg/dL) 200 H 140 H (75-99) mg/dL AST (17-59) U/L ALT (4-49) U/L Troponin I (0.000-0.034) ng/mL 06/20/20 06/20/20 Range/Units 10:20 12:08 RBC (4.30-5.90) m/uL Hgb (13.0-17.5) gm/dL Hct (39.0-53.0) % MCHC (31.0-37.0) g/dL RDW (11.5-15.5) % Neutrophils # (1.3-7.7) k/uL Lymphocytes # (1.0-4.8) k/uL D-Dimer (<0.60) mg/L FEU Sodium 153 H (137-145) mmol/L Chloride 113 H (98-107) mmol/L BUN 65 H (9-20) mg/dL Creatinine 1.61 H (0.66-1.25) mg/dL Glucose 146 H (74-99) mg/dL POC Glucose (mg/dL) 135 H (75-99) mg/dL AST 71 H (17-59) U/L ALT 124 H (4-49) U/L Troponin I (0.000-0.034) ng/mL Assessment and Plan Assessment: Altered mental status likely due to multifactorial: Metabolic encephalopathy (elevated LFT's, JAYE) and anemia. Worsening of right sided weakness could be due to underlying infection. History of left parietal ischemic stroke in May 2020 with residual right-sided weakness Acute kidney insufficiency Anemia Acute hypoxic respiratory failure most likely aspiration at time of EGD. Diabetes type 2 Non-STEMI Hypertension Diabetes X tobacco use Plan: Patient is currently on aspirin 81 mg daily. In the past he was on Plavix and seems that he is having GI bleed so avoid Plavix from now on for now cardiology cleared him for him to be on aspirin and he is on aspirin 81 mg daily. Per cardiology to hold the statins because of elevated liver function and once his liver function improves recommend to restart Lipitor [address] of the head that was repeated since his initial presentation was reported as cerebral atrophy. Old left parietal centrum semiovale lacunar infarct. No change compared to old exam. No acute abnormality. ammonia level <9 (normal). Repeat AST: 71 and ALT: 124 TSH level: 4.026 (normal). Since the vitamin B12 was low normal, I started the patient on Vitamin B12 1000mcg daily and folic acid 1mg daily. Gastroenterology and cardiology are on board. The plan is discussed with the patient's who is at bedside and his nurse. Will follow-up with patient sporadically. Sonny Posadas MD Neuro-Hospitalist Time with Patient: Less than 30
[2020-06-20] MEDS: MORPHINE SULFATE 2 MG/ML SYRINGE IV PRN ×2 (15:52→19:43)
[2020-06-20] MEDS: LACTATED RINGERS 1,000 ML IV SCH (16:01)
[2020-06-20 18:06] LABS: Glucose,Whole Blood 144 mg/dL (75-99)
[2020-06-21 00:10] LABS: Glucose,Whole Blood 156 mg/dL (75-99)
[2020-06-21] MEDS: INSULIN ASPART (NovoLOG) 100 UNIT/ML VIAL SQ SCH ×4 (00:30→18:13)
[2020-06-21] MEDS: LORazepam 2 MG/ML INJ IV PRN (02:15)
[2020-06-21] MEDS: MORPHINE SULFATE 2 MG/ML SYRINGE IV PRN (02:18)
[2020-06-21 06:36] LABS: Glucose,Whole Blood 140 mg/dL (75-99)
--- NOTE | 2020-06-21 07:07 | XR ---
EXAMINATION TYPE: XR chest 1V portable DATE OF EXAM: 06/21/2020 CLINICAL HISTORY: Difficulty breathing progress study. TECHNIQUE: Single AP portable upright view of the chest is obtained. COMPARISON: Chest x-ray from 2 days earlier and older studies FINDINGS: Persistent right basilar opacity stable or slightly worsened. Improved aeration left lung base. Stable mild cardiomegaly with atherosclerotic and ectatic thoracic aorta. Visualized osseous st ructures are intact. Overlying EKG leads redemonstrated. IMPRESSION: Improved aeration left lung base. Persistent small right pleural effusion and right basil ar acute infiltrate and/or atelectasis felt slightly worsened from most recent study.
[2020-06-21] MEDS: PIPERACILLIN-TAZOBACTAM 3.375 GM in SODIUM CHLORIDE 0.9% 100 ML IVPB SCH ×2 (08:22→18:11)
[2020-06-21] MEDS: ASPIRIN 81 MG PO SCH (08:23)
[2020-06-21] MEDS: METOPROLOL TARTRATE 25 MG TAB PO SCH (08:23)
[2020-06-21] MEDS: CYANOCOBALAMIN 500 MCG TAB PO SCH (08:23)
[2020-06-21] MEDS: FUROSEMIDE 20 MG TAB PO SCH (08:23)
[2020-06-21] MEDS: PANTOPRAZOLE 40 MG/10 ML VIAL IV SCH ×2 (08:23→21:44)
[2020-06-21] MEDS: lisinopriL 5 MG TAB PO SCH (08:23)
[2020-06-21] MEDS: FOLIC ACID 1 MG TAB PO SCH (08:23)
[2020-06-21 08:45] LABS: Albumin 3.4 g/dL (3.5-5.0); Calcium 9.5 mg/dL (8.4-10.2); Potassium 4.6 mmol/L (3.5-5.1); Total Bilirubin 1.2 mg/dL (0.2-1.3); Total Protein 6.7 g/dL (6.3-8.2)
--- NOTE | 2020-06-21 08:57 | P.PN ---
Subjective Progress Note Date: 06/21/20 Feels better, off BiPAP, on 5 L of oxygen. No chest pain, no abdominal pain. Objective - Vital Signs Vital signs: Vital Signs Temp 97.8 F 06/21/20 08:00 Pulse 64 06/21/20 08:00 Resp 19 06/21/20 08:00 BP 106/67 06/21/20 08:00 Pulse Ox 99 06/21/20 08:00 Intake & Output 06/20/20 06/21/20 06/21/20 18:59 06:59 18:59 Intake Total 480 250 Output Total 600 200 500 Balance -120 50 -500 Weight 107.728 kg Intake: Intake, IV Titration 240 Amount Lactated Ringers 1,000 ml 40 @ 20 mls/hr IV .Q24H ROBERTO CARLOS Rx#:[id number] Piperacillin-Tazobactam 3 200 .375 gm In Sodium Chloride 0.9% 100 ml @ 25 mls/hr IVPB Q8HR ROBERTO CARLOS Rx# :[id number] Oral 240 250 Output: Urine 600 200 500 Uretheral (Kim) 200 Other: Voiding Method Indwelling Catheter Indwelling Catheter - Exam Gen: awake, alert, poor historian, on 5 L of oxygen HEENT: normocephalic, atraumatic Resp: Decreased breath sounds, no wheezing CVS: S1-S2, no rubs gallops or murmurs GI: soft, nontender, positive bowel sounds MSK: No clubbing cyanosis or edema Neuro: Right-sided residual weakness - Labs CBC & Chem 7: 06/20/20 10:20 06/20/20 10:20 Labs: Abnormal Lab Results - Last 24 Hours (Table) 06/20/20 06/20/20 06/20/20 Range/Units 10:20 10:20 10:20 RBC 3.14 L (4.30-5.90) m/uL Hgb 9.1 L (13.0-17.5) gm/dL Hct 29.7 L (39.0-53.0) % MCHC 30.5 L (31.0-37.0) g/dL RDW 15.9 H (11.5-15.5) % Neutrophils # 8.8 H (1.3-7.7) k/uL Lymphocytes # 0.7 L (1.0-4.8) k/uL Sodium 153 H (137-145) mmol/L Chloride 113 H (98-107) mmol/L BUN 65 H (9-20) mg/dL Creatinine 1.61 H (0.66-1.25) mg/dL Glucose 146 H (74-99) mg/dL POC Glucose (mg/dL) (75-99) mg/dL AST 71 H (17-59) U/L ALT 124 H (4-49) U/L Procalcitonin 0.33 H (0.02-0.09) ng/mL 06/20/20 06/20/20 06/20/20 Range/Units 12:08 18:05 23:54 RBC (4.30-5.90) m/uL Hgb (13.0-17.5) gm/dL Hct (39.0-53.0) % MCHC (31.0-37.0) g/dL RDW (11.5-15.5) % Neutrophils # (1.3-7.7) k/uL Lymphocytes # (1.0-4.8) k/uL Sodium (137-145) mmol/L Chloride (98-107) mmol/L BUN (9-20) mg/dL Creatinine (0.66-1.25) mg/dL Glucose (74-99) mg/dL POC Glucose (mg/dL) 135 H 144 H 156 H (75-99) mg/dL AST (17-59) U/L ALT (4-49) U/L Procalcitonin (0.02-0.09) ng/mL 06/21/20 Range/Units 06:33 RBC (4.30-5.90) m/uL Hgb (13.0-17.5) gm/dL Hct (39.0-53.0) % MCHC (31.0-37.0) g/dL RDW (11.5-15.5) % Neutrophils # (1.3-7.7) k/uL Lymphocytes # (1.0-4.8) k/uL Sodium (137-145) mmol/L Chloride (98-107) mmol/L BUN (9-20) mg/dL Creatinine (0.66-1.25) mg/dL Glucose (74-99) mg/dL POC Glucose (mg/dL) 140 H (75-99) mg/dL AST (17-59) U/L ALT (4-49) U/L Procalcitonin (0.02-0.09) ng/mL Assessment and Plan Plan: Acute hypoxic Respiratory failure requiring BIPAP , continue oxygen and bronchodilators , pulmonology following , now off BiPAP, on 5 L of oxygen Acute blood loss anemia GI bleed Hypotension from hypovolemia -PPI twice a day, appreciated GI input Hemoglobin stable at 8.9 yesterday Status post EGD 1. 1 cm clean-based antral ulcer with no active bleeding 2. Small distal esophageal nonbleeding varices. GI following Non-STEMI Acute on Chronic Heart Failure with Reduced Ejection Fraction, EF 30-35% Ischemic Cardiomyopathy -Hold off on Plavix, and heparin due to GI bleed. on ASA Continue On metoprolol -Cardiology consult, appreciate recs -Echocardiogram multiple WMA, reduced EF -Lasix 20mg BID Acute Kidney Injury, improving -Received IV fluids Serum creatinine peaked at 1.6, up to 1.6 again yesterday. Encephalopathy, unspecified History of CVA -Neurology following -PT/OT -Avoid benzodiazepines, anticholinergics Continue to monitor Speech evaluation Hypertension, essential -continue current meds Diabetes mellitus type 2 with hyperglycemia -Continue Low-dose sliding scale insulin Mild hyperkalemia Resolved, monitor Weakness: Consult PTOT. Input appreciated Right-sided pleural effusion and pneumonia of unspecified organism Continue abx , zosyn Pulmonology following DVT prophylaxis is contraindicated due to acute blood loss anemia and GI bleed DO NOT RESUSCITATE/DO NOT INTUBATE Disposition: Rehab once clinically stable.
[2020-06-21 09:02] LABS: Basophils % (A) 0 %; Eosinophils % (A) 0 %; HCT 31.5 % (39.0-53.0); HGB 9.2 gm/dL (13.0-17.5); Hypochromasia Marked; Lymphocytes # (A) 1.3 k/uL (1.0-4.8); Lymphocytes % (A) 14 %; MCH 28.6 pg (25.0-35.0); MCHC 29.4 g/dL (31.0-37.0); MCV 97.3 fL (80.0-100.0); Macrocytosis Slight; Mean Platelet Volume 9.1; Monocytes # (A) 0.6 k/uL (0-1.0); Monocytes % (A) 7 %; Neutrophils # (A) 7.4 k/uL (1.3-7.7); Neutrophils % (A) 79 %; Platelet Count 198 k/uL (150-450); Poikilocytosis Slight; RBC 3.23 m/uL (4.30-5.90); RDW 15.9 % (11.5-15.5); WBC 9.4 k/uL (3.8-10.6)
--- NOTE | 2020-06-21 11:11 | P.PN ---
Subjective Progress Note Date: 06/21/20 06/20/2020 commode were discussed at to see this patient again. We were seeing him in the intensive care unit airway and we signed off this case. The patient is known to have CVA and the patient is also known to have severe cardiomyopathy with an ejection fraction of 3035% and the patient also has history of diabetes, hypertension, spinal stenosis and chronic back pain along with hiatal hernia peripheral neuropathy. The patient was in the ICU and the patient was treated for an acute non-STEMI without any interventions. He also had an acute anemia where he was given packed RBC transfusion. The patient subsequently had an EGD yesterday and post ED the patient became quite hypoxic placed on a BiPAP and he was significant altered mentally. Currently is on the percent nonrebreather facemask. His blood work is showing hyperchloremic hypernatremia with a sodium level of 153, creatinine is up to 1.6 which is consistent with a acute kidney injury. 2. from yesterday was at 0.8. The patient had a white cell count of 10 with a hemoglobin 9.1. The chest x-ray showed table interstitial pneumonitis mild four-vessel congestion. Computed tomography scan of the brain showed cerebral atrophy. There was an all the left parietal lacunar infarct. No change compared to the old exam. No acute abnormalities seen. The patient currently is on IV Zosyn as an empiric antibiotic coverage and this was started for possible underlying aspiration pneumonia. He is also on 100% nonrebreather facemask. 06/21 2020, the patient is more comfortable and he was taken off the BiPAP. He is very lethargic and somnolent and his breathing is not labored. He is currently on 5 L of oxygen by nasal cannula with a pulse of 79%. Chest x-ray shows improved aeration and there is a small right-sided pleural effusion. The patient remains on IV Zosyn. Hemoglobin is also stable at 9.2 and there is no evidence of bleeding. The patient remains to be hypernatremic and a sodium level is at 157. This is to be replaced. The patient's creatinine is at 1.7. He does have a free water deficit and the patient is currently on no IV fluids and he is quite dry. Kim catheter in place. Objective - Vital Signs Vital signs: Vital Signs Temp 97.8 F 06/21/20 08:00 Pulse 64 06/21/20 08:00 Resp 19 06/21/20 08:00 BP 106/67 06/21/20 08:00 Pulse Ox 99 06/21/20 08:00 Intake & Output 06/20/20 06/21/20 06/21/20 18:59 06:59 18:59 Intake Total 480 250 Output Total 600 200 500 Balance -120 50 -500 Weight 107.728 kg Intake: Intake, IV Titration 240 Amount Lactated Ringers 1,000 ml 40 @ 20 mls/hr IV .Q24H ROBERTO CARLOS Rx#:[id number] Piperacillin-Tazobactam 3 200 .375 gm In Sodium Chloride 0.9% 100 ml @ 25 mls/hr IVPB Q8HR ROBERTO CARLOS Rx# :[id number] Oral 240 250 Output: Urine 600 200 500 Uretheral (Kim) 200 Other: Voiding Method Indwelling Catheter Indwelling Catheter Indwelling Catheter - Exam GENERAL EXAM: Alert, pleasant 75-year-old gentleman, lethargic, somnolent, nonresponsive, dry and his mucous membranes are very much dried up. He is currently on 5 L of oxygen by nasal cannula. HEAD: Normocephalic. EYES: Normal reaction of pupils, equal size. NOSE: Clear with pink turbinates. THROAT: No erythema or exudates. NECK: No masses, no JVD. CHEST: No chest wall deformity. LUNGS: Equal air entry with faint crackles at right base CVS: S1 and S2 normal with no audible murmur, regular rhythm. ABDOMEN: No hepatosplenomegaly, normal bowel sounds, no guarding or rigidity. SPINE: No scoliosis or deformity SKIN: No rashes CENTRAL NERVOUS SYSTEM: The patient has motor weakness involving the right side that the previous CVA. He has a weak cough. Adequate sedation symmetry. Pupils are equal and reactive to light. Neurology evaluated the patient yesterday. EXTREMITIES: There is no peripheral edema. No clubbing, no cyanosis. Peripheral pulses are intact. - Labs CBC & Chem 7: 06/21/20 08:01 06/21/20 08:01 Labs: Abnormal Lab Results - Last 24 Hours (Table) 06/20/20 06/20/20 06/20/20 Range/Units 10:20 12:08 18:05 RBC (4.30-5.90) m/uL Hgb (13.0-17.5) gm/dL Hct (39.0-53.0) % MCHC (31.0-37.0) g/dL RDW (11.5-15.5) % Sodium (137-145) mmol/L Chloride (98-107) mmol/L Carbon Dioxide (22-30) mmol/L BUN (9-20) mg/dL Creatinine (0.66-1.25) mg/dL Glucose (74-99) mg/dL POC Glucose (mg/dL) 135 H 144 H (75-99) mg/dL AST (17-59) U/L ALT (4-49) U/L Albumin (3.5-5.0) g/dL Procalcitonin 0.33 H (0.02-0.09) ng/mL 06/20/20 06/21/20 06/21/20 Range/Units 23:54 06:33 08:01 RBC 3.23 L (4.30-5.90) m/uL Hgb 9.2 L (13.0-17.5) gm/dL Hct 31.5 L (39.0-53.0) % MCHC 29.4 L (31.0-37.0) g/dL RDW 15.9 H (11.5-15.5) % Sodium (137-145) mmol/L Chloride (98-107) mmol/L Carbon Dioxide (22-30) mmol/L BUN (9-20) mg/dL Creatinine (0.66-1.25) mg/dL Glucose (74-99) mg/dL POC Glucose (mg/dL) 156 H 140 H (75-99) mg/dL AST (17-59) U/L ALT (4-49) U/L Albumin (3.5-5.0) g/dL Procalcitonin (0.02-0.09) ng/mL 06/21/20 Range/Units 08:01 RBC (4.30-5.90) m/uL Hgb (13.0-17.5) gm/dL Hct (39.0-53.0) % MCHC (31.0-37.0) g/dL RDW (11.5-15.5) % Sodium 157 H (137-145) mmol/L Chloride 120 H (98-107) mmol/L Carbon Dioxide 31 H (22-30) mmol/L BUN 71 H (9-20) mg/dL Creatinine 1.78 H (0.66-1.25) mg/dL Glucose 141 H (74-99) mg/dL POC Glucose (mg/dL) (75-99) mg/dL AST 77 H (17-59) U/L ALT 113 H (4-49) U/L Albumin 3.4 L (3.5-5.0) g/dL Procalcitonin (0.02-0.09) ng/mL Assessment and Plan Plan: 1 acute hypoxic respiratory failure, most likely aspirations occurred at the time of EGD, currently on Zosyn, and a chest x-ray showing some improved aeration regarding the aspiration pneumonia and the patient has a small right- sided pleural effusion currently on 5 L of oxygen by nasal cannula and the patient was taken off the BiPAP 2 acute hyperchloremic hypernatremia, with a significant free water deficit and the patient's sodium level is at 157 3 acute kidney injury 4 recent EGD for workup of a GI bleed and anemia. EGD showing 5 Non-ST segment elevation myocardial infarction. No plans for intervention at this point 6 Recent CVA, with residual right-sided weakness, early May 2020. 7 Acute anemia, rule out GI bleed. Status post 2 units of packed red blood cells. Current hemoglobin 8.2. 8 Mild fluid overload/CHF. Echocardiogram revealed moderate to severe LV dysfunction with ejection fraction 30-35% 9 History of diabetes mellitus. 10 History of GERD. 11 History of hypertension. 12 History of diabetic neuropathy. 13 History of hiatal hernia. 14 History of constipation. 15 History of spinal stenosis with chronic low back pain. VERONICA Wean down the FiO2 to nasal cannula if possible to maintain saturation above 90% Aspiration precautions Keep the head of the bed elevated Speech consultation for swallow evaluation, consider PEG tube insertion IV Zosyn The patient IV fluids with D5 water at the rate of 100 mL an hour as the patient has significant amount of free water deficit. Stop Lasix check a pro-calcitonin level elevated secondary to his underlying aspiration pneumonia. Chest x-ray from today was favorable. Monitor mental status No active pulmonary issues for now. Continue antibiotics. Aspiration precautions. I will leave the rest of the management up to the medical team.
[2020-06-21 11:24] LABS: Poikilocytosis (M) Present; Polychromasia Present
[2020-06-21 12:00] LABS: Glucose,Whole Blood 122 mg/dL (75-99)
--- NOTE | 2020-06-21 13:00 | P.PN ---
Subjective Progress Note Date: 06/21/20 This is a 75-year-old gentleman with history of diabetes, hypertension, dyslipidemia, smoking and recently diagnosed with acute ischemic stroke on 05/07/2020. Percentage of the hospital on the ninth of this month with acute blood loss anemia, hypotension and chest pain. Stool for occult blood was found to be positive. Patient also was quite confused. He received one unit of packed blood cells. There were asked to see the patient in consultation for chest pain and abnormal troponin. His NT proBNP was elevated at 12,200 and he was diuresed and IV Lasix 20 mg BID. He underwent EGD yesterday and found to have a 1 cm gastric antral ulcer with no active bleeding. Did undergo echocardiogram with Doppler in May which revealed a normal LV systolic function with ejection fraction of 60-65%. The echocardiogram this admission revealed impaired impaired LV systolic function with ejection fraction between 30-35% with evidence of wall motion abnormalities. Following EGD yesterday patient and having respiratory distress and was placed on BiPAP. Patient continues to be quite confused. He is somewhat agitated during my examination. 06/21/2020 The patient remains somewhat agitated, drowsy, does not respond appropriately to stimuli. Sodium was up to 157 this morning and his Lasix was discontinued. He is currently receiving D5W. BUN and creatinine are elevated compared to yesterday at 71 and 1.78. He continues to be on aspirin 81 mg by mouth daily, lisinopril 5 mg daily and Lopressor 25 mg twice a day. Objective - Vital Signs Vital signs: Vital Signs Temp 97.8 F 06/21/20 08:00 Pulse 64 06/21/20 08:00 Resp 19 06/21/20 08:00 BP 106/67 06/21/20 08:00 Pulse Ox 99 06/21/20 08:00 Intake & Output 06/20/20 06/21/20 06/21/20 18:59 06:59 18:59 Intake Total 480 250 Output Total 600 200 500 Balance -120 50 -500 Weight 107.728 kg Intake: Intake, IV Titration 240 Amount Lactated Ringers 1,000 ml 40 @ 20 mls/hr IV .Q24H ROBERTO CARLOS Rx#:[id number] Piperacillin-Tazobactam 3 200 .375 gm In Sodium Chloride 0.9% 100 ml @ 25 mls/hr IVPB Q8HR ROBERTO CARLOS Rx# :[id number] Oral 240 250 Output: Urine 600 200 500 Uretheral (Kim) 200 Other: Voiding Method Indwelling Catheter Indwelling Catheter Indwelling Catheter - Exam PHYSICAL EXAMINATION: HEENT: Head is atraumatic, normocephalic. Pupils equal, round. Neck is supple. There is no elevated jugular venous pressure. HEART EXAMINATION: Heart sounds regular, S1 and S2 normal. No murmur or gallop heard. CHEST EXAMINATION: Lungs diminished air entry bilaterally with scattered rhonchi. No chest wall tenderness is noted on palpation or with deep breathing. ABDOMEN: Soft, nontender. Bowel sounds are heard. No organomegaly noted. EXTREMITIES: 2+ peripheral pulses with no evidence of peripheral edema and no calf tenderness noted. NEUROLOGIC patient is drowsy, agitated. . - Labs CBC & Chem 7: 06/21/20 08:01 06/21/20 08:01 Labs: Abnormal Lab Results - Last 24 Hours (Table) 06/20/20 06/20/20 06/20/20 Range/Units 10:20 18:05 23:54 RBC (4.30-5.90) m/uL Hgb (13.0-17.5) gm/dL Hct (39.0-53.0) % MCHC (31.0-37.0) g/dL RDW (11.5-15.5) % Sodium (137-145) mmol/L Chloride (98-107) mmol/L Carbon Dioxide (22-30) mmol/L BUN (9-20) mg/dL Creatinine (0.66-1.25) mg/dL Glucose (74-99) mg/dL POC Glucose (mg/dL) 144 H 156 H (75-99) mg/dL AST (17-59) U/L ALT (4-49) U/L Albumin (3.5-5.0) g/dL Procalcitonin 0.33 H (0.02-0.09) ng/mL 06/21/20 06/21/20 06/21/20 Range/Units 06:33 08:01 08:01 RBC 3.23 L (4.30-5.90) m/uL Hgb 9.2 L (13.0-17.5) gm/dL Hct 31.5 L (39.0-53.0) % MCHC 29.4 L (31.0-37.0) g/dL RDW 15.9 H (11.5-15.5) % Sodium 157 H (137-145) mmol/L Chloride 120 H (98-107) mmol/L Carbon Dioxide 31 H (22-30) mmol/L BUN 71 H (9-20) mg/dL Creatinine 1.78 H (0.66-1.25) mg/dL Glucose 141 H (74-99) mg/dL POC Glucose (mg/dL) 140 H (75-99) mg/dL AST 77 H (17-59) U/L ALT 113 H (4-49) U/L Albumin 3.4 L (3.5-5.0) g/dL Procalcitonin (0.02-0.09) ng/mL 06/21/20 Range/Units 11:58 RBC (4.30-5.90) m/uL Hgb (13.0-17.5) gm/dL Hct (39.0-53.0) % MCHC (31.0-37.0) g/dL RDW (11.5-15.5) % Sodium (137-145) mmol/L Chloride (98-107) mmol/L Carbon Dioxide (22-30) mmol/L BUN (9-20) mg/dL Creatinine (0.66-1.25) mg/dL Glucose (74-99) mg/dL POC Glucose (mg/dL) 122 H (75-99) mg/dL AST (17-59) U/L ALT (4-49) U/L Albumin (3.5-5.0) g/dL Procalcitonin (0.02-0.09) ng/mL Assessment and Plan Assessment: #1 altered mental status #2 acute blood loss anemia status post EGD showing 1 cm gastric antral ulcer with no active bleeding #3 acute kidney injury #4 non-ST elevation ND #5 recent ischemic stroke #6 acute systolic heart failure with reduced ejection fraction 30-35% #7 type 2 diabetes #8 hypertension #9 hyperlipidemia Plan: From cardiology's perspective medications were reviewed and we will continue the same. Patient's prognosis is guarded. We will continue to follow the patient and provide further recommendations accordingly. HURRICANE TRACKER note has been reviewed, I agree with a documented findings and plan of care. Patient was seen and examined.
[2020-06-21 18:06] LABS: Glucose,Whole Blood 190 mg/dL (75-99)
[2020-06-21] MEDS: DEXTROSE 5% IN WATER 1,000 ML IV SCH (18:11)
[2020-06-21] MEDS ORDERED: LORazepam 2 MG/ML INJ IV STA (23:16)
[2020-06-22 00:07] LABS: Glucose,Whole Blood 224 mg/dL (75-99)
[2020-06-22] MEDS: METOPROLOL TARTRATE 25 MG TAB PO SCH ×2 (01:21→07:50)
[2020-06-22] MEDS: INSULIN ASPART (NovoLOG) 100 UNIT/ML VIAL SQ SCH ×4 (01:28→17:12)
[2020-06-22] MEDS: DEXTROSE 5% IN WATER 1,000 ML IV SCH ×4 (01:29→12:11)
[2020-06-22] MEDS: PIPERACILLIN-TAZOBACTAM 3.375 GM in SODIUM CHLORIDE 0.9% 100 ML IVPB SCH ×3 (01:32→15:05)
[2020-06-22 01:33] LABS: Glucose,Whole Blood 254 mg/dL (75-99)
[2020-06-22 03:38] LABS: Basophils % (A) 0 %; Eosinophils % (A) 0 %; HCT 35.9 % (39.0-53.0); HGB 10.3 gm/dL (13.0-17.5); Hypochromasia Marked; Lymphocytes # (A) 1.4 k/uL (1.0-4.8); Lymphocytes % (A) 14 %; MCHC 28.7 g/dL (31.0-37.0); MCV 97.4 fL (80.0-100.0); Macrocytosis Slight; Mean Platelet Volume 9.5; Monocytes # (A) 0.5 k/uL (0-1.0); Monocytes % (A) 5 %; Neutrophils # (A) 8.2 k/uL (1.3-7.7); Neutrophils % (A) 81 %; Platelet Count 191 k/uL (150-450); Poikilocytosis Slight; RBC 3.69 m/uL (4.30-5.90); RDW 15.8 % (11.5-15.5); WBC 10.2 k/uL (3.8-10.6)
[2020-06-22 03:44] LABS: Albumin 3.6 g/dL (3.5-5.0); Potassium 3.8 mmol/L (3.5-5.1); Total Bilirubin 1.5 mg/dL (0.2-1.3); Total Protein 6.9 g/dL (6.3-8.2)
[2020-06-22 06:18] LABS: Glucose,Whole Blood 101 mg/dL (75-99)
[2020-06-22] MEDS: CYANOCOBALAMIN 500 MCG TAB PO SCH (07:50)
[2020-06-22] MEDS: lisinopriL 5 MG TAB PO SCH (07:50)
[2020-06-22] MEDS: ASPIRIN 81 MG PO SCH (07:50)
[2020-06-22] MEDS: FOLIC ACID 1 MG TAB PO SCH (07:50)
[2020-06-22] MEDS: PANTOPRAZOLE 40 MG/10 ML VIAL IV SCH ×2 (08:10→20:36)
--- NOTE | 2020-06-22 09:50 | P.PN ---
Subjective Progress Note Date: 06/22/20 Remains a 5 L of oxygen. Restless at times. Objective - Vital Signs Vital signs: Vital Signs Temp 97 F L 06/22/20 08:00 Pulse 78 06/22/20 08:00 Resp 16 06/22/20 08:00 BP 122/67 06/22/20 08:00 Pulse Ox 99 06/22/20 08:00 Intake & Output 06/21/20 06/22/20 06/22/20 18:59 06:59 18:59 Intake Total 0 0 125 Output Total 1480 250 500 Balance -1480 -250 -375 Weight 109.5 kg Intake: Oral 0 0 125 Output: Urine 1480 250 500 Uretheral (Kim) 250 Other: Voiding Method Indwelling Catheter Indwelling Catheter Indwelling Catheter - Exam Gen: awake, alert, poor historian, on 5 L of oxygen HEENT: normocephalic, atraumatic Resp: Decreased breath sounds, no wheezing CVS: S1-S2, no rubs gallops or murmurs GI: soft, nontender, positive bowel sounds MSK: No clubbing cyanosis or edema Neuro: Right-sided residual weakness - Labs CBC & Chem 7: 06/22/20 02:51 06/22/20 03:03 Labs: Abnormal Lab Results - Last 24 Hours (Table) 06/21/20 06/21/20 06/22/20 Range/Units 11:58 18:05 00:06 RBC (4.30-5.90) m/uL Hgb (13.0-17.5) gm/dL Hct (39.0-53.0) % MCHC (31.0-37.0) g/dL RDW (11.5-15.5) % Neutrophils # (1.3-7.7) k/uL Sodium (137-145) mmol/L Chloride (98-107) mmol/L BUN (9-20) mg/dL Creatinine (0.66-1.25) mg/dL Glucose (74-99) mg/dL POC Glucose (mg/dL) 122 H 190 H 224 H (75-99) mg/dL Total Bilirubin (0.2-1.3) mg/dL AST (17-59) U/L ALT (4-49) U/L 06/22/20 06/22/20 06/22/20 Range/Units 01:27 02:51 03:03 RBC 3.69 L (4.30-5.90) m/uL Hgb 10.3 L (13.0-17.5) gm/dL Hct 35.9 L (39.0-53.0) % MCHC 28.7 L (31.0-37.0) g/dL RDW 15.8 H (11.5-15.5) % Neutrophils # 8.2 H (1.3-7.7) k/uL Sodium 162 H* (137-145) mmol/L Chloride 124 H (98-107) mmol/L BUN 62 H (9-20) mg/dL Creatinine 1.64 H (0.66-1.25) mg/dL Glucose 144 H (74-99) mg/dL POC Glucose (mg/dL) 254 H (75-99) mg/dL Total Bilirubin 1.5 H (0.2-1.3) mg/dL AST 102 H (17-59) U/L ALT 95 H (4-49) U/L 06/22/20 Range/Units 06:16 RBC (4.30-5.90) m/uL Hgb (13.0-17.5) gm/dL Hct (39.0-53.0) % MCHC (31.0-37.0) g/dL RDW (11.5-15.5) % Neutrophils # (1.3-7.7) k/uL Sodium (137-145) mmol/L Chloride (98-107) mmol/L BUN (9-20) mg/dL Creatinine (0.66-1.25) mg/dL Glucose (74-99) mg/dL POC Glucose (mg/dL) 101 H (75-99) mg/dL Total Bilirubin (0.2-1.3) mg/dL AST (17-59) U/L ALT (4-49) U/L Assessment and Plan Plan: Acute hypoxic Respiratory failure requiring BIPAP , continue oxygen and bronchodilators , pulmonology following , now off BiPAP, on 5 L of oxygen Acute blood loss anemia GI bleed Hypotension from hypovolemia -PPI twice a day, appreciated GI input Hemoglobin improved to 10.3 Status post EGD 1. 1 cm clean-based antral ulcer with no active bleeding 2. Small distal esophageal nonbleeding varices. GI following Non-STEMI Acute on Chronic Heart Failure with Reduced Ejection Fraction, EF 30-35% Ischemic Cardiomyopathy -Hold off on Plavix, and heparin due to GI bleed. Continue on ASA Continue On metoprolol -Cardiology consult, appreciate recs -Echocardiogram multiple WMA, reduced EF -Lasix 20mg BID Acute Kidney Injury, improving -Received IV fluids Serum creatinine peaked at 1.6 Encephalopathy, unspecified History of CVA -Neurology following -PT/OT -Avoid benzodiazepines, anticholinergics Continue to monitor Speech evaluation Hypertension, essential -continue current meds Diabetes mellitus type 2 with hyperglycemia -Continue Low-dose sliding scale insulin Mild hyperkalemia Resolved, monitor Weakness: Consult PTOT. Input appreciated Right-sided pleural effusion and pneumonia of unspecified organism Continue abx , zosyn Pulmonology following Hypernatremia: Serum sodium 162, place on D5 half-normal saline DVT prophylaxis is contraindicated due to acute blood loss anemia and GI bleed DO NOT RESUSCITATE/DO NOT INTUBATE Disposition: Rehab once clinically stable. Discussed with the patient's at bedside yesterday. She understands his clinical condition.
[2020-06-22] MEDS: LORazepam 2 MG/ML INJ IM PRN ×2 (09:52→20:36)
[2020-06-22] MEDS ORDERED: LIDOCAINE 1% INJ 10MG/ML (20 ML MDV) ONE (10:09)
--- NOTE | 2020-06-22 11:44 | P.PN ---
Subjective Progress Note Date: 06/22/20 Principal diagnosis: Anemia, stool positive for occult blood The 75-year-old male patient who presented to the hospital with chest pain was found to have a non-STEMI, anemia and melena. The patient has been treated conservatively by cardiology in the meantime his overall respiratory status continued to improve and underwent upper endoscopy 2 days ago which revealed a 1 cm gastric antral ulcer with no active bleeding. The patient subsequently had increased shortness of breath and has had desaturation and on BiPAP. Today he was on nasal cannula, he has a sitter at the bedside, he is basically nonverbal and nonresponsive. Does not appear to have any abdominal pain, has had no further reported melena. Had a small bowel movement this morning. Objective - Vital Signs Vital signs: Vital Signs Temp 97 F L 06/22/20 08:00 Pulse 78 06/22/20 08:00 Resp 16 06/22/20 08:00 BP 122/67 06/22/20 08:00 Pulse Ox 99 06/22/20 08:00 Intake & Output 06/21/20 06/22/20 06/22/20 18:59 06:59 18:59 Intake Total 0 0 125 Output Total 1480 250 500 Balance -1480 -250 -375 Weight 109.5 kg Intake: Oral 0 0 125 Output: Urine 1480 250 500 Uretheral (Kim) 250 Other: Voiding Method Indwelling Catheter Indwelling Catheter Indwelling Catheter - Exam General appearance: The patient is alert, oriented, but seems confused ,appears in no acute distress. HET: Head is normocephalic and atraumatic. Conjunctiva pink. Sclera anicteric. Neck: Supple without lymphadenopathy. Abdomen: Soft, nontender, nondistended with bowel sounds. No guarding or rigidity. Extremities: Normal skin color and turgor. No pedal edema Skin: No rashes, no jaundice Neurological: No focal deficits. Alert and oriented 3. - Labs CBC & Chem 7: 06/22/20 02:51 06/22/20 03:03 Labs: Abnormal Lab Results - Last 24 Hours (Table) 06/21/20 06/21/20 06/22/20 Range/Units 11:58 18:05 00:06 RBC (4.30-5.90) m/uL Hgb (13.0-17.5) gm/dL Hct (39.0-53.0) % MCHC (31.0-37.0) g/dL RDW (11.5-15.5) % Neutrophils # (1.3-7.7) k/uL Sodium (137-145) mmol/L Chloride (98-107) mmol/L BUN (9-20) mg/dL Creatinine (0.66-1.25) mg/dL Glucose (74-99) mg/dL POC Glucose (mg/dL) 122 H 190 H 224 H (75-99) mg/dL Total Bilirubin (0.2-1.3) mg/dL AST (17-59) U/L ALT (4-49) U/L 06/22/20 06/22/20 06/22/20 Range/Units 01:27 02:51 03:03 RBC 3.69 L (4.30-5.90) m/uL Hgb 10.3 L (13.0-17.5) gm/dL Hct 35.9 L (39.0-53.0) % MCHC 28.7 L (31.0-37.0) g/dL RDW 15.8 H (11.5-15.5) % Neutrophils # 8.2 H (1.3-7.7) k/uL Sodium 162 H* (137-145) mmol/L Chloride 124 H (98-107) mmol/L BUN 62 H (9-20) mg/dL Creatinine 1.64 H (0.66-1.25) mg/dL Glucose 144 H (74-99) mg/dL POC Glucose (mg/dL) 254 H (75-99) mg/dL Total Bilirubin 1.5 H (0.2-1.3) mg/dL AST 102 H (17-59) U/L ALT 95 H (4-49) U/L 06/22/20 Range/Units 06:16 RBC (4.30-5.90) m/uL Hgb (13.0-17.5) gm/dL Hct (39.0-53.0) % MCHC (31.0-37.0) g/dL RDW (11.5-15.5) % Neutrophils # (1.3-7.7) k/uL Sodium (137-145) mmol/L Chloride (98-107) mmol/L BUN (9-20) mg/dL Creatinine (0.66-1.25) mg/dL Glucose (74-99) mg/dL POC Glucose (mg/dL) 101 H (75-99) mg/dL Total Bilirubin (0.2-1.3) mg/dL AST (17-59) U/L ALT (4-49) U/L Assessment and Plan (1) Normocytic normochromic anemia Narrative/Plan: A 75-year-old male with multiple medical comorbidities presenting to the hosp ital for altered mental status and chest pain. Recent CVA in May 2020 with residual right-sided weakness and speech slurring. Patient was found to have elevation in his troponins and EKG abnormalities on presentation. He is being evaluated by cardiology for non-ST elevation CT. Troponins were elevated. Patient denies any signs or symptoms of GI bleed with stool testing was positive for occult blood. No prior colonoscopy or EGD but patient does report a remote history of peptic ulcer disease. Patient was transfused 2 units of PRBC for hemoglobin of 7 on presentation. Patient hemoglobin had a significant drop from 13 in May, unclear etiology may be related to peptic ulcer disease, AVM, gastritis, or other etiology. He underwent an upper endoscopy which showed a 1 cm gastric antral ulcer with no active bleeding, status post biopsies.. Current Visit: Yes Status: Acute Code(s): D64.9 - ANEMIA, UNSPECIFIED SNOMED Code(s): 03339299 (2) Positive occult stool blood test Current Visit: Yes Status: Acute Code(s): R19.5 - OTHER FECAL ABNORMALITIES SNOMED Code(s): 40039649 Plan: 1. Supportive care 2. Continue to monitor hemoglobin and transfuse if needed 5. Continue Protonix 40 mg twice daily 6. Avoid NSAIDs and anticoagulation/antiplatelet therapy at this time Thank you for this consultation, we will sign off at this time. Dr. Marco A Palmer I agree with the dictator's note, documented as a scribe by Marni Constantino.
[2020-06-22 11:47] LABS: Glucose,Whole Blood 171 mg/dL (75-99)
--- NOTE | 2020-06-22 12:47 | P.PN ---
Subjective Progress Note Date: 06/22/20 HISTORY OF PRESENT ILLNESS: This is a 75-year-old gentleman with history of diabetes, hypertension, dyslipidemia, smoking and recently diagnosed with acute ischemic stroke on 05/07/2020. Percentage of the hospital on the ninth of this month with acute blood loss anemia, hypotension and chest pain. Stool for occult blood was found to be positive. Patient also was quite confused. He received one unit of packed blood cells. There were asked to see the patient in consultation for chest pain and abnormal troponin. His NT proBNP was elevated at 12,200 and he was diuresed and IV Lasix 20 mg BID. He underwent EGD yesterday and found to have a 1 cm gastric antral ulcer with no active bleeding. Did undergo echocardiogram with Doppler in May which revealed a normal LV systolic function with ejection fraction of 60-65%. The echocardiogram this admission revealed impaired impaired LV systolic function with ejection fraction between 30-35% with evidence of wall motion abnormalities. Following EGD yesterday patient and having respiratory distress and was placed on BiPAP. Patient continues to be quite confused. He is somewhat agitated during my examination. 06/21/2020 The patient remains somewhat agitated, drowsy, does not respond appropriately to stimuli. Sodium was up to 157 this morning and his Lasix was discontinued. He is currently receiving D5W. BUN and creatinine are elevated compared to yesterday at 71 and 1.78. He continues to be on aspirin 81 mg by mouth daily, lisinopril 5 mg daily and Lopressor 25 mg twice a day. 06/22/2020 Patient examined this morning at the bedside. Patient remains confused. Patient is lethargic but will respond minimally to verbal stimuli. He has a patient sitter at the bedside. Patients sodium is 162 today and is being managed by internal medicine. PHYSICAL EXAM: VITAL SIGNS: Reviewed. GENERAL: Well-developed in no acute distress. Lethargic. NECK: Supple. No JVD or thyromegaly LUNGS: Respirations even and unlabored. Lungs diminished bilaterally. HEART: Regular rate and rhythm. S1 and S2 heard. EXTREMITIES: Normal range of motion. No clubbing or cyanosis. Peripheral pulse s intact. No lower extremity edema ASSESSMENT: #1 altered mental status #2 acute blood loss anemia status post EGD showing 1 cm gastric antral ulcer with no active bleeding #3 acute kidney injury #4 non-ST elevation [place] #5 recent ischemic stroke, May 2020 #6 acute systolic heart failure with reduced ejection fraction 30-35% #7 type 2 diabetes #8 hypertension #9 hyperlipidemia #10 hypernatremia PLAN: Lasix has been discontinued secondary to hypernatremia Management of hypernatremia per medicine Continue current cardiac medications: Aspirin 81 mg daily, lisinopril 5 mg daily, and metoprolol titrate 25 mg twice a day Further recommendations pending patient course Nurse practitioner note has been reviewed by physician. Signing provider agrees with the documented findings, assessment, and plan of care. Objective - Vital Signs Vital signs: Vital Signs Temp 97.5 F L 06/22/20 11:20 Pulse 78 06/22/20 11:20 Resp 16 06/22/20 11:20 BP 142/75 06/22/20 11:20 Pulse Ox 100 06/22/20 11:20 Intake & Output 06/21/20 06/22/20 06/22/20 18:59 06:59 18:59 Intake Total 0 0 1325 Output Total 1480 250 900 Balance -1480 -250 425 Weight 109.5 kg Intake: IV 1200 Dextrose 5% in Water 1, 1200 000 ml @ 150 mls/hr IV . Q6H40M [facility] Rx#:[id number] Oral 0 0 125 Output: Urine 1480 250 900 Uretheral (Kim) 250 Other: Voiding Method Indwelling Catheter Indwelling Catheter Indwelling Catheter - Labs CBC & Chem 7: 06/22/20 02:51 06/22/20 03:03 Labs: Abnormal Lab Results - Last 24 Hours (Table) 06/21/20 06/22/20 06/22/20 Range/Units 18:05 00:06 01:27 RBC (4.30-5.90) m/uL Hgb (13.0-17.5) gm/dL Hct (39.0-53.0) % MCHC (31.0-37.0) g/dL RDW (11.5-15.5) % Neutrophils # (1.3-7.7) k/uL Sodium (137-145) mmol/L Chloride (98-107) mmol/L BUN (9-20) mg/dL Creatinine (0.66-1.25) mg/dL Glucose (74-99) mg/dL POC Glucose (mg/dL) 190 H 224 H 254 H (75-99) mg/dL Total Bilirubin (0.2-1.3) mg/dL AST (17-59) U/L ALT (4-49) U/L 06/22/20 06/22/20 06/22/20 Range/Units 02:51 03:03 06:16 RBC 3.69 L (4.30-5.90) m/uL Hgb 10.3 L (13.0-17.5) gm/dL Hct 35.9 L (39.0-53.0) % MCHC 28.7 L (31.0-37.0) g/dL RDW 15.8 H (11.5-15.5) % Neutrophils # 8.2 H (1.3-7.7) k/uL Sodium 162 H* (137-145) mmol/L Chloride 124 H (98-107) mmol/L BUN 62 H (9-20) mg/dL Creatinine 1.64 H (0.66-1.25) mg/dL Glucose 144 H (74-99) mg/dL POC Glucose (mg/dL) 101 H (75-99) mg/dL Total Bilirubin 1.5 H (0.2-1.3) mg/dL AST 102 H (17-59) U/L ALT 95 H (4-49) U/L 06/22/20 Range/Units 11:30 RBC (4.30-5.90) m/uL Hgb (13.0-17.5) gm/dL Hct (39.0-53.0) % MCHC (31.0-37.0) g/dL RDW (11.5-15.5) % Neutrophils # (1.3-7.7) k/uL Sodium (137-145) mmol/L Chloride (98-107) mmol/L BUN (9-20) mg/dL Creatinine (0.66-1.25) mg/dL Glucose (74-99) mg/dL POC Glucose (mg/dL) 171 H (75-99) mg/dL Total Bilirubin (0.2-1.3) mg/dL AST (17-59) U/L ALT (4-49) U/L
[2020-06-22 17:00] LABS: Glucose,Whole Blood 168 mg/dL (75-99)
--- NOTE | 2020-06-22 21:16 | CONS ---
CONSULTATION REASON FOR CONSULTATION: Hypernatremia. HISTORY OF PRESENT ILLNESS: The patient is a 75-year-old male who was initially admitted to the hospital on 06/12/2020 with altered mentation. Patient was found to have EKG changes. Patient was noted to have [id number] LA. He also had a recent ischemic stroke. He had acute blood loss anemia as well on admission with a hemoglobin around 7. He did have an EGD which showed antral ulcer. Patient's serum creatinine has been mostly around 1.6 mg/dL. It did go down to around 1.2 to 1.4 on 06/19/2020 and is back up to 1.6 now. Serum sodium has been elevated over the past 3 days, and it has increased to 162 now. Currently patient is maintained on D5W, which was further increased to 150 mL/hour. Blood pressure is not low. It does not appear that patient has been eating much. There is no ongoing diarrhea noted, according to nursing staff. PAST MEDICAL HISTORY: Significant for type 2 diabetes, gastroesophageal reflux disease, hypertension, history of falls prior to admission. PAST SURGICAL HISTORY: None. SOCIAL HISTORY: The patient is a former smoker. No history of drug abuse or alcohol abuse. MEDICATIONS: Medications prior to admission included meloxicam, metformin, aspirin, Zestril, [place], Senna. ALLERGIES: NONE. REVIEW OF SYSTEMS: As per HPI. Other systems negative. PHYSICAL EXAMINATION: Patient is comfortable. He is awake. He is not in any acute distress. He is confused, able to answer simple questions. Blood pressure this morning 152/75, heart rate 78 per minute. He is afebrile. EXAMINATION OF THE HEART: S1 and S2. EXAMINATION OF LUNGS: Bilateral breath sounds are heard. ABDOMEN: Soft, non-tender. Examination of lower extremities shows no significant edema. OPTOMETRIST ASSISTANT exam show patient is slow to respond but able to follow simple commands. He is moving all 4 extremities. LABS: Sodium 162 today. Potassium 3.8, chloride 124, BUN 62, serum creatinine 1.64, hemoglobin 10.3 g/dL. ASSESSMENT: 1. Hypernatremia associated with free water deficit in a patient with acute cerebrovascular accident. Continue with the D5W and repeat sodium this afternoon. 2. Acute kidney injury, multifactorial, including some degree of hypoperfusion, as patient is noted to have borderline blood pressures with systolic in the 93 to 99 range over the past few days. He is maintained on low-dose TWILA inhibitors. At this time, since renal function is fairly stable, I will continue with the lisinopril and add parameters to hold for systolic of less than 110 mmHg. 3. Acute blood loss anemia from gastrointestinal bleed, status post esophagogastroduodenoscopy which showed a clean-based antral ulcer with no active bleeding noted. 4. Acute wob-AR-csoqtualm myocardial infarction with ejection fraction 30% to 35%. 5. Encephalopathy, multifactorial, with recent cerebrovascular accident and due to significant electrolyte imbalance. PLAN: Repeat sodium. Continue D5W at 150 mL/hour. Hold lisinopril for systolic blood pressure less than 110 mEq/L. MMODL / IJN: [id number] /
[2020-06-22] MEDS: IPRATROPIUM-ALBUTEROL 3 ML NEB INHALATION PRN (21:20)
[2020-06-23 00:03] LABS: Glucose,Whole Blood 151 mg/dL (75-99)
[2020-06-23] MEDS: INSULIN ASPART (NovoLOG) 100 UNIT/ML VIAL SQ SCH ×4 (00:06→17:41)
[2020-06-23] MEDS: PIPERACILLIN-TAZOBACTAM 3.375 GM in SODIUM CHLORIDE 0.9% 100 ML IVPB SCH ×3 (00:07→16:10)
[2020-06-23] MEDS ORDERED: METOPROLOL TARTRATE 5 MG/5 ML VIAL IVP ONE (01:14)
[2020-06-23] MEDS: METOPROLOL TARTRATE 25 MG TAB PO SCH ×2 (01:41→09:36)
[2020-06-23 06:02] LABS: Glucose,Whole Blood 155 mg/dL (75-99)
[2020-06-23] MEDS: DEXTROSE 5% IN WATER 1,000 ML IV SCH ×3 (06:47→11:49)
--- NOTE | 2020-06-23 08:53 | P.PN ---
Subjective Progress Note Date: 06/22/20 Patient was seen for a follow-up. Patient initially seen by Dr. Sonny Posadas. Please refer to his note for details. Patient's and son was also present today. Patient was brought to the hospital for difficulty breathing, which was acute onset. Patient was having disorientation, combative behavior, couldn't speak, not eating. Patient continues to be encephalopathic, delirious, restless. Patient has history of old left parietal CVA on 05/07/2020. After staying in hospital for a week, patient was transferred to [facility] where he stayed for couple weeks and was discharged home on 05/27/2020. Patient was able to walk with a walker, could talk fine until the symptoms happened just prior to arrival as mentioned above. Patient was noted to have elevated LFTs. Also has acute kidney injury, respiratory issues and anemia. He had undergone EGD which is negative. Patient had a computed tomography scan of head which was negative. No signs of a new CVA. Patient has developed hypernatremia with sodium 162, potassium 3.8, BUN is 62, creatinine 1.64. Patient also has anemia with hemoglobin 10.3, platelets 191. Patient's hemoglobin A1c 5.2 on 06/12/2020. Patient's AST is 102, ALT 95. Ammonia is normal. Troponins are mildly elevated. B12 352, folate 5.9. TSH is normal. Stool occult blood negative. Telemetry monitoring showing sinus rhythm. Objective - Vital Signs Vital signs: Vital Signs Temp 97.6 F 06/22/20 15:05 Pulse 74 06/22/20 15:05 Resp 16 06/22/20 15:05 BP 146/68 06/22/20 15:05 Pulse Ox 95 06/22/20 15:05 Intake & Output 06/22/20 06/22/20 06/23/20 06:59 18:59 06:59 Intake Total 0 1325 Output Total 250 1225 160 Balance -250 100 -160 Weight 109.5 kg Intake: IV 1200 Dextrose 5% in Water 1, 1200 000 ml @ 150 mls/hr IV . Q6H40M [facility] Rx#:[id number] Oral 0 125 Output: Urine 250 1225 160 Uretheral (Kim) 250 Other: Voiding Method Indwelling Catheter Indwelling Catheter - Exam On examination patient is an elderly male, who appears very restless, encephalopathic, keeps his eyes closed. Patient does not respond to calling his name. He does withdraws to painful stimuli. Moves his arms and legs somewhat symmetrically, does not follow commands. Does not squeeze the hands on command. When the arms were lifted up, he keeps him up and slowly brings it down, with no focal asymmetry. Tone is equal bilaterally. Pupils are round and reacting, visual arteaga could not be tested. Oculocephalics are present. Face appears symmetric. Reflexa symmetric and plantars possible upgoing. No obvious seizure-like activity. - Labs CBC & Chem 7: 06/22/20 02:51 06/22/20 17:05 Labs: Abnormal Lab Results - Last 24 Hours (Table) 06/22/20 06/22/20 06/22/20 Range/Units 00:06 01:27 02:51 RBC 3.69 L (4.30-5.90) m/uL Hgb 10.3 L (13.0-17.5) gm/dL Hct 35.9 L (39.0-53.0) % MCHC 28.7 L (31.0-37.0) g/dL RDW 15.8 H (11.5-15.5) % Neutrophils # 8.2 H (1.3-7.7) k/uL Sodium (137-145) mmol/L Chloride (98-107) mmol/L BUN (9-20) mg/dL Creatinine (0.66-1.25) mg/dL Glucose (74-99) mg/dL POC Glucose (mg/dL) 224 H 254 H (75-99) mg/dL Total Bilirubin (0.2-1.3) mg/dL AST (17-59) U/L ALT (4-49) U/L 06/22/20 06/22/20 06/22/20 Range/Units 03:03 06:16 11:30 RBC (4.30-5.90) m/uL Hgb (13.0-17.5) gm/dL Hct (39.0-53.0) % MCHC (31.0-37.0) g/dL RDW (11.5-15.5) % Neutrophils # (1.3-7.7) k/uL Sodium 162 H* (137-145) mmol/L Chloride 124 H (98-107) mmol/L BUN 62 H (9-20) mg/dL Creatinine 1.64 H (0.66-1.25) mg/dL Glucose 144 H (74-99) mg/dL POC Glucose (mg/dL) 101 H 171 H (75-99) mg/dL Total Bilirubin 1.5 H (0.2-1.3) mg/dL AST 102 H (17-59) U/L ALT 95 H (4-49) U/L 06/22/20 06/22/20 Range/Units 16:58 17:05 RBC (4.30-5.90) m/uL Hgb (13.0-17.5) gm/dL Hct (39.0-53.0) % MCHC (31.0-37.0) g/dL RDW (11.5-15.5) % Neutrophils # (1.3-7.7) k/uL Sodium 160 H (137-145) mmol/L Chloride (98-107) mmol/L BUN (9-20) mg/dL Creatinine (0.66-1.25) mg/dL Glucose (74-99) mg/dL POC Glucose (mg/dL) 168 H (75-99) mg/dL Total Bilirubin (0.2-1.3) mg/dL AST (17-59) U/L ALT (4-49) U/L Assessment and Plan Assessment: Altered mental status likely due to multifactorial: Metabolic encephalopathy (elevated LFT's, JAYE) and anemia. Hypernatremia, not with sodium 160. Worsening of right sided weakness could be due to underlying infection. History of left parietal ischemic stroke in May 2020 with residual right-sided weakness Acute kidney insufficiency Anemia Acute hypoxic respiratory failure most likely aspiration at time of EGD. Diabetes type 2 Non-STEMI Hypertension X tobacco use Plan: Patient is currently on aspirin 81 mg daily. In the past he was on Plavix and seems that he is having GI bleed so avoid Plavix from now on for now cardiology cleared him for him to be on aspirin and he is on aspirin 81 mg daily. Per cardiology to hold the statins because of elevated liver function and once his liver function improves recommend to restart Lipitor [address] of the head that was repeated since his initial presentation was reported as cerebral atrophy. Old left parietal centrum semiovale lacunar infarct. No change compared to old exam. No acute abnormality. ammonia level <9 (normal). Repeat AST: 71 and ALT: 124 TSH level: 4.026 (normal). B12 352, folate is low 5.9. Continue Vitamin B12 1000mcg daily and folic acid 1mg daily. Gastroenterology and cardiology are on board. We will check EEG to rule out any epileptiform activity.
[2020-06-23] MEDS: CYANOCOBALAMIN 500 MCG TAB PO SCH (09:36)
[2020-06-23] MEDS: FOLIC ACID 1 MG TAB PO SCH (09:36)
[2020-06-23] MEDS: ASPIRIN 81 MG PO SCH (09:36)
[2020-06-23] MEDS: lisinopriL 5 MG TAB PO SCH (09:36)
[2020-06-23] MEDS: LIDOCAINE 5% PATCH TOPICAL SCH (09:36)
[2020-06-23] MEDS: PANTOPRAZOLE 40 MG/10 ML VIAL IV SCH (09:37)
[2020-06-23 10:06] LABS: Albumin 3.1 g/dL (3.5-5.0); Calcium 9.3 mg/dL (8.4-10.2); Total Bilirubin 1.4 mg/dL (0.2-1.3); Total Protein 6.5 g/dL (6.3-8.2)
[2020-06-23 10:11] LABS: Basophils % (A) 0 %; Eosinophils # (A) 0.1 k/uL (0-0.7); Eosinophils % (A) 1 %; HCT 33.9 % (39.0-53.0); HGB 9.8 gm/dL (13.0-17.5); Hypochromasia Marked; Lymphocytes # (A) 1.5 k/uL (1.0-4.8); Lymphocytes % (A) 14 %; MCH 27.6 pg (25.0-35.0); MCHC 28.9 g/dL (31.0-37.0); MCV 95.7 fL (80.0-100.0); Mean Platelet Volume 10.1; Monocytes # (A) 0.4 k/uL (0-1.0); Monocytes % (A) 4 %; Neutrophils # (A) 8.6 k/uL (1.3-7.7); Neutrophils % (A) 80 %; Platelet Count 158 k/uL (150-450); Poikilocytosis Slight; RBC 3.54 m/uL (4.30-5.90); RDW 15.8 % (11.5-15.5); WBC 10.7 k/uL (3.8-10.6)
--- NOTE | 2020-06-23 10:12 | P.PN ---
Subjective Progress Note Date: 06/23/20 Remains a 5 L of oxygen. No major overnight changes. Poor historian, does not appear to be in distress. Objective - Vital Signs Vital signs: Vital Signs Temp 97.5 F L 06/23/20 09:29 Pulse 80 06/23/20 09:29 Resp 20 06/23/20 09:29 BP 114/70 06/23/20 09:29 Pulse Ox 92 L 06/23/20 09:29 Intake & Output 06/22/20 06/23/20 06/23/20 18:59 06:59 18:59 Intake Total 1325 Output Total 1225 660 Balance 100 -660 Weight 107.9 kg Intake: IV 1200 Dextrose 5% in Water 1, 1200 000 ml @ 150 mls/hr IV . Q6H40M [facility] Rx#:[id number] Oral 125 Output: Urine 1225 660 Other: Voiding Method Indwelling Catheter Indwelling Catheter # Voids 1 # Bowel Movements 3 - Exam Gen: awake, alert, poor historian, on 5 L of oxygen HEENT: normocephalic, atraumatic Resp: Decreased breath sounds, no wheezing CVS: S1-S2, no rubs gallops or murmurs GI: soft, nontender, positive bowel sounds MSK: No clubbing cyanosis or edema Neuro: Right-sided residual weakness - Labs CBC & Chem 7: 06/22/20 02:51 06/22/20 17:05 Labs: Abnormal Lab Results - Last 24 Hours (Table) 06/22/20 06/22/20 06/22/20 Range/Units 11:30 16:58 17:05 Sodium 160 H (137-145) mmol/L POC Glucose (mg/dL) 171 H 168 H (75-99) mg/dL 06/23/20 06/23/20 Range/Units 00:00 05:59 Sodium (137-145) mmol/L POC Glucose (mg/dL) 151 H 155 H (75-99) mg/dL Assessment and Plan Plan: Acute hypoxic Respiratory failure requiring BIPAP , continue oxygen and bronchodilators , pulmonology following , now off BiPAP, on 5 L of oxygen, continue current management. Acute blood loss anemia GI bleed Hypotension from hypovolemia -PPI twice a day, appreciated GI input Hemoglobin improved to 10.3, pending today's labs. Status post EGD 1. 1 cm clean-based antral ulcer with no active bleeding 2. Small distal esophageal nonbleeding varices. GI following Non-STEMI Acute on Chronic Heart Failure with Reduced Ejection Fraction, EF 30-35% Ischemic Cardiomyopathy -Hold off on Plavix, and heparin due to GI bleed. Continue on ASA Continue On metoprolol -Cardiology consult, appreciate recs -Echocardiogram multiple WMA, reduced EF -Lasix 20mg BID, now on hold secondary to hypernatremia. Acute Kidney Injury, improving -Received IV fluids Serum creatinine peaked at 1.6, pending labs today. Encephalopathy, unspecified, multifactorial History of CVA -Neurology following -PT/OT -Avoid benzodiazepines, anticholinergics Continue to monitor Speech evaluation Hypertension, essential -continue current meds Diabetes mellitus type 2 with hyperglycemia -Continue Low-dose sliding scale insulin Mild hyperkalemia Resolved, monitor Weakness: Consult PTOT. Input appreciated Right-sided pleural effusion and pneumonia of unspecified organism Continue abx , zosyn Pulmonology following Hypernatremia: Serum sodium 160, continue on D5 half-normal saline at 75 mL per hour, monitor as patient has EF 30-35% DVT prophylaxis is contraindicated due to acute blood loss anemia and GI bleed DO NOT RESUSCITATE/DO NOT INTUBATE Disposition: Rehab once clinically stable. Monitor clinical progression.
[2020-06-23 10:30] LABS: Potassium 4.1 mmol/L (3.5-5.1)
[2020-06-23] MEDS ORDERED: LIDOCAINE 1% INJ 10MG/ML (20 ML MDV) SQ ONE (10:55)
[2020-06-23 11:09] VITALS: BMI 32.2
[2020-06-23 12:18] LABS: Glucose,Whole Blood 174 mg/dL (75-99)
--- NOTE | 2020-06-23 13:14 | P.PN ---
Subjective Progress Note Date: 06/23/20 HISTORY OF PRESENT ILLNESS: This is a 75-year-old gentleman with history of diabetes, hypertension, dyslipidemia, smoking and recently diagnosed with acute ischemic stroke on 05/07/2020. Percentage of the hospital on the ninth of this month with acute blood loss anemia, hypotension and chest pain. Stool for occult blood was found to be positive. Patient also was quite confused. He received one unit of packed blood cells. There were asked to see the patient in consultation for chest pain and abnormal troponin. His NT proBNP was elevated at 12,200 and he was diuresed and IV Lasix 20 mg BID. He underwent EGD yesterday and found to have a 1 cm gastric antral ulcer with no active bleeding. Did undergo echocardiogram with Doppler in May which revealed a normal LV systolic function with ejection fraction of 60-65%. The echocardiogram this admission revealed impaired impaired LV systolic function with ejection fraction between 30-35% with evidence of wall motion abnormalities. Following EGD yesterday patient and having respiratory distress and was placed on BiPAP. Patient continues to be quite confused. He is somewhat agitated during my examination. 06/21/2020 The patient remains somewhat agitated, drowsy, does not respond appropriately to stimuli. Sodium was up to 157 this morning and his Lasix was discontinued. He is currently receiving D5W. BUN and creatinine are elevated compared to yesterday at 71 and 1.78. He continues to be on aspirin 81 mg by mouth daily, lisinopril 5 mg daily and Lopressor 25 mg twice a day. 06/22/2020 Patient examined this morning at the bedside. Patient remains confused. Patient is lethargic but will respond minimally to verbal stimuli. He has a patient sitter at the bedside. Patients sodium is 162 today and is being managed by internal medicine. 06/23/2020 Patient examined this morning at the bedside. Patient remains lethargic. He is unable to open his eyes or communicate with provider at the bedside. He is moving all his extremities in bed. Sodium today is down to 154. He is currently a DNR. Patient went into afib with RVR overnight. Heart rate remains in the 120- 130s currently. He has not been able to receive his PO metoprolol for the last few days due to lethargy and/or being NPO for procedures. PHYSICAL EXAM: VITAL SIGNS: Reviewed. GENERAL: Well-developed in no acute distress. Lethargic. NECK: Supple. No JVD or thyromegaly LUNGS: Respirations even and unlabored. Lungs diminished bilaterally. HEART: Regular rate and rhythm. S1 and S2 heard. EXTREMITIES: Normal range of motion. No clubbing or cyanosis. Peripheral pulses intact. No lower extremity edema ASSESSMENT: #1 altered mental status #2 acute blood loss anemia status post EGD showing 1 cm gastric antral ulcer with no active bleeding #3 acute kidney injury #4 non-ST elevation SC #5 recent ischemic stroke, May 2020 #6 acute systolic heart failure with reduced ejection fraction 30-35% #7 type 2 diabetes #8 hypertension #9 hyperlipidemia #10 hypernatremia #11 new onset afib with RVR PLAN: Lasix has been discontinued secondary to hypernatremia Management of hypernatremia per medicine Continue current cardiac medications when patient able to tolerate oral medications: Aspirin 81 mg daily, lisinopril 5 mg daily, and metoprolol titrate 25 mg twice a day Begin Lopressor 5mg IVP every 6 hours as patient is too lethargic to take oral medications No anticoagulation due to GI bleeding and acute blood loss anemia Continue telemetry monitoring Further recommendations pending patient course Nurse practitioner note has been reviewed by physician. Signing provider agrees with the documented findings, assessment, and plan of care. Objective - Vital Signs Vital signs: Vital Signs Temp 97.5 F L 06/23/20 11:43 Pulse 129 H 06/23/20 11:43 Resp 20 06/23/20 11:43 BP 119/81 06/23/20 11:43 Pulse Ox 98 06/23/20 11:43 Intake & Output 06/22/20 06/23/20 06/23/20 18:59 06:59 18:59 Intake Total 1325 Output Total 1225 660 Balance 100 -660 Weight 107.9 kg 107.9 kg Intake: IV 1200 Dextrose 5% in Water 1, 1200 000 ml @ 150 mls/hr IV . Q6H40M [facility] Rx#:[id number] Oral 125 Output: Urine 1225 660 Other: Voiding Method Indwelling Catheter Indwelling Catheter Indwelling Catheter # Voids 1 # Bowel Movements 3 - Labs CBC & Chem 7: 06/23/20 08:52 06/23/20 08:52 Labs: Abnormal Lab Results - Last 24 Hours (Table) 06/22/20 06/22/20 06/23/20 Range/Units 16:58 17:05 00:00 WBC (3.8-10.6) k/uL RBC (4.30-5.90) m/uL Hgb (13.0-17.5) gm/dL Hct (39.0-53.0) % MCHC (31.0-37.0) g/dL RDW (11.5-15.5) % Neutrophils # (1.3-7.7) k/uL Sodium 160 H (137-145) mmol/L Chloride (98-107) mmol/L BUN (9-20) mg/dL Creatinine (0.66-1.25) mg/dL Glucose (74-99) mg/dL POC Glucose (mg/dL) 168 H 151 H (75-99) mg/dL Total Bilirubin (0.2-1.3) mg/dL AST (17-59) U/L ALT (4-49) U/L Albumin (3.5-5.0) g/dL 06/23/20 06/23/20 06/23/20 Range/Units 05:59 08:52 08:52 WBC 10.7 H (3.8-10.6) k/uL RBC 3.54 L (4.30-5.90) m/uL Hgb 9.8 L (13.0-17.5) gm/dL Hct 33.9 L (39.0-53.0) % MCHC 28.9 L (31.0-37.0) g/dL RDW 15.8 H (11.5-15.5) % Neutrophils # 8.6 H (1.3-7.7) k/uL Sodium 154 H (137-145) mmol/L Chloride 121 H (98-107) mmol/L BUN 49 H (9-20) mg/dL Creatinine 1.51 H (0.66-1.25) mg/dL Glucose 183 H (74-99) mg/dL POC Glucose (mg/dL) 155 H (75-99) mg/dL Total Bilirubin 1.4 H (0.2-1.3) mg/dL AST 92 H (17-59) U/L ALT 72 H (4-49) U/L Albumin 3.1 L (3.5-5.0) g/dL 06/23/20 Range/Units 12:17 WBC (3.8-10.6) k/uL RBC (4.30-5.90) m/uL Hgb (13.0-17.5) gm/dL Hct (39.0-53.0) % MCHC (31.0-37.0) g/dL RDW (11.5-15.5) % Neutrophils # (1.3-7.7) k/uL Sodium (137-145) mmol/L Chloride (98-107) mmol/L BUN (9-20) mg/dL Creatinine (0.66-1.25) mg/dL Glucose (74-99) mg/dL POC Glucose (mg/dL) 174 H (75-99) mg/dL Total Bilirubin (0.2-1.3) mg/dL AST (17-59) U/L ALT (4-49) U/L Albumin (3.5-5.0) g/dL
--- NOTE | 2020-06-23 13:43 | PN ---
PROGRESS NOTE Patient is seen for followup for hypernatremia. He is maintained on D5W. Serum sodium had decreased to 160 yesterday today it is down to 154. He remains quite lethargic. Did open his eyes, but does not communicate much. PHYSICAL EXAMINATION: On examination today, blood pressure was 114/70, heart rate 80 per minute. Patient is afebrile. EXAMINATION OF THE HEART: S1, S2. EXAMINATION OF THE LUNGS: Bilateral breath sounds are heard. Abdomen is soft, nontender. Examination of lower extremities shows no evidence of edema. CLEANER TOUCH UP WORKER EXAM: Patient does not cooperate. He has been moving his extremities. LABS: Labs show sodium 154, potassium 4.1, chloride 121, BUN 49, creatinine 1.5. Total bilirubin 1.4, hemoglobin at 9.8 g/dL. ASSESSMENT: 1. Hypernatremia associated with free water deficit, currently improving. Continue with D5W. 2. Acute kidney injury, prerenal, slowly improving. Patient is maintained on TWILA inhibitors which we can continue. 3. Acute blood loss anemia from gastrointestinal bleed, status post EGD which showed clean based antral ulcer with no active bleeding. 4. Acute non ST elevation myocardial infarction. 5. Cardiomyopathy, ejection fraction of about 30% to 35%. 6. Encephalopathy, multifactorial with recent cerebrovascular accident as well as significant electrolyte imbalance. PLAN: Continue D5W. Repeat labs in a.m. MMODL / IJN: [id number] /
[2020-06-23] MEDS: DEXTROSE 5%-0.45% NACL 1,000 ML IV SCH (14:43)
[2020-06-23] MEDS: METOPROLOL TARTRATE 5 MG/5 ML VIAL IVP SCH ×2 (14:47→17:41)
--- NOTE | 2020-06-23 16:23 | IR ---
EXAMINATION TYPE: IR cvc insert >=5 years DATE OF EXAM: 06/23/2020 COMPARISON: NONE CLINICAL HISTORY: Anemia Needs long-term intravenous access for tear of the. PROCEDURE: Hand hygiene obtained with soap and water and alcohol-based hand rub. After informed consent, the skin overlying the left brachial vein was localized with ultrasound and n oted to be compressible and patent. An ultrasound image was obtained and submitted on the patient's chart. The overlying skin was prepped and draped and Lidocaine was used for local anesthesia. A ski n wing was made with a scalpel. Access was gained to the vein under ultrasound guidance with a 21 ga uge needle and a 0.018 inch wire was advanced. Access site was dilated with Peel-Away sheath and cat heter tailored to the appropriate length and advanced such that the distal tip is at the cavoatrial j unction. Spot image was obtained verifying placement. Catheter was fixed to the skin and a sterile dressing was placed following hemostasis. Catheter was aspirated and flushed with saline. Patient w as discharged in stable condition without complication. Maximal barrier technique is utilized. Ultra sound image is documented on the chart. Ultrasound used with sterile technique. Fluoro time and fluoroscopic images submitted to document procedure: 0.3 minutes fluoroscopy time, 59 intraoperative images IMPRESSION: STATUS POST ULTRASOUND AND FLUOROSCOPIC GUIDED PICC LINE PLACEMENT, READY FOR USE. THIS PROCEDURE WAS PERFORMED BY THE UNDERSIGNED.
[2020-06-23 17:29] LABS: Glucose,Whole Blood 147 mg/dL (75-99)
--- NOTE | 2020-06-23 17:33 | EEG ---
ELECTROENCEPHALOGRAM REPORT DATE OF SERVICE: 06/23/2020 PREAMBLE: This is a 75-year-old male with altered mental status. This study is performed to evaluate for any epileptiform activity. EEG FINDINGS: This is a 21 channel routine EEG recording in a patient utilizing 10/20 international system with referential and bipolar montages. The recording starts and continues with presence of diffuse [id number] amplitude generalized slowing in the delta and some theta range. Background does not seem to be reactive to eye opening or closing or to photic stimulation. Some head movement artifacts were seen. Different stages of sleep were not seen. No focal or generalized epileptiform activity was seen. IMPRESSION: This is an abnormal EEG due to background slowing of moderate to severe degree. This is suggestive of generalized cerebral dysfunction as can be seen with toxic metabolic encephalopathy or due to diffuse structural brain abnormality. No epileptiform activity was seen. MMMARIAHL / IJN: [id number] /
[2020-06-23 20:00] LABS: Glucose,Whole Blood 162 mg/dL (75-99)
[2020-06-24 00:02] LABS: Glucose,Whole Blood 131 mg/dL (75-99)
[2020-06-24] MEDS: PIPERACILLIN-TAZOBACTAM 3.375 GM in SODIUM CHLORIDE 0.9% 100 ML IVPB SCH ×3 (00:40→16:57)
[2020-06-24] MEDS: INSULIN ASPART (NovoLOG) 100 UNIT/ML VIAL SQ SCH ×5 (00:40→23:55)
[2020-06-24] MEDS: PANTOPRAZOLE 40 MG/10 ML VIAL IV SCH ×3 (00:42→20:38)
[2020-06-24] MEDS: METOPROLOL TARTRATE 25 MG TAB PO SCH ×3 (05:01→20:38)
[2020-06-24] MEDS: METOPROLOL TARTRATE 5 MG/5 ML VIAL IVP SCH ×5 (05:03→23:54)
[2020-06-24 06:06] LABS: Glucose,Whole Blood 167 mg/dL (75-99)
[2020-06-24] MEDS: DEXTROSE 5%-0.45% NACL 1,000 ML IV SCH ×2 (06:52→12:01)
[2020-06-24] MEDS: ASPIRIN 81 MG PO SCH (08:59)
[2020-06-24] MEDS: FOLIC ACID 1 MG TAB PO SCH (08:59)
[2020-06-24] MEDS: CYANOCOBALAMIN 500 MCG TAB PO SCH (08:59)
[2020-06-24] MEDS: lisinopriL 5 MG TAB PO SCH (08:59)
--- NOTE | 2020-06-24 10:00 | CDI ---
Documentation Clarification Form Date: 06/24/2020 09:20:09 AM From: María Thakur RN, CCDS Admit Date: 06/12/2020 02:51:00 PM Patient Name: Misbah Garrett Visit Number: [id number] Discharge Date: ATTENTION: The Clinical Documentation Specialists (CDI) and [facility] Coding Staff appreciate your assistance in clarifying documentation. Please respond to the clarification below the line at the bottom and electronically sign. The CDI & [facility] Coding staff will review the response and follow-up if needed. Please note: Queries are made part of the Legal Health Record. If you have any questions, please contact the author of this message via ITS. Dr. Shannon Palmer Acute hypoxic respiratory failure, most like aspiration occurred at the time of EGD is documented in the pulmonary progress notes starting on 06/20/20. Please render your opinion of any cause and effect relationship of this diagnosis. Procedure Diagnosis: Anemia, stool positive for occult blood Post-Operative Diagnosis: Melena and black tarry stools of 2 day's duration Procedure performed: EGD with biopsy History/Risk Factors: CVA (05/24), Diabetes Mellitus, Hypertension Clinical Indicators: 75-year-old male who present to ED on 06/12/20 with altered mental status and chest pain. He had a recent CVA May 2020 with residual right-sided weakness and slurred speech. His hemoglobin was 7.0 on presentation down from 13 in May. Stool testing was positive for occult blood. On 06/18 his saturation is 98% on 2 L nasal cannula. 06/17 CXR: Right pleural effusion and right lower lobe pneumonia slightly worse than recent exam. Mild heart failure is probably present. 06/18 GI progress note: EGD intervention was postponed due to patient's respiratory status. 06/19 Vital signs: post EGD: 14:12 130/87 74 25 91 % BIPAP Treatment: Zosyn 3.375 MG IVPB Q 8 HRS BiPAP (per pulmonary, titrate) Monitor O2 Sat's (titrate) What relationship, if any, exists between the diagnosis of acute hypoxic respiratory failure, most likely aspiration occurred at the time of EGD? [ ] Acute hypoxic respiratory failure, most likely aspiration is a complication of the procedure [ ] Acute hypoxic respiratory, most likely aspiration is related to patients co-morbid condition(s prior to the procedure & not a complication of the procedure. [ ] Other please specify ____ [ ] Unable to determine (Template Last Revised: May 2020) __ To my knowledgde, during the procedure there was no ndication of aspiration. But this question should be directed to anethetist and anesthesiologist who monitored the patient during EGD. Thank you, Shannon Palmer MTDD
[2020-06-24 10:12] LABS: Basophils % (A) 0 %; Eosinophils % (A) 0 %; HCT 32.2 % (39.0-53.0); HGB 9.3 gm/dL (13.0-17.5); Hypochromasia Marked; Lymphocytes # (A) 1.2 k/uL (1.0-4.8); Lymphocytes % (A) 11 %; MCV 96.5 fL (80.0-100.0); Mean Platelet Volume 9.7; Monocytes # (A) 0.3 k/uL (0-1.0); Monocytes % (A) 3 %; Neutrophils # (A) 9.5 k/uL (1.3-7.7); Neutrophils % (A) 85 %; Platelet Count 156 k/uL (150-450); Poikilocytosis Slight; RBC 3.33 m/uL (4.30-5.90); RDW 15.9 % (11.5-15.5); WBC 11.2 k/uL (3.8-10.6)
[2020-06-24 10:21] LABS: Calcium 9.1 mg/dL (8.4-10.2); Potassium 4.4 mmol/L (3.5-5.1); Total Bilirubin 1.3 mg/dL (0.2-1.3); Total Protein 6.1 g/dL (6.3-8.2)
--- NOTE | 2020-06-24 11:14 | P.PN ---
Subjective HISTORY OF PRESENT ILLNESS: This is a 75-year-old gentleman with history of diabetes, hypertension, dyslipidemia, smoking and recently diagnosed with acute ischemic stroke on 05/07/2020. Percentage of the hospital on the ninth of this month with acute blood loss anemia, hypotension and chest pain. Stool for occult blood was found to be positive. Patient also was quite confused. He received one unit of packed blood cells. There were asked to see the patient in consultation for chest pain and abnormal troponin. His NT proBNP was elevated at 12,200 and he was diuresed and IV Lasix 20 mg BID. He underwent EGD yesterday and found to have a 1 cm gastric antral ulcer with no active bleeding. Did undergo echocardiogram with Doppler in May which revealed a normal LV systolic function with ejection fraction of 60-65%. The echocardiogram this admission revealed impaired impaired LV systolic function with ejection fraction between 30-35% with evidence of wall motion abnormalities. Following EGD yesterday abbie ent and having respiratory distress and was placed on BiPAP. Patient continues to be quite confused. He is somewhat agitated during my examination. 06/21/2020 The patient remains somewhat agitated, drowsy, does not respond appropriately to stimuli. Sodium was up to 157 this morning and his Lasix was discontinued. He is currently receiving D5W. BUN and creatinine are elevated compared to yes terday at 71 and 1.78. He continues to be on aspirin 81 mg by mouth daily, lisinopril 5 mg daily and Lopressor 25 mg twice a day. 06/22/2020 Patient examined this morning at the bedside. Patient remains confused. Patient is lethargic but will respond minimally to verbal stimuli. He has a patient sitter at the bedside. Patients sodium is 162 today and is being managed by internal medicine. 06/23/2020 Patient examined this morning at the bedside. Patient remains lethargic. He is unable to open his eyes or communicate with provider at the bedside. He is moving all his extremities in bed. Sodium today is down to 154. He is currently a DNR. Patient went into afib with RVR overnight. Heart rate remains in the 120- 130s currently. He has not been able to receive his PO metoprolol for the last few days due to lethargy and/or being NPO for procedures. 06/24 Patient seen and examined. Remains confused and arousable however not following commands, lethargic. Converted from Afib to NSR last night and has been well controlled since that time in NSR PHYSICAL EXAM: VITAL SIGNS: Reviewed. GENERAL: Well-developed in no acute distress. Lethargic. NECK: Supple. No JVD or thyromegaly LUNGS: Respirations even and unlabored. Lungs diminished bilaterally. HEART: Regular rate and rhythm. S1 and S2 heard. EXTREMITIES: Normal range of motion. No clubbing or cyanosis. Peripheral pulses intact. No lower extremity edema ASSESSMENT: #1 altered mental status #2 acute blood loss anemia status post EGD showing 1 cm gastric antral ulcer with no active bleeding #3 acute kidney injury #4 non-ST elevation HI #5 recent ischemic stroke, May 2020 #6 acute on chronic systolic heart failure with reduced ejection fraction 30- 35%, currently euvolemic to dry #7 type 2 diabetes #8 hypertension #9 hyperlipidemia #10 hypernatremia #11 new onset afib, currently normal sinus rhythm PLAN: Management of hypernatremia/ altered mental status per medicine Continue current cardiac medications when patient able to tolerate oral medic ations: Aspirin 81 mg daily, lisinopril 5 mg daily, and metoprolol titrate 25 mg twice a day No anticoagulation for Afib due to GI bleeding and acute blood loss anemia Patient does not appear to be a good interventional candidate with JAYE, anemia, GIB, altered mental status. Patient possibly with ischemic cardiomyopathy however would continue to treat medically at this time. No further recommend ations from a cardiology standpoint. Please call with any questions. Objective - Vital Signs Vital signs: Vital Signs Temp 98.4 F 06/24/20 08:58 Pulse 70 06/24/20 08:58 Resp 22 06/24/20 08:58 BP 142/60 06/24/20 08:58 Pulse Ox 100 06/24/20 08:58 Intake & Output 06/23/20 06/24/20 06/24/20 18:59 06:59 18:59 Output Total 200 160 Balance -200 -160 Weight 107.9 kg 104 kg Output: Urine 200 160 Other: Voiding Method Indwelling Catheter Indwelling Catheter Indwelling Catheter - Labs CBC & Chem 7: 06/24/20 09:23 06/24/20 09:23 Labs: Abnormal Lab Results - Last 24 Hours (Table) 06/23/20 06/23/20 06/23/20 Range/Units 12:17 17:28 19:59 WBC (3.8-10.6) k/uL RBC (4.30-5.90) m/uL Hgb (13.0-17.5) gm/dL Hct (39.0-53.0) % MCHC (31.0-37.0) g/dL RDW (11.5-15.5) % Neutrophils # (1.3-7.7) k/uL Sodium (137-145) mmol/L Chloride (98-107) mmol/L BUN (9-20) mg/dL Creatinine (0.66-1.25) mg/dL Glucose (74-99) mg/dL POC Glucose (mg/dL) 174 H 147 H 162 H (75-99) mg/dL ALT (4-49) U/L Total Protein (6.3-8.2) g/dL Albumin (3.5-5.0) g/dL 06/24/20 06/24/20 06/24/20 Range/Units 00:00 06:05 09:23 WBC 11.2 H (3.8-10.6) k/uL RBC 3.33 L (4.30-5.90) m/uL Hgb 9.3 L (13.0-17.5) gm/dL Hct 32.2 L (39.0-53.0) % MCHC 29.0 L (31.0-37.0) g/dL RDW 15.9 H (11.5-15.5) % Neutrophils # 9.5 H (1.3-7.7) k/uL Sodium (137-145) mmol/L Chloride (98-107) mmol/L BUN (9-20) mg/dL Creatinine (0.66-1.25) mg/dL Glucose (74-99) mg/dL POC Glucose (mg/dL) 131 H 167 H (75-99) mg/dL ALT (4-49) U/L Total Protein (6.3-8.2) g/dL Albumin (3.5-5.0) g/dL 06/24/20 Range/Units 09:23 WBC (3.8-10.6) k/uL RBC (4.30-5.90) m/uL Hgb (13.0-17.5) gm/dL Hct (39.0-53.0) % MCHC (31.0-37.0) g/dL RDW (11.5-15.5) % Neutrophils # (1.3-7.7) k/uL Sodium 154 H (137-145) mmol/L Chloride 120 H (98-107) mmol/L BUN 71 H (9-20) mg/dL Creatinine 3.09 H (0.66-1.25) mg/dL Glucose 163 H (74-99) mg/dL POC Glucose (mg/dL) (75-99) mg/dL ALT 56 H (4-49) U/L Total Protein 6.1 L (6.3-8.2) g/dL Albumin 3.0 L (3.5-5.0) g/dL
[2020-06-24 11:58] LABS: Glucose,Whole Blood 148 mg/dL (75-99)
--- NOTE | 2020-06-24 12:04 | PN ---
PROGRESS NOTE Patient is seen for followup for hypernatremia. His serum sodium has improved. He is currently maintained on D5W. Sodium is the same actually at 154 today as compared to yesterday. The D5W was decreased yesterday at 75 mL an hour. I will increase it back to 100 mL an hour. PHYSICAL EXAMINATION: On examination today, patient remains barely responsive. He does open his eyes, but does not communicate. Blood pressure was 142/60, heart rate 70 per minute. He is afebrile. EXAMINATION OF THE HEART: S1, S2. EXAMINATION OF THE LUNGS: Decreased breath sounds at bases. Abdomen is soft, nontender. Examination of lower extremities shows no evidence of edema. [employer]INK[employer] exam shows patient does not communicate much, barely opens his eyes to verbal stimuli. LABS: Labs show sodium 154, potassium 4.4, BUN 71, creatinine 3.09. ASSESSMENT: 1. Acute kidney injury with significant increase in creatinine over 24 hours. We will flush the Kim catheter and make sure there is no retention. Increase the D5W back to 100 mL an hour. No nephrotoxic medications on board at this time. The Zestril will be discontinued since his creatinine has increased significantly. 2. History of recent cerebrovascular accident. 3. Acute blood loss anemia from gastrointestinal bleed, status post EGD which showed clean based antral ulcer with no active bleeding. 4. Status post acute non ST elevation myocardial infarction. 5. Cardiomyopathy, ejection fraction 30% to 35%. 6. Encephalopathy with no significant improvement. PLAN: Increase D5W back to 100 mL an hour, flush Kim catheter and repeat labs in a.m. MMODL / IJN: [id number] /
--- NOTE | 2020-06-24 13:04 | P.PN ---
Subjective Progress Note Date: 06/24/20 06/23/2020: Patient continues to be very severely encephalopathic, in fact worsen the other day. Patient not able to answer any questions. Patient is restless, moving his arms randomly at times. 06/22/2020: Patient was seen for a follow-up. Patient initially seen by Dr. Sonny Posadas. Please refer to his note for details. Patient's and son was also present today. Patient was brought to the [facility] for difficulty breathing, which was acute onset. Patient was having disorientation, combative behavior, couldn't speak, not eating. Patient continues to be encephalopathic, delirious, restless. Patient has history of old left parietal CVA on 05/07/2020. After staying in hospital for a week, patient was [facility] to [facility] where he stayed for couple weeks and was discharged home on 05/27/2020. Patient was able to walk with a walker, could talk fine until the symptoms happened just prior to arrival as mentioned above. Patient was noted to have elevated LFTs. Also has acute kidney injury, respiratory issues and anemia. He had undergone EGD which is negative. Patient had a computed tomography scan of head which was negative. No signs of a new CVA. Patient has developed hypernatremia with sodium 162, potassium 3.8, BUN is 62, creatinine 1.64. Patient also has anemia with hemoglobin 10.3, platelets 191. Patient's hemoglobin A1c 5.2 on 06/12/2020. Patient's AST is 102, ALT 95. Ammonia is normal. Troponins are mildly elevated. B12 352, folate 5.9. TSH is normal. Stool occult blood negative. Objective - Vital Signs Vital signs: Vital Signs Temp 98.2 F 06/24/20 12:00 Pulse 75 06/24/20 12:00 Resp 20 06/24/20 12:00 BP 125/67 06/24/20 12:00 Pulse Ox 100 06/24/20 12:00 Intake & Output 06/23/20 06/24/20 06/24/20 18:59 06:59 18:59 Output Total 200 160 Balance -200 -160 Weight 107.9 kg 104 kg Output: Urine 200 160 Other: Voiding Method Indwelling Catheter Indwelling Catheter Indwelling Catheter - Exam On examination patient is an elderly male, who appears very restless, encephalopathic, keeps his eyes closed. Patient does not respond to calling his name. patient has right arm on his side, but is holding his left arm and hand under his left side of the head, and would not let it come out until repeated attempts. No obvious seizure activity noted. Patient gaze at times appears to be to the left looking at the window. Pupils are round and reacting. Other times the gaze appears somewhat in the midline. Visual arteaga could not be tested. Face is symmetric. No obvious droopiness. Patient slightly withdraws his arm to painful stimuli, but does not move his lower extremities to any painful stimuli. Reflexes are 2+ at the biceps, 1+ at the brachioradialis, 1 at the knees, absent ankles and plantars are flat. Tone is equal in the arms. Patient at the and was able to hold his right arm up, and slowly brought them down, with no obvious asymmetry.cerebellar functions could not be tested, gait could not be tested. Sensations cannot be tested except for painful stimuli as above. - Labs CBC & Chem 7: 06/24/20 09:23 06/24/20 09:23 Labs: Abnormal Lab Results - Last 24 Hours (Table) 06/23/20 06/23/20 06/24/20 Range/Units 17:28 19:59 00:00 WBC (3.8-10.6) k/uL RBC (4.30-5.90) m/uL Hgb (13.0-17.5) gm/dL Hct (39.0-53.0) % MCHC (31.0-37.0) g/dL RDW (11.5-15.5) % Neutrophils # (1.3-7.7) k/uL Sodium (137-145) mmol/L Chloride (98-107) mmol/L BUN (9-20) mg/dL Creatinine (0.66-1.25) mg/dL Glucose (74-99) mg/dL POC Glucose (mg/dL) 147 H 162 H 131 H (75-99) mg/dL ALT (4-49) U/L Total Protein (6.3-8.2) g/dL Albumin (3.5-5.0) g/dL 06/24/20 06/24/20 06/24/20 Range/Units 06:05 09:23 09:23 WBC 11.2 H (3.8-10.6) k/uL RBC 3.33 L (4.30-5.90) m/uL Hgb 9.3 L (13.0-17.5) gm/dL Hct 32.2 L (39.0-53.0) % MCHC 29.0 L (31.0-37.0) g/dL RDW 15.9 H (11.5-15.5) % Neutrophils # 9.5 H (1.3-7.7) k/uL Sodium 154 H (137-145) mmol/L Chloride 120 H (98-107) mmol/L BUN 71 H (9-20) mg/dL Creatinine 3.09 H (0.66-1.25) mg/dL Glucose 163 H (74-99) mg/dL POC Glucose (mg/dL) 167 H (75-99) mg/dL ALT 56 H (4-49) U/L Total Protein 6.1 L (6.3-8.2) g/dL Albumin 3.0 L (3.5-5.0) g/dL 06/24/20 Range/Units 11:56 WBC (3.8-10.6) k/uL RBC (4.30-5.90) m/uL Hgb (13.0-17.5) gm/dL Hct (39.0-53.0) % MCHC (31.0-37.0) g/dL RDW (11.5-15.5) % Neutrophils # (1.3-7.7) k/uL Sodium (137-145) mmol/L Chloride (98-107) mmol/L BUN (9-20) mg/dL Creatinine (0.66-1.25) mg/dL Glucose (74-99) mg/dL POC Glucose (mg/dL) 148 H (75-99) mg/dL ALT (4-49) U/L Total Protein (6.3-8.2) g/dL Albumin (3.5-5.0) g/dL Assessment and Plan Assessment: * Altered mental status likely due to multifactorial: Metabolic encephalopathy (elevated LFT's, JAYE) and anemia. Hypernatremia, improved to 154 (from 162 on 06/22/2020). * Worsening of right sided weakness could be due to underlying infection. * History of left parietal ischemic stroke in May 2020 with residual right-sided weakness * Acute kidney injury, appear to be getting worse * Anemia * Acute hypoxic respiratory failure most likely aspiration at time of EGD. * Diabetes type 2 * Non-STEMI * Hypertension * X tobacco use Plan: Patient is currently not able to take any medication by oral route. Patient has recent history of stroke. We will change aspirin from order to rectal 300 mg daily. Patient previously had GI bleed, therefore cannot take Plavix. Per cardiology to hold the statins because of elevated liver function and once his liver function improves recommend to restart Lipitor 40 mg daily. Patient not able to take anything by mouth for last few days. CT of the head that was repeated since his initial presentation was reported as cerebral atrophy. Old left parietal centrum semiovale lacunar infarct. No change compared to old exam. No acute abnormality. ammonia level <9 (normal). Repeat AST: 71 and ALT: 124 TSH level: 4.026 (normal). B12 352, folate is low 5.9. Continue Vitamin B12 1000mcg daily and folic acid 1mg daily. Gastroenterology and cardiology are on board. EEG revealed background slowing of moderate to severe degree. This is suggestive of generalized cerebral dysfunction as can be seen with toxic metabolic encephalopathy due to diffuse structural brain abnormality. No epileptiform activity was seen. Family considering hospice care.
[2020-06-24 15:54] VITALS: TEMP 97.5
[2020-06-24] MEDS: IPRATROPIUM-ALBUTEROL 3 ML NEB INHALATION PRN (16:35)
[2020-06-24] MEDS: LIDOCAINE 5% PATCH TOPICAL SCH (16:57)
--- NOTE | 2020-06-24 17:44 | P.PN ---
Subjective Progress Note Date: 06/24/20 Patient is obtunded and responsive to painful stimuli. He has wet lung sounds with gurgling across the room. Objective - Vital Signs Vital signs: Vital Signs Temp 97.5 F L 06/24/20 15:53 Pulse 57 L 06/24/20 16:47 Resp 16 06/24/20 15:53 BP 109/73 06/24/20 15:53 Pulse Ox 100 06/24/20 15:53 Intake & Output 06/23/20 06/24/20 06/24/20 18:59 06:59 18:59 Intake Total 0 Output Total 200 160 300 Balance -200 -160 -300 Weight 107.9 kg 104 kg Intake: Oral 0 Output: Urine 200 160 300 Other: Voiding Method Indwelling Catheter Indwelling Catheter Indwelling Catheter - Exam General: The patient is very confused and not following simple commands Eye: there is normal conjunctiva bilaterally. Neck: The neck is supple, there is no JVD. Cardiovascular: Normal S1-S2, no S3-S4, no murmurs. Respiratory: Lungs with diffuse rhonchi Gastrointestinal: Abdomen is soft, nontender Musculoskeletal: There is no pedal edema. Skin: Skin is warm and dry - Labs CBC & Chem 7: 06/24/20 09:23 06/24/20 09:23 Labs: Abnormal Lab Results - Last 24 Hours (Table) 06/23/20 06/24/20 06/24/20 Range/Units 19:59 00:00 06:05 WBC (3.8-10.6) k/uL RBC (4.30-5.90) m/uL Hgb (13.0-17.5) gm/dL Hct (39.0-53.0) % MCHC (31.0-37.0) g/dL RDW (11.5-15.5) % Neutrophils # (1.3-7.7) k/uL Sodium (137-145) mmol/L Chloride (98-107) mmol/L BUN (9-20) mg/dL Creatinine (0.66-1.25) mg/dL Glucose (74-99) mg/dL POC Glucose (mg/dL) 162 H 131 H 167 H (75-99) mg/dL ALT (4-49) U/L Total Protein (6.3-8.2) g/dL Albumin (3.5-5.0) g/dL 06/24/20 06/24/20 06/24/20 Range/Units 09:23 09:23 11:56 WBC 11.2 H (3.8-10.6) k/uL RBC 3.33 L (4.30-5.90) m/uL Hgb 9.3 L (13.0-17.5) gm/dL Hct 32.2 L (39.0-53.0) % MCHC 29.0 L (31.0-37.0) g/dL RDW 15.9 H (11.5-15.5) % Neutrophils # 9.5 H (1.3-7.7) k/uL Sodium 154 H (137-145) mmol/L Chloride 120 H (98-107) mmol/L BUN 71 H (9-20) mg/dL Creatinine 3.09 H (0.66-1.25) mg/dL Glucose 163 H (74-99) mg/dL POC Glucose (mg/dL) 148 H (75-99) mg/dL ALT 56 H (4-49) U/L Total Protein 6.1 L (6.3-8.2) g/dL Albumin 3.0 L (3.5-5.0) g/dL Assessment and Plan Assessment: This is a 75-year-old male with very complex past medical history noted below significant for recent CVA who presented to the hospital with altered mental status. Patient was evaluated in the ER and admitted to the hospital for further management of his medical problems noted below. He should've had a prolonged and complicated hospital course. His overall condition did not improve. Goals of care discussed with his and son on many occasions and they eventually decided to pursue comfort care/hospice. Hospice will be set up at home with possible discharge tomorrow. 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% Ischemic Cardiomyopathy Acute Kidney Injury, improving Encephalopathy, unspecified, multifactorial History of CVA Hypertension, essential Diabetes mellitus type 2 with hyperglycemia Mild hyperkalemia Weakness Right-sided pleural effusion and pneumonia of unspecified organism Hypernatremia DVT prophylaxis is contraindicated due to acute blood loss anemia and GI bleed DO NOT RESUSCITATE/DO NOT INTUBATE
[2020-06-24] MEDS ORDERED: SCOPOLAMINE 1.5MG/72HR PATCH TRANSDERM SCH (17:45)
[2020-06-24 18:27] LABS: Glucose,Whole Blood 154 mg/dL (75-99)
[2020-06-24 23:52] LABS: Glucose,Whole Blood 136 mg/dL (75-99)
[2020-06-25 05:53] LABS: Glucose,Whole Blood 123 mg/dL (75-99)
[2020-06-25] MEDS: INSULIN ASPART (NovoLOG) 100 UNIT/ML VIAL SQ SCH (05:59)
[2020-06-25] MEDS: METOPROLOL TARTRATE 5 MG/5 ML VIAL IVP SCH (05:59)
[2020-06-25 08:37] VITALS: BP 114/81; PULSE 132; RESP 12
--- NOTE | 2020-06-25 08:47 | P.DS ---
Providers Date of admission: 06/12/20 14:51 Expected date of discharge: 06/25/20 Attending physician: Shannon Galvan MD Consults: 06/12/20 14:48 Consult Physician Routine Consulting Provider: Tank Posadas Consult Reason/Comments: Critical care management Do you want consulting provider notified?: Yes 06/19/20 12:40 Consult Physician Routine Consulting Provider: Sonny Posadas Consult Reason/Comments: ams Do you want consulting provider notified?: Yes 06/19/20 14:03 Consult Physician Stat Consulting Provider: Scott Harrison Consult Reason/Comments: shortness of breath Do you want consulting provider notified?: Yes 06/22/20 06:26 Consult Physician Stat Consulting Provider: Skylar Finn Consult Reason/Comments: elevated sodium Do you want consulting provider notified?: Already Contacted 06/22/20 07:46 Consult Physician Stat Consulting Provider: Leighton Munguia Consult Reason/Comments: PICC Line clearance Do you want consulting provider notified?: Yes Primary care physician: Liza Buck MD Hospital Course: Patient will be discharged home with hospice This is a 75-year-old male with very complex past medical history noted below significant for recent CVA who presented to the hospital with altered mental status. Patient was evaluated in the ER and admitted to the hospital for further management of his medical problems noted below. Patient had a prolonged and complicated hospital course. His overall condition did not improve. Goals of care discussed with his and son on many occasions and they eventually decided to pursue comfort care/hospice. Hospice set up at home. 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% Ischemic Cardiomyopathy Acute Kidney Injury, improving Encephalopathy, unspecified, multifactorial History of CVA Hypertension, essential Diabetes mellitus type 2 with hyperglycemia Mild hyperkalemia Weakness Right-sided pleural effusion and pneumonia of unspecified organism Hypernatremia Patient Condition at Discharge: Poor Plan - Discharge Summary Discharge Rx Participant: No New Discharge Prescriptions: Continue Aspirin 81 mg PO DAILY chew Discontinued Meloxicam [Mobic] 15 mg PO DAILY PRN PRN Reason: BACK PAIN metFORMIN HCL [Glucophage] 500 mg PO DAILY lisinopriL [Zestril] 20 mg PO DAILY tab Sennosides [Senna] 8.6 mg PO BID PRN PRN Reason: Constipation HYDROcodone/APAP 10-325MG [[place] 10-325] 1 tab PO Q6H PRN PRN Reason: Severe Pain Discharge Medication List Aspirin 81 mg PO DAILY chew 05/12/20 [Rx] Follow up Appointment(s)/Referral(s): Liza Buck MD [Primary Care Provider] - 1-2 days Activity/Diet/Wound Care/Special Instructions: Glucometer and supplies are $3.61 and at [facility] pharmacy, send delivery request when pt is ready for d/c. Discharge Disposition: HOME WITH HOSPICE
[2020-06-25] MEDS ORDERED: ASPIRIN 300 MG SUPP RECTAL SCH (09:00)
[2020-06-25] MEDS: CYANOCOBALAMIN 500 MCG TAB PO SCH (12:00)
[2020-06-25] MEDS: FOLIC ACID 1 MG TAB PO SCH (12:00)
[2020-06-25] MEDS: lisinopriL 5 MG TAB PO SCH (12:01)
[2020-06-25] MEDS: LIDOCAINE 5% PATCH TOPICAL SCH (12:01)
[2020-06-25] MEDS: METOPROLOL TARTRATE 25 MG TAB PO SCH (12:01)
--- NOTE | 2020-06-25 18:14 | PN ---
PROGRESS NOTE The patient is seen for followup for hypernatremia. His mentation remains quite impaired. Sodium had improved to 154 yesterday. PHYSICAL EXAMINATION: On examination today, the patient is awake. He is not in any acute distress. Does not respond much. Blood pressure was 114/81, heart rate 120 per minute, he is afebrile. Examination of the heart S1, S2. Patient has rapid heart rate. Examination of lower extremities shows no evidence of edema. Abdomen is soft, nontender. LUNGS: Clear. 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 He does not communicate. No significant localized or focal motor deficits noted. LABS: No labs available from today. Lab from yesterday 06/24 showed sodium 154, potassium 4.4, BUN 71, creatinine 3.09. ASSESSMENT: 1. Acute kidney injury prerenal currently improved. 2. Hypernatremia, maintained on D5 water and improving. 3. Acute blood loss anemia from gastrointestinal bleed status post EGD with no active bleeding noted. 4. Status post acute non ST elevation myocardial infarction. 5. Cardiomyopathy, EF 30-35 percent. PLAN: Continue with the D5W. Repeat labs if no plans for hospice. MMODL / IJN: [id number] /
== END 2020-06-25 12:19 | disposition hospice, home (50) | DRG 280 ==
LOC: EC 11:25 → 2SICU 14:51 → 3SCARD 06-13 15:33 → 2SICU 06-25 12:12 → 3SCARD 06-25 12:15
PROVIDERS: ADMIT Internal Medicine; ATTEND Internal Medicine
PROC: 30233N1 Transfusion of Nonautologous Red Blood Cells into Peripheral Vein, Percutaneous Approach (ICD-10-PCS; 2020-06-12)
PROC: 5A09357 Assistance with Respiratory Ventilation, Less than 24 Consecutive Hours, Continuous Positive Airway Pressure (ICD-10-PCS; 2020-06-19)
PROC: 0DB68ZX Excision of Stomach, Via Natural or Artificial Opening Endoscopic, Diagnostic (ICD-10-PCS; principal; 2020-06-19 07:30)
PROC: 02HV33Z Insertion of Infusion Device into Superior Vena Cava, Percutaneous Approach (ICD-10-PCS; 2020-06-23)
DX: I21.4 Non-ST elevation (NSTEMI) myocardial infarction (principal); K25.4 Chronic or unspecified gastric ulcer with hemorrhage; G93.41 Metabolic encephalopathy; I50.23 Acute on chronic systolic (congestive) heart failure; J96.01 Acute respiratory failure with hypoxia; J18.9 Pneumonia, unspecified organism; D62 Acute posthemorrhagic anemia; I69.351 Hemiplegia and hemiparesis following cerebral infarction affecting right dominant side; N17.9 Acute kidney failure, unspecified; E87.0 Hyperosmolality and hypernatremia; G93.40 Encephalopathy, unspecified; K92.2 Gastrointestinal hemorrhage, unspecified; I85.00 Esophageal varices without bleeding; K92.1 Melena; Z51.5 Encounter for palliative care; Z66 Do not resuscitate; I11.0 Hypertensive heart disease with heart failure; E86.1 Hypovolemia; E11.40 Type 2 diabetes mellitus with diabetic neuropathy, unspecified; E11.42 Type 2 diabetes mellitus with diabetic polyneuropathy; I25.5 Ischemic cardiomyopathy; I69.321 Dysphasia following cerebral infarction; Z79.84 Long term (current) use of oral hypoglycemic drugs; Z79.82 Long term (current) use of aspirin; Z83.3 Family history of diabetes mellitus; Z80.0 Family history of malignant neoplasm of digestive organs; Z87.891 Personal history of nicotine dependence; I95.9 Hypotension, unspecified; M48.00 Spinal stenosis, site unspecified; K59.00 Constipation, unspecified; K21.9 Gastro-esophageal reflux disease without esophagitis; E11.65 Type 2 diabetes mellitus with hyperglycemia; E87.5 Hyperkalemia; E78.5 Hyperlipidemia, unspecified; I48.91 Unspecified atrial fibrillation; I95.89 Other hypotension; K44.9 Diaphragmatic hernia without obstruction or gangrene; Z79.1 Long term (current) use of non-steroidal anti-inflammatories (NSAID); G89.29 Other chronic pain; E87.8 Other disorders of electrolyte and fluid balance, not elsewhere classified; Z79.899 Other long term (current) drug therapy
CPT/HCPCS: 36415; 36573; 36600; 43239; 70450; 70496; 70498; 71045; 71046; 80048; 80053; 81001; 82140; 82272; 82607; 82728; 82746; 82805; 83036; 83540; 83550; 83735; 83880; 84145; 84295; 84443; 84466; 84484; 85025; 85027; 85045; 85379; 85610; 85730; 86850; 86900; 86901; 86920; 87086; 87635; 88305; 93005; 93306; 94640; 94660; 94760; 95816; 96360; 99291